=== PATIENT | female | born 1955 | race Caucasian/White ===

== ENCOUNTER 2021-05-04 09:37 | Inpatient (IN) | payer MEDICARE, SELFPAY ==
[2021-05-04] VITALS (43 sets, daily range): BP systolic 76–124; BP diastolic 42–68; PULSE 53–79; RESP 14–26; TEMP 36.5–37.2; O2SAT 77–98; BMI 32.8
--- NOTE | 2021-05-04 09:58 | XR_ITS ---
WS: [id number] PORTABLE CHEST HISTORY: hypoxia COMPARISON: None available. Single lead LEFT subclavian defibrillator. Minimal linear areas of subsegmental atelectasis at the lung bases. No pneumonia. Normal vasculature. No pleural effusion or pneumothorax. Cardiac size: Normal. Mediastinum/Aorta: Mild atherosclerosis aorta. Mild osteopenia. XR/XR chest 1V portable [id number] IMPRESSION: Minimal bibasilar areas of subsegmental atelectasis. No pneumonia.
--- NOTE | 2021-05-04 09:59 | ED_ITS ---
Documented by User: MARLEEN Cedillo 05/04/21 10:41 HPI - SOB/Dyspnea General: Chief Complaint: Shortness of Breath/Dyspnea Stated Complaint: POSSIBLE COVID Time Seen by Provider: 05/04/21 09:37 Source: patient and EMS Mode of arrival: EMS Limitations: no limitations History of Present Illness: HPI Narrative: Patient is a 66-year-old female with a history of MS, obesity, and CAD/defibrillator here via EMS for concerns of shortness of breath, cough, and concerns for COVID. EMS states when they arrived patient was satting in the low 80s at room air. Patient tells me about 3 days ago she tripped and fell in her home and because of the MS was too weak to get up on her own. She states she was on the ground for approximately 24 hours until a family member found her and called the fire department to help get her up. They state since that time patient has had a worsening cough and shortness of breath thus decided to call EMS today. She has had positive COVID exposure. She is unvaccinated for COVID. Patient states her MS causes her to have chronic pain. She is reporting pain all over but states this is baseline for her MS. She denies any new pain or injury that she sustained during the recent fall. She has not been running fevers. Denies headache or diarrhea. Associated symptoms: Reports chest congestion; Deny abdominal pain, chest pain, dizziness, fever(s), hemoptysis, lightheadedness, nausea, palpitations, syncope or vomiting Review of Systems Const: Denies: fever(s) or chills Eyes: Denies: change in vision ENMT: Denies: throat pain, odynophagia, nasal discharge or nasal congestion Card: Reports: dyspnea on exertion; Denies: chest pain, palpitations, irregular heart rhythm, edema, lightheadedness, syncope or pre-syncope Resp: Reports: dyspnea, productive cough and chest congestion; Denies: wheezing or hemoptysis GI: Denies: abdominal pain, nausea, vomiting or diarrhea : Denies: flank pain or dysuria Musc: Reports: other (chronic pain) Skin/Breast: Denies: rash Neuro: Denies: headache(s), dizziness or confusion Physical Exam Const: COMMON NORMALS: patient oriented x3, no limitations and alert GENERAL APPEARANCE: cooperative and in distress (pt in respiratory failure with O2 sats in the 80s on RA) NUTRITIONAL APPEARANCE: obese ORIENTATION/CONSCIOUSNESS: Yes awake, Yes oriented to person, Yes oriented to place and Yes oriented to time HENMT: COMMON NORMALS: normocephalic and atraumatic HEAD & SCALP: normal to inspection, normocephalic and atraumatic Resp: COMMON NORMALS: normal respiratory effort EFFORT & INSPECTION: Yes Actively coughing (productive sounding cough) AUSCULTATION: rhonchi and diminished lung sounds Cardio: COMMON NORMALS: regular rate and regular rhythm RATE: regular rate RHYTHM: regular rhythm GI: COMMON NORMALS: Normal to inspection, nondistended, normoactive bowel sounds present, Soft to palpation and no masses INSPECTION: Yes normal to inspection PALPATION: Yes Soft to palpation and No Tenderness to palpation present (GI) Extremity: COMMON NORMALS: full ROM, capillary refill normal, no clubbing, cyanosis or edema, no calf tenderness and no pedal edema GENERAL: Yes normal exam except as noted Neuro: JEROMY COMA SCALE: document GCS findings Jeromy coma scale eye opening: Spontaneous Jeromy coma scale verbal response: Orientated Jeromy coma scale motor response: Obey commands Jeromy coma scale total score: 15 COMMON NORMALS: patient oriented x3 SENSORIUM/ORIENTATION: Yes alert, Yes oriented to person, Yes oriented to place and Yes oriented to time Skin: COMMON NORMALS: no rashes or lesions noted GENERAL SKIN EXAM: no rashes or lesions noted TRAUMA: no lacerations or abrasions Course Vital Signs: Vital signs: Vital Signs Temperature 99.0 F 05/04/21 10:06 Pulse Rate 73 05/04/21 10:55 Respiratory Rate 14 05/04/21 10:06 Blood Pressure 86/49 05/04/21 10:55 Pulse Oximetry 96 05/04/21 10:55 MDM - SOB/Dyspnea MDM Narrative: Medical decision making narrative: Care will be transferred to Dr. Cardoso as patient will be an admit. Lab Data: Labs: Lab Results 05/04/21 05/04/21 10:31 10:50 WBC 3.8 10^3/uL L 10^ 3/uL (4.0-10.0) RBC 4.30 10^6/uL 10^6 /uL (4.1-5.3) Hgb 12.4 g/dL g/dL (11.5-15.3) Hct 38.0 % % (37.0-47.0) MCV 88.4 fl fl (81-99) MCH 28.8 pg pg (28.0-34.0) MCHC 32.6 g/dL g/dL (30.0-36.0) RDW 14.0 % % (12.1-15.1) Plt Count 132 10^3/cmm 10^3 /cmm (130-400) MPV 11.1 fL H fL (7.4-10.4) Neut % (Auto) 85.0 % % Lymph % (Auto) 8.4 % % [place] % (Auto) 5.5 % % Eos % (Auto) 0.0 % % Baso % (Auto) 0.3 % % Neut # (Auto) 3.24 10^3/uL 10^3 /uL (1.8-7.7) Lymph # (Auto) 0.3 10^3/uL L 10^ 3/uL (0.8-4.8) [place] # (Auto) 0.2 10^3/uL 10^3/ uL (0.2-0.9) Eos # (Auto) 0.0 10^3/uL 10^3/ uL (0.0-0.8) Baso # (Auto) 0.0 10^3/uL 10^3/ uL (0.0-0.1) Nucleated RBC % (a uto) 0 % % Nucleated RBCs # 0.0 /100WBC /100W BC SARS-CoV-2 Ag (Rap id) Positive H (Negative) Imaging Data^: CXR: Radiologist's impression: [address] [address]CW[facility] ReportSigned Patient: Darryl Ricks #: [id number]: 4Acct#:[id number]/Sex: 66 / FADM Date: 05/04/21Loc: ERRoom/Bed:Attending Dr: Ordering Provider/Ordering MD: Asuncion Bustamante Date of Service: 05/04/21 Procedure(s): XR chest 1V portable [id number] Accession Number(s): [id number] Report Number: [id number] WS: [id number] PORTABLE CHEST HISTORY: hypoxia COMPARISON: None available. Single lead LEFT subclavian defibrillator. Minimal linear areas of subsegmental atelectasis at the lung bases. No pneumonia. Normal vasculature. No pleural effusion or pneumothorax. Cardiac size: Normal. Mediastinum/Aorta: Mild atherosclerosis aorta. Mild osteopenia. XR/XR chest 1V portable [id number] IMPRESSION: Minimal bibasilar areas of subsegmental atelectasis. No pneumonia. Dictated By:Kati Hurst DOSigned By:Kati Hurst DOSigned Date/Time:05/04/21 1036DD/ 1035 Discharge Plan Discharge Patient Disposition: Admitted As Inpatient Clinical Impression: COVID-19, Acute respiratory failure with hypoxia Condition: Stable Coding Level of Care Code ED Rubber Flap Tuber Machine Operator for Chg Fwd Exam Comprehensive Documented by User: Karel Cardoso DO 05/04/21 11:48 HPI - SOB/Dyspnea General: Chief Complaint: Shortness of Breath/Dyspnea Stated Complaint: POSSIBLE COVID Time Seen by Provider: 05/04/21 09:37 History of Present Illness: HPI Narrative: 66 yo presents emergency room complaining of cough and shortness of breath. Initially seen by MARLEEN Cedillo. Nursing staff reported to me that her initial oxygen saturation was 86 to 87% on room air she improved to low 90s on 3 L by nasal cannula into the mid 90s by 5 L by nasal cannula. Patient has had progressive cough and weakening over the last 7 days, known Covid exposure approximately 14 days ago, 3 days ago she fell and spent nearly 24 hours on the floor unable to get up until her sister found her EMS was called they helped her up and she PRC at the scene. She does have MS although she is not being treated at this time and complains of systemic myalgias. She denies any particular pain or ache from the fall and she denies loss of consciousness at that time. She is a nonproductive cough and some loose stools. MD elicited complaint: shortness of breath and cough Pertinent past history: other (Multiple sclerosis) Onset (ago): day(s) Timing: constant Severity: moderate Exacerbating factors: exertion, movement and coughing Relieving factors: oxygen and rest Known history of: other (Multiple sclerosis) Associated symptoms: Reports chest congestion, cough, extremity pain and myalgias; Deny abdominal pain, chest pain, diaphoresis, dizziness, fever(s), hemoptysis, lightheadedness, nausea, orthopnea, palpitations, paresthesias, polydipsia, polyuria, rash, sense of impending doom, syncope or vomiting Treatment prior to arrival: none Review of Systems Const: Denies: fever(s) or diaphoresis ENMT: Denies: throat pain, ear or mastoid pain, nasal discharge or nasal congestion Card: Denies: chest pain, palpitations, lightheadedness, syncope or orthopnea Resp: Reports: dyspnea, productive cough and chest congestion; Denies: hemoptysis GI: Denies: abdominal pain, nausea or vomiting : Denies: flank pain, difficulty voiding, dysuria, urinary frequency or urinary urgency Musc: Reports: extremity pain Skin/Breast: Denies: rash or pruritus Neuro: Denies: dizziness Endo: Denies: polyuria or polydipsia Physical Exam Const: COMMON NORMALS: no acute distress GENERAL APPEARANCE: cooperative and comfortable ORIENTATION/CONSCIOUSNESS: Yes awake, Yes oriented to person, Yes oriented to place and Yes oriented to time HENMT: COMMON NORMALS: normocephalic, atraumatic and hearing grossly normal bilaterally HEAD & SCALP: normocephalic and atraumatic Neck/C-Spine: COMMON NORMALS: no JVD Resp: AUSCULTATION: crackles and wheezes Cardio: COMMON NORMALS: no JVD, regular rate, regular rhythm and No murmurs present (Cardio) RATE: regular rate RHYTHM: regular rhythm GI: COMMON NORMALS: Soft to palpation and No hepatosplenomegaly present AUSCULTATION: Yes normoactive bowel sounds PALPATION: Yes Soft to palpation, No Tenderness to palpation present (GI), No Guarding due to palpation present (GI) and Yes No hepatosplenomegaly present Extremity: COMMON NORMALS: normal to inspection, capillary refill normal, no clubbing, cyanosis or edema, no calf tenderness and no pedal edema Neuro: SENSORIUM/ORIENTATION: Yes oriented to person, Yes oriented to place and Yes oriented to time Skin: COMMON NORMALS: no rashes or lesions noted GENERAL SKIN EXAM: no rashes or lesions noted Course Vital Signs: Vital signs: Vital Signs Temperature 99.0 F 05/04/21 10:06 Pulse Rate 73 05/04/21 10:55 Respiratory Rate 14 05/04/21 10:06 Blood Pressure 86/49 05/04/21 10:55 Pulse Oximetry 96 05/04/21 10:55 MDM - SOB/Dyspnea MDM Narrative: Medical decision making narrative: Care assumed from Asuncion Bustamante see notes above. Agree with her assessment and plan will admit for Covid pneumonitis with acute respiratory failure start remdesivir and dexamethasone discussed with hospitalist. Reviewed labs imaging and EKG in the chart. Lab Data: Labs: Lab Results 05/04/21 05/04/21 10:31 10:50 WBC 3.8 10^3/uL L 10^ 3/uL (4.0-10.0) RBC 4.30 10^6/uL 10^6 /uL (4.1-5.3) Hgb 12.4 g/dL g/dL (11.5-15.3) Hct 38.0 % % (37.0-47.0) MCV 88.4 fl fl (81-99) MCH 28.8 pg pg (28.0-34.0) MCHC 32.6 g/dL g/dL (30.0-36.0) RDW 14.0 % % (12.1-15.1) Plt Count 132 10^3/cmm 10^3 /cmm (130-400) MPV 11.1 fL H fL (7.4-10.4) Neut % (Auto) 85.0 % % Lymph % (Auto) 8.4 % % [place] % (Auto) 5.5 % % Eos % (Auto) 0.0 % % Baso % (Auto) 0.3 % % Neut # (Auto) 3.24 10^3/uL 10^3 /uL (1.8-7.7) Lymph # (Auto) 0.3 10^3/uL L 10^ 3/uL (0.8-4.8) [place] # (Auto) 0.2 10^3/uL 10^3/ uL (0.2-0.9) Eos # (Auto) 0.0 10^3/uL 10^3/ uL (0.0-0.8) Baso # (Auto) 0.0 10^3/uL 10^3/ uL (0.0-0.1) Nucleated RBC % (a uto) 0 % % Nucleated RBCs # 0.0 /100WBC /100W BC SARS-CoV-2 Ag (Rap id) Positive H (Negative) Discharge Plan Discharge Patient Disposition: Admitted As Inpatient Clinical Impression: COVID-19, Acute respiratory failure with hypoxia Condition: Stable Coding Level of Care Code ED Rubber Flap Tuber Machine Operator for [place] Deeg Fwd Exam Comprehensive
[2021-05-04] MEDS: sodium chloride 0.9% 500 ML 999 ML IV (10:47)
--- NOTE | 2021-05-04 10:53 | PC.PHAR ---
pt brought in her medication bottles-pt states she takes her rosuvastatin three times a week rx last filled jul 12 2020 90d/s for 10mg daily-notes are made in the pharmacy comments
[2021-05-04] MEDS: acetaminophen 1,000 MG/100 ML PIGGYBACK 400 MG IV (10:54)
[2021-05-04 11:07] LABS: Basophils % 0.3 %; Hemoglobin 12.4 g/dL (11.5-15.3); Lymphocytes # 0.3 10^3/uL (0.8-4.8); Lymphocytes % 8.4 %; Mean Corpuscular HGB Conc 32.6 g/dL (30.0-36.0); Mean Corpuscular Hemoglobin 28.8 pg (28.0-34.0); Mean Corpuscular Volume 88.4 fl (81-99); Mean Platelet Volume 11.1 fL (7.4-10.4); Monocytes # 0.2 10^3/uL (0.2-0.9); Monocytes % 5.5 %; Neutrophils # 3.24 10^3/uL (1.8-7.7); Nucleated Red Blood Cells % 0 %; Platelet Count 132 10^3/cmm (130-400); White Blood Count 3.8 10^3/uL (4.0-10.0)
[2021-05-04 11:10] LABS: SARS Covid-2 Antigen Positive (Negative)
[2021-05-04 11:22] LABS: ABG PCO2 36.3 mmHg (35-45); ABG PH Result 7.34 (7.35-7.45); Alveolar-Arterial Oxygen Gradi 4.1 mmHg (5-10); Arterial Blood Gas Hematocrit 35.7 % (37-47); Base Excess ABG -5.7 mmol/L (-2.0-2.0); Blood Gas Allen Test Pos; Blood Gas Operator Identificat BROMA; Blood Gas Sample Site Brachial, left; Blood Gas Sample Type Arterial; Carboxyhemoglobin 1.5 %THgb (0.4-20.1); HCO3 ABG 19.5 mmol/L (22-26); HGB O2 Sat 93.1 % (95-100); Ionized Calcium Level - ABG 1.1 mmol/L (1.1-1.4); Methemoglobin 0.8 % (0.4-1.5); Oxygen Device NC; Oxygen Saturation ABG 95.3; PO2 ABG 73.8 mmHg (80.0-100.0); Potassium Level - ABG 3.6 mmol/L (3.5-5.0); Total Hemoglobin 11.7 g/dL (12-16)
[2021-05-04 11:28] LABS: Lactic Sepsis W/Reflex 1.1 mmol/L (0.5-2.2)
[2021-05-04 11:41] LABS: NT Pro B Type Natriuretic Pept 406 pg/mL (0-125); Procalcitonin 0.34 ng/mL (0-0.5)
[2021-05-04 11:44] LABS: Bilirubin Urine Neg (Negative); Blood Urine 2+ (Negative); Glucose Urine UA Trace (Normal); Ketones Urine Negative (Negative); Nitrate Urine Negative (Negative); Protein Urine Trace (Negative); Specific Gravity, Urine 1.015 (1.005-1.030); Urine Appearance Clear (CLEAR); Urine Color Yellow (Yellow); Urobilinogen Urine Norm (Negative); pH Urine 5 (5-7)
[2021-05-04 11:45] LABS: Add Urine Microscopic? YES; Bacteria Urine 2+ /hpf; Hyaline Casts Urine 0-4 /lpf; Leukocyte Esterase Urine Negative (Negative); Other Casts Urine 5 /lpf; RBC Urine 0-4 /hpf (0-2)
[2021-05-04 11:46] LABS: Add Urine Culture? Yes; Squamous Epithelial Cell Urine 0-4 /hpf (0-5)
[2021-05-04 11:47] LABS: Potassium 4.9 mmol/L (3.5-5.1)
[2021-05-04 12:04] LABS: Alanine Aminotransferase 25 U/L (0-33); Albumin Level 3.3 g/dL (3.5-5.2); Alkaline Phosphatase 53 IU/L (35-105); Aspartate Amino Transferase 48 U/L (0-32); Blood Urea Nitrogen 52 mg/dL (8-23); C Reactive Protein 125.8 mg/L (0.0-4.9); Carbon Dioxide 18 mmol/L (22-29); Globulin 2.2 g/dL (1.3-4.6); Glomerular Filtration Rate 17.6 mL/min (90-130); Glucose 100 mg/dL (65-115); Total Bilirubin 0.2 mg/dL (0.15-1.2); Total Protein 5.5 g/dL (6.6-8.7)
[2021-05-04 12:06] LABS: Osmolality Calculated 292 mOsm/kg (285-295); Sodium 134 mmol/L (136-145)
[2021-05-04 12:07] LABS: Anion Gap 23.9 (5-19); Calcium 7.8 mg/dL (8.5-10.5); Chloride 97 mmol/L (98-107)
[2021-05-04 12:09] LABS: Creatine Phosphokinase 965 U/L (26-192)
[2021-05-04] MEDS: dexamethasone 10 mg/mL INJ 6 MG IVP (12:45)
[2021-05-04] MEDS: remdesivir 200 MG in sodium chloride 0.9% (100 ml) 60 ML 100 MG IV (12:56)
--- NOTE | 2021-05-04 13:30 | P.HP_ITS ---
Providers/Chief Complaint Admitting Physician: Zac Treviño Chief Complaint: POSSIBLE COVID History of Present Illness Pleasant 66-year-old lady with history of MS, CAD, prior history of 1 stent, history of cardiomyopathy, possibly ischemic, status post AICD implantation, usually with diffuse aches secondary to MS, tripped and fell at home, unable to get up for prolonged period of time, her sister called EMS to help her get up, but she declined at that time to go to the hospital. Has been having worsening body aches. Persistently weak. Came to the ER for evaluation today. Requiring 5 L of oxygen by nasal cannula on presentation, blood pressure low on presentation seven 6.42, received 1.5 L fluid boluses. Blood pressure still low, starting on low rate pressor, currently on 2 mcg/min. COVID-19 positive. Afebrile. WBC 3.8, hemoglobin 12.4, platelet 132,000, D-dimer 1. ABG 7.34/36.3/73.8 on 3 L, sodium 134, bicarb 18, anion gap 23.9, BUN 52, creatinine 2.7. AST 48, other liver parameters normal. Creatinine kinase 965. CRP 125.8. NT proBNP 106. Albumin 3.3. Urine with 0-4 RBC, 10-15 WBC, 0-4 SEC's, hyaline cast. Chest x-ray with minimal bibasilar areas of subsegmental atelectasis, no obvious pneumonia. Reports she is hungry. Reports she has not eaten much in the last several days. Review of Systems Const: Reports: body aches, fatigue, malaise and other (Brief mild headache resolved); Denies: fever(s), chills or change in appetite (But no oral intake recently. ) Eyes: Denies: change in vision or eye redness ENMT: Denies: throat pain, oral sores or ear or mastoid pain Card: Denies: chest pain, edema, pre-syncope or dyspnea on exertion Resp: Denies: dyspnea, productive cough, change in phlegm color or hemoptysis GI: Denies: abdominal pain, nausea, vomiting, diarrhea, constipation, hemat ochezia or melena : Denies: flank pain, urinary frequency or hematuria Musc: Denies: back pain, joint swelling or joint redness Skin/Breast: Denies: rash, sores or new lesions Neuro: Denies: headache(s), numbness in extremities, weakness in extremities, dizziness, confusion or seizure-like activity Endo: Denies: polyuria or polydipsia [place]/Lymph: Denies: easy bleeding or purpura All/Imm: Denies: urticaria, throat swelling or tongue swelling Medications/Allergies Home Medications Medication Instructions Recorded Confirmed Last Taken Type aspirin [Aspir-81] 81 mg PO QAM 05/04/21 05/04/21 Unknown History cholecalciferol (vitamin D3) 50 mcg PO QAM 05/04/21 05/04/21 Unknown History [Vitamin D3] ibuprofen 600 mg PO Q4H PRN 05/04/21 05/04/21 Unknown History metoprolol succinate 25 mg PO QAM 05/04/21 05/04/21 Unknown History nitroglycerin [Nitrostat] 0.4 mg SUBLINGUAL Q5M PRN 05/04/21 05/04/21 Unknown History rosuvastatin 10 mg PO .THREE TIMES A WEEK 05/04/21 05/04/21 Unknown History telmisartan 20 mg PO QAM 05/04/21 05/04/21 Unknown History Allergies Allergy/AdvReac Type Severity Reaction Status Date / Time Unable to Assess Allergy Verified 05/04/21 10:46 PFSH Acute PFSH: Medical History (Updated 05/04/21 @ 13:50 by Zac Treviño MD) CAD (coronary artery disease) MS (multiple sclerosis) Surgical History (Updated 05/04/21 @ 13:35 by Zac Treviño MD) AICD (automatic cardioverter/defibrillator) present Stented coronary artery Family History Other CAD (coronary artery disease) Social History Smoking and tobacco status: former smoker Alcohol intake: never Substance/Drug Use: never Lives independently: Yes Household members: none Marital status: Current occupational status: retired Vitals/I&O/Wt Last Vital Signs Temp 99.0 F 05/04/21 10:06 Pulse 73 05/04/21 10:55 Resp 14 05/04/21 10:06 BP 86/49 05/04/21 10:55 Pulse Ox 96 05/04/21 10:55 Weight last 48 hrs Weight 95.254 kg Physical Exam Const: COMMON NORMALS: no acute distress and patient oriented x3 GENERAL APPEARANCE: cooperative and comfortable NUTRITIONAL APPEARANCE: overweight ORIENTATION/CONSCIOUSNESS: Yes awake HENMT: COMMON NORMALS: oropharynx normal Neck/C-Spine: COMMON NORMALS: no JVD Resp: COMMON NORMALS: normal respiratory effort and clear to auscultation bilaterally AUSCULTATION: clear to auscultation bilaterally Cardio: COMMON NORMALS: no JVD, regular rhythm, S1 normal heart sound present, S2 normal heart sound present and No murmurs present (Cardio) RHYTHM: regular rhythm HEART SOUNDS: S1 normal heart sound present and S2 normal heart sound present GI: COMMON NORMALS: Normal to inspection, nondistended, normoactive bowel soun ds present, Soft to palpation and non-tender PALPATION: Yes Soft to palpation Extremity: COMMON NORMALS: no joint enlargement and no pedal edema Neuro: COMMON NORMALS: patient oriented x3 and moves all extremities Skin: COMMON NORMALS: no rashes or lesions noted LESIONS: lesion noted (0.5 cm abrasion right bunion, shallow ulcer, no drainage, no erythema) Data : 05/04/21 10:50 05/04/21 10:50 Micro: Microbiology 05/04/21 10:50 Blood Culture - Preliminary Blood SPECIMEN COLLECTED 05/04/21 10:50 Blood Culture - Preliminary Blood SPECIMEN COLLECTED A&P Assessment and plan (1) Septic shock: Mean arterial pressure down to 49 despite fluid challenge. Received 1.5 L. Additional fluid challenge held off due to unknown cardiac status. Started on 2 mcg/min Levophed. Receiving steroid as part of COVID-19 treatment. For now empirically will cover also with Zosyn. Patient also have UTI in addition to severe COVID-19. Lactic acid was okay. Blood cultures collected. Septic shock secondary to severe COVID-19, possible UTI. Follow-up urine cultures. Hold metoprolol. Telmisartan. Status: Acute (2) Acute respiratory failure with hypoxia: Initially requiring 4 L of oxygen, currently slightly better down to 3 L. Remdesivir, Decadron. Oxygen support. Lovenox prophylaxis. Antitussives. Supportive care. Status: Acute (3) COVID-19: Severe COVID-19 with hypoxic respiratory failure. Status: Acute (4) IVELISSE (acute kidney injury): Creatinine 2.7. Baseline unknown. Support blood pressure. Hold metoprolol. Telmisartan. Appears she may be taking ibuprofen as well. Would discontinue. Status: Acute (5) UTI (urinary tract infection): Zosyn. Follow-up urine culture. Status: Acute (6) Rhabdomyolysis: Recheck CK. Hold statin. Status: Acute (7) Fall: Status: Acute (8) AICD (automatic cardioverter/defibrillator) present: Reports cardiomyopathy and systolic congestive heart failure in the past due to which ICD was placed, but not recently. States her heart had recovered. No discharges. Status: Acute (9) MS (multiple sclerosis): Is not currently following with anyone or on any medications. Status: Acute (10) Foot abrasion: Abraded her right bunion after she had fallen down. Small abrasion without surrounding erythema or cellulitis. Keep clean. Status: Acute (11) CAD (coronary artery disease): Troponin and EKG series. Continue aspirin, hold statin, hold beta-b locker. Status: Acute Additional A&P Information Would want attempted resuscitation in case of cardiopulmonary arrest. Names her sister Amy as surrogate decision-maker in case could not make her own decisio ns. Attestations Medical Necessity Statement*: Admission of over 2 midnights is going needed for assessment of management of septic shock, severe COVID-19. Critical Care Time: The high probability of a clinically significant, sudden or life threatening deterioration of the patient's septic shock, severe COVID- 19, hypoxic respiratory failure system(s) required my full and direct attention, intervention and personal management. The critical care time is as shown. This time is in addition to time spent performing any reported procedures but includes the following: x Data and vital sign review and interpretation x Patient assessment, examination and intervention x Documentation x Medication orders and management Discussed with nursing staff, ER physician, patient Critical Care Time (min): 50 Coding Level of Care Code Acute Rehab Consultant for [facility] Fwd Exam Comprehensive Diagnoses Septic shock A41.9; R65.21 Acute respiratory failure with hypoxia J96.01 COVID-19 U07.1 IVELISSE (acute kidney injury) N17.9 UTI (urinary tract infection) N39.0 Rhabdomyolysis M62.82 Fall W19.XXXA AICD (automatic cardioverter/defibrillator) present Z95.810 MS (multiple sclerosis) G35 Foot abrasion S90.819A CAD (coronary artery disease) I25.10
[2021-05-04] MEDS: enoxaparin 40 mg/0.4 mL Syringe SUBCUT (15:02)
[2021-05-04] MEDS: pantoprazole DR 40 mg Tablet PO (15:02)
[2021-05-04] MEDS: piperacillin-tazobactam 3.375 GM in sodium chloride 0.9% (plus) 50 ML IV (15:02)
[2021-05-04] MEDS: D5-NS 0.45% + KCL 20 mEq 20 MEQ/1,000 ML BAG 100 MEQ IV (15:03)
--- NOTE | 2021-05-04 15:33 | ECG_ITS ---
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
[2021-05-04 15:40] LABS: Troponin(5th) Baseline 32 ng/L (0-10)
[2021-05-04 15:49] LABS: Thyroid Stimulating Hormone 0.74 uIU/mL (0.27-4.20)
[2021-05-04 16:12] LABS: Cortisol Random 14.81 ug/dL (2.47-19.5)
[2021-05-04 18:13] LABS: Troponin 5 2HR 28.43 ng/L (0-10)
[2021-05-04 18:21] LABS: Troponin 5 2HR Delta -3.57 ABS# (0-10)
[2021-05-04 18:23] LABS: Charge for UA Resulting for Rev
[2021-05-04 18:31] LABS: Magnesium 1.9 mg/dL (1.7-2.3)
[2021-05-04 19:08] LABS: Add Urine Microscopic? YES; Bilirubin Urine Neg (Negative); Blood Urine 2+ (Negative); Glucose Urine UA Norm (Normal); Ketones Urine Negative (Negative); Leukocyte Esterase Urine Negative (Negative); Nitrate Urine Negative (Negative); Protein Urine Neg (Negative); Urine Appearance Clear (CLEAR); Urine Color Yellow (Yellow); Urobilinogen Urine Norm (Negative); pH Urine 5 (5-7)
--- NOTE | 2021-05-04 19:33 | ECG_ITS ---
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
[2021-05-04] MEDS: cyclobenzaprine 10 mg Tablet 5 MG PO (21:25)
[2021-05-04 22:34] LABS: Troponin 5 6HR 23.41 ng/L (0-10); Troponin 5 6HR Delta -8.59 ng/L (0-12)
[2021-05-05] VITALS (100 sets, daily range): BP systolic 71–123; BP diastolic 42–71; PULSE 49–76; RESP 16–28; TEMP 36.5–36.8; O2SAT 83–99
[2021-05-05] MEDS: D5-NS 0.45% + KCL 20 mEq 20 MEQ/1,000 ML BAG 100 MEQ IV ×2 (00:21→08:02)
[2021-05-05] MEDS: acetaminophen 325 mg Tablet 650 MG PO ×2 (01:40→12:10)
[2021-05-05] MEDS: piperacillin-tazobactam 3.375 GM in sodium chloride 0.9% (plus) 50 ML IV ×3 (03:50→21:25)
[2021-05-05] MEDS: aspirin 81 mg EC Tablet PO (06:00)
[2021-05-05] MEDS: cyclobenzaprine 10 mg Tablet 5 MG PO ×2 (06:13→18:41)
[2021-05-05 06:18] LABS: Basophils % 0.3 %; Hematocrit 37.8 % (37.0-47.0); Hemoglobin 12.5 g/dL (11.5-15.3); Lymphocytes # 0.3 10^3/uL (0.8-4.8); Lymphocytes % 8.3 %; Mean Corpuscular HGB Conc 33.1 g/dL (30.0-36.0); Mean Corpuscular Hemoglobin 28.7 pg (28.0-34.0); Mean Corpuscular Volume 86.9 fl (81-99); Mean Platelet Volume 11.4 fL (7.4-10.4); Monocytes # 0.2 10^3/uL (0.2-0.9); Neutrophils % 85.6 %; Nucleated Red Blood Cells % 0 %; Platelet Count 157 10^3/cmm (130-400); Red Blood Count 4.35 10^6/uL (4.1-5.3)
[2021-05-05 06:31] LABS: Alanine Aminotransferase 25 U/L (0-33); Alkaline Phosphatase 51 IU/L (35-105); Anion Gap 16.2 (5-19); Aspartate Amino Transferase 46 U/L (0-32); Blood Urea Nitrogen 40 mg/dL (8-23); C Reactive Protein 103.3 mg/L (0.0-4.9); Calcium 7.6 mg/dL (8.5-10.5); Carbon Dioxide 20 mmol/L (22-29); Chloride 106 mmol/L (98-107); Globulin 2.4 g/dL (1.3-4.6); Glomerular Filtration Rate 34.6 mL/min (90-130); Glucose 156 mg/dL (65-115); Osmolality Calculated 299 mOsm/kg (285-295); Potassium 4.2 mmol/L (3.5-5.1); Sodium 138 mmol/L (136-145); Total Bilirubin 0.2 mg/dL (0.15-1.2); Total Protein 5.4 g/dL (6.6-8.7)
[2021-05-05] MEDS: dexamethasone 10 mg/mL INJ 6 MG IVP (08:02)
[2021-05-05] MEDS: pantoprazole DR 40 mg Tablet PO (08:02)
[2021-05-05 08:04] LABS: Creatine Phosphokinase 1004 U/L (26-192)
--- NOTE | 2021-05-05 09:47 | P.PN_ITS ---
Subjective Subjective: Interval history: Bothered by leg cramps. Otherwise is doing okay. Denies headache, nausea vomiting, chest pain or pressure, reports is comfortable on the 4 L nasal cannula. No diarrhea or abdominal discomfort. Vitals/I&O/Wt Last Vital Signs Temp 98.2 F 05/05/21 04:00 Pulse 64 05/05/21 08:15 Resp 21 H 05/05/21 08:15 BP 84/49 05/05/21 08:15 Pulse Ox 90 05/05/21 08:15 05/04/21 05/05/21 05/05/21 22:59 06:59 14:59 Intake Total 60 / 220 2694.935 / 2914.935 818.333 / 818.333 Output Total 1250 / 1250 2310 / 3560 Balance -1190 / -1030 384.935 / -645.065 818.333 / 818.333 Weight last 48 hrs Weight 95.254 kg Weight 95.254 kg Physical Exam Const: COMMON NORMALS: no acute distress and patient oriented x3 GENERAL APPEARANCE: cooperative and comfortable NUTRITIONAL APPEARANCE: overweight ORIENTATION/CONSCIOUSNESS: Yes awake HENMT: COMMON NORMALS: oropharynx normal Neck/C-Spine: COMMON NORMALS: no JVD Resp: COMMON NORMALS: normal respiratory effort and clear to auscultation bilaterally AUSCULTATION: clear to auscultation bilaterally Cardio: COMMON NORMALS: no JVD, regular rhythm, S1 normal heart sound present, S2 normal heart sound present and No murmurs present (Cardio) RHYTHM: regular rhythm HEART SOUNDS: S1 normal heart sound present and S2 normal heart sound present GI: COMMON NORMALS: Normal to inspection, nondistended, normoactive bowel s ounds present, Soft to palpation and non-tender PALPATION: Yes Soft to palpation Extremity: COMMON NORMALS: no joint enlargement and no pedal edema Neuro: COMMON NORMALS: patient oriented x3 and moves all extremities Skin: COMMON NORMALS: no rashes or lesions noted GENERAL SKIN EXAM: no rashes or lesions noted LESIONS: lesion noted (0.5 cm abrasion right bunion, shallow ulcer, no drainage, no erythema) Urinary Catheter Management^: Warren: Cath Placed During This Visit: yes Reason for Continuing Indwelling Catheter: Accurate Measurement of Urinary Output in Critically Ill Patients Urinary Catheter Date of Insertion: 05/04/21 Urinary Catheter Time of Insertion: 18:04 Data : 05/05/21 04:28 05/05/21 04:28 Micro: Microbiology 05/04/21 11:05 Urine Culture - Preliminary Urine,Clean Catch 05/04/21 10:50 Blood Culture - Preliminary Blood SPECIMEN COLLECTED 05/04/21 10:50 Blood Culture - Preliminary Blood SPECIMEN COLLECTED A&P Assessment and plan (1) Septic shock: Yesterday found to be retaining urine, Warren catheter placed with evacuation of 1.25 L. Follow-up urine, blood culture. Continue empiric antibiotics. Wean down Levophed as tolerating. Inadequate cortisol, start hydrocortisone. Zosyn. Septic shock secondary to severe COVID-19, possible UTI. Hold metoprolol. Telmisartan. Status: Acute (2) Acute respiratory failure with hypoxia: 4 L of oxygen Continue remdesivir, Decadron. Oxygen support. Lovenox prophylaxis. Antitussives. Supportive care. Status: Acute (3) COVID-19: Severe COVID-19 with hypoxic respiratory failure. Status: Acute (4) IVELISSE (acute kidney injury): Improving. Baseline unknown. Support blood pressure. Hold metoprolol. Telmisartan. Appears she may be taking ibuprofen as well. Would discontinue. Status: Acute (5) UTI (urinary tract infection): Zosyn. Follow-up urine culture. Urinary retention noted on arrival to ICU. Warren placed. Status: Acute (6) Rhabdomyolysis: Recheck CK slightly higher. Hold statin. Status: Acute (7) Fall: Status: Acute (8) AICD (automatic cardioverter/defibrillator) present: Reports cardiomyopathy and systolic congestive heart failure in the past due to which ICD was placed, but not recently. States her heart had recovered. No discharges. Status: Acute (9) MS (multiple sclerosis): Is not currently following with anyone or on any medications. Discussed will need follow-up with neurology. Status: Acute (10) Foot abrasion: Abraded her right bunion after she had fallen down. Small abrasion without surrounding erythema or cellulitis. Keep clean. Status: Acute (11) CAD (coronary artery disease): Troponin with mild elevation, without peak, not suggestive of acute ID. Likely demand secondary to hypoxia, sepsis. Continue aspirin, hold statin, hold beta-ramon. Status: Acute Additional A&P Information Would want attempted resuscitation in case of cardiopulmonary arrest. Names her sister Amy as surrogate decision-maker in case could not make her own decisions. Attestations Medical Necessity Statement*: Continue admission for assessment management of sepsis, septic shock, severe COVID-19. 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
[2021-05-05] MEDS: hydrocortisone 100 mg/2 mL SDV IVP ×2 (13:59→19:37)
[2021-05-05] MEDS: enoxaparin 40 mg/0.4 mL Syringe SUBCUT (14:00)
--- NOTE | 2021-05-05 18:25 | PC.NURSE ---
Shift Note Frequent safety and comfort rounds continue. Orders and nursing care completed as indicated. Patient receievd first dose of ramdesiver this evening. Complaints of leg pain throughout the day, PRN medication given on patient's request. Pt turned off of levophed drip at 1745 this evening, see VS. Sister came by and dropped off patient's glasses, phone and dentures. Items on placed on bedside table. Patient monitored for response to intervention and treatments. Education provided includes new medications, pain management, and frequent position changes. Patient verbalized understanding. Will continue to monitor.
[2021-05-05] MEDS: remdesivir 100 MG in sodium chloride 0.9% (100 ml) 80 ML IV (18:41)
[2021-05-05 20:18] LABS: Quest SARS-CoV-2 RNA DETECTED (NOT DETECTED)
[2021-05-06] VITALS (46 sets, daily range): BP systolic 68–130; BP diastolic 33–103; PULSE 55–86; RESP 16–28; TEMP 36.1–36.5; O2SAT 88–96
[2021-05-06] MEDS: hydrocortisone 100 mg/2 mL SDV IVP ×3 (02:57→14:20)
[2021-05-06] MEDS: acetaminophen 325 mg Tablet 650 MG PO ×2 (03:13→10:00)
[2021-05-06 03:48] LABS: Hematocrit 39.2 % (37.0-47.0); Hemoglobin 12.5 g/dL (11.5-15.3); Lymphocytes # 0.4 10^3/uL (0.8-4.8); Mean Corpuscular HGB Conc 31.9 g/dL (30.0-36.0); Mean Corpuscular Hemoglobin 28.7 pg (28.0-34.0); Mean Corpuscular Volume 90.1 fl (81-99); Monocytes # 0.3 10^3/uL (0.2-0.9); Neutrophils # 4.73 10^3/uL (1.8-7.7); Neutrophils % 86.6 %; Nucleated Red Blood Cells % 0 %; Platelet Count 149 10^3/cmm (130-400); Red Blood Count 4.35 10^6/uL (4.1-5.3); Red Cell Distribution Width 14.6 % (12.1-15.1); White Blood Count 5.5 10^3/uL (4.0-10.0)
[2021-05-06 04:02] LABS: D Dimer 0.59 ug/mIFEU (0-0.59)
[2021-05-06 04:13] LABS: Alanine Aminotransferase 22 U/L (0-33); Albumin Level 2.9 g/dL (3.5-5.2); Alkaline Phosphatase 48 IU/L (35-105); Aspartate Amino Transferase 38 U/L (0-32); C Reactive Protein 46.7 mg/L (0.0-4.9); Chloride 108 mmol/L (98-107); Glucose 110 mg/dL (65-115); Potassium 4.7 mmol/L (3.5-5.1); Sodium 139 mmol/L (136-145)
[2021-05-06 04:28] LABS: Anion Gap 16.7 (5-19); Blood Urea Nitrogen 29 mg/dL (8-23); Calcium 7.6 mg/dL (8.5-10.5); Carbon Dioxide 19 mmol/L (22-29); Globulin 2.2 g/dL (1.3-4.6); Glomerular Filtration Rate 49.5 mL/min (90-130); Osmolality Calculated 294 mOsm/kg (285-295); Total Bilirubin 0.2 mg/dL (0.15-1.2); Total Protein 5.1 g/dL (6.6-8.7)
[2021-05-06 04:36] LABS: Creatine Phosphokinase 497 U/L (26-192)
[2021-05-06] MEDS: cyclobenzaprine 10 mg Tablet 5 MG PO (05:26)
[2021-05-06] MEDS: piperacillin-tazobactam 3.375 GM in sodium chloride 0.9% (plus) 50 ML IV ×3 (05:27→22:23)
[2021-05-06] MEDS: aspirin 81 mg EC Tablet PO (05:27)
[2021-05-06] MEDS: pantoprazole DR 40 mg Tablet PO (09:39)
[2021-05-06] MEDS: midodrine 5 mg TABLET PO ×3 (09:39→20:36)
--- NOTE | 2021-05-06 10:12 | P.PN_ITS ---
Subjective Subjective: Interval history: Still bothered by cramps in her legs. Denies chest pain or pressure. Not feeling short of breath. Vitals/I&O/Wt Last Vital Signs Temp 97 F L 05/06/21 04:00 Pulse 67 05/06/21 08:54 Resp 16 05/06/21 08:54 BP 90/61 05/06/21 04:00 Pulse Ox 96 05/06/21 08:54 05/05/21 05/06/21 05/06/21 22:59 06:59 14:59 Intake Total 1161.667 / 2599.065 50 / 2649.065 Output Total 1000 / 1000 860 / 1860 Balance 161.667 / 1599.065 -810 / 789.065 Weight last 48 hrs Weight 94.801 kg Weight 95.254 kg Physical Exam Const: COMMON NORMALS: no acute distress and patient oriented x3 GENERAL APPEARANCE: cooperative; not comfortable NUTRITIONAL APPEARANCE: overweight ORIENTATION/CONSCIOUSNESS: Yes awake HENMT: COMMON NORMALS: oropharynx normal Neck/C-Spine: COMMON NORMALS: no JVD Resp: COMMON NORMALS: normal respiratory effort and clear to auscultation bilaterally AUSCULTATION: clear to auscultation bilaterally Cardio: COMMON NORMALS: no JVD, regular rhythm, S1 normal heart sound present, S2 normal heart sound present and No murmurs present (Cardio) RHYTHM: regular rhythm HEART SOUNDS: S1 normal heart sound present and S2 normal heart sound present GI: COMMON NORMALS: Normal to inspection, nondistended, normoactive bowel so unds present, Soft to palpation and non-tender PALPATION: Yes Soft to palpation Extremity: COMMON NORMALS: no joint enlargement and no pedal edema Neuro: COMMON NORMALS: patient oriented x3 and moves all extremities Skin: COMMON NORMALS: no rashes or lesions noted GENERAL SKIN EXAM: no rashes or lesions noted LESIONS: lesion noted (0.5 cm abrasion right bunion, shallow ulcer, no drainage, no erythema) Urinary Catheter Management^: Warren: Cath Placed During This Visit: yes Reason for Continuing Indwelling Catheter: Accurate Measurement of Urinary Output in Critically Ill Patients Urinary Catheter Date of Insertion: 05/04/21 Urinary Catheter Time of Insertion: 18:04 Data : 05/06/21 03:10 05/06/21 03:10 Micro: Microbiology 05/04/21 11:05 Urine Culture - Final Urine,Clean Catch 05/04/21 10:50 Blood Culture - Preliminary Blood NEGATIVE TO DATE 05/04/21 10:50 Blood Culture - Preliminary Blood NEGATIVE TO DATE A&P Assessment and plan (1) Septic shock: Weaning off pressor. Levophed has been shut off, although this morning blood pressure slightly softer, mean arterial pressure of 60. Add midodrine 5 mg 3 times daily. Monitor blood pressures. On admit noted retaining urine, Warren catheter placed with evacuation of 1.25 L. Follow-up urine, blood culture. Continue empiric antibiotics. Inadequate cortisol, start hydrocortisone. Continue Zosyn. Septic shock secondary to severe COVID-19, possible UTI. Hold metoprolol. Telmisartan. Status: Acute (2) Acute respiratory failure with hypoxia: Weaning down on oxygen. Currently doing well on 2 L nasal cannula. Continue remdesivir, Decadron. Oxygen support. Lovenox prophylaxis. Antitussives. Supportive care. Status: Acute (3) COVID-19: Severe COVID-19 with hypoxic respiratory failure. Improving. Status: Acute (4) IVELISSE (acute kidney injury): Improving. Baseline unknown. Support blood pressure. Hold metoprolol. Telmisartan. Appears she may be taking ibuprofen as well. Would discontinue. Status: Acute (5) UTI (urinary tract infection): Zosyn. No growth on urine culture. Procal. Consider DC antibiotic. Urinary retention noted on arrival to ICU. Warren placed. Status: Acute (6) Rhabdomyolysis: Recheck CK slightly higher. Hold statin. Status: Acute (7) Fall: Status: Acute (8) AICD (automatic cardioverter/defibrillator) present: Reports cardiomyopathy and systolic congestive heart failure in the past due to which ICD was placed, but not recently. States her heart had recovered. No discharges. Status: Acute (9) MS (multiple sclerosis): Is not currently following with anyone or on any medications. Discussed will need follow-up with neurology. Status: Acute (10) Foot abrasion: Abraded her right bunion after she had fallen down. Small abrasion without surrounding erythema or cellulitis. Keep clean. Status: Acute (11) CAD (coronary artery disease): Troponin with mild elevation, without peak, not suggestive of acute [place]. Likely demand secondary to hypoxia, sepsis. Continue aspirin, hold statin, hold beta-ramon. Status: Acute Additional A&P Information Would want attempted resuscitation in case of cardiopulmonary arrest. Names her sister Amy as surrogate decision-maker in case could not make her own decisions. Attestations Medical Necessity Statement*: Continue admission for assessment management of septic shock on presentation, improving, weaning off pressors, blood pressure still soft. Acute hypoxia with severe COVID-19. Critical Care Time: The high probability of a clinically significant, sudden or life threatening deterioration of the patient's septic shock and respiratory system(s) required my full and direct attention, intervention and personal management. The critical care time is as shown. 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
[2021-05-06] MEDS: enoxaparin 40 mg/0.4 mL Syringe SUBCUT (14:20)
[2021-05-06] MEDS: cyclobenzaprine 10 mg Tablet PO ×2 (14:46→20:36)
--- NOTE | 2021-05-06 15:50 | ECG_ITS ---
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: : [id number] Requested By: Zac Treviño Order Number: [id number] Reading MD: CHIDI BOWMAN Measurements Intervals [place] Rate: 58 P: 8 ID: [id number] QRS: -22 QRSD: 108 T: 90 QT: 434 QTc: 430 Interpretive Statements SINUS BRADYCARDIA BORDERLINE LEFT AXIS DEVIATION [QRS AXIS < -20] LOW QRS VOLTAGE IN PRECORDIAL LEADS [QRS DEFLECTION < 1.0 mV IN CHEST LEADS] NONSPECIFIC T-WAVE ABNORMALITY Compared to ECG 05/05/2021 20:31:12 Low QRS voltage now present Sinus rhythm no longer present T-wave abnormality still present Electronically Signed On 05-07-2021 12:58:45 INSPECTOR RECEIVING by CHIDI BOMWAN [id number]
[2021-05-06] MEDS: remdesivir 100 MG in sodium chloride 0.9% (100 ml) 80 ML IV (17:09)
--- NOTE | 2021-05-06 19:00 | PC.NURSE ---
Shift Note: pt afebrile, O2 sats above 90% on 1lpm/NC. Pt tolerating well. She does yell out occasionally about pain in her feet. Pain improved after higher Flexiril dose. Her feet are red with non pitting edema. Pt able to get ot of bed with 2 assist this afternoon. Walker provided, and pt did much better with it. She is still slightly wobbly. She had a medium soft BM. Frequent safety and comfort rounds continue. Orders and/or nursing care completed as indicated. Patient monitored for response to intervention and treatment(s). Education provided includes Plan of care,medications, IS and flutter valve use, the importance of moving. . Patient verbalized understanding. . Will continue to monitor.
[2021-05-06] MEDS: HYDROcodone-acetaminophen 5-325 mg Tablet 1 TAB PO (20:36)
[2021-05-07] VITALS (28 sets, daily range): BP systolic 73–125; BP diastolic 53–75; PULSE 56–76; RESP 18–27; TEMP 36.4–36.8; O2SAT 84–93
[2021-05-07] MEDS: HYDROcodone-acetaminophen 5-325 mg Tablet 1 TAB PO ×3 (00:41→09:30)
[2021-05-07 04:04] LABS: Basophils % 0.2 %; Hematocrit 41.1 % (37.0-47.0); Hemoglobin 13.1 g/dL (11.5-15.3); Lymphocytes # 0.4 10^3/uL (0.8-4.8); Lymphocytes % 7.7 %; Mean Corpuscular HGB Conc 31.9 g/dL (30.0-36.0); Mean Corpuscular Hemoglobin 28.5 pg (28.0-34.0); Mean Corpuscular Volume 89.3 fl (81-99); Mean Platelet Volume 10.5 fL (7.4-10.4); Monocytes # 0.5 10^3/uL (0.2-0.9); Neutrophils # 4.79 10^3/uL (1.8-7.7); Neutrophils % 83.4 %; Nucleated Red Blood Cells % 0 %; Platelet Count 176 10^3/cmm (130-400); Red Cell Distribution Width 14.8 % (12.1-15.1); White Blood Count 5.7 10^3/uL (4.0-10.0)
[2021-05-07 04:17] LABS: D Dimer 0.39 ug/mIFEU (0-0.59)
[2021-05-07 04:30] LABS: Alanine Aminotransferase 20 U/L (0-33); Alkaline Phosphatase 55 IU/L (35-105); Aspartate Amino Transferase 30 U/L (0-32); Blood Urea Nitrogen 32 mg/dL (8-23); C Reactive Protein 28.9 mg/L (0.0-4.9); Calcium 7.6 mg/dL (8.5-10.5); Carbon Dioxide 23 mmol/L (22-29); Chloride 109 mmol/L (98-107); Creatine Phosphokinase 203 U/L (26-192); Globulin 2.1 g/dL (1.3-4.6); Glomerular Filtration Rate 55.3 mL/min (90-130); Glucose 91 mg/dL (65-115); Osmolality Calculated 300 mOsm/kg (285-295); Procalcitonin 0.11 ng/mL (0-0.5); Sodium 142 mmol/L (136-145); Total Bilirubin 0.3 mg/dL (0.15-1.2); Total Protein 5.1 g/dL (6.6-8.7)
[2021-05-07] MEDS: aspirin 81 mg EC Tablet PO (05:04)
[2021-05-07] MEDS: piperacillin-tazobactam 3.375 GM in sodium chloride 0.9% (plus) 50 ML IV ×3 (05:16→21:01)
[2021-05-07] MEDS: pantoprazole DR 40 mg Tablet PO (09:29)
[2021-05-07] MEDS: midodrine 5 mg TABLET PO (09:30)
[2021-05-07] MEDS: hydrocortisone 100 mg/2 mL SDV IVP (09:30)
--- NOTE | 2021-05-07 09:50 | PC.CHAP ---
Pastoral Care Encounter/Spiritual Assessment Type of Contact [] Declined services executive visit [] Patient/Family/Request visit [] Outpatient visit [] Follow-up visit [] Physician referral [] Code/Alert [x] Routine visit [] Staff referral [] Actively dying [] Patient sleeping [] Family support [] [] Out of room [] Palliative care [] [] Receiving care in room [] Pre-surgical visit [] Trauma [] Long length of stay [x] ICU visit [x] Other: isolated covid Relational/Emotional Strength [] Patient feels connected with others/family/visitors/staff [] Distress [] Loneliness/isolation [] Abandonment Spirituality of Patient [] Person of Judith [] Attends Scientology of their Judith [] Believes in Prayer [] Reads Bible or Gnosticist materials [] There are Spiritual issues to be addressed Mammal Control Agent Interventions [x] Prayer [] Active listening [] Non-anxious presence [] Spiritual/emotional support [] Crisis/trauma care [] Spiritual counseling [] Bereavement support [] Provided bereavement packet [] Provided Bible/devotional materials [] Provided toy/stuffed animal, coloring book to patient or family member [] Provided Communion [] Anointing/[place] [] Salvation [x] Completed spiritual assessment [] Other: Impact on Illness or Injury [] Angry [] Fearful [] Anxious [] Often cries [] Exhaustion [] Unable to work [] Unable to attend mormon [] Unable to walk/stand [] Unable to read [] Unable to drive [] Unable to eat/drink [] Unable to sleep [] Unable to be with family [] Patient intubated [] Other: Summary Time spent with patient
--- NOTE | 2021-05-07 10:55 | CT_ITS ---
WS: [id number] CTA CHEST ABDOMEN AND PELVIS TECHNIQUE: Contrast enhanced CTA of the chest, abdomen, and pelvis with coronal and sagittal reformat jeffrey images and additional MIP Images. CLINICAL INFORMATION: covid, septic shock COMPARISON: None. DLP: 1957.[address] scans at [facility] use at least one of these dose optimization techniques: automated e xposure control; mA and/or kV adjustment per patient size (includes targeted exams where dose is matc hed to clinical indication); or iterative reconstruction. FINDINGS: Moderate chronic emphysematous changes. Moderate bilateral patchy groundglass infiltrates compatible with COVID 19 Pneumonia. No focal consolidation or pleural fluid. Proximal main pulmonary arteries ar e normal. Normal segmental and subsegmental pulmonary arteries. No evidence of pulmonary embolus. No mediastinal or hilar lymphadenopathy. Normal caliber thoracic aorta. Coronary calcification. No axill suleiman lymphadenopathy. Small esophageal hiatal hernia. Mild diffuse fatty infiltration the liver. Normal portal vein and spl enic vein. Tiny right hepatic cyst or hemangioma. Gallbladder appears normal. Normal spleen. Mild fat ty atrophy of the pancreas. Adrenal glands are normal. Normal renal parenchymal enhancement. No hydro nephrosis. Warren catheter. Calcified uterine fibroids. No free fluid in the abdomen or pelvis. Slightly ectatic infrarenal abdominal aorta measuring 2.5 x 2.5 cm AP by transverse. Mild disc space narrowing lumbar spine with vacuum disc phenomenon L2-L3 L3-L4 and L4-L5. No abdominal or pelvic lymp hadenopathy. No inguinal lymphadenopathy. CT/CT angio chest w abd pel w con IMPRESSION: 1. Moderate diffuse hazy groundglass infiltrates compatible with COVID 19 Pneu monia. 2. No evidence of pulmonary embolus. 3. Mild diffuse fatty infiltration liver. 4. No free fluid in the abdomen or pelvis. 5. Small esophageal hiatal hernia. 6. No hydronephrosis in either kidney.
[2021-05-07] MEDS: iodixanol 320 mg/mL 100mL Btl IV (11:38)
[2021-05-07 11:53] LABS: Iron 56 ug/dL (37-145); NT Pro B Type Natriuretic Pept 529 pg/mL (0-125); Percent Saturation 27.3 % (20-50); Total Iron Binding Capacity 205 mcg/dl; Unsaturated Iron Binding 149 ug/dL (112-347)
[2021-05-07] MEDS: zinc gluconate 50 mg Tablet PO (12:07)
[2021-05-07] MEDS: dextrose 5%-sod chloride 0.9% 1,000 ML 75 ML IV (12:08)
[2021-05-07] MEDS: enoxaparin 40 mg/0.4 mL Syringe SUBCUT (14:55)
[2021-05-07] MEDS: benzonatate 100 mg Capsule PO ×2 (14:55→20:05)
[2021-05-07] MEDS: ipratropium-albuterol 3 mL Neb INHALATION ×2 (15:35→20:19)
--- NOTE | 2021-05-07 15:54 | P.PN_ITS ---
Subjective Subjective: Interval history: Still bothered by cramps in her legs. Denies chest pain or pressure. Not feeling short of breath. Vitals/I&O/Wt Last Vital Signs Temp 97.5 F L 05/06/21 17:00 Pulse 62 05/07/21 06:00 Resp 21 H 05/07/21 05:00 BP 90/55 05/07/21 05:00 Pulse Ox 93 05/07/21 04:00 05/07/21 05/07/21 05/07/21 06:59 14:59 22:59 Intake Total 170 / 1450 50 / 50 Output Total 450 / 820 Balance -280 / 630 50 / 50 Weight last 48 hrs Weight 94.801 kg Physical Exam Urinary Catheter Management^: Warren: Cath Placed During This Visit: yes Reason for Continuing Indwelling Catheter: Accurate Measurement of Urinary Output in Critically Ill Patients Urinary Catheter Date of Insertion: 05/04/21 Urinary Catheter Time of Insertion: 18:04 Data : 05/07/21 03:20 05/07/21 03:20 A&P Assessment and plan (1) Septic shock: Levophed weaned off yesterday as patient was started on midodrine 5 mg 3 times a day. Keep mean arterial pressure over 60 mmHg. Hypotension/shock most likely secondary to COVID-19 along with multiple antihypertensives and dehydration on admission. CPK elevated on admission. Start D5 NS at 75 cc/h. Given urinary retention on admission and history of CAD for now we will stop midodrine. If needed will restart Levophed. Hold off on antihypertensives. Random cortisol on admission 14.8. Given patient was already on high-dose hydrocortisone 100 mg every 6 hourly cannot do ACTH test. Wean steroids from hydrocortisone to Decadron 6 mg IV every 12 hourly. Will do a quick taper to 6 mg daily which will be COVID-19 treatment dose. Check sputum culture, procalcitonin, urine Legionella bacterial antigen, MRSA swab. Check CTA chest abdomen pelvis. Check echocardiogram. Status: Acute (2) Acute respiratory failure with hypoxia: Weaning down on oxygen. Currently doing well on 2 L nasal cannula. Secondary to COVID-19 pneumonia cannot rule out secondary to MS flare. Request NIF assessment daily. Status: Acute (3) COVID-19: Hypoxia secondary to COVID-19 pneumonia: Mild to moderate disease. Oxygen supplementation keeping saturation over 88%. Dexamethasone 6 mg daily. Remdesivir to finish a 5-day course. Vitamin C, zinc. Start on DuoNebs every 6 hour, budesonide twice daily Pulmonary toilet with incentive spirometry flutter valve. We will monitor inflammatory markers including CRP, D-dimer every 48 hourly. If getting elevated will dose Actemra. Patient was made aware of the same and he has given verbal consent. D-dimer elevated on admission but now trended down to normal. Continue with Lovenox at prophylactic dose. Check sputum culture, procalcitonin, urine Legionella, bacterial antigen. Low suspicion for bacterial pneumonia for now. Given septic shock for now we will continue the Zosyn. Check MRSA swab. We will plan to finish a 5-day course of antibiotics. Check echocardiogram. Status: Acute (4) IVELISSE (acute kidney injury): Improving. Baseline unknown. Most likely a combination of septic shock and dehydration along with NSAIDs on admission. Status: Acute (5) UTI (urinary tract infection): Continue with Zosyn as above. Status: Acute (6) AICD (automatic cardioverter/defibrillator) present: Reports cardiomyopathy and systolic congestive heart failure in the past due to which ICD was placed, but not recently. States her heart had recovered. No discharges. Status: Chronic (7) MS (multiple sclerosis): Is not currently following with anyone or on any medications. Discussed will need follow-up with neurology. Status: Chronic (8) CAD (coronary artery disease): Troponin with mild elevation, without peak, not suggestive of acute [place]. Likely demand secondary to hypoxia, sepsis. Continue aspirin, hold statin, hold beta-ramon. Status: Chronic (9) Foot abrasion: Abraded her right bunion after she had fallen down. Small abrasion without surrounding erythema or cellulitis. Keep clean. Status: Acute (10) Fall: Status: Acute (11) Rhabdomyolysis: Recheck CK slightly higher. Hold statin. Status: Acute Additional A&P Information CODE STATUS: Full code. Would want attempted resuscitation in case of cardiopulmonary arrest. Names her sister Amy as surrogate decision-maker in case could not make her own decisions. Switch diet to soft mechanical cardiac diet. Lovenox for DVT prophylaxis. Protonix for PUD prophylaxis Attestations Medical Necessity Statement*: Requires further hospitalization for management of septic shock, hypoxia secondary to COVID-19 pneumonia, possible MS flare Critical Care Time: The high probability of a clinically significant, sudden or life threatening deterioration of the patient's [cardiac, pulmonary, neurological] system(s) required my full and direct attention, intervention and personal management. The critical care time is as shown. 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
--- NOTE | 2021-05-07 16:02 | PC.SOCIAL ---
Pg 2 IMM Explained to pt Pg 2 IMM. No questions voiced. Provided pt a copy. Initialed, dated, & timed a copy & placed in chart.
[2021-05-07 16:38] LABS: Potassium, Radom Urine 45 mmol/L
[2021-05-07 17:10] LABS: Bilirubin Urine Neg (Negative); Blood Urine 2+ (Negative); Glucose Urine UA Norm (Normal); Ketones Urine Negative (Negative); Leukocyte Esterase Urine Negative (Negative); Nitrate Urine Negative (Negative); Protein Urine Trace (Negative); Specific Gravity, Urine 1.005 (1.005-1.030); Urine Appearance Clear (CLEAR); Urine Color Yellow (Yellow); Urobilinogen Urine Norm (Negative); pH Urine 6.5 (5-7)
[2021-05-07 17:11] LABS: Add Urine Culture? No; Add Urine Microscopic? YES; Bacteria Urine TRACE /hpf; WBC Urine 0-4 /hpf (0-5)
[2021-05-07 17:16] LABS: Urine Random Chloride < 10 mmol/L; Urine Random Sodium < 10 mmol/L
[2021-05-07] MEDS: ascorbic acid 500 mg Tablet PO (17:37)
[2021-05-07] MEDS: remdesivir 100 MG in sodium chloride 0.9% (100 ml) 80 ML IV (17:37)
[2021-05-07] MEDS: ferrous gluconate 324 mg Tablet PO (17:37)
[2021-05-07] MEDS: dexamethasone 10 mg/mL INJ 6 MG IVP (17:37)
[2021-05-07] MEDS: budesonide 0.5 mg/2 mL Neb INHALATION (20:19)
--- NOTE | 2021-05-07 20:23 | PC.NURSE ---
Shift Note: Pt seems happier and cheerful today. The hydrocodone helps her pain well. she has sat up in hair most of the day, she has gotten out of it to use BSC and go to CT. Ct showed no PEs. She has uses bath wipes and shower caps today. She remains on 2lpm/NC for oxygen. She has recieved her thrid dose of Remdesivir today. Urine output adequate. She did have a BM today. Frequent safety and comfort rounds continue. Orders and/or nursing care completed as indicated. Patient monitored for response to intervention and treatment(s). Education provided includes continuing paln of care, Decadron, zinc, ferrous sulfate, Ct. Patient verbalizes understanind of paln of care and medications. Will continue to monitor.
[2021-05-08] VITALS (31 sets, daily range): BP systolic 86–123; BP diastolic 43–79; PULSE 60–95; RESP 18–30; TEMP 36.6–36.7; O2SAT 88–92
[2021-05-08] MEDS: dextrose 5%-sod chloride 0.9% 1,000 ML 75 ML IV (00:04)
[2021-05-08] MEDS: ipratropium-albuterol 3 mL Neb INHALATION ×4 (03:20→20:56)
--- NOTE | 2021-05-08 05:00 | USCV_ITS ---
Jo Ricks Age: 66 Gender: F : 1955 Exam Date: 05/08/2021 15:17 Ordering Phys: Zen Peña MD Technologist: CHANO [place] [facility] [place]: SEPTIC SHOCK. COVID BP: / HR: 74 Rhythm: Sinus Technical Quality: Adequate MEASUREMENTS (Male / Female) Normal Values 2D ECHO LV Diastolic Diameter PLAX 4.2 cm 4.2 - 5.9 / 3.9 - 5.3 cm LV Systolic Diameter PLAX 2.3 cm IVS Diastolic Thickness 1.1 cm 0.6 - 1.0 / 0.6 - 0.9 cm IVS Systolic Thickness 1.6 cm LVPW Diastolic Thickness 1.3 cm 0.6 - 1.0 / 0.6 - 0.9 cm LVPW Systolic Thickness 1.3 cm LVOT Diameter 2.0 cm LV Ejection Fraction 2D Teich 77.1 % LV Ejection Fraction MOD 2C 68.5 % LV Ejection Fraction 2C AL 69.9 % LA Diameter 3.4 cm LA Width 3.6 cm LA Height 5.6 cm RA Width 3.5 cm RA Height 4.5 cm Aorta at Sinotubular Diameter 2.9 cm M-MODE Aortic Annulus Diameter 3.6 cm LA Ao Ratio MM 1.0 MV E Point Septal Separation 0.4 cm DOPPLER AV Peak Velocity 146.0 cm/s LVOT Peak Velocity 94.0 cm/s AV Area Cont Eq vti 2.1 cm squared AV Area Cont Eq pk 1.9 cm squared MV Peak Velocity 105.0 cm/s MV Area PHT 3.7 cm squared Mitral E to A Ratio 0.8 MV E' Velocity 46.0 cm/s Mitral E to MV E' Ratio 10.7 Mitral E to LV E' Lateral Ratio 10.6 Mitral E to LV E' Septal Ratio 11.0 TR Peak Velocity 220.0 cm/s TR Peak Gradient 19.4 mmHg TV Peak E Velocity 46.0 cm/s Right Atrial Pressure 3.0 mmHg Pulmonary Artery Systolic Pressu 22.4 mmHg PV Peak Velocity 97.0 cm/s FINDINGS Left Ventricle Normal left ventricular size and systolic function, EF 67 %. No regional wall motion abnormalities. Mild left ventricular hypertrophy. Grade I/IV diastolic dysfunction (abnormal relaxation filling pattern), normal to mildly elevated filling pressures. Right Ventricle Catheter/pacemaker wire in the right ventricular cavity. Right Atrium Catheter/pacemaker wire in the right atrial cavity. Left Atrium Normal left atrial size. Mitral Valve No gross abnormalities noted Aortic Valve Thickened aortic valve. Tricuspid Valve No gross abnormalities noted Pulmonic Valve Could not be visualize well Pericardium No pericardial effusion. Aorta Normal aortic annulus size. CONCLUSIONS Normal left ventricular size and systolic function, EF 67 %. No regional wall motion abnormalities. Mild left ventricular hypertrophy. Grade I/IV diastolic dysfunction (abnormal relaxation filling pattern), normal to mildly elevated filling pressures. Catheter/pacemaker wire in the right atrium and right ventricle. No other intracardiac masses. No significant pericardial effusion Dr Wojciech Yang MD FACC (Electronically Signed) Final Date: 09 May 2021 18:10 S
[2021-05-08] MEDS: aspirin 81 mg EC Tablet PO (05:18)
[2021-05-08] MEDS: piperacillin-tazobactam 3.375 GM in sodium chloride 0.9% (plus) 50 ML IV ×2 (05:18→14:14)
[2021-05-08] MEDS: dexamethasone 10 mg/mL INJ 6 MG IVP (05:18)
[2021-05-08 05:28] LABS: Basophils % 0.3 %; Hematocrit 42.7 % (37.0-47.0); Lymphocytes # 0.3 10^3/uL (0.8-4.8); Lymphocytes % 7.2 %; Mean Corpuscular HGB Conc 30.4 g/dL (30.0-36.0); Mean Corpuscular Hemoglobin 28.1 pg (28.0-34.0); Mean Corpuscular Volume 92.2 fl (81-99); Mean Platelet Volume 10.9 fL (7.4-10.4); Monocytes # 0.2 10^3/uL (0.2-0.9); Monocytes % 6.1 %; Neutrophils # 2.87 10^3/uL (1.8-7.7); Neutrophils % 82.7 %; Nucleated Red Blood Cells % 0 %; Platelet Count 168 10^3/cmm (130-400); Red Blood Count 4.63 10^6/uL (4.1-5.3); Red Cell Distribution Width 14.8 % (12.1-15.1); White Blood Count 3.5 10^3/uL (4.0-10.0)
[2021-05-08 05:47] LABS: Alanine Aminotransferase 21 U/L (0-33); Albumin Level 3.1 g/dL (3.5-5.2); Alkaline Phosphatase 58 IU/L (35-105); Anion Gap 18.1 (5-19); Aspartate Amino Transferase 28 U/L (0-32); Blood Urea Nitrogen 23 mg/dL (8-23); C Reactive Protein 21.9 mg/L (0.0-4.9); Calcium 7.3 mg/dL (8.5-10.5); Carbon Dioxide 18 mmol/L (22-29); Chloride 110 mmol/L (98-107); Chol HDL Ratio 3.79 mg/dL (0.0-4.40); Cholesterol 91 mg/dL (0-200); Globulin 2.1 g/dL (1.3-4.6); Glomerular Filtration Rate 62.5 mL/min (90-130); Glucose 174 mg/dL (65-115); HDL Cholesterol 24 mg/dL (60-100); LDL Cholesterol Calculated 37 mg/dL (50-129); Osmolality Calculated 302 mOsm/kg (285-295); Potassium 4.1 mmol/L (3.5-5.1); Sodium 142 mmol/L (136-145); Total Bilirubin 0.2 mg/dL (0.15-1.2); Total Protein 5.2 g/dL (6.6-8.7); Triglycerides 152 mg/dL (0-150); VLDL Cholestrol Calculation 30 mg/dL (0-30)
--- NOTE | 2021-05-08 06:00 | XRR_ITS ---
PROCEDURE INFORMATION: Exam: XR Chest Exam date and time: 05/08/2021 6:00 AM Age: 66 years old Clinical indication: Dyspnea; Additional info: Covid TECHNIQUE: Imaging protocol: XR of the chest. Views: 1 view. COMPARISON: CR XR chest 1V portable [id number] 05/04/2021 10:29 AM FINDINGS: Tubes, catheters and devices: There is a pacemaker present over the left chest. Lungs: Emphysematous changes are noted. Patchy ground-glass opacities, left greater than right. Findings may be seen with pneumonia. Pleural spaces: Unremarkable. No pleural effusion. No pneumothorax. Heart/Mediastinum: No cardiomegaly. Bones/joints: No acute fracture. XR/XR chest 1V portable [id number] IMPRESSION: Patchy ground-glass opacities, left greater than right. Findings may be seen with pneumonia. Radiation Dose CTDIVOL = (mGy): DLP = (mGy-cm)
[2021-05-08 06:01] LABS: Estmated Average Glucose 108; Hemoglobin A1C 5.4 % (4.0-6.0)
--- NOTE | 2021-05-08 06:03 | PC.NURSE ---
Shift Note Frequent safety and comfort rounds continue. Orders and/or nursing care completed as indicated. Patient monitored for response to intervention and treatment(s). Education provided includes frequent repositioning. Patient and/or client care representative verbalizes understanding. Will continue to monitor.
[2021-05-08] MEDS: ascorbic acid 500 mg Tablet PO ×2 (08:13→17:16)
[2021-05-08] MEDS: benzonatate 100 mg Capsule PO ×3 (08:13→20:34)
[2021-05-08] MEDS: pantoprazole DR 40 mg Tablet PO (08:13)
[2021-05-08] MEDS: ferrous gluconate 324 mg Tablet PO ×2 (08:13→17:16)
[2021-05-08] MEDS: zinc gluconate 50 mg Tablet PO (08:13)
--- NOTE | 2021-05-08 08:22 | PC.NURSE ---
Report received, assessment completed as charted. Pt AAOx4, VSS. O2@2Lnc. Pt c/o being cold, room temp is frigid despite heat being on . Maintenance notified. No other issues noted. Pt up in chair, makes all needs known. Will monitor
[2021-05-08] MEDS: budesonide 0.5 mg/2 mL Neb INHALATION ×2 (08:49→20:56)
[2021-05-08] MEDS: fluconazole 100 mg Tablet PO (11:19)
--- NOTE | 2021-05-08 11:41 | PM.PN ---
Subjective Subjective: Interval history: No events overnight. Patient has remained hemodynamically stable, afebrile. Today morning on examination patient sitting up in chair, feeling cold. He can no room air is broken and is been taken care of by maintaining screw. Patient denies any nausea vomiting, headache. NIF checked today and yesterday -40. Vitals/I&O/Wt Last Vital Signs Temp 97.7 F 05/09/21 08:00 Pulse 90 05/09/21 09:11 Resp 16 05/09/21 09:09 BP 122/78 05/09/21 08:00 Pulse Ox 91 05/09/21 09:09 05/08/21 05/09/21 05/09/21 22:59 06:59 14:59 Intake Total 430 / 1527.5 60 / 1587.5 290 / 290 Output Total 550 / 550 400 / 950 Balance -120 / 977.5 -340 / 637.5 290 / 290 Physical Exam Const: COMMON NORMALS: no acute distress and patient oriented x3 GENERAL APPEARANCE: cooperative; not comfortable NUTRITIONAL APPEARANCE: overweight ORIENTATION/CONSCIOUSNESS: Yes awake HENMT: COMMON NORMALS: oropharynx normal Neck/C-Spine: COMMON NORMALS: no JVD Resp: COMMON NORMALS: normal respiratory effort and clear to auscultation bilaterally AUSCULTATION: clear to auscultation bilaterally Cardio: COMMON NORMALS: no JVD, regular rhythm, S1 normal heart sound present, S2 normal heart sound present and No murmurs present (Cardio) RHYTHM: regular rhythm HEART SOUNDS: S1 normal heart sound present and S2 normal heart sound present GI: COMMON NORMALS: Normal to inspection, nondistended, normoactive bowel sounds present, Soft to palpation and non-tender PALPATION: Yes Soft to palpation Extremity: COMMON NORMALS: no joint enlargement and no pedal edema Neuro: COMMON NORMALS: patient oriented x3 and moves all extremities Skin: COMMON NORMALS: no rashes or lesions noted GENERAL SKIN EXAM: no rashes or lesions noted LESIONS: lesion noted (0.5 cm abrasion right bunion, shallow ulcer, no drainage, no erythema) Urinary Catheter Management^: Warren: Cath Placed During This Visit: yes Reason for Continuing Indwelling Catheter: Accurate Measurement of Urinary Output in Critically Ill Patients Urinary Catheter Date of Insertion: 05/04/21 Urinary Catheter Time of Insertion: 18:04 Data : 05/09/21 05:13 05/09/21 05:13 Micro: Microbiology 05/04/21 10:50 Blood Culture - Final Blood NO GROWTH AFTER 5 DAYS 05/04/21 10:50 Blood Culture - Final Blood NO GROWTH AFTER 5 DAYS 05/07/21 15:07 MRSA Culture - Final Nose 05/07/21 22:50 Gram Stain - Final Sputum - Expectorated Sputum A&P Assessment and plan (1) Septic shock: Off Levophed and midodrine 48 hours. Keep mean arterial pressure over 60 mmHg. Hypotension/shock most likely secondary to COVID-19 along with multiple antihypertensives and dehydration on admission. CPK elevated on admission. Blood pressure is better. Stop IV fluids. Hold off on antihypertensives. Random cortisol on admission 14.8. Given patient was already on high-dose hydrocortisone 100 mg every 6 hourly cannot do ACTH test. Wean Decadron further to 6 mg daily. Giurgius, urine Legionella bacterial antigen negative. Sputum culture consistent with fungal. CT abdomen chest pelvis results appreciated. Echocardiogram results still pending. Status: Acute (2) Acute respiratory failure with hypoxia: Weaning down on oxygen. Currently doing well on 2 L nasal cannula. Secondary to COVID-19 pneumonia cannot rule out secondary to MS flare. Request NIF assessment daily. Status: Acute (3) COVID-19: Hypoxia secondary to COVID-19 pneumonia: Mild to moderate disease. Oxygen supplementation keeping saturation over 88%. Dexamethasone 6 mg daily. Remdesivir to finish a 5-day course. Vitamin C, zinc. Continue with DuoNebs every 6 hour, budesonide twice daily Pulmonary toilet with incentive spirometry flutter valve. We will monitor inflammatory markers including CRP, D-dimer every 48 hourly. Trending down for now. D-dimer elevated on admission but now trended down to normal. Continue with Lovenox at prophylactic dose. Continue Zosyn to finish a 5-day course. Start on nystatin swish and swallow, fluconazole 100 mg daily for next 7 days. We will try to keep patient on the drier take off tender side. Stop IV fluids. Hemodynamically better. Hold off of any further diuretic or IV fluids for now. Encourage oral intake. Echocardiogram pending. Status: Acute (4) IVELISSE (acute kidney injury): Improving. Baseline unknown. Most likely a combination of septic shock and dehydration along with NSAIDs on admission. Status: Acute (5) UTI (urinary tract infection): Continue with Zosyn as above. Status: Acute (6) AICD (automatic cardioverter/defibrillator) present: Reports cardiomyopathy and systolic congestive heart failure in the past due to which ICD was placed, but not recently. States her heart had recovered. No discharges. Status: Chronic (7) MS (multiple sclerosis): Is not currently following with anyone or on any medications. Discussed will need follow-up with neurology. Status: Chronic (8) CAD (coronary artery disease): Troponin with mild elevation, without peak, not suggestive of acute [place]. Likely demand secondary to hypoxia, sepsis. Continue aspirin, hold statin, hold beta-ramon. Status: Chronic (9) Foot abrasion: Abraded her right bunion after she had fallen down. Small abrasion without surrounding erythema or cellulitis. Keep clean. Status: Acute (10) Fall: Status: Acute (11) Rhabdomyolysis: Recheck CK slightly higher. Hold statin. Status: Acute Additional A&P Information CODE STATUS: Full code. Would want attempted resuscitation in case of cardiopulmonary arrest. Names her sister Amy as surrogate decision-maker in case could not make her own decisions. Switch diet to soft mechanical cardiac diet. Lovenox for DVT prophylaxis. Protonix for PUD prophylaxis Attestations Medical Necessity Statement*: Requires further hospitalization for management of hypoxia secondary to COVID-19 pneumonia. Time Spent in Patient Care: Greater than 35 minutes (>than 50% of time spent in counselling and/or direct pt care on unit). Coding Level of Care Code Acute Senior Label Specialist for [facility] Fwd Diagnoses Septic shock A41.9; R65.21 Acute respiratory failure with hypoxia J96.01 COVID-19 U07.1 IVELISSE (acute kidney injury) N17.9 UTI (urinary tract infection) N39.0 AICD (automatic cardioverter/defibrillator) present Z95.810 MS (multiple sclerosis) G35 CAD (coronary artery disease) I25.10 Foot abrasion S90.819A Fall W19.XXXA Rhabdomyolysis M62.82
[2021-05-08] MEDS: nystatin 100,000 unit/mL UDC 5 mL 100000 UNIT PO ×3 (14:14→20:34)
[2021-05-08] MEDS: enoxaparin 40 mg/0.4 mL Syringe SUBCUT (14:14)
--- NOTE | 2021-05-08 17:02 | PC.PT ---
Patient declines starting physical therapy today, requests a.m., this will be done and is planned
--- NOTE | 2021-05-08 18:13 | PC.NURSE ---
Shift Note Frequent safety and comfort rounds continue. Orders and/or nursing care completed as indicated. Patient monitored for response to intervention and treatment(s). Education provided includes treatment plan, medications and need for physical therapy and movement. Pt verbalizes understanding. VSS. Denies any needs. Will continue to monitor.
[2021-05-08] MEDS: remdesivir 100 MG in sodium chloride 0.9% (100 ml) 80 ML IV (18:37)
[2021-05-08] MEDS: HYDROcodone-acetaminophen 5-325 mg Tablet 1 TAB PO (20:34)
[2021-05-09] VITALS (29 sets, daily range): BP systolic 89–131; BP diastolic 51–97; PULSE 73–111; RESP 16–19; TEMP 36.5–36.6; O2SAT 84–93
[2021-05-09] MEDS: ipratropium-albuterol 3 mL Neb INHALATION ×4 (02:38→20:30)
[2021-05-09] MEDS: piperacillin-tazobactam 3.375 GM in sodium chloride 0.9% (plus) 50 ML IV (05:28)
[2021-05-09] MEDS: aspirin 81 mg EC Tablet PO (05:28)
[2021-05-09 05:38] LABS: Basophils % 0.3 %; Hematocrit 42.5 % (37.0-47.0); Hemoglobin 13.7 g/dL (11.5-15.3); Lymphocytes # 0.4 10^3/uL (0.8-4.8); Lymphocytes % 5.5 %; Mean Corpuscular HGB Conc 32.2 g/dL (30.0-36.0); Mean Corpuscular Hemoglobin 28.4 pg (28.0-34.0); Mean Corpuscular Volume 88.2 fl (81-99); Mean Platelet Volume 10.6 fL (7.4-10.4); Monocytes # 0.5 10^3/uL (0.2-0.9); Monocytes % 6.9 %; Neutrophils # 5.91 10^3/uL (1.8-7.7); Neutrophils % 82.7 %; Nucleated Red Blood Cells % 0 %; Platelet Count 211 10^3/cmm (130-400); Red Blood Count 4.82 10^6/uL (4.1-5.3); Red Cell Distribution Width 14.7 % (12.1-15.1); White Blood Count 7.1 10^3/uL (4.0-10.0)
[2021-05-09 06:02] LABS: Alanine Aminotransferase 30 U/L (0-33); Albumin Level 3.2 g/dL (3.5-5.2); Alkaline Phosphatase 59 IU/L (35-105); Blood Urea Nitrogen 20 mg/dL (8-23); Calcium 7.6 mg/dL (8.5-10.5); Carbon Dioxide 22 mmol/L (22-29); Chloride 110 mmol/L (98-107); Globulin 2.1 g/dL (1.3-4.6); Glomerular Filtration Rate 83.5 mL/min (90-130); Glucose 108 mg/dL (65-115); NT Pro B Type Natriuretic Pept 986 pg/mL (0-125); Osmolality Calculated 301 mOsm/kg (285-295); Sodium 144 mmol/L (136-145); Total Bilirubin 0.3 mg/dL (0.15-1.2); Total Protein 5.3 g/dL (6.6-8.7)
[2021-05-09 06:06] LABS: Anion Gap 16.1 (5-19); Aspartate Amino Transferase 40 U/L (0-32); Potassium 4.1 mmol/L (3.5-5.1)
--- NOTE | 2021-05-09 06:28 | PC.NURSE ---
Shift Note Frequent safety and comfort rounds continue. Orders and/or nursing care completed as indicated. Patient monitored for response to intervention and treatment(s). Education provided includes frequent repositioning. Patient and/or printing supplies sales representative verbalizes understanding. Will continue to monitor.
--- NOTE | 2021-05-09 07:11 | PC.NURSE ---
Report received, assessment completed. Pt AAOx4, makes all needs known. VSS. Pt up in chair, assisted to chair by another nurse, requires assist x1. Denies any needs, c/o sore throat. Will monitor.
[2021-05-09] MEDS: dexamethasone 10 mg/mL INJ 6 MG IVP (08:19)
[2021-05-09] MEDS: pantoprazole DR 40 mg Tablet PO (08:19)
[2021-05-09] MEDS: nystatin 100,000 unit/mL UDC 5 mL 100000 UNIT PO ×4 (08:19→19:55)
[2021-05-09] MEDS: zinc gluconate 50 mg Tablet PO (08:19)
[2021-05-09] MEDS: fluconazole 100 mg Tablet PO (08:19)
[2021-05-09] MEDS: benzonatate 100 mg Capsule PO ×3 (08:19→19:55)
[2021-05-09] MEDS: ascorbic acid 500 mg Tablet PO ×2 (08:19→17:06)
[2021-05-09] MEDS: ferrous gluconate 324 mg Tablet PO ×2 (08:20→17:06)
[2021-05-09] MEDS: budesonide 0.5 mg/2 mL Neb INHALATION ×2 (09:02→20:30)
[2021-05-09] MEDS: FUROsemide 20 mg Tablet PO (09:37)
--- NOTE | 2021-05-09 10:25 | PC.CHAP ---
Pastoral Care Encounter/Spiritual Assessment Type of Contact [] Declined glass technician visit [] Patient/Family/Request visit [] Outpatient visit [] Follow-up visit [] Physician referral [] Code/Alert [x] Routine visit [] Staff referral [] Actively dying [] Patient sleeping [] Family support [] [] Out of room [] Palliative care [] [x] Receiving care in room [] Pre-surgical visit [] Trauma [] Long length of stay [x] ICU visit [] Other: Relational/Emotional Strength [] Patient feels connected with others/family/visitors/staff [] Distress [] Loneliness/isolation [] Abandonment Spirituality of Patient [] Person of Judith [] Attends Restoration of their Judith [] Believes in Prayer [] Reads Bible or Anabaptism materials [] There are Spiritual issues to be addressed Airconditioning Plant Operator Interventions [x] Prayer [] Active listening [] Non-anxious presence [] Spiritual/emotional support [] Crisis/trauma care [] Spiritual counseling [] Bereavement support [] Provided bereavement packet [] Provided Bible/devotional materials [] Provided toy/stuffed animal, coloring book to patient or family member [] Provided Communion [] Anointing/[place] [] Salvation [x] Completed spiritual assessment [] Other: Impact on Illness or Injury [] Angry [] Fearful [] Anxious [] Often cries [] Exhaustion [] Unable to work [] Unable to attend denominational [] Unable to walk/stand [] Unable to read [] Unable to drive [] Unable to eat/drink [] Unable to sleep [] Unable to be with family [] Patient intubated [] Other: Summary Time spent with patient
--- NOTE | 2021-05-09 11:45 | P.PN_ITS ---
Subjective Subjective: Interval history: No acute events overnight. Patient has remained hemodynamic stable afebrile. Currently on 3 to 4 L oxygen supplementation maintaining saturation over 90%. Did have one episode of coughing daughter in the morning today. Patient working with I-S and Acapella only 4-5 times a day. Encouraged to continue with every hourly if possible. Patient verbalized understanding and started doing I-S and Acapella during examination. Urine output appropriate. Hemodynamically better. Vitals/I&O/Wt Last Vital Signs Temp 97.7 F 05/09/21 08:00 Pulse 90 05/09/21 09:11 Resp 16 05/09/21 09:09 BP 122/78 05/09/21 08:00 Pulse Ox 91 05/09/21 09:09 05/08/21 05/09/21 05/09/21 22:59 06:59 14:59 Intake Total 430 / 1527.5 60 / 1587.5 290 / 290 Output Total 550 / 550 400 / 950 Balance -120 / 977.5 -340 / 637.5 290 / 290 Physical Exam Const: COMMON NORMALS: no acute distress and patient oriented x3 GENERAL APPEARANCE: cooperative; not comfortable NUTRITIONAL APPEARANCE: overweight ORIENTATION/CONSCIOUSNESS: Yes awake HENMT: COMMON NORMALS: oropharynx normal Neck/C-Spine: COMMON NORMALS: no JVD Resp: COMMON NORMALS: normal respiratory effort and clear to auscultation bilaterally AUSCULTATION: clear to auscultation bilaterally Cardio: COMMON NORMALS: no JVD, regular rhythm, S1 normal heart sound present, S2 normal heart sound present and No murmurs present (Cardio) RHYTHM: regular rhythm HEART SOUNDS: S1 normal heart sound present and S2 normal heart sound present GI: COMMON NORMALS: Normal to inspection, nondistended, normoactive bowel sounds present, Soft to palpation and non-tender PALPATION: Yes Soft to palpation Extremity: COMMON NORMALS: no joint enlargement and no pedal edema Neuro: COMMON NORMALS: patient oriented x3 and moves all extremities Skin: COMMON NORMALS: no rashes or lesions noted GENERAL SKIN EXAM: no rashes or lesions noted LESIONS: lesion noted (0.5 cm abrasion right bunion, shallow ulcer, no drainage, no erythema) Urinary Catheter Management^: Warren: Cath Placed During This Visit: yes Reason for Continuing Indwelling Catheter: Accurate Measurement of Urinary Output in Critically Ill Patients Urinary Catheter Date of Insertion: 05/04/21 Urinary Catheter Time of Insertion: 18:04 Data : 05/09/21 05:13 05/09/21 05:13 Micro: Microbiology 05/04/21 10:50 Blood Culture - Final Blood NO GROWTH AFTER 5 DAYS 05/04/21 10:50 Blood Culture - Final Blood NO GROWTH AFTER 5 DAYS 05/07/21 15:07 MRSA Culture - Final Nose 05/07/21 22:50 Gram Stain - Final Sputum - Expectorated Sputum A&P Assessment and plan (1) Septic shock: Off Levophed and midodrine 48 hours. Keep mean arterial pressure over 60 mmHg. Hypotension/shock most likely secondary to COVID-19 along with multiple antihypertensives and dehydration on admission. CPK elevated on admission. Blood pressure is better. Hold off on antihypertensives. Random cortisol on admission 14.8. Given patient was already on high-dose hydrocortisone 100 mg every 6 hourly cannot do ACTH test. Continue with Decadron 6 mg IV daily for next 10 days. MRSA swab, urine Legionella bacterial antigen negative. Sputum culture consistent with yeast. CT abdomen chest pelvis results appreciated. Echocardiogram results still pending. Status: Acute (2) Acute respiratory failure with hypoxia: Weaning down on oxygen. Currently doing well on 2 L nasal cannula. Secondary to COVID-19 pneumonia cannot rule out secondary to MS flare. Request NIF assessment daily. Status: Acute (3) COVID-19: Hypoxia secondary to COVID-19 pneumonia: Mild to moderate disease. Oxygen supplementation keeping saturation over 88%. Dexamethasone 6 mg daily. Remdesivir to finish a 5-day course. Vitamin C, zinc. Continue with DuoNebs every 6 hour, budesonide twice daily Pulmonary toilet with incentive spirometry flutter valve. We will monitor inflammatory markers including CRP, D-dimer every 48 hourly. Trending down for now. D-dimer elevated on admission but now trended down to normal. Continue with Lovenox at prophylactic dose. Continue Zosyn to finish a 5-day course. Start on nystatin swish and swallow, f luconazole 100 mg daily for next 7 days. Strict input output charting, daily weights. Oral 20 mg Lasix. Echocardiogram results pending. Status: Acute (4) IVELISSE (acute kidney injury): Resolved. Baseline unknown. Most likely a combination of septic shock and dehydration along with NSAIDs on admission. Status: Acute (5) UTI (urinary tract infection): Continue with Zosyn as above. Status: Acute (6) AICD (automatic cardioverter/defibrillator) present: Reports cardiomyopathy and systolic congestive heart failure in the past due to which ICD was placed, but not recently. States her heart had recovered. No discharges. Status: Chronic (7) MS (multiple sclerosis): Is not currently following with anyone or on any medications. Discussed will need follow-up with neurology. Status: Chronic (8) CAD (coronary artery disease): Troponin with mild elevation, without peak, not suggestive of acute [place]. Likely demand secondary to hypoxia, sepsis. Continue aspirin, hold statin, hold beta-ramon. Status: Chronic (9) Foot abrasion: Abraded her right bunion after she had fallen down. Small abrasion without surrounding erythema or cellulitis. Keep clean. Status: Acute (10) Fall: Status: Acute (11) Rhabdomyolysis: Recheck CK slightly higher. Hold statin. Status: Acute Additional A&P Information CODE STATUS: Full code. Would want attempted resuscitation in case of cardio pulmonary arrest. Names her sister Amy as surrogate decision-maker in case could not make her own decisions. Switch diet to soft mechanical cardiac diet. Lovenox for DVT prophylaxis. Protonix for PUD prophylaxis Plan for day: Transfer out of ICU to CSU. Oral 20 mg Lasix. Encourage I-S and Acapella every hourly. Wean down oxygen supplementation keeping saturation over 88%. Physical therapy. Continue with Decadron. Monitor vitals. Plan for discharge: If patient continues to do well we will plan for discharge within next 24 to 48 hours. Home health. Home oxygen evaluation prior to sharmaine bella. Attestations Medical Necessity Statement*: Requires further hospitalization for management of hypoxia secondary COVID-19 pneumonia in setting of baseline multiple sclerosis. Time Spent in Patient Care: Greater than 35 minutes (>than 50% of time spent in counselling and/or direct pt care on unit) . Coding Level of Care Code Acute Surgical Corsetier for [facility] Fwd Diagnoses Septic shock A41.9; R65.21 Acute respiratory failure with hypoxia J96.01 COVID-19 U07.1 IVELISSE (acute kidney injury) N17.9 UTI (urinary tract infection) N39.0 AICD (automatic cardioverter/defibrillator) present Z95.810 MS (multiple sclerosis) G35 CAD (coronary artery disease) I25.10 Foot abrasion S90.819A Fall W19.XXXA Rhabdomyolysis M62.82
--- NOTE | 2021-05-09 12:52 | PC.SOCIAL ---
IMM Updated Updated pt on IMM. No questions voiced. Provided pt a copy. Initialed, dated, & timed copy in chart.
[2021-05-09] MEDS: enoxaparin 40 mg/0.4 mL Syringe SUBCUT (13:57)
--- NOTE | 2021-05-09 18:28 | PC.NURSE ---
Shift Note Frequent safety and comfort rounds continue. Orders and/or nursing care completed as indicated. Patient monitored for response to intervention and treatment(s). Education provided includes treatment plan, acapella and IS use, oxygen and ambulation safety. Pt verbalizes understanding. Remained up in chair all day, Was able to stand and use walker for stabilization. Tolerated well. O2 dropped during activity, recovered slowly. No other issues noted. Will continue to monitor.
[2021-05-10] VITALS (20 sets, daily range): BP systolic 80–137; BP diastolic 53–98; PULSE 77–101; RESP 13–24; TEMP 36.4–36.6; O2SAT 80–93
--- NOTE | 2021-05-10 02:43 | PC.NURSE ---
Patient in chair, watching tv. O2 titrated to 5-6L d/t lower O2 sats (<90%) with accurate pleth on monitor. O2 humidified with bubbler to patient's request. Patient asymptomatic, in pleasant spirits.
[2021-05-10] MEDS: ipratropium-albuterol 3 mL Neb INHALATION ×2 (02:51→08:43)
[2021-05-10 05:44] LABS: C Reactive Protein 8.9 mg/L (0.0-4.9)
[2021-05-10 05:45] LABS: Alanine Aminotransferase 35 U/L (0-33); Albumin Level 2.9 g/dL (3.5-5.2); Alkaline Phosphatase 55 IU/L (35-105); Anion Gap 16.9 (5-19); Aspartate Amino Transferase 38 U/L (0-32); Blood Urea Nitrogen 24 mg/dL (8-23); Calcium 7.7 mg/dL (8.5-10.5); Carbon Dioxide 18 mmol/L (22-29); Chloride 108 mmol/L (98-107); Globulin 2.4 g/dL (1.3-4.6); Glomerular Filtration Rate 99.7 mL/min (90-130); Glucose 110 mg/dL (65-115); Osmolality Calculated 293 mOsm/kg (285-295); Potassium 3.9 mmol/L (3.5-5.1); Sodium 139 mmol/L (136-145); Total Bilirubin 0.3 mg/dL (0.15-1.2); Total Protein 5.3 g/dL (6.6-8.7)
[2021-05-10] MEDS: aspirin 81 mg EC Tablet PO (05:57)
--- NOTE | 2021-05-10 06:00 | XR_ITS ---
WS: [id number] Portable AP upright chest, 05/10/2021 Clinical Data: covid Comparison: Portable chest, 05/08/2021 Findings: There are bilateral patchy opacities in both lungs more on the left than the right unchange d. The heart is normal. The pulmonary vascularity is not increased. No nodules, masses or effusions a re seen. The permanent pacemaker remains in the same position. There are monitor leads on the chest w all. XR/XR chest 1V portable [id number] Impression: Minimal patchy bilateral pulmonary opacities unchanged.
--- NOTE | 2021-05-10 07:06 | PC.NURSE ---
Report received, assessment completed. O2@4LNC in use, desats when using IS, acapella and with exertion. O2 sats in upper 80's to low 90's. All other VSS. AAOx4, makes all needs known. Warren cath in place draining freely to BSD. Denies any pain or needs. Will monitor
[2021-05-10 07:34] LABS: Basophils % 0.6 %; Eosinophils % 0.6 %; Hematocrit 42.5 % (37.0-47.0); Hemoglobin 13.2 g/dL (11.5-15.3); Lymphocytes # 0.4 10^3/uL (0.8-4.8); Lymphocytes % 5.6 %; Mean Corpuscular HGB Conc 31.1 g/dL (30.0-36.0); Mean Corpuscular Hemoglobin 28.3 pg (28.0-34.0); Mean Platelet Volume 10.5 fL (7.4-10.4); Monocytes # 0.5 10^3/uL (0.2-0.9); Monocytes % 6.9 %; Neutrophils # 5.42 10^3/uL (1.8-7.7); Neutrophils % 77.7 %; Nucleated Red Blood Cells % 0.3 %; Platelet Count 252 10^3/cmm (130-400); Red Blood Count 4.67 10^6/uL (4.1-5.3); Red Cell Distribution Width 15.1 % (12.1-15.1)
[2021-05-10 07:36] LABS: Slide Review Slide Review Perform
[2021-05-10] MEDS: zinc gluconate 50 mg Tablet PO (08:07)
[2021-05-10] MEDS: ferrous gluconate 324 mg Tablet PO (08:07)
[2021-05-10] MEDS: pantoprazole DR 40 mg Tablet PO (08:07)
[2021-05-10] MEDS: ascorbic acid 500 mg Tablet PO (08:07)
[2021-05-10] MEDS: dexamethasone 10 mg/mL INJ 6 MG IVP (08:07)
[2021-05-10] MEDS: fluconazole 100 mg Tablet PO (08:07)
[2021-05-10] MEDS: nystatin 100,000 unit/mL UDC 5 mL 100000 UNIT PO ×2 (08:07→13:07)
[2021-05-10] MEDS: budesonide 0.5 mg/2 mL Neb INHALATION (08:43)
[2021-05-10] MEDS: benzonatate 100 mg Capsule PO (08:59)
--- NOTE | 2021-05-10 09:34 | PC.CHAP ---
Pastoral Care Encounter/Spiritual Assessment Type of Contact [] Declined stars analytical lead visit [] Patient/Family/Request visit [] Outpatient visit [] Follow-up visit [] Physician referral [] Code/Alert [x] Routine visit [] Staff referral [] Actively dying [] Patient sleeping [] Family support [] [] Out of room [] Palliative care [] [] Receiving care in room [] Pre-surgical visit [] Trauma [] Long length of stay [x] ICU visit [x] Other: isolated... setting up in chair Relational/Emotional Strength [] Patient feels connected with others/family/visitors/staff [] Distress [] Loneliness/isolation [] Abandonment Spirituality of Patient [] Person of Judith [] Attends Church of their Judith [] Believes in Prayer [] Reads Bible or Mormon materials [] There are Spiritual issues to be addressed Milk Receiver Interventions [x] Prayer [] Active listening [] Non-anxious presence [] Spiritual/emotional support [] Crisis/trauma care [] Spiritual counseling [] Bereavement support [] Provided bereavement packet [] Provided Bible/devotional materials [] Provided toy/stuffed animal, coloring book to patient or family member [] Provided Communion [] Anointing/[place] [] Salvation [x] Completed spiritual assessment [] Other: Impact on Illness or Injury [] Angry [] Fearful [] Anxious [] Often cries [] Exhaustion [] Unable to work [] Unable to attend holiness [] Unable to walk/stand [] Unable to read [] Unable to drive [] Unable to eat/drink [] Unable to sleep [] Unable to be with family [] Patient intubated [] Other: Summary Time spent with patient x
[2021-05-10] MEDS: FUROsemide 10 mg/mL SDV 2mL 20 MG IVP (10:02)
[2021-05-10] MEDS: lanolin oint 7 gm 1 APPLIC TOPICAL (10:58)
--- NOTE | 2021-05-10 12:37 | PM.DCS ---
Discharge Providers Date of Admission: 05/04/21 12:03 Date of Discharge: May 10, 2021 Attending Provider at Admission: Zac Treviño Attending Provider at Discharge: Zen Peña MD Diagnoses at Discharge Discharge Diagnosis (1) Septic shock: Status: Acute (2) Acute respiratory failure with hypoxia: Status: Acute (3) COVID-19: Status: Acute (4) IVELISSE (acute kidney injury): Status: Acute (5) UTI (urinary tract infection): Status: Acute (6) AICD (automatic cardioverter/defibrillator) present: Status: Chronic (7) MS (multiple sclerosis): Status: Chronic (8) CAD (coronary artery disease): Status: Chronic (9) Foot abrasion: Status: Acute (10) Fall: Status: Acute (11) Rhabdomyolysis: Status: Acute Reason for Visit Reason for Visit: POSSIBLE COVID Hospital Course Hospital Course History as per H&P. Pleasant 66-year-old lady with history of MS, CAD, prior history of 1 stent, history of cardiomyopathy, possibly ischemic, status post AICD implantation, usually with diffuse aches secondary to MS, tripped and fell at home, unable to get up for prolonged period of time, her sister called EMS to help her get up, but she declined at that time to go to the hospital. Has been having worsening body aches. Persistently weak. Came to the ER for evaluation today. Requiring 5 L of oxygen by nasal cannula on presentation, blood pressure low on presentation, received 1.5 L fluid boluses. Blood pressure still low, starting on low rate pressor, currently on 2 mcg/min. COVID-19 positive. Afebrile. WBC 3.8, hemoglobin 12.4, platelet 132,000, D-dimer 1. ABG 7.34/36.3/73.8 on 3 L, sodium 134, bicarb 18, anion gap 23.9, BUN 52, creatinine 2.7. AST 48, other liver parameters normal. Creatinine kinase 965. CRP 125.8. NT proBNP 106. Albumin 3.3. Urine with 0-4 RBC, 10-15 WBC, 0-4 SEC's, hyaline cast. Patient was admitted to the ICU for further management and work-up of septic shock and hypoxia secondary COVID-19 pneumonia. She was started on treatment with IV remdesivir and dexamethasone for COVID-19 pneumonia. During hospitalization patient required minimal oxygen supplementation up to 2 to 3 L. Patient's hospitalization was complicated by difficulty to wean pressors. Patient was given further IV fluids and her steroids were escalated to stress dose levels for a possible multiple sclerosis flareup which were rapidly weaned down to dosage for COVID-19. During hospitalization patient sputum culture came back positive for gram-negative chente and yeast. Patient remained hemodynamically stable and afebrile. Echocardiogram was done which showed grade 1 diastolic dysfunction. For safe discharge planning home it has been arranged for patient. Patient was consulted daily to follow-up with neurology for outpatient treatment of multiple sclerosis. Patient verbalized understanding and will follow up with Dr. Ward within next 1 month. She is being discharged in hemodynamically stable condition. Advised to take inhalation treatment with Advair and Spiriva daily. Advised to continue using Eliquis which is a blood thinner for next 2 weeks. Advised to continue working with incentive spirometry and flutter valve while at home. Advised to continue taking dexamethasone 6 mg for next 7 days. Advised to follow-up with his primary care provider within the next 4 to 7 days. Can take his COVID-19 vaccination in 3 months. Advised to continue following social distancing and isolation protocol for next 10 days. Advised to come back to the ER if fever of more than 101 Fahrenheit, more difficulty breathing than usual or requiring higher oxygen supplementation. Home O2 evaluation has been done prior to discharge. Appointment has been made for her with a new primary care provider on May 18. Physical Exam Const: COMMON NORMALS: no acute distress and patient oriented x3 GENERAL APPEARANCE: cooperative; not comfortable NUTRITIONAL APPEARANCE: overweight ORIENTATION/CONSCIOUSNESS: Yes awake HENMT: COMMON NORMALS: oropharynx normal Neck/C-Spine: COMMON NORMALS: no JVD Resp: COMMON NORMALS: normal respiratory effort and clear to auscultation bilaterally AUSCULTATION: clear to auscultation bilaterally Cardio: COMMON NORMALS: no JVD, regular rhythm, S1 normal heart sound present, S2 normal heart sound present and No murmurs present (Cardio) RHYTHM: regular rhythm HEART SOUNDS: S1 normal heart sound present and S2 normal heart sound present GI: COMMON NORMALS: Normal to inspection, nondistended, normoactive bowel sounds present, Soft to palpation and non-tender PALPATION: Yes Soft to palpation Extremity: COMMON NORMALS: no joint enlargement and no pedal edema Neuro: COMMON NORMALS: patient oriented x3 and moves all extremities Skin: COMMON NORMALS: no rashes or lesions noted GENERAL SKIN EXAM: no rashes or lesions noted LESIONS: lesion noted (0.5 cm abrasion right bunion, shallow ulcer, no drainage, no erythema) Urinary Catheter Management^: Warren: Cath Placed During This Visit: yes Reason for Continuing Indwelling Catheter: Accurate Measurement of Urinary Output in Critically Ill Patients Urinary Catheter Date of Insertion: 05/04/21 Urinary Catheter Time of Insertion: 18:04 Discharge Data Data Completed and Pending: Completed Studies During Hospitalization Category Date Time Status CT angio chest w abd pel w con Rout ine Cat Scan 05/07/21 10:55 Completed XR chest 1V agustina ble 27391 Q48H Exams 05/08/21 06:00 Completed XR chest 1V agustina ble 62570 Q48H Exams 05/10/21 06:00 Completed XR chest 1V agustina ble [id number] Stat Exams 05/04/21 09:58 Completed CV. echo complete * [id number] Routine Ultrasound 05/08/21 05:00 Completed Pending at discharge Category Date Time Status XR chest 1V agustina ble 87014 Q48H Exams 05/12/21 06:00 Ordered Sputum Culture an d Gram Stain Stat Lab 05/07/21 22:50 Results Labs from last 24 hours 05/10/21 05/10/21 05/10/21 04:16 04:16 04:16 WBC 7.0 RBC 4.67 Hgb 13.2 Hct 42.5 MCV 91.0 MCH 28.3 MCHC 31.1 RDW 15.1 Plt Count 252 MPV 10.5 H Neut % (Auto) 77.7 Lymph % (Auto) 5.6 Atlantic % (Auto) 6.9 Eos % (Auto) 0.6 Baso % (Auto) 0.6 Neut # (Auto) 5.42 Lymph # (Auto) 0.4 L [place] # (Auto) 0.5 Eos # (Auto) 0.0 Baso # (Auto) 0.0 Nucleated RBC % (a uto) 0.3 Nucleated RBCs # 0.0 Sodium 139 Potassium 3.9 Chloride 108 H Carbon Dioxide 18 L Anion Gap 16.9 BUN 24 H Creatinine 0.6 GFR Calculation 99.7 Glucose 110 Calculated Osmolal ity 293 Calcium 7.7 L Total Bilirubin 0.3 AST 38 H ALT 35 H Alkaline Phosphata se 55 C-Reactive Protein 8.9 H Total Protein 5.3 L Albumin 2.9 L Globulin 2.4 Addt'l Data from Hospital Stay: Laboratory Results WBC 7.0 10^3/uL (4.0- 10.0) 05/10/21 04:16 RBC 4.67 10^6/uL (4.1 -5.3) 05/10/21 04:16 Hgb 13.2 g/dL (11.5-1 5.3) 05/10/21 04:16 Hct 42.5 % (37.0-47.0 ) 05/10/21 04:16 MCV 91.0 fl (81-99) 05/10/21 04:16 MCH 28.3 pg (28.0-34. 0) 05/10/21 04:16 MCHC 31.1 g/dL (30.0-3 6.0) 05/10/21 04:16 RDW 15.1 % (12.1-15.1 ) 05/10/21 04:16 Plt Count 252 10^3/cmm (130 -400) 05/10/21 04:16 MPV 10.5 fL (7.4-10.4 ) H 05/10/21 04:16 Neut % (Auto) 77.7 % 05/10/21 04:16 Lymph % (Auto) 5.6 % 05/10/21 04:16 Atlantic % (Auto) 6.9 % 05/10/21 04:16 Eos % (Auto) 0.6 % 05/10/21 04:16 Baso % (Auto) 0.6 % 05/10/21 04:16 Neut # (Auto) 5.42 10^3/uL (1.8 -7.7) 05/10/21 04:16 Lymph # (Auto) 0.4 10^3/uL (0.8- 4.8) L 05/10/21 04:16 Atlantic # (Auto) 0.5 10^3/uL (0.2- 0.9) 05/10/21 04:16 Eos # (Auto) 0.0 10^3/uL (0.0- 0.8) 05/10/21 04:16 Baso # (Auto) 0.0 10^3/uL (0.0- 0.1) 05/10/21 04:16 Nucleated RBC % (a uto) 0.3 % 05/10/21 04:16 Nucleated RBCs # 0.0 /100WBC 05/10/21 04:16 D-Dimer 0.39 ug/mIFEU (0- 0.59) 05/07/21 03:20 Specimen Type Arterial 05/04/21 11:10 Sample Site Brachial, left 05/04/21 11:10 ABG pH 7.34 (7.35-7.45) L 05/04/21 11:10 ABG pCO2 36.3 mmHg (35-45) 05/04/21 11:10 ABG pO2 73.8 mmHg (80.0-1 00.0) L 05/04/21 11:10 ABG HCO3 19.5 mmol/L (22-2 6) L 05/04/21 11:10 ABG O2 Saturation 95.3 05/04/21 11:10 ABG Base Excess -5.7 mmol/L (-2.0 -2.0) L 05/04/21 11:10 Deon Test Pos 05/04/21 11:10 A-a O2 Gradient 4.1 mmHg (5-10) L 05/04/21 11:10 Hematocrit 35.7 % (37-47) L 05/04/21 11:10 Hgb O2 Saturation 93.1 % (95-100) L 05/04/21 11:10 Carboxyhemoglobin 1.5 %THgb (0.4-20 .1) 05/04/21 11:10 Methemoglobin 0.8 % (0.4-1.5) 05/04/21 11:10 Total Hemoglobin 11.7 g/dL (12-16) L 05/04/21 11:10 Sodium 129.0 mmol/L (131 -143) L 05/04/21 11:10 Potassium 3.6 mmol/L (3.5-5 .0) 05/04/21 11:10 Glucose 103.0 mg/dL (70-1 15) 05/04/21 11:10 Ionized Calcium 1.1 mmol/L (1.1-1 .4) 05/04/21 11:10 O2 Delivery Device Nc 05/04/21 11:10 O2 Liters/Min 3.0 % 05/04/21 11:10 Cray Fishing Hand ID Broma 05/04/21 11:10 Sodium 139 mmol/L (136-1 45) 05/10/21 04:16 Potassium 3.9 mmol/L (3.5-5 .1) 05/10/21 04:16 Chloride 108 mmol/L (98-10 7) H 05/10/21 04:16 Carbon Dioxide 18 mmol/L (22-29) L 05/10/21 04:16 Anion Gap 16.9 (5-19) 05/10/21 04:16 BUN 24 mg/dL (8-23) H 05/10/21 04:16 Creatinine 0.6 mg/dL (0.5-0. 9) 05/10/21 04:16 GFR Calculation 99.7 mL/min (90-1 30) 05/10/21 04:16 Glucose 110 mg/dL (65-115 ) 05/10/21 04:16 Estimat Average Gl ucose 108 05/08/21 04:47 Hemoglobin A1c 5.4 % (4.0-6.0) 05/08/21 04:47 Calculated Osmolal ity 293 mOsm/kg (285- 295) 05/10/21 04:16 Lactic Acid 1.1 mmol/L (0.5-2 .2) 05/04/21 10:50 Calcium 7.7 mg/dL (8.5-10 .5) L 05/10/21 04:16 Magnesium 2.0 mg/dL (1.7-2. 3) 05/06/21 03:10 Iron 56 ug/dL (37-145) 05/07/21 03:20 TIBC 205 mcg/dl 05/07/21 03:20 % Saturation 27.3 % (20-50) 05/07/21 03:20 Unsat Iron Binding 149 ug/dL (112-34 7) 05/07/21 03:20 Total Bilirubin 0.3 mg/dL (0.15-1 .2) 05/10/21 04:16 AST 38 U/L (0-32) H 05/10/21 04:16 ALT 35 U/L (0-33) H 05/10/21 04:16 Alkaline Phosphata se 55 IU/L (35-105) 05/10/21 04:16 Creatine Kinase 203 U/L (26-192) H 05/07/21 03:20 Troponin T Baselin e 32 ng/L (0-10) H 05/04/21 14:58 Troponin T 120 Min margi 28.43 ng/L (0-10) H 05/04/21 17:10 Delta Troponin T -3.57 ABS# (0-10) L 05/04/21 17:10 Troponin T Hi Sens 6Hr 23.41 ng/L (0-10) H 05/04/21 21:00 Troponin T Hi Sens 6Hr Delta -8.59 ng/L (0-12) L 05/04/21 21:00 C-Reactive Protein 8.9 mg/L (0.0-4.9 ) H 05/10/21 04:16 NT-Pro-B Natriuret Pep 986 pg/mL (0-125) H 05/09/21 05:13 Total Protein 5.3 g/dL (6.6-8.7 ) L 05/10/21 04:16 Albumin 2.9 g/dL (3.5-5.2 ) L 05/10/21 04:16 Globulin 2.4 g/dL (1.3-4.6 ) 05/10/21 04:16 Triglycerides 152 mg/dL (0-150) H 05/08/21 04:47 Cholesterol 91 mg/dL (0-200) 05/08/21 04:47 LDL Cholesterol, C alc 37 mg/dL (50-129) L 05/08/21 04:47 Total VLDL Cholest elliot 30 mg/dL (0-30) 05/08/21 04:47 HDL Cholesterol 24 mg/dL (60-100) L 05/08/21 04:47 Cholesterol/HDL Ra alba 3.79 mg/dL (0.0-4 .40) 05/08/21 04:47 Procalcitonin 0.11 ng/mL (0-0.5 ) 05/07/21 03:20 TSH 0.74 uIU/mL (0.27 -4.20) 05/04/21 14:58 Random Cortisol 14.81 ug/dL (2.47 -19.5) 05/04/21 14:58 Urine Color Yellow (Yellow) 05/07/21 15:07 Urine Appearance Clear (CLEAR) 05/07/21 15:07 Urine pH 6.5 (5-7) 05/07/21 15:07 Ur Specific Gravit y 1.005 (1.005-1.0 30) 05/07/21 15:07 Urine Protein Trace (Negative) 05/07/21 15:07 Urine Glucose (UA) Norm (Normal) 05/07/21 15:07 Urine Ketones Negative (Negati ve) 05/07/21 15:07 Urine Blood 2+ (Negative) H 05/07/21 15:07 Urine Nitrate Negative (Negati ve) 05/07/21 15:07 Urine Bilirubin Neg (Negative) 05/07/21 15:07 Urine Urobilinogen Norm mg/dL (Negat lakshmi) 05/07/21 15:07 Ur Leukocyte Luciana ase Negative (Negati ve) 05/07/21 15:07 Urine RBC 5-10 /hpf (0-2) H 05/07/21 15:07 Urine WBC 0-4 /hpf (0-5) H 05/07/21 15:07 Ur Squamous Epith Cells None /hpf (0-5) 05/07/21 15:07 Amorphous Sediment Not Reportable 05/07/21 15:07 Urine Bacteria Trace /hpf (NONE) 05/07/21 15:07 Hyaline Casts 0-4 /lpf H 05/04/21 11:05 Other Casts 5 /lpf 05/04/21 11:05 Ur Random Sodium < 10 mmol/L 05/07/21 15:07 Ur Random Potassiu m 45 mmol/L 05/07/21 15:07 Ur Random Chloride < 10 mmol/L 05/07/21 15:07 SARS-CoV-2 RNA (RT -PCR) Detected (NOT DE TECTED) A 05/04/21 11:09 SARS-CoV-2 Ag (Rap id) Positive (Negati ve) H 05/04/21 10:31 Impressions Chest/Abdomen/Pelvis CT 05/07/21 10:55 IMPRESSION: 1. Moderate diffuse hazy groundglass infiltrates compatible with COVID 19 Pneumonia. 2. No evidence of pulmonary embolus. 3. Mild diffuse fatty infiltration liver. 4. No free fluid in the abdomen or pelvis. 5. Small esophageal hiatal hernia. 6. No hydronephrosis in either kidney. Chest X-Ray 05/10/21 06:00 Impression: Minimal patchy bilateral pulmonary opacities unchanged. Microbiology 05/07/21 22:50 Sputum - Expectorated Sputum Gram Stain - Final 05/07/21 22:50 Sputum - Expectorated Sputum Sputum Culture - Preliminary Gram Negative Rods 05/04/21 10:50 Blood Blood Culture - Final NO GROWTH AFTER 5 DAYS 05/04/21 10:50 Blood Blood Culture - Final NO GROWTH AFTER 5 DAYS 05/07/21 15:07 Nose MRSA Culture - Final 05/07/21 15:07 Urine Catheterized Legionella Urinary Antigen - Final 05/07/21 15:07 Urine Kidney Bacterial Antigens - Final 05/04/21 11:05 Urine,Clean Catch Urine Culture - Final Vitals: Last Vital Signs Temp 97.6 F 05/10/21 08:00 Pulse 87 05/10/21 08:43 Resp 18 05/10/21 08:43 BP 125/53 05/10/21 08:00 Pulse Ox 93 05/10/21 08:43 Discharge Plan Discharge Patient Disposition: Home Health Service Condition: Stable Prescriptions: New fluconazole 100 mg Tablet 100 mg PO DAILY Qty: 5 RF: 0 nystatin 100,000 unit/mL Suspension 100,000 unit PO QID 7 Days Qty: 28 RF: 0 Vitamin C 500 mg Tablet 500 mg PO BID 14 Days Qty: 28 RF: 0 benzonatate 100 mg Capsule 100 mg PO TID 10 Days Qty: 30 RF: 0 pantoprazole 40 mg Tablet,Delayed Release (Dr/Ec) 40 mg PO DAILY Qty: 14 RF: 0 zinc gluconate 50 mg Tablet 50 mg PO DAILY Qty: 14 RF: 0 ferrous gluconate 324 mg (37.5 mg iron) Tablet 324 mg PO BIDWM 30 Days Qty: 60 RF: 0 dexamethasone 6 mg tablet 6 mg PO DAILY 7 Days Qty: 7 RF: 0 Advair Diskus 500-50 mcg/dose blister with device 1 inh inhalation BID 14 Days Qty: 30 RF: 0 Spiriva with HandiHaler 18 mcg capsule, w/inhalation device 1 cap inhalation DAILY Qty: 14 RF: 0 levofloxacin 500 mg tablet 500 mg PO Q24H 7 Days Qty: 7 RF: 0 Augmentin 500-125 mg tablet 1 tab PO BID 7 Days Qty: 14 RF: 0 Eliquis 2.5 mg tablet 2.5 mg PO BID Qty: 28 RF: 0 Continued Aspir-81 81 mg Tablet,Delayed Release (Dr/Ec) 81 mg PO QAM RF: 0 Nitrostat 0.4 mg Tablet, Sublingual 0.4 mg SUBLINGUAL Q5M PRN (Reason: Chest Pain) RF: 0 rosuvastatin 10 mg Tablet 10 mg PO .THREE TIMES A WEEK RF: 0 Vitamin D3 50 mcg (2,000 unit) Tablet 50 mcg PO QAM RF: 0 Held telmisartan 40 mg Tablet 20 mg PO QAM RF: 0 Hold Instructions: Resume on 05/17/21. metoprolol succinate 25 mg Tablet Extended Release 24 Hr 25 mg PO QAM RF: 0 Hold Instructions: Resume on 05/17/21. Discontinued ibuprofen 200 mg Tablet 600 mg PO Q4H PRN (Reason: Pain) RF: 0 Discharge Orders: Discharge Order (Routine); Ordered 05/10/21 Ordered By: Zen Peña Referrals: Neena Ward MD [Physician] - 1 month (Multiple sclerosis) Corazon Barkley MD [Physician] - 05/18/21 9:00 am () Discharge Diet: Regular and Cardiac Discharge Activity: Resume usual activity and Increase activity as tolerated Patient Instructions: Opioid Safety Activity Restrictions/Additional Instructions: Advised to take inhalation treatment with Advair and Spiriva daily. Advised to continue using Eliquis which is a blood thinner for next 2 weeks. Advised to continue working with incentive spirometry and flutter valve while at home. Advised to continue taking dexamethasone 6 mg for next 7 days. Advised to follow-up with his primary care provider within the next 4 to 7 days. Please follow-up with Dr. Ward from neurology within next 1 month. Can take his COVID-19 vaccination in 3 months. Advised to continue following social distancing and isolation protocol for next 10 days. Advised to come back to the ER if fever of more than 101 Fahrenheit, more difficulty breathing than usual or requiring higher oxygen supplementation. Discharge Attestations Time Spent in Discharge Care*: greater than 30 min Specific Discharge Activities: educating patient, discussing with pcp/other providers, discussing with child support case officer/social workers/dc planners, documenting/other paperwork and evaluating patient/reviewing data Status at Discharge: Cognitive status at discharge: cognitively intact, Behavioral status at discharge: cooperative, Functional status at discharge: independent ambulation Overall status at discharge: patient is progressing back to baseline Quality Metrics Clinical Quality Measures During this hospital stay, did patient experience: None Coding Level of Care Code Acute Chg FW DC note Diagnoses Septic shock A41.9; R65.21 Acute respiratory failure with hypoxia J96.01 COVID-19 U07.1 IVELISSE (acute kidney injury) N17.9 UTI (urinary tract infection) N39.0 AICD (automatic cardioverter/defibrillator) present Z95.810 MS (multiple sclerosis) G35 CAD (coronary artery disease) I25.10 Foot abrasion S90.819A Fall W19.XXXA Rhabdomyolysis M62.82
--- NOTE | 2021-05-10 17:05 | PC.NURSE ---
Pt education provided r/t meds, oxygen and ambulation safety. All medications given to pt. Transported to private vehicle with home 02. Tolerated well.
== END 2021-05-10 16:55 | disposition home health service (06) | DRG 871 ==
LOC: ER 11:48 → ICU 13:13
PROVIDERS: Physician Assistant; Admitting Provider Internal Medicine; Emergency Provider Family Medicine; Visit Provider Student in an Organized Health Care Education/Training Program
DX: A41.9 Sepsis, unspecified organism (principal); R65.21 Severe sepsis with septic shock; U07.1 COVID-19; J12.82 Pneumonia due to coronavirus disease 2019; J96.01 Acute respiratory failure with hypoxia; N17.9 Acute kidney failure, unspecified; N39.0 Urinary tract infection, site not specified; M62.82 Rhabdomyolysis; G35 Multiple sclerosis; E66.9 Obesity, unspecified; Z68.32 Body mass index [BMI] 32.0-32.9, adult; I25.10 Atherosclerotic heart disease of native coronary artery without angina pectoris; Z95.5 Presence of coronary angioplasty implant and graft; Z95.810 Presence of automatic (implantable) cardiac defibrillator; W01.0XXA Fall on same level from slipping, tripping and stumbling without subsequent striking against object, initial encounter; G89.29 Other chronic pain; I25.5 Ischemic cardiomyopathy; Z87.891 Personal history of nicotine dependence; Z79.82 Long term (current) use of aspirin; B37.9 Candidiasis, unspecified; E86.0 Dehydration; I95.9 Hypotension, unspecified; S90.811A Abrasion, right foot, initial encounter
CPT/HCPCS: 36415; 36600; 71045; 71275; 74177; 80051; 80053; 80061; 81001; 81003; 82330; 82436; 82533; 82550; 82805; 83036; 83540; 83550; 83605; 83735; 83880; 84133; 84145; 84300; 84443; 84484; 85025; 85378; 86140; 86403; 87040; 87070; 87077; 87086; 87186; 87205; 87426; 87449; 87635; 87641; 93005; 93306; 94640; 94664; 96365; 96367; 96372; 96375; 97110; 97116; 97161; 97530; 99285; J0743; J1100; J1650; J1720; J1940; J2543; J7040; J7626; Q9967

== ENCOUNTER 2021-05-11 17:32 | Inpatient (IN) | payer MEDICARE, SELFPAY ==
[2021-05-11] VITALS (7 sets, daily range): BP systolic 116–147; BP diastolic 74–89; PULSE 67–86; RESP 16–209; TEMP 36.9–37; O2SAT 89–95
--- NOTE | 2021-05-11 18:47 | XRR_ITS ---
PROCEDURE INFORMATION: Exam: XR Chest Exam date and time: 05/11/2021 6:47 PM Age: 66 years old Clinical indication: Shortness of breath; Additional info: SOB TECHNIQUE: Imaging protocol: XR of the chest. Views: 1 view. COMPARISON: CR XR chest 1V portable [id number] 05/10/2021 5:37 AM FINDINGS: Pacemaker/defibrillator remains in place. There are bilateral pulmonary infiltrates similar to the old exam. There is no pleural effusion or pneumothorax. The heart size is normal. XR/XR chest 1V portable [id number] IMPRESSION: Stable bilateral pulmonary infiltrates. Radiation Dose CTDIVOL = (mGy): DLP = (mGy-cm)
--- NOTE | 2021-05-11 18:47 | ECG_ITS ---
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 Measurements Intervals [place] Rate: 73 P: 34 [place]: 155 QRS: -24 QRSD: 109 T: 81 QT: 395 QTc: 438 Interpretive Statements SINUS RHYTHM BORDERLINE LEFT AXIS DEVIATION [QRS AXIS < -20] INTERPRETATION BASED ON A DEFAULT AGE OF 40 YEARS Compared to ECG 05/06/2021 16:10:40 Sinus bradycardia no longer present T-wave abnormality no longer present Electronically Signed On 05-13-2021 13:19:09 SOLE PAINTER by Long Burks M.D. [id number]
[2021-05-11 19:07] LABS: Lactic Sepsis W/Reflex 1.9 mmol/L (0.5-2.2)
--- NOTE | 2021-05-11 19:07 | ED_ITS ---
HPI - COVID General: Chief Complaint: COVID symptoms Stated Complaint: COVID +: DX 1 WK AGO, BLE TURNING PURPLE Time Seen by Provider: 05/11/21 18:14 Triage information: Has fever, cough or shortness of breath . Exposure to COVID + person last 14 days History of Present Illness: HPI Narrative: 66-year-old female released from the hospital yesterday. He was treated for COVID-19. She was sent home on 3 L. She was not on oxygen prior to her hospitalization she says. She lives at home alone. Evidently, she got confused, and was not able to work her oxygen properly. She presents hypoxic and confused. She denies significant chest pain. She does state she is short of breath, but the oxygen has helped here. She denies any sputum production. She says I am having trouble taking all those pills they gave me . complaint: known COVID positive COVID 19 common symptoms: positive cough and non-productive cough; negative fever(s), chills, nausea or vomiting COVID 19 other sytmptoms: negative chest pressure or chest pain Onset (ago): day(s) Treatment prior to arrival: antibiotics, steroids and oxygen COVID Results: SARS-CoV-2 Antigen (Rapid) Positive (Negative) H 05/04/21 10:31 05/04/21 SARS-CoV-2 RNA (RT-PCR) Detected (NOT DETECTED) A 05/04/21 11:09 05/04/21 Review of Systems Const: Denies: fever(s) or chills Card: Denies: chest pain Resp: Reports: non-productive cough GI: Denies: abdominal pain, nausea or vomiting [facility] ED PFSH: Medical History (Updated 05/12/21 @ 00:44 by Juan Washington DO) CAD (coronary artery disease) MS (multiple sclerosis) Surgical History (Updated 05/11/21 @ 00:01 by ) AICD (automatic cardioverter/defibrillator) present Stented coronary artery Family History Other CAD (coronary artery disease) Social History Smoking and tobacco status: former smoker Alcohol intake: never Lives independently: Yes Household members: none Marital status: Current occupational status: retired Physical Exam Const: COMMON NORMALS: alert GENERAL APPEARANCE: cooperative ORIENTATION/CONSCIOUSNESS: Yes awake, Yes oriented to person, Yes oriented to place and Yes confused (Mild); not oriented to time Chest: COMMONS NORMALS: normal inspection of the chest CHEST: No tenderness Resp: COMMON NORMALS: clear to auscultation bilaterally EFFORT & INSPECTION: Yes tachypneic and Yes labored AUSCULTATION: clear to auscultation bilaterally, no crackles, no rales and no rhonchi Cardio: COMMON NORMALS: regular rate and regular rhythm RATE: regular rate RHYTHM: regular rhythm GI: COMMON NORMALS: Normal to inspection, nondistended, normoactive bowel sounds present, Soft to palpation and non-tender PALPATION: Yes Soft to palpation Neuro: SENSORIUM/ORIENTATION: Yes alert, Yes oriented to person, Yes oriented to place and No oriented to time Course Consultations: Consultation #1: jennifer Time: 21:11 Vital Signs: Vital signs: Vital Signs Temperature 98.4 F 05/11/21 23:13 Pulse Rate 75 05/11/21 23:13 Respiratory Rate 18 05/11/21 23:13 Blood Pressure 147/82 05/11/21 23:13 Pulse Oximetry 95 05/11/21 23:13 MDM - COVID MDM Narrative: Medical decision making narrative: Patient is on 6 L nasal cannula room. PO2 at this level is 50 we have ordered high flow oxygen for her. Chest x-ray shows a slight increase in peripheral opacities bilaterally the lungs. CTA and D-dimer pending. The patient is on apixaban, but compliance is unknown. She'll have to go to the ICU Lab Data: Labs: Lab Results 05/11/21 05/11/21 05/11/21 18:39 18:39 18:39 WBC Cancelled Corrected WBC Cancelled RBC Cancelled Hgb Cancelled Hct Cancelled MCV Cancelled MCH Cancelled MCHC Cancelled RDW Cancelled Plt Count Cancelled MPV Cancelled Gran % Cancelled Neut % (Auto) Cancelled Lymph % (Auto) Cancelled [place] % (Auto) Cancelled Eos % (Auto) Cancelled Baso % (Auto) Cancelled Neut # (Auto) Cancelled Lymph # (Auto) Cancelled [place] # (Auto) Cancelled Eos # (Auto) Cancelled Baso # (Auto) Cancelled Absolute Gran (aut o) Cancelled Nucleated RBC % (a uto) Cancelled Nucleated RBCs # Cancelled Specimen Type Sample Site ABG pH ABG pCO2 ABG pO2 ABG HCO3 ABG Base Excess Deon Test Hematocrit Hgb O2 Saturation Carboxyhemoglobin Methemoglobin Total Hemoglobin O2 Delivery Device O2 Liters/Min Nuclear Weapons Mechanical Specialist ID Sodium 141 mmol/L mmol/L (136-145) Potassium 4.9 mmol/L mmol/L (3.5-5.1) Chloride 107 mmol/L mmol/L (98-107) Carbon Dioxide 21 mmol/L L mmol/ L (22-29) Anion Gap 17.9 (5-19) BUN 32 mg/dL H mg/dL (8-23) Creatinine 0.8 mg/dL mg/dL (0.5-0.9) GFR Calculation 71.5 mL/min L mL/ min (90-130) Glucose 105 mg/dL mg/dL (65-115) Calculated Osmolal ity 299 mOsm/kg H mOs m/kg (285-295) Lactic Acid 1.9 mmol/L mmol/L (0.5-2.2) Calcium 8.1 mg/dL L mg/dL (8.5-10.5) Total Bilirubin 0.5 mg/dL mg/dL (0.15-1.2) AST 38 U/L H U/L (0-32) ALT 37 U/L H U/L (0-33) Alkaline Phosphata se 66 IU/L IU/L (35-105) C-Reactive Protein NT-Pro-B Natriuret Pep 778 pg/mL H pg/mL (0-125) Total Protein 5.3 g/dL L g/dL (6.6-8.7) Albumin 3.3 g/dL L g/dL (3.5-5.2) Globulin 2.0 g/dL g/dL (1.3-4.6) 05/11/21 05/11/21 05/11/21 18:39 19:04 19:50 WBC 10.1 10^3/uL H 10 ^3/uL (4.0-10.0) Corrected WBC RBC 4.65 10^6/uL 10^6 /uL (4.1-5.3) Hgb 13.4 g/dL g/dL (11.5-15.3) Hct 41.5 % % (37.0-47.0) MCV 89.2 fl fl (81-99) MCH 28.8 pg pg (28.0-34.0) MCHC 32.3 g/dL g/dL (30.0-36.0) RDW 15.0 % % (12.1-15.1) Plt Count 276 10^3/cmm 10^3 /cmm (130-400) MPV 10.7 fL H fL (7.4-10.4) Gran % Neut % (Auto) 84.7 % % Lymph % (Auto) 3.0 % % [place] % (Auto) 2.9 % % Eos % (Auto) 0.0 % % Baso % (Auto) 0.4 % % Neut # (Auto) 8.54 10^3/uL H 10 ^3/uL (1.8-7.7) Lymph # (Auto) 0.3 10^3/uL L 10^ 3/uL (0.8-4.8) [place] # (Auto) 0.3 10^3/uL 10^3/ uL (0.2-0.9) Eos # (Auto) 0.0 10^3/uL 10^3/ uL (0.0-0.8) Baso # (Auto) 0.0 10^3/uL 10^3/ uL (0.0-0.1) Absolute Gran (aut o) Nucleated RBC % (a uto) 0 % % Nucleated RBCs # 0.0 /100WBC /100W BC Specimen Type Arterial Sample Site Radial, left ABG pH 7.51 H (7.35-7.45) ABG pCO2 31.5 mmHg L mmHg (35-45) ABG pO2 49.1 mmHg L mmHg (80.0-100.0) ABG HCO3 25.2 mmol/L mmol/ L (22-26) ABG Base Excess 2.7 mmol/L H mmol /L (-2.0-2.0) Deon Test Pos Hematocrit 41.7 % % (37-47) Hgb O2 Saturation 87.4 % L % (95-100) Carboxyhemoglobin 0.9 %THgb %THgb (0.4-20.1) Methemoglobin 0.7 % % (0.4-1.5) Total Hemoglobin 13.6 g/dL g/dL (12-16) O2 Delivery Device Nc O2 Liters/Min 6.0 % % Nuclear Weapons Mechanical Specialist ID Cak Sodium Potassium Chloride Carbon Dioxide Anion Gap BUN Creatinine GFR Calculation Glucose Calculated Osmolal ity Lactic Acid Calcium Total Bilirubin AST ALT Alkaline Phosphata se C-Reactive Protein 9.9 mg/L H mg/L (0.0-4.9) NT-Pro-B Natriuret Pep Total Protein Albumin Globulin COVID Results: SARS-CoV-2 Antigen (Rapid) Positive (Negative) H 05/04/21 10:31 05/04/21 SARS-CoV-2 RNA (RT-PCR) Detected (NOT DETECTED) A 05/04/21 11:09 05/04/21 Discharge Plan Discharge Patient Disposition: Admitted As Inpatient Admit Provider: Donna Lemos Clinical Impression: COVID-19, Acute respiratory failure with hypoxia Condition: Serious Coding Level of Care Code ED General Neurologist for Chg Fwd Exam Detailed
[2021-05-11 19:15] LABS: ABG PCO2 31.5 mmHg (35-45); ABG PH Result 7.51 (7.35-7.45); Arterial Blood Gas Hematocrit 41.7 % (37-47); Base Excess ABG 2.7 mmol/L (-2.0-2.0); Blood Gas Allen Test Pos; Blood Gas Operator Identificat CAK; Blood Gas Sample Site Radial, left; Blood Gas Sample Type Arterial; Carboxyhemoglobin 0.9 %THgb (0.4-20.1); HCO3 ABG 25.2 mmol/L (22-26); HGB O2 Sat 87.4 % (95-100); Methemoglobin 0.7 % (0.4-1.5); Oxygen Device NC; PO2 ABG 49.1 mmHg (80.0-100.0); Total Hemoglobin 13.6 g/dL (12-16)
[2021-05-11 19:20] LABS: Alanine Aminotransferase 37 U/L (0-33); Albumin Level 3.3 g/dL (3.5-5.2); Alkaline Phosphatase 66 IU/L (35-105); Anion Gap 17.9 (5-19); Aspartate Amino Transferase 38 U/L (0-32); Blood Urea Nitrogen 32 mg/dL (8-23); Calcium 8.1 mg/dL (8.5-10.5); Carbon Dioxide 21 mmol/L (22-29); Chloride 107 mmol/L (98-107); Glomerular Filtration Rate 71.5 mL/min (90-130); Glucose 105 mg/dL (65-115); NT Pro B Type Natriuretic Pept 778 pg/mL (0-125); Osmolality Calculated 299 mOsm/kg (285-295); Potassium 4.9 mmol/L (3.5-5.1); Sodium 141 mmol/L (136-145); Total Bilirubin 0.5 mg/dL (0.15-1.2); Total Protein 5.3 g/dL (6.6-8.7)
[2021-05-11 20:00] LABS: Basophils % 0.4 %; Hematocrit 41.5 % (37.0-47.0); Hemoglobin 13.4 g/dL (11.5-15.3); Lymphocytes # 0.3 10^3/uL (0.8-4.8); Mean Corpuscular HGB Conc 32.3 g/dL (30.0-36.0); Mean Corpuscular Hemoglobin 28.8 pg (28.0-34.0); Mean Corpuscular Volume 89.2 fl (81-99); Mean Platelet Volume 10.7 fL (7.4-10.4); Monocytes # 0.3 10^3/uL (0.2-0.9); Monocytes % 2.9 %; Neutrophils # 8.54 10^3/uL (1.8-7.7); Neutrophils % 84.7 %; Nucleated Red Blood Cells % 0 %; Platelet Count 276 10^3/cmm (130-400); Red Blood Count 4.65 10^6/uL (4.1-5.3); White Blood Count 10.1 10^3/uL (4.0-10.0)
[2021-05-11 20:28] LABS: Slide Review Slide Review Perform
--- NOTE | 2021-05-11 21:07 | CTR_ITS ---
PROCEDURE INFORMATION: Exam: CTA Chest With Contrast Exam date and time: 05/11/2021 9:07 PM Age: 66 years old Clinical indication: Cough and dyspnea and shortness of breath; Chest wall pain; Prior surgery; Surgery type: Coronary stent. Defibrillator. ; Patient HX: Worsening SOB and oxygen dependency. Covid +. ; Additional info: Chest pain TECHNIQUE: Imaging protocol: Computed tomographic angiography of the chest with contrast. 3D rendering (Not supervised by radiologist): MIP and/or 3D reconstructed images were created by the technologist. Radiation optimization: All CT scans at this facility use at least one of these dose optimization techniques: automated exposure control; mA and/or kV adjustment per patient size (includes targeted exams where dose is matched to clinical indication); or iterative reconstruction. Contrast material: OMNI 350; Contrast volume: 60 ml; Contrast route: INTRAVENOUS (IV); COMPARISON: CT angio chest w abd pel w con 05/07/2021 11:29 AM RADIATION DOSE METRICS: Total DLP (mGy-cm): 519.84 FINDINGS: The there are degenerative changes of the spine. Pacemaker superimposes the left chest causing artifact. Diffuse pulmonary infiltrates are not significantly changed. They have the appearance of Covid 19 pneumonia. There is no pleural effusion. There is no pneumothorax. There are no suspicious pulmonary nodules. Cystic changes are again seen the throughout the lungs. The central airways are normal in caliber. The thyroid gland is unremarkable. There is no axillary adenopathy. There is no mediastinal adenopathy. There is no hilar adenopathy. Interrogation of the pulmonary arteries in multiple planes shows no evidence for pulmonary embolism. The aorta is normal in caliber with no evidence for aneurysm or dissection. The heart is normal in size. There is no evidence for right heart failure. There is a hiatal hernia. CT/CT angio chest PE protcl [id number] IMPRESSION: 1. Overall, no significant interval change. 2. No evidence for pulmonary embolism. 3. Diffuse pulmonary infiltrates compatible with Covid 19 pneumonia. Radiation Dose CTDIVOL = (mGy): DLP = 519.84 (mGy-cm)
[2021-05-11 21:22] LABS: C Reactive Protein 9.9 mg/L (0.0-4.9)
[2021-05-11] MEDS: iohexol 350 mg/mL 100 mL Btl IV (21:55)
--- NOTE | 2021-05-11 22:45 | P.HP_ITS ---
Providers/Chief Complaint Admitting Physician: Donna Lemos MD Chief Complaint: COVID +: DX 1 WK AGO, BLE TURNING PURPLE History of Present Illness Jo Ricks is a 66 year old female discharged one day ago after being treated for COVID 19 pneumonia. For details please discharge summary from yesterday. Returned home and started to feel increasingly short of breath and returned to the ER. )2 requirements are now up to 85% fi02 on heated hi flow nasal canula. CT chest without PE, no new gross consolidation noted. Review of Systems General: Reports: 10 or more systems reviewed and unremarkable except in HPI and below Const: Denies: fever(s), chills or body aches Eyes: Denies: change in vision, blurry vision or photophobia ENMT: Reports: hoarseness; Denies: throat pain, enlarged tonsils, odynophagia or nasal congestion Card: Denies: chest pain, palpitations, irregular heart rhythm, edema, swelling of feet/ankles, lightheadedness, pre-syncope, dyspnea on exertion or orthopnea Resp: Denies: dyspnea, productive cough, non-productive cough, wheezing, stridor, pain on inspiration, change in phlegm color, hemoptysis or chest congestion GI: Denies: abdominal pain, nausea, vomiting, hematemesis, coffee ground emesis, dysphagia, heartburn, diarrhea, constipation, GI cramping, change in stool character, hematochezia or melena : Denies: flank pain, difficulty voiding, dysuria, urinary frequency, urinary urgency, urinary hesitancy or hematuria Musc: Denies: neck pain, back pain, extremity pain, joint swelling, joint warmth or deformity Neuro: Denies: headache(s), numbness in extremities, weakness in extremities, sensory changes, difficulty walking, frequent falls, dizziness, vertigo, behavio ral changes, Slurred speech present or seizure-like activity Psych: Denies: anxiety, depression, suicidal ideation or homicidal ideation Endo: Denies: polyuria, polydipsia, tired all the time, cold intolerance or hot flashes Kike/Lymph: Denies: easy bruising or easy bleeding Medications/Allergies Home Medications Medication Instructions Recorded Confirmed Last Taken Type Nitrostat 0.4 mg SUBLINGUAL Q5M PRN 05/04/21 05/04/21 Unknown History Vitamin D3 50 mcg PO QAM 05/04/21 05/04/21 Unknown History aspirin 81 mg PO QAM 05/04/21 05/04/21 Unknown History metoprolol succinate 25 mg PO QAM 05/04/21 05/04/21 Unknown History rosuvastatin 10 mg PO .THREE TIMES A WEEK 05/04/21 05/04/21 Unknown History telmisartan 20 mg PO QAM 05/04/21 05/04/21 Unknown History amoxicillin-pot clavulanate 1 tab PO BID 7 Days #14 tab 05/10/21 Unknown Rx [Augmentin] apixaban [Eliquis] 2.5 mg PO BID #28 tab 05/10/21 Unknown Rx ascorbic acid (vitamin C) [Vitamin 500 mg PO BID 14 Days #28 tab 05/10/21 Unknown Rx C] benzonatate 100 mg PO TID 10 Days #30 cap 05/10/21 Unknown Rx dexamethasone 6 mg PO DAILY 7 Days #7 tab 05/10/21 Unknown Rx ferrous gluconate 324 mg PO BIDWM 30 Days #60 tab 05/10/21 Unknown Rx fluconazole 100 mg PO DAILY #5 tab 05/10/21 Unknown Rx fluticasone propion-salmeterol 1 inh INHALATION BID 14 Days #30 ea 05/10/21 Unknown Rx [Advair Diskus] levofloxacin 500 mg PO Q24H 7 Days #7 tab 05/10/21 Unknown Rx nystatin 100,000 unit PO QID 7 Days #28 ml 05/10/21 Unknown Rx pantoprazole 40 mg PO DAILY #14 tab 05/10/21 Unknown Rx tiotropium bromide [Spiriva with 1 cap INHALATION DAILY #14 inh 05/10/21 Unknown Rx HandiHaler] zinc gluconate 50 mg PO DAILY #14 tab 05/10/21 Unknown Rx Allergies Allergy/AdvReac Type Severity Reaction Status Date / Time gluten Allergy Unresponsiv Verified 05/11/21 18:05 e Rumwhee-FKU-FmV Reductase Allergy Unknown Verified 05/11/21 18:05 Inhibitor PFSH Acute PFSH: Medical History CAD (coronary artery disease) MS (multiple sclerosis) Surgical History AICD (automatic cardioverter/defibrillator) present Stented coronary artery Family History Other CAD (coronary artery disease) Social History Smoking and tobacco status: former smoker Alcohol intake: never Lives independently: Yes Household members: none Marital status: Current occupational status: retired Vitals/I&O/Wt Last Vital Signs Temp 98.6 F 05/11/21 20:20 Pulse 67 05/11/21 20:58 Resp 18 05/11/21 20:58 BP 131/89 05/11/21 20:58 Pulse Ox 95 05/11/21 20:58 Physical Exam Narrative: EXAM NARRATIVE: General: No acute distress, AO x3 HEENT: PERRLA, pupils bilaterally equal and reactive, pallors not present Chest: Normal vesicular breath sounds, no added sounds, equal good air entry bilaterally CVS: S1-S2 regular, no murmurs, no tachycardia, no gallops, no rubs Abdomen: Soft, nontender, no organomegaly, bowel sounds present Neuro: No focal deficits,AO x3 Data : 05/11/21 19:50 05/11/21 18:39 Micro: Microbiology 05/11/21 19:48 Blood Culture - Preliminary Blood SPECIMEN COLLECTED 05/11/21 19:50 Blood Culture - Preliminary Blood SPECIMEN COLLECTED A&P Assessment and plan (1) COVID-19: Status: Acute (2) Acute respiratory failure with hypoxia: Status: Acute Additional A&P Information Patient discharged yesterday after treatment of COVID 19 pneumonia Now returns with sudden increase in fi02 requiremners from 3lpm at discharge to 85% on heated high flow now. CTA chest without PE, no gross change in B/L infiltrates from COVID 19 pneumonia possibility of CHF cannot be excluded- trial of lasix 20mg IVP now check EKG series and cardiac troponins to evautae of ACS as precipitant of acute change. Check procalcitonin CRP not significantly changed over discharge, currently at 9 Continue levaquin 750mg po daily and dexamthesone 6mg IVP daily DVT ppx: Eliquis Attestations Medical Necessity Statement*: anticipate >2midnight care for management of acute respiratory failure from COVID 19 pnuemonia and increasing 02 requiremenrs Coding Level of Care Code Acute Lottery Clerk for Chg Fwd Diagnoses COVID-19 U07.1 Acute respiratory failure with hypoxia J96.01
--- NOTE | 2021-05-11 22:49 | ECG_ITS ---
[facility] Test Date: 2021-05-11 Pat Name: Jo Ricks Department: Room: [facility] Gender: Female Clinical Biochemist: : 1955 Requested By: Donna Lemos Order Number: [id number] Raudel MD: Long Burks M.D. Measurements Intervals [place] Rate: 70 P: 30 NE: 152 QRS: -23 QRSD: 110 T: 69 QT: 413 QTc: 447 Interpretive Statements SINUS RHYTHM BORDERLINE LEFT AXIS DEVIATION [QRS AXIS < -20] NONSPECIFIC T-WAVE ABNORMALITY Compared to ECG 05/11/2021 18:33:19 T-wave abnormality now present Electronically Signed On 05-13-2021 13:18:44 FISHER by Long Burks M.D. [id number]
[2021-05-11] MEDS: enoxaparin 40 mg/0.4 mL Syringe SUBCUT (23:33)
[2021-05-11] MEDS: FUROsemide 10 mg/mL SDV 2mL 20 MG IVP (23:33)
[2021-05-12] VITALS (62 sets, daily range): BP systolic 90–145; BP diastolic 60–92; PULSE 49–97; RESP 13–26; TEMP 36.3–36.9; O2SAT 88–100; BMI 36.6
[2021-05-12 00:12] LABS: Troponin(5th) Baseline 29 ng/L (0-10)
--- NOTE | 2021-05-12 00:49 | ECG_ITS ---
[facility] Test Date: 2021-05-12 Pat Name: Jo Ricks Department: Room: [facility] Gender: Female Warranty Coordinator: : 1955 Requested By: Donna Lemos Order Number: [id number] Reading MD: Long Burks M.D. Measurements Intervals [place] Rate: 77 P: 34 LA: 143 QRS: -33 QRSD: 110 T: 80 QT: 404 QTc: 457 Interpretive Statements SINUS RHYTHM LEFT AXIS DEVIATION [QRS AXIS < -30] POSSIBLE LATERAL MYOCARDIAL INFARCTION , OF INDETERMINATE AGE [30 ms Q WAVE IN I/aVL/V5/V6] Compared to ECG 05/11/2021 23:28:18 Myocardial infarct finding now present T-wave abnormality no longer present Electronically Signed On 05-14-2021 17:30:47 BEHAVIORAL SCIENCE CHAIR by Long Burks M.D. [id number]
[2021-05-12] MEDS: ipratropium-albuterol 3 mL Neb INHALATION ×4 (03:47→20:12)
[2021-05-12 04:33] LABS: ABG PCO2 33.1 mmHg (35-45); ABG PH Result 7.53 (7.35-7.45); Arterial Blood Gas Hematocrit 43.7 % (37-47); Base Excess ABG 4.9 mmol/L (-2.0-2.0); Blood Gas Allen Test Pos; Blood Gas Operator Identificat glc; Blood Gas Sample Site Radial, right; Blood Gas Sample Type Arterial; HCO3 ABG 27.4 mmol/L (22-26); Oxygen Device HAG; PO2 ABG 60.2 mmHg (80.0-100.0)
[2021-05-12] MEDS: dexamethasone 4 mg/mL INJ 6 MG IVP (04:41)
--- NOTE | 2021-05-12 04:49 | ECG_ITS ---
[facility] Test Date: 2021-05-12 Pat Name: Jo Ricks Department: Room: [facility]01 Gender: Female Venture Capitalist: : 1955 Requested By: Donna Lemos Order Number: [id number] Raudel MD: Long Burks M.D. Measurements Intervals [place] Rate: 67 P: 33 WI: 153 QRS: -25 QRSD: 110 T: 61 QT: 419 QTc: 444 Interpretive Statements SINUS RHYTHM BORDERLINE LEFT AXIS DEVIATION [QRS AXIS < -20] NONSPECIFIC T-WAVE ABNORMALITY Compared to ECG 05/12/2021 01:27:09 T-wave abnormality now present Myocardial infarct finding no longer present Electronically Signed On 05-14-2021 17:30:25 DIKE SUPERVISOR by Long Burks M.D. [id number]
[2021-05-12] MEDS: aspirin 81 mg EC Tablet PO (05:16)
[2021-05-12] MEDS: metoprolol succinate ER (24 HR) 25 mg Tablet PO (05:16)
[2021-05-12 06:08] LABS: Troponin 5 6HR 39.82 ng/L (0-10); Troponin 5 6HR Delta 10.82 ng/L (0-12)
--- NOTE | 2021-05-12 06:36 | PC.NURSE ---
Pt drove herself to the ER due to SOA and poor home O2 saturations. Pt was discharged from the hospital the day prior to this shift. Pt reports not knowing how to use her home oxygen delivery device. Pt was assessed in the ER and directly admitted to the ICU. Pt arrived to the unit on the oxy mask and RT immediately resumed heated high flow oxygen at 65%. Pt was alert with SOA and accompanying mild distress. Pt's anxiety improved throughout this shift, and oxygen saturation was maintained in the 90%s at rest. However, pt continues to have low reserve and rapidly decreased activity tolerance, apparent by continous oxygen saturation monitoring and dyspnea.
[2021-05-12] MEDS: nystatin 100,000 unit/mL UDC 5 mL 100000 UNIT PO ×4 (08:04→21:46)
[2021-05-12] MEDS: fluconazole 100 mg Tablet PO (08:04)
[2021-05-12] MEDS: pantoprazole DR 40 mg Tablet PO (08:05)
[2021-05-12] MEDS: benzonatate 100 mg Capsule PO ×3 (08:05→21:46)
[2021-05-12] MEDS: apixaban 5 mg Tablet 2.5 MG PO ×2 (08:05→17:21)
[2021-05-12] MEDS: levoFLOXacin 750 mg Tablet PO (08:05)
[2021-05-12] MEDS: budesonide 0.5 mg/2 mL Neb INHALATION ×2 (08:16→20:12)
[2021-05-12 10:09] LABS: Basophils % 0.5 %; Hematocrit 42.9 % (37.0-47.0); Hemoglobin 13.8 g/dL (11.5-15.3); Lymphocytes # 0.3 10^3/uL (0.8-4.8); Lymphocytes % 3.2 %; Mean Corpuscular HGB Conc 32.2 g/dL (30.0-36.0); Mean Corpuscular Hemoglobin 29.1 pg (28.0-34.0); Mean Corpuscular Volume 90.3 fl (81-99); Mean Platelet Volume 10.2 fL (7.4-10.4); Monocytes # 0.3 10^3/uL (0.2-0.9); Neutrophils # 7.48 10^3/uL (1.8-7.7); Nucleated Red Blood Cells % 0 %; Platelet Count 273 10^3/cmm (130-400); Red Blood Count 4.75 10^6/uL (4.1-5.3); Red Cell Distribution Width 14.9 % (12.1-15.1); White Blood Count 8.8 10^3/uL (4.0-10.0)
[2021-05-12 10:56] LABS: NT Pro B Type Natriuretic Pept 1094 pg/mL (0-125); Procalcitonin 0.03 ng/mL (0-0.5)
[2021-05-12 11:07] LABS: Alanine Aminotransferase 31 U/L (0-33); Albumin Level 2.9 g/dL (3.5-5.2); Alkaline Phosphatase 63 IU/L (35-105); Aspartate Amino Transferase 32 U/L (0-32); Blood Urea Nitrogen 30 mg/dL (8-23); C Reactive Protein 9.3 mg/L (0.0-4.9); Calcium 7.8 mg/dL (8.5-10.5); Carbon Dioxide 17 mmol/L (22-29); Chloride 105 mmol/L (98-107); Globulin 2.5 g/dL (1.3-4.6); Glomerular Filtration Rate 71.5 mL/min (90-130); Glucose 100 mg/dL (65-115); Osmolality Calculated 292 mOsm/kg (285-295); Sodium 138 mmol/L (136-145); Total Bilirubin 0.5 mg/dL (0.15-1.2); Total Protein 5.4 g/dL (6.6-8.7)
[2021-05-12 11:15] LABS: Anion Gap 20.4 (5-19); Potassium 4.4 mmol/L (3.5-5.1)
--- NOTE | 2021-05-12 15:43 | USR_ITS ---
PROCEDURE INFORMATION: Exam: US Duplex Lower Extremity Veins, Bilateral Exam date and time: 05/12/2021 3:43 PM Age: 66 years old Clinical indication: Condition or disease; Other: Covid +; Additional info: Dvt TECHNIQUE: Imaging protocol: Real-time duplex ultrasound of the extremities with 2-D garcia scale, color Doppler flow and spectral waveform analysis with image documentation. Complete exam focused on the bilateral lower extremity veins. COMPARISON: CT angio chest w abd pel w con 05/07/2021 11:29 AM FINDINGS: Right deep veins: Unremarkable. The common femoral, femoral, proximal profunda femoral, popliteal, posterior tibial and peroneal veins are patent without thrombus. Normal Doppler waveforms. Normal compressibility and/or augmentation response. Right superficial veins: Saphenofemoral junction is patent without thrombus. Left deep veins: Unremarkable. The common femoral, femoral, proximal profunda femoral, popliteal, posterior tibial and peroneal veins are patent without thrombus. Normal Doppler waveforms. Normal compressibility and/or augmentation response. Left superficial veins: Saphenofemoral junction is patent without thrombus. Soft tissues: Unremarkable. US/CV venous duplex [facility] [id number] IMPRESSION: No sonographic evidence of deep vein thrombosis. Radiation Dose CTDIVOL = (mGy): DLP = (mGy-cm)
--- NOTE | 2021-05-12 15:46 | PM.PN ---
Subjective Subjective: Interval history: Patient was sitting up in the chair, currently on heated high flow, no fevers, chills, nausea, vomiting, chest pain, no palpitations, she tells me that when she got hospital she is experiencing increased shortness of breath Vitals/I&O/Wt Last Vital Signs Temp 97.3 F L 05/12/21 12:15 Pulse 73 05/12/21 14:35 Resp 18 05/12/21 14:35 BP 107/70 05/12/21 12:15 Pulse Ox 98 05/12/21 14:35 05/12/21 05/12/21 05/12/21 06:59 14:59 22:59 Intake Total 240 / 240 716 / 716 Output Total 1959 / 1959 425 / 425 Balance -1720 / -1720 291 / 291 Weight last 48 hrs Weight 105.959 kg Weight 105.959 kg Physical Exam Const: COMMON NORMALS: no acute distress and patient oriented x3 Resp: COMMON NORMALS: normal respiratory effort, No retractions and No use of accessory muscles Cardio: COMMON NORMALS: regular rate, regular rhythm, S1 normal heart sound present and S2 normal heart sound present RATE: regular rate RHYTHM: regular rhythm HEART SOUNDS: S1 normal heart sound present and S2 normal heart sound present GI: COMMON NORMALS: Normal to inspection, nondistended, normoactive bowel sounds present and Soft to palpation PALPATION: Yes Soft to palpation Extremity: COMMON NORMALS: no pedal edema Neuro: COMMON NORMALS: patient oriented x3 Psych: COMMON NORMALS: mental status grossly normal Data : 05/12/21 09:47 05/12/21 09:47 Micro: Microbiology 05/11/21 19:48 Blood Culture - Preliminary Blood SPECIMEN COLLECTED 05/11/21 19:50 Blood Culture - Preliminary Blood SPECIMEN COLLECTED A&P Assessment and plan (1) COVID-19: Status: Acute (2) Acute respiratory failure with hypoxia: Status: Acute (3) Acute respiratory distress syndrome: Status: Acute Additional A&P Information Patient discharged yesterday after treatment of COVID 19 pneumonia Now returns with sudden increase in fi02 requiremners from 3lpm at discharge to 85% on heated high flow now. CTA chest without PE, no gross change in B/L infiltrates from COVID 19 pneumonia possibility of CHF cannot be excluded- trial of lasix 20mg IVP now NSTEMI, 6-hour troponin 39.2, delta 11.5, daily aspirin, statin, Eliquis, cardiac echocardiogram on May 09 showed an EF of 67%, no gross wall motion abnormalities, grade 1 out of 4 diastolic dysfunction, EKG showed no acute ST-T wave changes, no chest pain complaints, likely supply demand ischemia type II NSTEMI, but cannot rule out underlying cardiac etiology CRP 0.03 CRP not significantly changed over discharge, currently at 9 Continue levaquin 750mg po daily and dexamthesone 6mg IVP daily Elevated BNP, will give 1 dose Lasix Incentive spirometer, flutter valve Had Stenotrophomonas maltophilia, Enterobacter cloacae sputum cultures hold off on Actemra Will order bilateral lower extremity ultrasounds DVT ppx: Tru Attestations Medical Necessity Statement*: She requires hospitalization for COVID-19, acute respiratory distress syndrome, acute respiratory failure Coding Level of Care Code Acute Visual Training Aide for [facility] Centerjosé miguel Diagnoses COVID-19 U07.1 Acute respiratory failure with hypoxia J96.01 Acute respiratory distress syndrome J80
[2021-05-12] MEDS: FUROsemide 10 mg/mL SDV 4mL 40 MG IVP (16:03)
[2021-05-12] MEDS: ascorbic acid 500 mg Tablet PO (17:21)
--- NOTE | 2021-05-12 18:37 | PC.NURSE ---
Shift Note Frequent safety and comfort rounds continue. Orders and/or nursing care completed as indicated. Patient monitored for response to intervention and treatment(s). Education provided includes medications, IS, flutter valve, care plan, and new results . Patient verbalized understanding. family called twice. Patient up in chair until venous duplex. Patient expressed concern over sudden urge to void after Lasix. Nurse explained that with the Lasix the patient will get a sudden urge to void. Patient verbalized understanding.
[2021-05-13] VITALS (52 sets, daily range): BP systolic 90–146; BP diastolic 61–93; PULSE 57–94; RESP 12–24; TEMP 36.6; O2SAT 78–98
[2021-05-13] MEDS: dexamethasone 4 mg/mL INJ 6 MG IVP (00:37)
[2021-05-13] MEDS: ipratropium-albuterol 3 mL Neb INHALATION ×4 (02:03→20:13)
[2021-05-13 03:33] LABS: Basophils % 0.3 %; Hematocrit 43.2 % (37.0-47.0); Hemoglobin 13.7 g/dL (11.5-15.3); Lymphocytes # 0.3 10^3/uL (0.8-4.8); Lymphocytes % 3.1 %; Mean Corpuscular HGB Conc 31.7 g/dL (30.0-36.0); Mean Corpuscular Hemoglobin 28.8 pg (28.0-34.0); Mean Corpuscular Volume 90.8 fl (81-99); Mean Platelet Volume 10.6 fL (7.4-10.4); Monocytes # 0.5 10^3/uL (0.2-0.9); Neutrophils # 7.94 10^3/uL (1.8-7.7); Neutrophils % 85.5 %; Nucleated Red Blood Cells % 0 %; Platelet Count 246 10^3/cmm (130-400); Red Blood Count 4.76 10^6/uL (4.1-5.3); White Blood Count 9.3 10^3/uL (4.0-10.0)
[2021-05-13 03:50] LABS: INR 1.36 (0.8-1.2)
[2021-05-13 03:51] LABS: Slide Review Slide Review Perform
[2021-05-13 04:08] LABS: NT Pro B Type Natriuretic Pept 725 pg/mL (0-125); Procalcitonin 0.05 ng/mL (0-0.5)
[2021-05-13 04:21] LABS: Alanine Aminotransferase 29 U/L (0-33); Albumin Level 2.9 g/dL (3.5-5.2); Alkaline Phosphatase 62 IU/L (35-105); Blood Urea Nitrogen 29 mg/dL (8-23); C Reactive Protein 7.3 mg/L (0.0-4.9); Carbon Dioxide 23 mmol/L (22-29); Chloride 104 mmol/L (98-107); Creatine Phosphokinase 136 U/L (26-192); Ferritin 701 ng/mL (15-150); Globulin 2.7 g/dL (1.3-4.6); Glomerular Filtration Rate 71.5 mL/min (90-130); Glucose 116 mg/dL (65-115); Magnesium 1.9 mg/dL (1.7-2.3); Osmolality Calculated 301 mOsm/kg (285-295); Phosphorus 3.8 mg/dL (2.5-4.5); Sodium 142 mmol/L (136-145); Total Bilirubin 0.5 mg/dL (0.15-1.2); Total Protein 5.6 g/dL (6.6-8.7)
[2021-05-13 04:25] LABS: Anion Gap 19.4 (5-19); Aspartate Amino Transferase 27 U/L (0-32); Potassium 4.4 mmol/L (3.5-5.1)
[2021-05-13 05:42] LABS: ABG PCO2 36.7 mmHg (35-45); ABG PH Result 7.52 (7.35-7.45); Arterial Blood Gas Hematocrit 41.7 % (37-47); Base Excess ABG 6.8 mmol/L (-2.0-2.0); Blood Gas Allen Test Pos; Blood Gas Sample Site Radial, right; Blood Gas Sample Type Arterial; HCO3 ABG 29.9 mmol/L (22-26); Oxygen Device NC; PO2 ABG 56.3 mmHg (80.0-100.0)
[2021-05-13] MEDS: aspirin 81 mg EC Tablet PO (06:29)
[2021-05-13] MEDS: metoprolol succinate ER (24 HR) 25 mg Tablet PO (06:30)
--- NOTE | 2021-05-13 07:00 | XRR_ITS ---
PROCEDURE INFORMATION: Exam: XR Chest Exam date and time: 05/13/2021 7:00 AM Age: 66 years old Clinical indication: Shortness of breath; Additional info: SOB TECHNIQUE: Imaging protocol: XR of the chest. Views: 1 view. Total images: 1 COMPARISON: CR (CHEST, ) 05/11/2021 7:06 PM FINDINGS: Tubes, catheters and devices: AICD projects in satisfactory location. Lungs: Bilateral pulmonary opacities are again noted with the right-sided opacities showing interval improvement. Pleural spaces: Unremarkable. No pleural effusion. No pneumothorax. Heart/Mediastinum: Unremarkable. No cardiomegaly. Bones/joints: Osseous structures are unchanged from the prior exam. XR/XR chest 1V portable [id number] IMPRESSION: Bilateral pulmonary opacities are again noted with the right-sided opacities showing interval improvement. Radiation Dose CTDIVOL = (mGy): DLP = (mGy-cm)
[2021-05-13] MEDS: budesonide 0.5 mg/2 mL Neb INHALATION ×2 (08:19→20:13)
[2021-05-13] MEDS: zinc gluconate 50 mg Tablet PO (09:54)
[2021-05-13] MEDS: fluconazole 100 mg Tablet PO (09:54)
[2021-05-13] MEDS: benzonatate 100 mg Capsule PO ×3 (09:54→20:17)
[2021-05-13] MEDS: pantoprazole DR 40 mg Tablet PO (09:54)
[2021-05-13] MEDS: ascorbic acid 500 mg Tablet PO ×2 (09:54→17:10)
[2021-05-13] MEDS: cholecalciferol (vitamin D3) 1,000 unit Tablet 1000 UNIT PO (09:54)
[2021-05-13] MEDS: nystatin 100,000 unit/mL UDC 5 mL 100000 UNIT PO ×4 (09:55→20:15)
[2021-05-13] MEDS: FUROsemide 10 mg/mL SDV 4mL 40 MG IVP (09:55)
[2021-05-13] MEDS: apixaban 5 mg Tablet 2.5 MG PO ×2 (09:55→17:10)
[2021-05-13] MEDS: levoFLOXacin 750 mg Tablet PO (09:55)
--- NOTE | 2021-05-13 13:13 | USCV_ITS ---
Jo Ricks Age: 66 Gender: F : 1955 Exam Date: 05/13/2021 14:34 Ordering Phys: Pipo Paez MD Technologist: Reshma Zheng Exam Location: [facility] [place] Indication: EF BP: / HR: 75 Rhythm: Sinus Technical Quality: Fair MEASUREMENTS (Male / Female) Normal Values 2D ECHO LV Diastolic Diameter PLAX 3.4 cm 4.2 - 5.9 / 3.9 - 5.3 cm LV Systolic Diameter PLAX 2.4 cm IVS Diastolic Thickness 2.2 cm 0.6 - 1.0 / 0.6 - 0.9 cm IVS Systolic Thickness 1.5 cm LVPW Diastolic Thickness 1.1 cm 0.6 - 1.0 / 0.6 - 0.9 cm LVPW Systolic Thickness 0.9 cm LV Ejection Fraction 2D Teich 57.4 % LV Ejection Fraction MOD 2C 42.1 % LV Ejection Fraction 2C AL 42.1 % M-MODE LV Diastolic Diameter MM 4.8 cm 4.2 - 5.9 / 3.9 - 5.3 cm LV Systolic Diameter MM 3.8 cm LV Ejection Fraction MM Teich 42.1 % IVS Diastolic Thickness MM 1.1 cm 0.6 - 1.0 / 0.6 - 0.9 cm IVS Systolic Thickness MM 1.5 cm LVPW Diastolic Thickness MM 1.1 cm 0.6 - 1.0 / 0.6 - 0.9 cm LVPW Systolic Thickness MM 1.2 cm FINDINGS Left Ventricle Right Ventricle Right Atrium Left Atrium Mitral Valve Aortic Valve Tricuspid Valve Pulmonic Valve Pericardium Aorta CONCLUSIONS There is a limited echocardiogram performed to assess LV systolic function. LV systolic function is moderately reduced with EF of 35 to 40%. Moderate global hypokinesis is seen. Compared to prior echocardiogram from 05/08/2021, LV systolic function is significantly reduced. Long Burks MD (Electronically Signed) Final Date: 14 May 2021 18:21 S
--- NOTE | 2021-05-13 13:13 | P.PN_ITS ---
Subjective Subjective: Interval history: Patient was seen this morning, no fevers, no nausea, no vomiting, she is very motivated this morning, she tells me that she will not let this virus defeat her Vitals/I&O/Wt Last Vital Signs Temp 97.8 F 05/12/21 16:30 Pulse 94 05/13/21 12:30 Resp 23 H 05/13/21 12:30 BP 103/61 05/13/21 04:00 Pulse Ox 87 L 05/13/21 12:30 05/12/21 05/13/21 05/13/21 22:59 06:59 14:59 Intake Total 60 / 776 0 / 776 550 / 550 Output Total 1350 / 1775 Balance 60 / 351 -1350 / -999 550 / 550 Weight last 48 hrs Weight 105.959 kg Weight 105.959 kg Physical Exam Const: COMMON NORMALS: no acute distress and patient oriented x3 Resp: COMMON NORMALS: normal respiratory effort, No retractions and No use of accessory muscles AUSCULTATION: breath sounds absent bilateral Cardio: COMMON NORMALS: regular rate, regular rhythm, S1 normal heart sound present and S2 normal heart sound present RATE: regular rate RHYTHM: regular rhythm HEART SOUNDS: S1 normal heart sound present and S2 normal heart sound present GI: COMMON NORMALS: Normal to inspection, nondistended, normoactive bowel sounds present, Soft to palpation, non-tender and No hepatosplenomegaly present PALPATION: Yes Soft to palpation and Yes No hepatosplenomegaly present Extremity: COMMON NORMALS: no pedal edema Neuro: COMMON NORMALS: patient oriented x3 Psych: COMMON NORMALS: mental status grossly normal Urinary Catheter Management^: Warren: Cath Placed During This Visit: yes Reason for Continuing Indwelling Catheter: Accurate Measurement of Urinary Output in Critically Ill Patients Urinary Catheter Date of Insertion: 05/12/21 Urinary Catheter Time of Insertion: 20:12 Data : 05/13/21 03:11 05/13/21 03:11 Micro: Microbiology 05/11/21 19:48 Blood Culture - Preliminary Blood NEGATIVE TO DATE 05/11/21 19:50 Blood Culture - Preliminary Blood NEGATIVE TO DATE A&P Assessment and plan (1) COVID-19: Status: Acute (2) Acute respiratory failure with hypoxia: Status: Acute (3) Acute respiratory distress syndrome: Status: Acute Additional A&P Information Patient discharged yesterday after treatment of COVID 19 pneumonia Now returns with sudden increase in fi02 requiremners from 3lpm at discharge to 85% on heated high flow now. CTA chest without PE, no gross change in B/L infiltrates from COVID 19 pneumonia possibility of CHF cannot be excluded- trial of lasix 20mg IVP now NSTEMI, 6-hour troponin 39.2, delta 11.5, daily aspirin, statin, Eliquis, cardiac echocardiogram on May 09 showed an EF of 67%, no gross wall motion abnormalities, grade 1 out of 4 diastolic dysfunction, EKG showed no acute ST-T wave changes, no chest pain complaints, likely supply demand ischemia type II NSTEMI, but cannot rule out underlying cardiac etiology. Will reorder cardiac echocardiogram possible COVID-19 associated myocarditis and fluid overload CRP 0.03 CRP not significantly changed over discharge, currently at 9 Continue levaquin 750mg po daily and dexamthesone 6mg IVP daily Elevated BNP, daily dose Lasix, Incentive spirometer, flutter valve Had Stenotrophomonas maltophilia, Enterobacter cloacae sputum cultures hold off on Actemra Bilateral lower extremity ultrasound negative for DVT DVT ppx: Eliquis Attestations Medical Necessity Statement*: Patient requires hospitalization for acute respiratory failure sec to COVID-19 Coding Level of Care Code Acute Diabetes Territory Manager for [facility] Diagnoses COVID-19 U07.1 Acute respiratory failure with hypoxia J96.01 Acute respiratory distress syndrome J80
[2021-05-14] VITALS (51 sets, daily range): BP systolic 76–146; BP diastolic 47–95; PULSE 54–90; RESP 6–34; TEMP 36.6–36.7; O2SAT 86–98
[2021-05-14] MEDS: dexamethasone 4 mg/mL INJ 6 MG IVP ×2 (00:13→23:31)
[2021-05-14] MEDS: ipratropium-albuterol 3 mL Neb INHALATION ×4 (02:30→20:00)
[2021-05-14 04:06] LABS: Basophils % 0.3 %; Eosinophils % 0.1 %; Hematocrit 45.4 % (37.0-47.0); Lymphocytes # 0.3 10^3/uL (0.8-4.8); Lymphocytes % 2.2 %; Mean Corpuscular HGB Conc 30.8 g/dL (30.0-36.0); Mean Corpuscular Hemoglobin 28.2 pg (28.0-34.0); Mean Corpuscular Volume 91.5 fl (81-99); Mean Platelet Volume 10.3 fL (7.4-10.4); Monocytes # 0.5 10^3/uL (0.2-0.9); Monocytes % 3.9 %; Neutrophils # 11.73 10^3/uL (1.8-7.7); Neutrophils % 90.4 %; Nucleated Red Blood Cells % 0 %; Platelet Count 218 10^3/cmm (130-400); Red Blood Count 4.96 10^6/uL (4.1-5.3); Red Cell Distribution Width 15.1 % (12.1-15.1)
[2021-05-14 04:19] LABS: INR 1.38 (0.8-1.2)
[2021-05-14 04:39] LABS: NT Pro B Type Natriuretic Pept 389 pg/mL (0-125); Procalcitonin 0.04 ng/mL (0-0.5)
[2021-05-14 04:41] LABS: ABG PCO2 39.6 mmHg (35-45); ABG PH Result 7.51 (7.35-7.45); Arterial Blood Gas Hematocrit 44.3 % (37-47); Blood Gas Allen Test Pos; Blood Gas Sample Site Radial, right; Blood Gas Sample Type Arterial; HCO3 ABG 31.7 mmol/L (22-26); Oxygen Device NC; PO2 ABG 52.6 mmHg (80.0-100.0)
[2021-05-14 04:54] LABS: Alanine Aminotransferase 23 U/L (0-33); Alkaline Phosphatase 58 IU/L (35-105); Aspartate Amino Transferase 22 U/L (0-32); Blood Urea Nitrogen 28 mg/dL (8-23); C Reactive Protein 3.6 mg/L (0.0-4.9); Calcium 8.2 mg/dL (8.5-10.5); Carbon Dioxide 21 mmol/L (22-29); Chloride 100 mmol/L (98-107); Creatine Phosphokinase 52 U/L (26-192); Ferritin 672 ng/mL (15-150); Globulin 2.6 g/dL (1.3-4.6); Glomerular Filtration Rate 83.5 mL/min (90-130); Glucose 116 mg/dL (65-115); Magnesium 1.9 mg/dL (1.7-2.3); Osmolality Calculated 288 mOsm/kg (285-295); Phosphorus 3.2 mg/dL (2.5-4.5); Sodium 136 mmol/L (136-145); Total Bilirubin 0.6 mg/dL (0.15-1.2); Total Protein 5.6 g/dL (6.6-8.7)
[2021-05-14 04:56] LABS: Anion Gap 19.5 (5-19); Potassium 4.5 mmol/L (3.5-5.1)
[2021-05-14] MEDS: metoprolol succinate ER (24 HR) 25 mg Tablet PO (05:36)
[2021-05-14] MEDS: aspirin 81 mg EC Tablet PO (05:36)
[2021-05-14] MEDS: ascorbic acid 500 mg Tablet PO ×2 (08:01→17:21)
[2021-05-14] MEDS: atorvastatin 40 mg Tablet 20 MG PO (08:01)
[2021-05-14] MEDS: levoFLOXacin 750 mg Tablet PO (08:01)
[2021-05-14] MEDS: cholecalciferol (vitamin D3) 1,000 unit Tablet 1000 UNIT PO (08:01)
[2021-05-14] MEDS: apixaban 5 mg Tablet 2.5 MG PO ×2 (08:01→17:21)
[2021-05-14] MEDS: pantoprazole DR 40 mg Tablet PO (08:01)
[2021-05-14] MEDS: zinc gluconate 50 mg Tablet PO (08:01)
[2021-05-14] MEDS: fluconazole 100 mg Tablet PO (08:01)
[2021-05-14] MEDS: nystatin 100,000 unit/mL UDC 5 mL 100000 UNIT PO ×4 (08:02→20:10)
[2021-05-14] MEDS: benzonatate 100 mg Capsule PO ×3 (08:02→20:11)
--- NOTE | 2021-05-14 08:15 | PM.PN ---
Subjective Subjective: Interval history: Patient was seen and examined this morning,was complaining of b/l l/e swelling, sob has improved. Her other Vitals and labs have been reviewed. Medications: Reviewed: Yes Vitals/I&O/Wt Last Vital Signs Temp 97.8 F 05/13/21 19:51 Pulse 57 L 05/14/21 05:28 Resp 17 05/14/21 04:30 BP 120/71 05/14/21 04:30 Pulse Ox 94 05/14/21 04:30 05/13/21 05/14/21 05/14/21 22:59 06:59 14:59 Intake Total 1000 / 1550 480 / 2030 Output Total 4350 / 4350 2850 / 7200 Balance -3350 / -2800 -2370 / -5170 Weight last 48 hrs Weight 93.468 kg Physical Exam Const: COMMON NORMALS: patient oriented x3 HENMT: COMMON NORMALS: normocephalic and atraumatic HEAD & SCALP: normocephalic and atraumatic Resp: OTHER: Diminished air entry B/L Cardio: COMMON NORMALS: regular rate, regular rhythm, S1 normal heart sound present, S2 normal heart sound present, No gallops present (Cardio), No murmurs present (Cardio), No rub (Cardio) and Peripheral pulses 2+ throughout RATE: regular rate RHYTHM: regular rhythm HEART SOUNDS: S1 normal heart sound present and S2 normal heart sound present PERIPHERAL PULSES: Peripheral pulses 2+ throughout GI: COMMON NORMALS: Normal to inspection, nondistended, normoactive bowel sounds present, Soft to palpation, non-tender, No hepatosplenomegaly present and no masses AUSCULTATION: Yes normoactive bowel sounds PALPATION: Yes Soft to palpation and Yes No hepatosplenomegaly present RECTAL EXAM: deferred : COMMON NORMALS: Yes no CVA tenderness BLADDER/KIDNEY EXAM: Yes no CVA tenderness Back/Pelvis: COMMON NORMALS: no CVA tenderness Extremity: NARRATIVE EXTREMITY EXAM: 2 + b/l l/e pitting edema Neuro: COMMON NORMALS: patient oriented x3 Urinary Catheter Management^: Warren: Cath Placed During This Visit: yes Reason for Continuing Indwelling Catheter: Accurate Measurement of Urinary Output in Critically Ill Patients Urinary Catheter Date of Insertion: 05/12/21 Urinary Catheter Time of Insertion: 20:12 Data : 05/14/21 03:55 05/14/21 03:55 A&P Assessment and plan (1) COVID-19: Status: Acute (2) Acute respiratory failure with hypoxia: Status: Acute (3) Acute respiratory distress syndrome: Status: Acute Additional A&P Information Patient discharged yesterday after treatment of COVID 19 pneumonia Now returns with sudden increase in fi02 requiremners from 3lpm at discharge to 85% on heated high flow now. CTA chest without PE, no gross change in B/L infiltrates from COVID 19 pneumonia possibility of CHF cannot be excluded- trial of lasix 20mg IVP now NSTEMI, 6-hour troponin 39.2, delta 11.5, daily aspirin, statin, Eliquis, cardiac echocardiogram on May 09 showed an EF of 67%, no gross wall motion abnormalities, grade 1 out of 4 diastolic dysfunction, EKG showed no acute ST-T wave changes, no chest pain complaints, likely supply demand ischemia type II NSTEMI, but cannot rule out underlying cardiac etiology. Will reorder cardiac echocardiogram possible COVID-19 associated myocarditis and fluid overload CRP 0.03 CRP not significantly changed over discharge, currently at 9 Continue levaquin 750mg po daily and dexamthesone 6mg IVP daily Elevated BNP, daily dose Lasix, Incentive spirometer, flutter valve Had Stenotrophomonas maltophilia, Enterobacter cloacae sputum cultures hold off on Actemra Bilateral lower extremity ultrasound negative for DVT DVT ppx: Eliquis Attestations Medical Necessity Statement*: Patient needs to be in hospital for the management of COVID PNA. 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
[2021-05-14] MEDS: budesonide 0.5 mg/2 mL Neb INHALATION ×2 (08:55→20:00)
--- NOTE | 2021-05-14 09:37 | PC.SOCIAL ---
IMM Update Pg.2 of IMM Updated and reviewed with patient, who verbalized understanding. Copy provided.
--- NOTE | 2021-05-14 10:29 | PC.CHAP ---
Pastoral Care Encounter/Spiritual Assessment Type of Contact [] Declined cyber security specialist visit [] Patient/Family/Request visit [] Outpatient visit [] Follow-up visit [] Physician referral [] Code/Alert [x] Routine visit [] Staff referral [] Actively dying [] Patient sleeping [] Family support [] [] Out of room [] Palliative care [] [] Receiving care in room [] Pre-surgical visit [] Trauma [] Long length of stay [x] ICU visit [x] Other: isolated ... covid Relational/Emotional Strength [] Patient feels connected with others/family/visitors/staff [] Distress [] Loneliness/isolation [] Abandonment Spirituality of Patient [] Person of Judith [] Attends Confucianist of their Judith [] Believes in Prayer [] Reads Bible or Mormon materials [] There are Spiritual issues to be addressed Aquaculture Worker Interventions [x] Prayer [] Active listening [] Non-anxious presence [] Spiritual/emotional support [] Crisis/trauma care [] Spiritual counseling [] Bereavement support [] Provided bereavement packet [] Provided Bible/devotional materials [] Provided toy/stuffed animal, coloring book to patient or family member [] Provided Communion [] Anointing/[place] [] Salvation [x] Completed spiritual assessment [] Other: Impact on Illness or Injury [] Angry [] Fearful [] Anxious [] Often cries [] Exhaustion [] Unable to work [] Unable to attend temple [] Unable to walk/stand [] Unable to read [] Unable to drive [] Unable to eat/drink [] Unable to sleep [] Unable to be with family [] Patient intubated [] Other: Summary Time spent with patient
--- NOTE | 2021-05-14 18:30 | PC.NURSE ---
Shift Note Frequent safety and comfort rounds continue. Orders and nursing care completed as indicated. Patient monitored for response to intervention and treatments. Education provided includes new medications, frequent position movements, and oxygen safety. Patient and verbalized understanding. Will continue to monitor.
[2021-05-15] VITALS (38 sets, daily range): BP systolic 87–133; BP diastolic 56–90; PULSE 65–103; RESP 12–27; TEMP 36.4–36.6; O2SAT 89–97
[2021-05-15] MEDS: ipratropium-albuterol 3 mL Neb INHALATION ×4 (02:40→20:11)
[2021-05-15 04:56] LABS: Basophils % 0.2 %; Hematocrit 45.7 % (37.0-47.0); Hemoglobin 14.7 g/dL (11.5-15.3); Lymphocytes # 0.3 10^3/uL (0.8-4.8); Lymphocytes % 2.5 %; Mean Corpuscular HGB Conc 32.2 g/dL (30.0-36.0); Mean Corpuscular Volume 90.1 fl (81-99); Mean Platelet Volume 10.3 fL (7.4-10.4); Monocytes # 0.3 10^3/uL (0.2-0.9); Monocytes % 2.9 %; Neutrophils # 10.41 10^3/uL (1.8-7.7); Neutrophils % 92.1 %; Nucleated Red Blood Cells % 0 %; Platelet Count 224 10^3/cmm (130-400); Red Blood Count 5.07 10^6/uL (4.1-5.3); White Blood Count 11.3 10^3/uL (4.0-10.0)
[2021-05-15 05:12] LABS: INR 1.27 (0.8-1.2)
[2021-05-15 05:21] LABS: Alanine Aminotransferase 21 U/L (0-33); Alkaline Phosphatase 62 IU/L (35-105); Anion Gap 17.5 (5-19); Aspartate Amino Transferase 18 U/L (0-32); Blood Urea Nitrogen 25 mg/dL (8-23); C Reactive Protein 3.4 mg/L (0.0-4.9); Calcium 8.5 mg/dL (8.5-10.5); Carbon Dioxide 24 mmol/L (22-29); Chloride 100 mmol/L (98-107); Globulin 2.7 g/dL (1.3-4.6); Glomerular Filtration Rate 71.5 mL/min (90-130); Glucose 129 mg/dL (65-115); Magnesium 1.9 mg/dL (1.7-2.3); Osmolality Calculated 290 mOsm/kg (285-295); Phosphorus 3.1 mg/dL (2.5-4.5); Potassium 4.5 mmol/L (3.5-5.1); Sodium 137 mmol/L (136-145); Total Bilirubin 0.5 mg/dL (0.15-1.2); Total Protein 5.7 g/dL (6.6-8.7)
[2021-05-15] MEDS: metoprolol succinate ER (24 HR) 25 mg Tablet PO (05:31)
[2021-05-15] MEDS: aspirin 81 mg EC Tablet PO (05:31)
[2021-05-15 05:33] LABS: NT Pro B Type Natriuretic Pept 392 pg/mL (0-125); Procalcitonin 0.03 ng/mL (0-0.5)
[2021-05-15 05:44] LABS: Creatine Phosphokinase 30 U/L (26-192); Ferritin 711 ng/mL (15-150)
[2021-05-15] MEDS: budesonide 0.5 mg/2 mL Neb INHALATION ×2 (08:49→20:11)
[2021-05-15] MEDS: apixaban 5 mg Tablet 2.5 MG PO ×2 (08:53→17:12)
[2021-05-15] MEDS: ascorbic acid 500 mg Tablet PO ×2 (08:53→17:13)
[2021-05-15] MEDS: benzonatate 100 mg Capsule PO ×3 (08:53→20:16)
[2021-05-15] MEDS: nystatin 100,000 unit/mL UDC 5 mL 100000 UNIT PO ×4 (08:53→20:16)
[2021-05-15] MEDS: levoFLOXacin 750 mg Tablet PO (08:54)
[2021-05-15] MEDS: pantoprazole DR 40 mg Tablet PO (08:54)
[2021-05-15] MEDS: zinc gluconate 50 mg Tablet PO (08:54)
[2021-05-15] MEDS: fluconazole 100 mg Tablet PO (08:54)
[2021-05-15] MEDS: cholecalciferol (vitamin D3) 1,000 unit Tablet 1000 UNIT PO (08:54)
--- NOTE | 2021-05-15 08:55 | PM.PN ---
Subjective Subjective: Interval history: Patient was seen and examined this morning, she is feeling better as compared to yesterday, Says that her appetite is good, shortness of breath has improved. Medications: Reviewed: Yes Vitals/I&O/Wt Last Vital Signs Temp 97.6 F 05/15/21 07:00 Pulse 68 05/15/21 08:00 Resp 27 H 05/15/21 08:00 BP 115/90 05/15/21 08:00 Pulse Ox 90 05/15/21 08:00 05/14/21 05/15/21 05/15/21 22:59 06:59 14:59 Intake Total 480 / 1200 240 / 1440 Output Total 1400 / 1650 300 / 1950 Balance -920 / -450 -60 / -510 Weight last 48 hrs Weight 78.471 kg Weight 93.468 kg Physical Exam Const: COMMON NORMALS: patient oriented x3 HENMT: COMMON NORMALS: normocephalic and atraumatic HEAD & SCALP: normocephalic and atraumatic Resp: OTHER: Diminished air entry B/L , B/L Fine Crackles present in both lungs yeboah Cardio: COMMON NORMALS: regular rate, regular rhythm, S1 normal heart sound present, S2 normal heart sound present, No gallops present (Cardio), No murmurs present (Cardio), No rub (Cardio) and Peripheral pulses 2+ throughout RATE: regular rate RHYTHM: regular rhythm HEART SOUNDS: S1 normal heart sound present and S2 normal heart sound present PERIPHERAL PULSES: Peripheral pulses 2+ throughout GI: COMMON NORMALS: Normal to inspection, nondistended, normoactive bowel sounds present, Soft to palpation, non-tender, No hepatosplenomegaly present and no masses AUSCULTATION: Yes normoactive bowel sounds PALPATION: Yes Soft to palpation and Yes No hepatosplenomegaly present RECTAL EXAM: deferred : COMMON NORMALS: Yes no CVA tenderness BLADDER/KIDNEY EXAM: Yes no CVA tenderness Back/Pelvis: COMMON NORMALS: no CVA tenderness Extremity: NARRATIVE EXTREMITY EXAM: 1 + b/l l/e pitting edema Neuro: COMMON NORMALS: patient oriented x3 Urinary Catheter Management^: Warren: Cath Placed During This Visit: yes Reason for Continuing Indwelling Catheter: Accurate Measurement of Urinary Output in Critically Ill Patients Urinary Catheter Date of Insertion: 05/12/21 Urinary Catheter Time of Insertion: 20:12 Data : 12/07/21 04:35 05/15/21 04:35 A&P Assessment and plan (1) COVID-19: Status: Acute (2) Acute respiratory failure with hypoxia: Status: Acute (3) Acute respiratory distress syndrome: Status: Acute Additional A&P Information Patient discharged yesterday after treatment of COVID 19 pneumonia Now returns with sudden increase in fi02 requiremners from 3lpm at discharge to 85% on heated high flow now. CTA chest without PE, no gross change in B/L infiltrates from COVID 19 pneumonia possibility of CHF cannot be excluded- trial of lasix 20mg IVP now NSTEMI, 6-hour troponin 39.2, delta 11.5, daily aspirin, statin, Eliquis, cardiac echocardiogram on May 09 showed an EF of 67%, no gross wall motion abnormalities, grade 1 out of 4 diastolic dysfunction, EKG showed no acute ST-T wave changes, no chest pain complaints, likely supply demand ischemia type II NSTEMI, but cannot rule out underlying cardiac etiology. Will reorder cardiac echocardiogram possible COVID-19 associated myocarditis and fluid overload CRP 0.03 CRP not significantly changed over discharge, currently at 9 Continue levaquin 750mg po daily and dexamthesone 6mg IVP daily Elevated BNP, daily dose Lasix, Incentive spirometer, flutter valve Had Stenotrophomonas maltophilia, Enterobacter cloacae sputum cultures hold off on Actemra Bilateral lower extremity ultrasound negative for DVT DVT ppx: Eliquis Attestations Medical Necessity Statement*: Patient needs to be in hospital for management of pneumonia. 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
[2021-05-15] MEDS: FUROsemide 10 mg/mL SDV 4mL 40 MG IVP (09:30)
[2021-05-16] VITALS (34 sets, daily range): BP systolic 84–120; BP diastolic 58–75; PULSE 70–90; RESP 14–25; TEMP 36.4–36.6; O2SAT 85–97
[2021-05-16] MEDS: dexamethasone 4 mg/mL INJ 6 MG IVP (00:45)
[2021-05-16] MEDS: ipratropium-albuterol 3 mL Neb INHALATION ×4 (02:52→19:59)
[2021-05-16] MEDS: aspirin 81 mg EC Tablet PO (05:22)
[2021-05-16] MEDS: metoprolol succinate ER (24 HR) 25 mg Tablet PO (05:22)
[2021-05-16] MEDS: budesonide 0.5 mg/2 mL Neb INHALATION ×2 (08:37→19:56)
[2021-05-16] MEDS: apixaban 5 mg Tablet 2.5 MG PO ×2 (09:38→17:36)
[2021-05-16] MEDS: levoFLOXacin 750 mg Tablet PO (09:38)
[2021-05-16] MEDS: FUROsemide 40 mg Tablet PO (09:38)
[2021-05-16] MEDS: pantoprazole DR 40 mg Tablet PO (09:38)
[2021-05-16] MEDS: cholecalciferol (vitamin D3) 1,000 unit Tablet 1000 UNIT PO (09:38)
[2021-05-16] MEDS: ascorbic acid 500 mg Tablet PO ×2 (09:38→17:36)
[2021-05-16] MEDS: fluconazole 100 mg Tablet PO (09:38)
[2021-05-16] MEDS: benzonatate 100 mg Capsule PO ×3 (09:38→20:32)
[2021-05-16] MEDS: nystatin 100,000 unit/mL UDC 5 mL 100000 UNIT PO ×4 (09:39→20:32)
[2021-05-16] MEDS: zinc gluconate 50 mg Tablet PO (09:39)
[2021-05-16] MEDS: atorvastatin 40 mg Tablet 20 MG PO (09:40)
--- NOTE | 2021-05-16 10:33 | PC.CHAP ---
Pastoral Care Encounter/Spiritual Assessment Type of Contact [] Declined director of business development visit [] Patient/Family/Request visit [] Outpatient visit [] Follow-up visit [] Physician referral [] Code/Alert [x] Routine visit [] Staff referral [] Actively dying [] Patient sleeping [] Family support [] [] Out of room [] Palliative care [] [] Receiving care in room [] Pre-surgical visit [] Trauma [] Long length of stay [x] ICU visit [x] Other: isolated covid Relational/Emotional Strength [] Patient feels connected with others/family/visitors/staff [] Distress [] Loneliness/isolation [] Abandonment Spirituality of Patient [] Person of Judith [] Attends Quaker of their Judith [] Believes in Prayer [] Reads Bible or Protestant materials [] There are Spiritual issues to be addressed Ssn/Ssbn Assistant Navigator Interventions [x] Prayer [] Active listening [] Non-anxious presence [] Spiritual/emotional support [] Crisis/trauma care [] Spiritual counseling [] Bereavement support [] Provided bereavement packet [] Provided Bible/devotional materials [] Provided toy/stuffed animal, coloring book to patient or family member [] Provided Communion [] Anointing/[place] [] Salvation [x] Completed spiritual assessment [] Other: Impact on Illness or Injury [] Angry [] Fearful [] Anxious [] Often cries [] Exhaustion [] Unable to work [] Unable to attend baptist [] Unable to walk/stand [] Unable to read [] Unable to drive [] Unable to eat/drink [] Unable to sleep [] Unable to be with family [] Patient intubated [] Other: Summary Time spent with patient
--- NOTE | 2021-05-16 12:23 | PC.SOCIAL ---
IMM Updated Updated pt on IMM. No questions voiced. Provided pt a copy. Initialed, dated, & timed copy in chart.
--- NOTE | 2021-05-16 13:28 | P.PN_ITS ---
Subjective Subjective: Interval history: Patient was seen and examined this morning, no acute events overnight, continues to feel better, feels more energetic, shortness of breath is improved, bilateral lower extremity pitting edema has improved a lot, still requiring 10ls oxygen through the nasal cannula to maintain a saturation above 85. Continue to have good urine output, currently she is continue to make good urine. Medications: Reviewed: Yes Vitals/I&O/Wt Last Vital Signs Temp 97.6 F 05/16/21 07:00 Pulse 70 05/16/21 12:00 Resp 17 05/16/21 12:00 BP 114/72 05/16/21 12:00 Pulse Ox 90 05/16/21 12:00 05/15/21 05/16/21 05/16/21 22:59 06:59 14:59 Intake Total 540 / 1340 240 / 1580 300 / 300 Output Total 750 / 2450 1400 / 3850 Balance -210 / -1110 -1160 / -2270 300 / 300 Weight last 48 hrs Weight 78.557 kg Weight 78.471 kg Physical Exam Const: COMMON NORMALS: patient oriented x3 HENMT: COMMON NORMALS: normocephalic and atraumatic HEAD & SCALP: normocephalic and atraumatic Resp: OTHER: B/L Fine Crackles present in both lungs yeboah Cardio: COMMON NORMALS: regular rate, regular rhythm, S1 normal heart sound present, S2 normal heart sound present, No gallops present (Cardio), No murmurs present (Cardio), No rub (Cardio) and Peripheral pulses 2+ throughout RATE: regular rate RHYTHM: regular rhythm HEART SOUNDS: S1 normal heart sound present and S2 normal heart sound present PERIPHERAL PULSES: Peripheral pulses 2+ throughout GI: COMMON NORMALS: Normal to inspection, nondistended, normoactive bowel sounds present, Soft to palpation, non-tender, No hepatosplenomegaly present and no masses AUSCULTATION: Yes normoactive bowel sounds PALPATION: Yes Soft to palpation and Yes No hepatosplenomegaly present RECTAL EXAM: deferred : COMMON NORMALS: Yes no CVA tenderness BLADDER/KIDNEY EXAM: Yes no CVA tenderness Back/Pelvis: COMMON NORMALS: no CVA tenderness Extremity: NARRATIVE EXTREMITY EXAM: 1 + b/l l/e pitting edema Neuro: COMMON NORMALS: patient oriented x3 Urinary Catheter Management^: Warren: Cath Placed During This Visit: yes Reason for Continuing Indwelling Catheter: Accurate Measurement of Urinary Output in Critically Ill Patients Urinary Catheter Date of Insertion: 05/12/21 Urinary Catheter Time of Insertion: 20:12 Data : 05/15/21 04:35 05/15/21 04:35 A&P Assessment and plan (1) COVID-19: Status: Acute (2) Acute respiratory failure with hypoxia: Status: Acute (3) Acute respiratory distress syndrome: Status: Acute Additional A&P Information Patient discharged yesterday after treatment of COVID 19 pneumonia Now returns with sudden increase in fi02 requiremners from 3lpm at discharge to 85% on heated high flow now. CTA chest without PE, no gross change in B/L infiltrates from COVID 19 pneumonia possibility of CHF cannot be excluded- trial of lasix 20mg IVP now NSTEMI, 6-hour troponin 39.2, delta 11.5, daily aspirin, statin, Eliquis, cardiac echocardiogram on May 09 showed an EF of 67%, no gross wall motion abnormalities, grade 1 out of 4 diastolic dysfunction, EKG showed no acute ST-T wave changes, no chest pain complaints, likely supply demand ischemia type II NSTEMI, but cannot rule out underlying cardiac etiology. Will reorder cardiac echocardiogram possible COVID-19 associated myocarditis and fluid overload CRP 0.03 CRP not significantly changed over discharge, currently at 9 Continue levaquin 750mg po daily and dexamthesone 6mg IVP daily Elevated BNP, daily dose Lasix, Incentive spirometer, flutter valve Had Stenotrophomonas maltophilia, Enterobacter cloacae sputum cultures hold off on Actemra Bilateral lower extremity ultrasound negative for DVT DVT ppx: Eliquis Attestations Medical Necessity Statement*: Patient needs to be in hospital for management of Covid pneumonia. Time Spent in Patient Care: Greater than 35 minutes (>than 50% of time spent in counselling and/or direct pt care on unit) . 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
[2021-05-17] VITALS (27 sets, daily range): BP systolic 85–142; BP diastolic 54–91; PULSE 69–94; RESP 16–24; TEMP 36.4; O2SAT 89–94
[2021-05-17] MEDS: dexamethasone 4 mg/mL INJ 6 MG IVP ×2 (00:35→23:55)
[2021-05-17] MEDS: ipratropium-albuterol 3 mL Neb INHALATION ×4 (02:45→20:33)
[2021-05-17] MEDS: metoprolol succinate ER (24 HR) 25 mg Tablet PO (05:04)
[2021-05-17] MEDS: aspirin 81 mg EC Tablet PO (05:04)
--- NOTE | 2021-05-17 06:50 | PC.NURSE ---
uneventful night, no c/o from patient at this time, AO x4, remains on 8.5 L HFNC
[2021-05-17] MEDS: nystatin 100,000 unit/mL UDC 5 mL 100000 UNIT PO ×4 (08:04→20:41)
[2021-05-17] MEDS: levoFLOXacin 750 mg Tablet PO (08:04)
[2021-05-17] MEDS: zinc gluconate 50 mg Tablet PO (08:04)
[2021-05-17] MEDS: cholecalciferol (vitamin D3) 1,000 unit Tablet 1000 UNIT PO (08:04)
[2021-05-17] MEDS: benzonatate 100 mg Capsule PO ×3 (08:04→20:41)
[2021-05-17] MEDS: pantoprazole DR 40 mg Tablet PO (08:05)
[2021-05-17] MEDS: FUROsemide 40 mg Tablet PO (08:05)
[2021-05-17] MEDS: fluconazole 100 mg Tablet PO (08:05)
[2021-05-17] MEDS: apixaban 5 mg Tablet 2.5 MG PO ×2 (08:05→17:04)
[2021-05-17] MEDS: ascorbic acid 500 mg Tablet PO ×2 (08:05→17:04)
[2021-05-17] MEDS: budesonide 0.5 mg/2 mL Neb INHALATION ×2 (08:11→20:33)
--- NOTE | 2021-05-17 13:34 | P.PN_ITS ---
Subjective Subjective: Interval history: Patient was seen and examined this morning, no acute events overnight, overall she is doing better. Medications: Reviewed: Yes Vitals/I&O/Wt Last Vital Signs Temp 97.6 F 05/17/21 07:00 Pulse 87 05/17/21 12:00 Resp 18 05/17/21 12:00 BP 106/72 05/17/21 12:00 Pulse Ox 92 05/17/21 12:00 05/16/21 05/17/21 05/17/21 22:59 06:59 14:59 Intake Total 300 / 1000 300 / 300 Output Total 900 / 900 Balance 300 / 1000 -900 / 100 300 / 300 Weight last 48 hrs Weight 81.193 kg Weight 78.557 kg Physical Exam Const: COMMON NORMALS: patient oriented x3 HENMT: COMMON NORMALS: normocephalic and atraumatic HEAD & SCALP: normocephalic and atraumatic Resp: OTHER: B/L Fine Crackles present in both lungs yeboah Cardio: COMMON NORMALS: regular rate, regular rhythm, S1 normal heart sound present, S2 normal heart sound present, No gallops present (Cardio), No murmurs present (Cardio), No rub (Cardio) and Peripheral pulses 2+ throughout RATE: regular rate RHYTHM: regular rhythm HEART SOUNDS: S1 normal heart sound present and S2 normal heart sound present PERIPHERAL PULSES: Peripheral pulses 2+ throughout GI: COMMON NORMALS: Normal to inspection, nondistended, normoactive bowel sounds present, Soft to palpation, non-tender, No hepatosplenomegaly present and no masses AUSCULTATION: Yes normoactive bowel sounds PALPATION: Yes Soft to palpation and Yes No hepatosplenomegaly present RECTAL EXAM: deferred : COMMON NORMALS: Yes no CVA tenderness BLADDER/KIDNEY EXAM: Yes no CVA tenderness Back/Pelvis: COMMON NORMALS: no CVA tenderness Extremity: NARRATIVE EXTREMITY EXAM: 1 + b/l l/e pitting edema Neuro: COMMON NORMALS: patient oriented x3 Urinary Catheter Management^: Warren: Cath Placed During This Visit: yes Reason for Continuing Indwelling Catheter: Accurate Measurement of Urinary Output in Critically Ill Patients Urinary Catheter Date of Insertion: 05/12/21 Urinary Catheter Time of Insertion: 20:12 Data : 05/15/21 04:35 05/15/21 04:35 Micro: Microbiology 05/11/21 19:48 Blood Culture - Final Blood NO GROWTH AFTER 5 DAYS 05/11/21 19:50 Blood Culture - Final Blood NO GROWTH AFTER 5 DAYS A&P Assessment and plan (1) COVID-19: Status: Acute (2) Acute respiratory failure with hypoxia: Status: Acute (3) Acute respiratory distress syndrome: Status: Acute Additional A&P Information # Ac hypoxic respiratory failure secondary to Covid pneumonia: Currently on Covid protocol; Trend inflammatory markers (ESR , CRP , D-dimer, ferritin,LDH ) Continue to monitor ABG , x-ray chest , Blood culture negative so far Most recent culture has grown stenotrophomonas, as well as Enterobacter cloacae: Sensitive to levofloxacin. MRSA culture negative CTA chest: No evidence of pulmonary embolism, Diffuse pulmonary infiltrates CV venous duplex LE BI: Negative for DVT. Completed a course of remdesivir Currently on dexamethasone 6 mg IV daily On levofloxacin Duo nebs, budesonide inhaler Continue zinc and ascorbic acid vitamin D Tessalon Perles Incentive spirometer, flutter valve Supplemental oxygen as needed # NSTEMI type II: Likely secondary to demand ischemia: Possible viral myocarditis: Secondary to COVID-19 2D echo: 05/13 : LV systolic function is moderately reduced with EF of 35 to 40%. Moderate global hypokinesis is seen. 2 D eCHO ON 05/08/21 : Normal LV size and systolic function, with EF of 67%, no RWMA , mild LVH, grade 1 diastolic dysfunction, no gross valvular abnormality. She is currently on, aspirin , statin , beta-ramon , Eliquis. Possibility of discharge to the custodial was discussed with the patient, but she wants to go home with home health aid. CODE STATUS: Full code DVT prophylaxis: Not needed she is on Eliquis Attestations Medical Necessity Statement*: Patient needs to be in hospital for management of Covid pneumonia. Coding Level of Care Code Acute Enologist for [facility] Fwd Exam Detailed Diagnoses COVID-19 U07.1 Acute respiratory failure with hypoxia J96.01 Acute respiratory distress syndrome J80
[2021-05-18] VITALS (29 sets, daily range): BP systolic 90–119; BP diastolic 62–79; PULSE 62–94; RESP 14–22; TEMP 36.3–37.1; O2SAT 90–93
[2021-05-18] MEDS: ipratropium-albuterol 3 mL Neb INHALATION ×4 (02:52→20:14)
[2021-05-18] MEDS: metoprolol succinate ER (24 HR) 25 mg Tablet PO (05:03)
[2021-05-18] MEDS: aspirin 81 mg EC Tablet PO (05:04)
[2021-05-18 05:22] LABS: Basophils % 0.1 %; Eosinophils % 0.3 %; Hematocrit 45.1 % (37.0-47.0); Hemoglobin 14.7 g/dL (11.5-15.3); Lymphocytes # 0.6 10^3/uL (0.8-4.8); Lymphocytes % 4.9 %; Mean Corpuscular HGB Conc 32.6 g/dL (30.0-36.0); Mean Corpuscular Hemoglobin 28.4 pg (28.0-34.0); Mean Corpuscular Volume 87.2 fl (81-99); Mean Platelet Volume 10.2 fL (7.4-10.4); Monocytes # 0.6 10^3/uL (0.2-0.9); Neutrophils # 10.22 10^3/uL (1.8-7.7); Neutrophils % 88.3 %; Nucleated Red Blood Cells % 0 %; Platelet Count 222 10^3/cmm (130-400); Red Blood Count 5.17 10^6/uL (4.1-5.3); Red Cell Distribution Width 14.6 % (12.1-15.1); White Blood Count 11.6 10^3/uL (4.0-10.0)
[2021-05-18 05:35] LABS: D Dimer 0.56 ug/mIFEU (0-0.59)
[2021-05-18 05:42] LABS: Alanine Aminotransferase 15 U/L (0-33); Albumin Level 3.2 g/dL (3.5-5.2); Alkaline Phosphatase 63 IU/L (35-105); Aspartate Amino Transferase 14 U/L (0-32); Blood Urea Nitrogen 24 mg/dL (8-23); C Reactive Protein 7.3 mg/L (0.0-4.9); Calcium 8.1 mg/dL (8.5-10.5); Carbon Dioxide 28 mmol/L (22-29); Chloride 98 mmol/L (98-107); Ferritin 805 ng/mL (15-150); Globulin 2.6 g/dL (1.3-4.6); Glomerular Filtration Rate 99.7 mL/min (90-130); Glucose 92 mg/dL (65-115); Lactate Dehydrogenase 292 U/L (135-214); Osmolality Calculated 280 mOsm/kg (285-295); Sodium 133 mmol/L (136-145); Total Bilirubin 0.7 mg/dL (0.15-1.2); Total Protein 5.8 g/dL (6.6-8.7)
[2021-05-18] MEDS: ascorbic acid 500 mg Tablet PO ×2 (08:27→17:20)
[2021-05-18] MEDS: apixaban 5 mg Tablet 2.5 MG PO ×2 (08:27→17:20)
[2021-05-18] MEDS: pantoprazole DR 40 mg Tablet PO (08:27)
[2021-05-18] MEDS: atorvastatin 40 mg Tablet 20 MG PO (08:27)
[2021-05-18] MEDS: benzonatate 100 mg Capsule PO ×3 (08:28→20:30)
[2021-05-18] MEDS: fluconazole 100 mg Tablet PO (08:28)
[2021-05-18] MEDS: cholecalciferol (vitamin D3) 1,000 unit Tablet 1000 UNIT PO (08:28)
[2021-05-18] MEDS: nystatin 100,000 unit/mL UDC 5 mL 100000 UNIT PO ×4 (08:28→20:30)
[2021-05-18] MEDS: levoFLOXacin 750 mg Tablet PO (08:28)
[2021-05-18] MEDS: zinc gluconate 50 mg Tablet PO (08:28)
[2021-05-18] MEDS: budesonide 0.5 mg/2 mL Neb INHALATION ×2 (08:43→20:14)
--- NOTE | 2021-05-18 11:03 | PC.SOCIAL ---
IMM Updated Updated pt on IMM. No questions voiced. Provided pt a copy. Initialed, dated, & timed a copy & placed in chart.
--- NOTE | 2021-05-18 13:16 | PM.PN ---
Subjective Subjective: Interval history: Patient was seen and examined this morning,she is doing better, fells much better, spends time in chair out of bed, appetite is good. Medications: Reviewed: Yes Vitals/I&O/Wt Last Vital Signs Temp 97.4 F L 05/18/21 07:00 Pulse 80 05/18/21 10:00 Resp 19 H 05/18/21 10:00 BP 91/67 05/18/21 12:00 Pulse Ox 91 05/18/21 12:00 05/17/21 05/18/21 05/18/21 22:59 06:59 14:59 Intake Total 300 / 300 Output Total 350 / 1000 800 / 1800 Balance -350 / -400 -800 / -1200 300 / 300 Weight last 48 hrs Weight 82.554 kg Weight 81.193 kg Physical Exam Const: COMMON NORMALS: patient oriented x3 HENMT: COMMON NORMALS: normocephalic and atraumatic HEAD & SCALP: normocephalic and atraumatic Resp: COMMON NORMALS: normal respiratory effort and clear to auscultation bilaterally EFFORT & INSPECTION: Yes able to speak in complete sentences AUSCULTATION: clear to auscultation bilaterally Cardio: COMMON NORMALS: regular rate, regular rhythm, S1 normal heart sound present, S2 normal heart sound present, No gallops present (Cardio), No murmurs present (Cardio), No rub (Cardio) and Peripheral pulses 2+ throughout RATE: regular rate RHYTHM: regular rhythm HEART SOUNDS: S1 normal heart sound present and S2 normal heart sound present PERIPHERAL PULSES: Peripheral pulses 2+ throughout GI: COMMON NORMALS: Normal to inspection, nondistended, normoactive bowel sounds present, Soft to palpation, non-tender, No hepatosplenomegaly present and no masses AUSCULTATION: Yes normoactive bowel sounds PALPATION: Yes Soft to palpation and Yes No hepatosplenomegaly present RECTAL EXAM: deferred : COMMON NORMALS: Yes no CVA tenderness BLADDER/KIDNEY EXAM: Yes no CVA tenderness Back/Pelvis: COMMON NORMALS: no CVA tenderness Extremity: NARRATIVE EXTREMITY EXAM: Trace B/L L/E Pitting Edema Neuro: COMMON NORMALS: patient oriented x3 Urinary Catheter Management^: Warren: Cath Placed During This Visit: yes Reason for Continuing Indwelling Catheter: Accurate Measurement of Urinary Output in Critically Ill Patients Urinary Catheter Date of Insertion: 05/12/21 Urinary Catheter Time of Insertion: 20:12 Data : 05/18/21 05:04 05/18/21 05:04 A&P Assessment and plan (1) COVID-19: Status: Acute (2) Acute respiratory failure with hypoxia: Status: Acute (3) Acute respiratory distress syndrome: Status: Acute Additional A&P Information # Ac hypoxic respiratory failure secondary to Covid pneumonia: Currently on Covid protocol; Trend inflammatory markers (ESR , CRP , D-dimer, ferritin,LDH ) Continue to monitor ABG , x-ray chest , Blood culture negative so far Most recent culture has grown stenotrophomonas, as well as Enterobacter cloacae: Sensitive to levofloxacin will complete 10 days course, started on 05/11. MRSA culture negative CTA chest: No evidence of pulmonary embolism, Diffuse pulmonary infiltrates CV venous duplex LE BI: Negative for DVT. Completed a course of remdesivir Currently on dexamethasone 6 mg IV daily On levofloxacin On low dose eliquis Duo nebs, budesonide inhaler Continue zinc and ascorbic acid vitamin D Tessalon Perles Incentive spirometer, flutter valve Supplemental oxygen as needed # NSTEMI type II: Likely secondary to demand ischemia: Possible viral myocarditis: Secondary to COVID-19 2D echo: 05/13 : LV systolic function is moderately reduced with EF of 35 to 40%. Moderate global hypokinesis is seen. 2 D eCHO ON 05/08/21 : Normal LV size and systolic function, with EF of 67%, no RWMA , mild LVH, grade 1 diastolic dysfunction, no gross valvular abnormality. She is currently on, aspirin , statin , beta-ramon , Eliquis. Possibility of discharge to the senior living was discussed with the patient, but she wants to go home with home health aid. 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
[2021-05-19] VITALS (13 sets, daily range): BP systolic 100–119; BP diastolic 66–83; PULSE 71–92; RESP 16–20; TEMP 36.5–37.1; O2SAT 86–95
[2021-05-19] MEDS: dexamethasone 4 mg/mL INJ 6 MG IVP (00:01)
[2021-05-19] MEDS: ipratropium-albuterol 3 mL Neb INHALATION ×5 (03:05→21:12)
[2021-05-19 05:57] LABS: Basophils % 0.1 %; Hematocrit 44.5 % (37.0-47.0); Hemoglobin 14.4 g/dL (11.5-15.3); Lymphocytes # 0.3 10^3/uL (0.8-4.8); Lymphocytes % 1.8 %; Mean Corpuscular HGB Conc 32.4 g/dL (30.0-36.0); Mean Corpuscular Hemoglobin 28.8 pg (28.0-34.0); Mean Platelet Volume 10.6 fL (7.4-10.4); Monocytes # 0.3 10^3/uL (0.2-0.9); Monocytes % 2.5 %; Neutrophils # 12.82 10^3/uL (1.8-7.7); Neutrophils % 94.6 %; Nucleated Red Blood Cells % 0 %; Platelet Count 194 10^3/cmm (130-400); Red Cell Distribution Width 14.7 % (12.1-15.1); White Blood Count 13.6 10^3/uL (4.0-10.0)
[2021-05-19] MEDS: aspirin 81 mg EC Tablet PO (06:00)
[2021-05-19] MEDS: metoprolol succinate ER (24 HR) 25 mg Tablet PO (06:00)
[2021-05-19 06:16] LABS: Alanine Aminotransferase 14 U/L (0-33); Albumin Level 3.2 g/dL (3.5-5.2); Alkaline Phosphatase 59 IU/L (35-105); Anion Gap 18.6 (5-19); Aspartate Amino Transferase 12 U/L (0-32); Blood Urea Nitrogen 22 mg/dL (8-23); Calcium 8.3 mg/dL (8.5-10.5); Carbon Dioxide 23 mmol/L (22-29); Chloride 100 mmol/L (98-107); Globulin 2.3 g/dL (1.3-4.6); Glomerular Filtration Rate 83.5 mL/min (90-130); Glucose 122 mg/dL (65-115); Osmolality Calculated 289 mOsm/kg (285-295); Potassium 4.6 mmol/L (3.5-5.1); Sodium 137 mmol/L (136-145); Total Bilirubin 0.6 mg/dL (0.15-1.2); Total Protein 5.5 g/dL (6.6-8.7)
[2021-05-19] MEDS: budesonide 0.5 mg/2 mL Neb INHALATION ×2 (07:43→21:12)
[2021-05-19] MEDS: ascorbic acid 500 mg Tablet PO ×2 (08:30→17:00)
[2021-05-19] MEDS: zinc gluconate 50 mg Tablet PO (08:30)
[2021-05-19] MEDS: fluconazole 100 mg Tablet PO (08:30)
[2021-05-19] MEDS: cholecalciferol (vitamin D3) 1,000 unit Tablet 1000 UNIT PO (08:30)
[2021-05-19] MEDS: pantoprazole DR 40 mg Tablet PO (08:30)
[2021-05-19] MEDS: levoFLOXacin 750 mg Tablet PO (08:30)
[2021-05-19] MEDS: apixaban 5 mg Tablet 2.5 MG PO ×2 (08:30→17:00)
[2021-05-19] MEDS: benzonatate 100 mg Capsule PO ×3 (08:30→20:29)
[2021-05-19] MEDS: nystatin 100,000 unit/mL UDC 5 mL 100000 UNIT PO ×4 (08:30→20:29)
--- NOTE | 2021-05-19 18:23 | PC.NURSE ---
This nurse notified physician at this time via telephone about indwelling catheter being taken out. No new orders received, stated she would not be discharged today and to leave catheter in.
--- NOTE | 2021-05-19 18:49 | P.PN_ITS ---
Subjective Subjective: Interval history: Patient was seen and examined this morning,she is doing better, fells much better, but she has significant desaturation on ambulation, she desaturates to 80% on 6 Lpm while walking. Medications: Reviewed: Yes Vitals/I&O/Wt Last Vital Signs Temp 97.7 F 05/19/21 16:00 Pulse 83 05/19/21 16:00 Resp 16 05/19/21 16:00 BP 110/75 05/19/21 16:00 Pulse Ox 95 05/19/21 16:00 05/19/21 05/19/21 05/19/21 06:59 14:59 22:59 Intake Total 180 / 1280 Output Total 1200 / 2700 1300 / 1300 Balance -1020 / -1420 -1300 / -1300 Weight last 48 hrs Weight 95.481 kg Weight 82.554 kg Physical Exam Const: COMMON NORMALS: patient oriented x3 HENMT: COMMON NORMALS: normocephalic and atraumatic HEAD & SCALP: normocephalic and atraumatic Resp: COMMON NORMALS: normal respiratory effort and clear to auscultation bilaterally EFFORT & INSPECTION: Yes able to speak in complete sentences AUSCULTATION: clear to auscultation bilaterally OTHER: B/L Fine Crackles present in both lungs yeboah Cardio: COMMON NORMALS: regular rate, regular rhythm, S1 normal heart sound present, S2 normal heart sound present, No gallops present (Cardio), No murmurs present (Cardio), No rub (Cardio) and Peripheral pulses 2+ throughout RATE: regular rate RHYTHM: regular rhythm HEART SOUNDS: S1 normal heart sound present and S2 normal heart sound present PERIPHERAL PULSES: Peripheral pulses 2+ throughout GI: COMMON NORMALS: Normal to inspection, nondistended, normoactive bowel sounds present, Soft to palpation, non-tender, No hepatosplenomegaly present and no masses AUSCULTATION: Yes normoactive bowel sounds PALPATION: Yes Soft to palpation and Yes No hepatosplenomegaly present RECTAL EXAM: deferred : COMMON NORMALS: Yes no CVA tenderness BLADDER/KIDNEY EXAM: Yes no CVA tenderness Back/Pelvis: COMMON NORMALS: no CVA tenderness Extremity: NARRATIVE EXTREMITY EXAM: Trace B/L L/E Pitting Edema Neuro: COMMON NORMALS: patient oriented x3 Urinary Catheter Management^: Warren: Cath Placed During This Visit: yes Reason for Continuing Indwelling Catheter: Other Urinary Catheter Date of Insertion: 05/12/21 Urinary Catheter Time of Insertion: 20:12 Data : 05/19/21 04:59 05/19/21 04:59 A&P Assessment and plan (1) COVID-19: Status: Acute (2) Acute respiratory failure with hypoxia: Status: Acute (3) Acute respiratory distress syndrome: Status: Acute Additional A&P Information # Ac hypoxic respiratory failure secondary to Covid pneumonia: Currently on Covid protocol; Trend inflammatory markers (ESR , CRP , D-dimer, ferritin,LDH ) Continue to monitor ABG , x-ray chest , Blood culture negative so far Most recent culture has grown stenotrophomonas, as well as Enterobacter cloacae: Sensitive to levofloxacin will complete 10 days course, started on 05/11. MRSA culture negative CTA chest: No evidence of pulmonary embolism, Diffuse pulmonary infiltrates CV venous duplex LE BI: Negative for DVT. Completed a course of remdesivir Currently on dexamethasone 6 mg IV daily On levofloxacin On low dose eliquis Duo nebs, budesonide inhaler Continue zinc and ascorbic acid vitamin D Tessalon Perles Incentive spirometer, flutter valve Supplemental oxygen as needed # NSTEMI type II: Likely secondary to demand ischemia: Possible viral myocarditis: Secondary to COVID-19 2D echo: 05/13 : LV systolic function is moderately reduced with EF of 35 to 40%. Moderate global hypokinesis is seen. 2 D ECHO ON 05/08/21 : Normal LV size and systolic function, with EF of 67%, no RWMA , mild LVH, grade 1 diastolic dysfunction, no gross valvular abnormality. She is currently on, aspirin , statin , beta-ramon , Eliquis. [facility] of discharge to the [place] [facility] was discussed with the patient, but she wants to go home with home health aid. 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
[2021-05-20] VITALS (12 sets, daily range): BP systolic 98–143; BP diastolic 64–76; PULSE 76–92; RESP 16–18; TEMP 36.4–36.9; O2SAT 90–95
[2021-05-20] MEDS: dexamethasone 4 mg/mL INJ 6 MG IVP (00:38)
[2021-05-20] MEDS: ipratropium-albuterol 3 mL Neb INHALATION ×4 (02:21→20:28)
[2021-05-20 05:31] LABS: Basophils % 0.1 %; Hematocrit 44.4 % (37.0-47.0); Hemoglobin 14.4 g/dL (11.5-15.3); Lymphocytes # 0.2 10^3/uL (0.8-4.8); Lymphocytes % 1.8 %; Mean Corpuscular HGB Conc 32.4 g/dL (30.0-36.0); Mean Corpuscular Hemoglobin 28.7 pg (28.0-34.0); Mean Corpuscular Volume 88.6 fl (81-99); Mean Platelet Volume 10.7 fL (7.4-10.4); Monocytes # 0.3 10^3/uL (0.2-0.9); Monocytes % 2.9 %; Neutrophils # 10.31 10^3/uL (1.8-7.7); Neutrophils % 93.7 %; Nucleated Red Blood Cells % 0 %; Platelet Count 177 10^3/cmm (130-400); Red Blood Count 5.01 10^6/uL (4.1-5.3); Red Cell Distribution Width 14.8 % (12.1-15.1)
[2021-05-20 05:54] LABS: Alanine Aminotransferase 14 U/L (0-33); Albumin Level 3.2 g/dL (3.5-5.2); Alkaline Phosphatase 63 IU/L (35-105); Anion Gap 13.4 (5-19); Aspartate Amino Transferase 15 U/L (0-32); Blood Urea Nitrogen 23 mg/dL (8-23); Calcium 8.2 mg/dL (8.5-10.5); Carbon Dioxide 27 mmol/L (22-29); Chloride 99 mmol/L (98-107); Globulin 2.4 g/dL (1.3-4.6); Glomerular Filtration Rate 62.5 mL/min (90-130); Glucose 127 mg/dL (65-115); Osmolality Calculated 285 mOsm/kg (285-295); Potassium 4.4 mmol/L (3.5-5.1); Sodium 135 mmol/L (136-145); Total Bilirubin 0.6 mg/dL (0.15-1.2); Total Protein 5.6 g/dL (6.6-8.7)
[2021-05-20] MEDS: metoprolol succinate ER (24 HR) 25 mg Tablet PO (06:55)
[2021-05-20] MEDS: aspirin 81 mg EC Tablet PO (06:55)
[2021-05-20] MEDS: benzonatate 100 mg Capsule PO ×3 (07:49→21:23)
[2021-05-20] MEDS: nystatin 100,000 unit/mL UDC 5 mL 100000 UNIT PO ×4 (07:49→21:23)
[2021-05-20] MEDS: pantoprazole DR 40 mg Tablet PO (07:50)
[2021-05-20] MEDS: zinc gluconate 50 mg Tablet PO (07:50)
[2021-05-20] MEDS: levoFLOXacin 750 mg Tablet PO (07:50)
[2021-05-20] MEDS: apixaban 5 mg Tablet 2.5 MG PO ×2 (07:50→17:07)
[2021-05-20] MEDS: ascorbic acid 500 mg Tablet PO ×2 (07:50→17:07)
[2021-05-20] MEDS: cholecalciferol (vitamin D3) 1,000 unit Tablet 1000 UNIT PO (07:50)
[2021-05-20] MEDS: fluconazole 100 mg Tablet PO (07:53)
[2021-05-20] MEDS: budesonide 0.5 mg/2 mL Neb INHALATION ×2 (08:12→20:28)
--- NOTE | 2021-05-20 10:40 | PC.SOCIAL ---
IMM UPDATED IMM dated and initialed and copy given to patient
--- NOTE | 2021-05-20 12:22 | PC.CHAP ---
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 [] Patient/Family/Request visit [] Outpatient visit [XX] Follow-up visit [] Physician referral [] Code/Alert [] Routine visit [] Staff referral [] Actively dying [] Patient sleeping [] Family support [] [] Out of room [] Palliative care [] [] Receiving care in room [] Pre-surgical visit [] Trauma [] Long length of stay [] ICU visit [XX] Other: isolation Relational/Emotional Strength [] Patient feels connected with others/family/visitors/staff [] Distress [] Loneliness/isolation [] Abandonment Spirituality of Patient [] Person of Judith [] Attends Rastafari of their Judith [] Believes in Prayer [] Reads Bible or Synagogue materials [] There are Spiritual issues to be addressed 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 Interventions [] Prayer [] Active listening [] Non-anxious presence [] Spiritual/emotional support [] Crisis/trauma care [] Spiritual counseling [] Bereavement support [] Provided bereavement packet [] Provided Bible/devotional materials [] Provided toy/stuffed animal, coloring book to patient or family member [] Provided Communion [] Anointing/[place] [] Salvation [] Completed spiritual assessment [] Other: Impact on Illness or Injury [] Angry [] Fearful [] Anxious [] Often cries [] Exhaustion [] Unable to work [] Unable to attend cheondoism [] Unable to walk/stand [] Unable to read [] Unable to drive [] Unable to eat/drink [] Unable to sleep [] Unable to be with family [] Patient intubated [] Other: Summary Time spent with patient
--- NOTE | 2021-05-20 16:35 | P.PN_ITS ---
Subjective Subjective: Interval history: Patient was seen and examined this morning, she is doing much better feels better. Medications: Reviewed: Yes Vitals/I&O/Wt Last Vital Signs Temp 98.2 F 05/20/21 15:43 Pulse 92 05/20/21 15:43 Resp 18 05/20/21 15:43 BP 112/76 05/20/21 15:43 Pulse Ox 91 05/20/21 15:43 05/20/21 05/20/21 05/20/21 06:59 14:59 22:59 Intake Total 480 / 480 Balance 480 / 480 Weight last 48 hrs Weight 94.619 kg Weight 95.481 kg Physical Exam Const: COMMON NORMALS: patient oriented x3 HENMT: COMMON NORMALS: normocephalic and atraumatic HEAD & SCALP: normocephalic and atraumatic Resp: COMMON NORMALS: normal respiratory effort and clear to auscultation bilaterally EFFORT & INSPECTION: Yes able to speak in complete sentences AUSCULTATION: clear to auscultation bilaterally Cardio: COMMON NORMALS: regular rate, regular rhythm, S1 normal heart sound present, S2 normal heart sound present, No gallops present (Cardio), No murmurs present (Cardio), No rub (Cardio) and Peripheral pulses 2+ throughout RATE: regular rate RHYTHM: regular rhythm HEART SOUNDS: S1 normal heart sound present and S2 normal heart sound present PERIPHERAL PULSES: Peripheral pulses 2+ throughout GI: COMMON NORMALS: Normal to inspection, nondistended, normoactive bowel sounds present, Soft to palpation, non-tender, No hepatosplenomegaly present and no masses AUSCULTATION: Yes normoactive bowel sounds PALPATION: Yes Soft to palpation and Yes No hepatosplenomegaly present RECTAL EXAM: deferred Extremity: COMMON NORMALS: no clubbing, cyanosis or edema Neuro: COMMON NORMALS: patient oriented x3 Urinary Catheter Management^: Warren: Cath Placed During This Visit: yes Reason for Continuing Indwelling Catheter: Other Urinary Catheter Date of Insertion: 05/12/21 Urinary Catheter Time of Insertion: 20:12 Data : 05/20/21 04:55 05/20/21 04:55 A&P Assessment and plan (1) COVID-19: Status: Acute (2) Acute respiratory failure with hypoxia: Status: Acute (3) Acute respiratory distress syndrome: Status: Acute Additional A&P Information # Ac hypoxic respiratory failure secondary to Covid pneumonia: Currently on Covid protocol; Trend inflammatory markers (ESR , CRP , D-dimer, ferritin,LDH ) Continue to monitor ABG , x-ray chest , Blood culture negative so far Most recent culture has grown stenotrophomonas, as well as Enterobacter cloacae: Sensitive to levofloxacin will complete 10 days course, started on 05/11. MRSA culture negative CTA chest: No evidence of pulmonary embolism, Diffuse pulmonary infiltrates CV venous duplex LE BI: Negative for DVT. Completed remdesivir Course Completed dexamethasone 6 mg IV daily course Completed levofloxacin course On low dose eliquis Duo nebs, budesonide inhaler Continue zinc and ascorbic acid vitamin D Tessalon Perles Incentive spirometer, flutter valve Supplemental oxygen as needed # NSTEMI type II: Likely secondary to demand ischemia: Possible viral myocarditis: Secondary to COVID-19 2D echo: 05/13 : LV systolic function is moderately reduced with EF of 35 to 40%. Moderate global hypokinesis is seen. 2 D ECHO ON 05/08/21 : Normal LV size and systolic function, with EF of 67%, no RWMA , mild LVH, grade 1 diastolic dysfunction, no gross valvular abnormality. She is currently on, aspirin , statin , beta-ramon , Eliquis. Possibility of discharge to the senior living was discussed with the patient, but she wants to go home with home health aid. Anticipated discharge by weekend CODE STATUS: Full code DVT prophylaxis: Not needed she is on Eliquis. Patient is ready to be discharged home: Likely discharge tomorrow in the morning: As her sister will be here to pick her up. Attestations Medical Necessity Statement*: Patient needs to be in hospital for management of Covid pneumonia.Anticipated discharge by tomorrow. 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
[2021-05-21] VITALS (10 sets, daily range): BP systolic 104–116; BP diastolic 67–78; PULSE 68–83; RESP 16–18; TEMP 36.5–36.9; O2SAT 82–93
[2021-05-21] MEDS: ipratropium-albuterol 3 mL Neb INHALATION ×3 (03:12→15:38)
[2021-05-21] MEDS: metoprolol succinate ER (24 HR) 25 mg Tablet PO (05:10)
[2021-05-21] MEDS: aspirin 81 mg EC Tablet PO (05:11)
[2021-05-21] MEDS: zinc gluconate 50 mg Tablet PO (08:27)
[2021-05-21] MEDS: pantoprazole DR 40 mg Tablet PO (08:27)
[2021-05-21] MEDS: cholecalciferol (vitamin D3) 1,000 unit Tablet 1000 UNIT PO (08:27)
[2021-05-21] MEDS: nystatin 100,000 unit/mL UDC 5 mL 100000 UNIT PO ×2 (08:27→13:05)
[2021-05-21] MEDS: apixaban 5 mg Tablet 2.5 MG PO (08:27)
[2021-05-21] MEDS: fluconazole 100 mg Tablet PO (08:27)
[2021-05-21] MEDS: ascorbic acid 500 mg Tablet PO (08:27)
[2021-05-21] MEDS: benzonatate 100 mg Capsule PO ×2 (08:27→13:05)
[2021-05-21] MEDS: atorvastatin 40 mg Tablet 20 MG PO (08:27)
[2021-05-21] MEDS: budesonide 0.5 mg/2 mL Neb INHALATION (09:22)
[2021-05-21 12:07] LABS: Erythrocyte Sedimentation Rate 6 mm/hr (0-15)
--- NOTE | 2021-05-21 13:17 | P.DS_ITS ---
Discharge Providers Date of Admission: 05/11/21 21:51 Date of Discharge: May 21, 2021 Attending Provider at Admission: Donna Lemos MD Attending Provider at Discharge: Pipo Paez MD Diagnoses at Discharge Discharge Diagnosis (1) COVID-19: Status: Acute (2) Acute respiratory failure with hypoxia: Status: Acute (3) Acute respiratory distress syndrome: Status: Acute Reason for Visit Reason for Visit: COVID +: DX 1 WK AGO, BLE TURNING PURPLE Hospital Course Hospital Course This is a 66-year-old female with multiple sclerosis, recently discharged for COVID-19 pneumonia, who presents [facility] due to increased shortness of breath Patient was admitted to [facility] for acute hypoxic respiratory failure secondary COVID-19 pneumonia, repeat CT of the chest no pulmonary emboli, no DVT, she was measures oxygen therapy, Decadron, completed remdesivir course, managed on low-dose Eliquis for DVT and PE prophylaxis, did show diffuse pulmonary infiltrates, sputum culture showed Enterobacter cloacae and stenotrophomonas managed with 10 days of Levaquin. Patient clinically improved, moved out of the ICU, general medical floors, discharge home on 4 L nasal cannula. Patient was advised to continue to self isolate, socially distance, facemask, hand wash. Continue to self isolate for at least 21 days since test positivity. Speak to primary care provider about COVID-19 vaccination. Speak to primary care provider about flu and pneumonia vaccination. In terms of hypercoagulability prophylaxis, related to COVID-19, I discussed the risks and benefits of Eliquis 2.5 mg twice daily for DVT and PE prophylaxis, she is less mobile with her multiple sclerosis, discussed increased risk of DVT and pulmonary emboli, discussed risks and benefits of anticoagulation, she voiced understanding, all questions answered, agreed for low-dose 2.5 mg of Eliquis twice daily for prophylaxis for at least 6 weeks, discussed with primary care provider about discontinuation. Discussed the risk of GI bleeds, if she were to have any bloody or black stools or increased lightheadedness go to the emergency room. During hospitalization patient had evidence of NSTEMI type II: Likely secondary to demand ischemia and likely myocarditis associate with COVID-19 2D echo: 05/13 : LV systolic function is moderately reduced with EF of 35 to 40%. Moderate global hypokinesis is seen. 2 D ECHO ON 05/08/21 : Normal LV size and systolic function, with EF of 67%, no RWMA , mild LVH, grade 1 diastolic dysfunction, no gross valvular abnormality. Managed with, aspirin , statin , beta-ramon , Eliquis. However cannot rule out underlying cardiac etiology, will have patient follow-up with cardiology as outpatient for decision on stress testing versus repeating echocardiogram. Patient was advised if she should have chest pain or worsening shortness of breath go to the emergency room. Physical Exam Urinary Catheter Management^: Warren: Cath Placed During This Visit: yes, but has since been removed by the nurse Reason for Continuing Indwelling Catheter: Decision to DC Catheter Urinary Catheter Date of Insertion: 05/12/21 Urinary Catheter Time of Insertion: 20:12 Date Urinary Catheter Removed: 05/21/21 Time Urinary Catheter Discontinued: 05:03 Discharge Data Data Completed and Pending: Completed Studies During Hospitalization Category Date Time Status CT angio chest PE protcl 86316 Urge nt Cat Scan 05/11/21 21:07 Completed XR chest 1V agustina ble [id number] Routine Exams 05/13/21 07:00 Completed XR chest 1V agustina ble [id number] Urgent Exams 05/11/21 18:47 [place] [id number] Routin e Ultrasound 05/12/21 15:43 Completed CV. echo limited [id number] Routine Ultrasound 05/13/21 13:13 Completed Labs from last 24 hours 05/18/21 05:04 ESR 6 Vitals: Last Vital Signs Temp 97.7 F 05/21/21 11:58 Pulse 70 05/21/21 11:58 Resp 18 05/21/21 11:58 BP 104/67 05/21/21 11:58 Pulse Ox 90 05/21/21 11:58 Discharge Plan Discharge Patient Disposition: Home Condition: Good Prescriptions: Continued aspirin 81 mg Tablet,Delayed Release (Dr/Ec) 81 mg PO QAM RF: 0 telmisartan 40 mg Tablet 20 mg PO QAM RF: 0 Hold Instructions: Resume on 05/17/21. nitroglycerin [Nitrostat] 0.4 mg Tablet, Sublingual 0.4 mg SUBLINGUAL Q5M PRN (Reason: Chest Pain) RF: 0 metoprolol succinate 25 mg Tablet Extended Release 24 Hr 25 mg PO QAM RF: 0 Hold Instructions: Resume on 05/17/21. rosuvastatin 10 mg Tablet 10 mg PO .THREE TIMES A WEEK RF: 0 cholecalciferol (vitamin D3) [Vitamin D3] 50 mcg (2,000 unit) Tablet 50 mcg PO QAM RF: 0 nystatin 100,000 unit/mL Suspension 100,000 unit PO QID 7 Days Qty: 28 RF: 0 ascorbic acid (vitamin C) [Vitamin C] 500 mg Tablet 500 mg PO BID 14 Days Qty: 28 RF: 0 benzonatate 100 mg Capsule 100 mg PO TID 10 Days Qty: 30 RF: 0 pantoprazole 40 mg Tablet,Delayed Release (Dr/Ec) 40 mg PO DAILY Qty: 14 RF: 0 ferrous gluconate 324 mg (37.5 mg iron) Tablet 324 mg PO BIDWM 30 Days Qty: 60 RF: 0 fluticasone propion-salmeterol [Advair Diskus] 500-50 mcg/dose blister with device 1 inh inhalation BID 14 Days Qty: 30 RF: 0 Spiriva with HandiHaler 18 mcg capsule, w/inhalation device 1 cap inhalation DAILY Qty: 14 RF: 0 Eliquis 2.5 mg tablet 2.5 mg PO BID Qty: 28 RF: 0 zinc gluconate 50 mg Tablet 50 mg PO DAILY 14 Days Qty: 14 RF: 0 Discontinued fluconazole 100 mg Tablet 100 mg PO DAILY Qty: 5 RF: 0 dexamethasone 6 mg tablet 6 mg PO DAILY 7 Days Qty: 7 RF: 0 levofloxacin 500 mg tablet 500 mg PO Q24H 7 Days Qty: 7 RF: 0 amoxicillin-pot clavulanate [Augmentin] 500-125 mg tablet 1 tab PO BID 7 Days Qty: 14 RF: 0 Discharge Orders: Discharge Order (Routine); Ordered 05/21/21 Ordered By: Pipo Paez Other Ambulatory Orders: DME: Oxygen (Order) Location: None Selected Ordered By: Kam Turner Referrals: [facility] [Outside] [facility] ([facility]) [Outside] Long Burks M.D [Physician] - 06/05/21 2:30 pm Funmilayo Rodriguez FNP [Nurse Practitioner] - 05/24/21 2:00 pm (You have an appointment scheduled to see Funmilayo Rodriguez. Once you establish care with her, [facility] will be able to start services. ) Discharge Diet: Cardiac Discharge Activity: Resume usual activity Patient Instructions: Opioid Safety Activity Restrictions/Additional Instructions: -Please continue to be mobile -I have discharged you on low-dose Eliquis 2.5 mg twice daily for blood clot prophylaxis, please continue for at least 6 weeks, discussed with primary care provider about discontinuing -Please monitor for bloody or black stools if so go to the emergency room -Please take inhalers as prescribed -Please continue to socially isolate, self distance, facemask, hand wash, for at least 21 days since symptom onset -If recurrent fevers, shortness of breath go to emergency room -Please follow-up with cardiology in 2 weeks Discharge Attestations Time Spent in Discharge Care*: less than 30 min Status at Discharge: Cognitive status at discharge: cognitively intact , Behavioral status at discharge: cooperative , Quality Metrics Clinical Quality Measures During this hospital stay, did patient experience: None Coding Level of Care Code Acute g FW DC note Diagnoses COVID-19 U07.1 Acute respiratory failure with hypoxia J96.01 Acute respiratory distress syndrome J80
== END 2021-05-22 08:41 | disposition home or self-care (01) | DRG 177 ==
LOC: ER 18:14 → ICU 21:52 → MEDSURG 05-18 22:32
PROVIDERS: Internal Medicine; Admitting Provider Student in an Organized Health Care Education/Training Program; Emergency Provider Emergency Medicine; Visit Provider Family Medicine
DX: U07.1 COVID-19 (principal); J12.82 Pneumonia due to coronavirus disease 2019; I40.0 Infective myocarditis; J80 Acute respiratory distress syndrome; I21.A1 Myocardial infarction type 2; I50.20 Unspecified systolic (congestive) heart failure; B97.29 Other coronavirus as the cause of diseases classified elsewhere; I25.10 Atherosclerotic heart disease of native coronary artery without angina pectoris; G35 Multiple sclerosis; Z87.891 Personal history of nicotine dependence; B96.89 Other specified bacterial agents as the cause of diseases classified elsewhere; Z79.82 Long term (current) use of aspirin
CPT/HCPCS: 36415; 36600; 51702; 71045; 71275; 80053; 82550; 82728; 82803; 82805; 83605; 83615; 83735; 83880; 84100; 84145; 84484; 85025; 85378; 85610; 85651; 86140; 87040; 93005; 93308; 93970; 94002; 94640; 94664; 94799; 96372; 97110; 97116; 97161; 97530; 99285; J1100; J1650; J1940; J7626; Q9967

== ENCOUNTER → 2021-06-13 11:56 | Outpatient (BNVA) | payer MEDICARE, SELFPAY | PROVIDERS: PCP Nurse Practitioner Family; Referring Provider Student in an Organized Health Care Education/Training Program; Visit Provider Specialist | DX: G35 Multiple sclerosis (principal); R53.1 Weakness; U09.9 Post COVID-19 condition, unspecified | CPT/HCPCS: 99204; 99205 ==

== ENCOUNTER 2021-08-17 12:05 | Outpatient (CLI) | payer MEDICARE, SELFPAY ==
--- NOTE | 2021-08-17 13:00 | CT_ITS ---
WS: [id number] CT HEAD TECHNIQUE: Noncontrast CT of the head obtained from the skullbase to the vertex. CLINICAL INFORMATION: G35 - Multiple sclerosis COMPARISON: None. DLP: 1318.[address] scans at [facility] use at least one of these dose optimization techniques: automated e xposure control; mA and/or kV adjustment per patient size (includes targeted exams where dose is matc hed to clinical indication); or iterative reconstruction. FINDINGS: Some images are degraded due to beam hardening artifact. No evidence of intracranial hemorrhage or mass effect. Ventricular system and basal cisterns are olmos nt. Mild disc small vessel changes with mild parenchymal volume loss. No extra-axial fluid collection s. No evidence of mass or mass effect. Intracranial vascular calcification. Mild mucosal thickening in the paranasal sinuses. Mastoid air cells are well aerated. Normal visualiz ed soft tissues. CT/CT head wo con* [id number] IMPRESSION: 1. No evidence of intracranial hemorrhage or mass effect. 2. Mild small vessel changes with mild parenchymal volume loss. 3. No hydrocephalus. 4. Intracranial vascular calcification. 5. Mild inflammatory changes in the paranasal sinuses.
--- NOTE | 2021-08-17 13:30 | CT_ITS ---
WS: [id number] CT CERVICAL SPINE TECHNIQUE: Noncontrast CT of the cervical spine with coronal and sagittal reformatted images. CLINICAL INFORMATION: G35 - Multiple sclerosis COMPARISON: None. DLP: 1318.[address] scans at [facility] use at least one of these dose optimization techniques: automated e xposure control; mA and/or kV adjustment per patient size (includes targeted exams where dose is matc hed to clinical indication); or iterative reconstruction. FINDINGS: Mild cervical curve. Normal C1-C2 articulation. Normal dens. No evidence of acute fracture dislocatio n. Mastoid air cells are well aerated. C2-C3: Tiny shallow central protrusion. Mild facet arthropathy. Spinal canal and foramen are patent. C3-C4: Mild disc osteophytic ridging. Moderate LEFT facet arthropathy. Mild LEFT bony foraminal narro wing. Spinal canal is patent. C4-C5: Mild disc osteophyte complex with endplate ridging. Mild LEFT foraminal narrowing. Moderate LE FT facet arthropathy. C5-C6: Mild disc osteophyte complex with endplate ridging. Spinal canal is patent. Moderate to severe LEFT and mild RIGHT bony foraminal narrowing. Moderate facet arthropathy. C6-C7: Disc osteophytic ridging. Mild LEFT and no significant RIGHT foraminal narrowing. Spinal canal is patent. C7-T1: No significant disc bulging. Spinal canal and foramen are patent. Visualized posterior nasopharynx: Normal. Prevertebral soft tissues: Normal. CT/CT cervical spin wo con* [id number] IMPRESSION: 1. Mild spondylitic changes cervical spine. Mild cervical curve. 2. No high-grade central canal stenosis. 3. Moderate to severe LEFT C5-C6 bony foraminal narrowing due to LEFT eccentri c disc osteophytic ridging. 4. Moderate LEFT bony foraminal narrowing C3-C4. 5. Asymmetric moderate facet arthropathy LEFT C3-C4, LEFT C4-C5, and LEFT C5-C 6.
== END 2021-08-17 12:06 | disposition home or self-care (01) ==
LOC: RAD 12:08
PROVIDERS: PCP Nurse Practitioner Family; Visit Provider Specialist
DX: G35 Multiple sclerosis (principal); M47.812 Spondylosis without myelopathy or radiculopathy, cervical region; M25.78 Osteophyte, vertebrae; G93.89 Other specified disorders of brain
CPT/HCPCS: 70450; 72125

== ENCOUNTER → 2021-10-02 13:58 | Outpatient (BNVA) | payer MEDICARE, SELFPAY | PROVIDERS: PCP Nurse Practitioner Family; Visit Provider Internal Medicine | DX: I25.10 Atherosclerotic heart disease of native coronary artery without angina pectoris (principal); I50.9 Heart failure, unspecified; Z95.810 Presence of automatic (implantable) cardiac defibrillator; Z87.891 Personal history of nicotine dependence | CPT/HCPCS: 99214 ==

== ENCOUNTER → 2021-10-10 10:42 | Outpatient (BNVA) | payer MEDICARE, SELFPAY | PROVIDERS: PCP Nurse Practitioner Family; Visit Provider Specialist | DX: G35 Multiple sclerosis (principal); R29.898 Other symptoms and signs involving the musculoskeletal system; M67.441 Ganglion, right hand; Z99.3 Dependence on wheelchair; Z87.891 Personal history of nicotine dependence | CPT/HCPCS: 99214 ==

== ENCOUNTER 2022-01-16 06:00 | Outpatient (RCR) | payer MEDICARE, SELFPAY | END 2022-02-06 23:59 | disposition home or self-care (01) | LOC: TPT 06:00 | PROVIDERS: PCP Nurse Practitioner Family; Visit Provider Specialist | DX: R29.898 Other symptoms and signs involving the musculoskeletal system (principal); G35 Multiple sclerosis | CPT/HCPCS: 97110; 97116; 97163 ==

== ENCOUNTER → 2022-01-31 12:02 | Outpatient (BNVA) | payer MEDICARE, SELFPAY | PROVIDERS: PCP Nurse Practitioner Family; Visit Provider Nurse Practitioner Family | DX: I25.10 Atherosclerotic heart disease of native coronary artery without angina pectoris (principal); G35 Multiple sclerosis | CPT/HCPCS: 80053; 80061; 82306; 82607; 83735; 84443; 84591; 85025 ==

== ENCOUNTER 2022-02-07 06:00 | Outpatient (RCR) | payer MEDICARE, SELFPAY | END 2022-03-08 23:59 | disposition home or self-care (01) | LOC: TPT 06:00 | PROVIDERS: PCP Nurse Practitioner Family; Visit Provider Specialist | DX: R29.898 Other symptoms and signs involving the musculoskeletal system (principal); G35 Multiple sclerosis | CPT/HCPCS: 97110; 97116 ==

== ENCOUNTER 2022-03-09 06:00 | Outpatient (RCR) | payer MEDICARE, SELFPAY | END 2022-04-08 23:59 | disposition home or self-care (01) | LOC: TPT 06:00 | PROVIDERS: PCP Nurse Practitioner Family; Visit Provider Specialist | DX: G35 Multiple sclerosis (principal); R29.898 Other symptoms and signs involving the musculoskeletal system | CPT/HCPCS: 97110; 97116 ==

== ENCOUNTER 2022-03-27 07:58 | Outpatient (CLI) | payer MEDICARE, SELFPAY ==
--- NOTE | 2022-03-27 08:30 | USCV_ITS ---
Jo Ricks Age: 67 Gender: F : 1955 Exam Date: 03/27/2022 08:33 Ordering Phys: Long Burks M.D ([email or web address]) Technologist: Chago Cosme Exam Location: [facility] Indication: EF assessment BP: 122 / 76 HR: 69 Rhythm: Sinus Technical Quality: Adequate MEASUREMENTS (Male / Female) Normal Values 2D ECHO LV Diastolic Diameter PLAX 4.8 cm 4.2 - 5.9 / 3.9 - 5.3 cm LV Systolic Diameter PLAX 3.2 cm IVS Diastolic Thickness 0.8 cm 0.6 - 1.0 / 0.6 - 0.9 cm IVS Systolic Thickness 1.2 cm LVPW Diastolic Thickness 0.7 cm 0.6 - 1.0 / 0.6 - 0.9 cm LVPW Systolic Thickness 1.2 cm LVOT Diameter 2.0 cm LV Ejection Fraction 2D Teich 62.2 % LV Ejection Fraction MOD 2C 50.2 % LV Ejection Fraction 2C AL 50.7 % LA Diameter 3.0 cm LA Width 2.7 cm LA Height 3.8 cm RA Width 3.3 cm RA Height 4.1 cm Aorta at Sinotubular Diameter 2.5 cm IVC Diameter 2.0 cm M-MODE Aortic Annulus Diameter 3.3 cm LA Ao Ratio MM 0.9 MV E Point Septal Separation 1.2 cm DOPPLER Right Atrial Pressure 3.0 mmHg FINDINGS Left Ventricle Right Ventricle Right Atrium Left Atrium Mitral Valve Aortic Valve Tricuspid Valve Pulmonic Valve Pericardium Aorta IVC CONCLUSIONS Limited echocardiogram performed to assess LV systolic function. LV systolic function is borderline low with EF of 45 to 50%. Mild global hypokinesis Compared to prior echocardiogram from 05/13/2021, LV systolic function has improved now. Long Burks MD (Electronically Signed) Final Date: 28 March 2022 13:03 S
[2022-03-27] MEDS: perflutren protein-a microsphr 0.22 mg/mL SDV 3 mL IV (09:37)
== END 2022-03-27 07:59 | disposition home or self-care (01) ==
LOC: RAD 07:58
PROVIDERS: PCP Nurse Practitioner Family; Visit Provider Internal Medicine
DX: R09.89 Other specified symptoms and signs involving the circulatory and respiratory systems (principal)
CPT/HCPCS: C8924

== ENCOUNTER 2022-04-09 06:00 | Outpatient (RCR) | payer MEDICARE, SELFPAY | END 2022-05-08 23:59 | disposition home or self-care (01) | LOC: TPT 06:00 | PROVIDERS: PCP Nurse Practitioner Family; Visit Provider Specialist | DX: R29.898 Other symptoms and signs involving the musculoskeletal system (principal); G35 Multiple sclerosis | CPT/HCPCS: 97110; 97116; 99214 ==

== ENCOUNTER → 2022-04-09 08:38 | Outpatient (BNVA) | payer MEDICARE, SELFPAY | PROVIDERS: PCP Nurse Practitioner Family; Visit Provider Specialist | DX: Z91.018 Allergy to other foods (principal); G35 Multiple sclerosis | CPT/HCPCS: 99214 ==

== ENCOUNTER → 2022-04-29 14:53 | Outpatient (BNVA) | payer MEDICARE, SELFPAY | PROVIDERS: PCP Nurse Practitioner Family; Visit Provider Internal Medicine | DX: I25.10 Atherosclerotic heart disease of native coronary artery without angina pectoris (principal); Z95.810 Presence of automatic (implantable) cardiac defibrillator; I11.0 Hypertensive heart disease with heart failure; I50.9 Heart failure, unspecified; Z87.891 Personal history of nicotine dependence | CPT/HCPCS: 99214 ==

== ENCOUNTER → 2022-04-30 10:32 | Outpatient (BNVA) | payer MEDICARE, SELFPAY | PROVIDERS: PCP Nurse Practitioner Family; Visit Provider Internal Medicine Cardiovascular Disease | DX: I11.0 Hypertensive heart disease with heart failure (principal); Z87.891 Personal history of nicotine dependence; Z95.810 Presence of automatic (implantable) cardiac defibrillator; E78.5 Hyperlipidemia, unspecified; G35 Multiple sclerosis; I50.9 Heart failure, unspecified; I25.10 Atherosclerotic heart disease of native coronary artery without angina pectoris; R53.1 Weakness | CPT/HCPCS: 36415; 80048; 85025; 85610; 86850; 86900; 93005; 99215 ==

== ENCOUNTER 2022-05-01 10:35 | Outpatient (CLI) | payer MEDICARE, SELFPAY ==
[2022-05-01] VITALS (10 sets, daily range): BP systolic 99–124; BP diastolic 64–81; PULSE 66–83; RESP 15–16; TEMP 36.3–36.7; O2SAT 92–100; BMI 37.5
--- NOTE | 2022-05-01 12:19 | W.PM.OPSUD ---
Surgery/Procedure H&P Update DATE OF PROCEDURE: May 01, 2022 DATE H&P PERFORMED: 04/30/22 H&P UPDATE INFORMATION: I have reviewed H&P completed within last 30 days, I have examined patient prior to procedure and No changes to prior documentation PREOP DIAGNOSIS: BEHAVIORAL HEALTH CONSULTANT notification to change the device PLANNED PROCEDURE: Operation Date: 05/01/22 12:00 Proposed Procedures p 67314 AICD generator single exchange Z45.010,Z95.10,I50.9,R53.1,Z45.02(Not Applicable) - Wojciech Yang MD PATIENT REASSESSED PRIOR TO SEDATION, WITH NO CHANGE NOTED: Yes PHYSICAL EXAM: alert, oriented x 3, clear to auscultation bilaterally and regular rate & rhythm AIRWAY EVAL/ANESTHESIA PLAN: normal airway, see other exam findings, ASA III, Monitored Anesthesia and Local Anesthesia
--- NOTE | 2022-05-01 13:38 | PM.OP ---
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 POSTOPERATIVE DIAGNOSIS: ICD elective replacement indication. ESTIMATED BLOOD LOSS: None COMPLICATIONS: None. BRIEF HISTORY: The patient is 67-year-old white female who had a ICD implantation for ischemic cardiomyopathy/primary prophylaxis. The patient was found to have elective replacement indication, during routine office followup evaluation. For further management of patient's condition , the patient required an ICD revision. Patient has a history of atherosclerotic heart diseas, high blood pressure, dyslipidemia and multiple sclerosis The procedure was explained to the patient in detail with the risks and benefits. The risks of bleeding, hematoma, vascular injury, infection and other concomitant complications were explained in detail, which the patient understood well and consented to proceed. PROCEDURES PERFORMED: 1. Explantation of the old ICD device . 2. Implantation of the new ICD device The patient brought to the [facility]. The left side of the neck and the subclavian area were cleaned and draped in a sterile fashion. 1% Xylocaine was used for local anesthetic agent. A 2 inch long incision was made just below the previous pacemaker scar. By sharp and blunt dissection, the ICD pocket was accessed. The old generator was delivered from the pocket. The generator was detached from the lead. The new generator was attached to the lead. The ICD pocket was copiously irrigated with vancomycin solution. Complete hemostasis was achieved. The lead was positioned behind the generator and the generator was attached to the pectoralis fascia by suturing with 0 Surgilon. Sponge counts were confirmed. The ICD pocket was closed in layers. Skin was approximated using 4-0 Vicryl. EXPLANTED DEVICE: ICD Device: Date of implant 09/21/2012 Brand: Protecta Model number: [id number] Serial number: [id number]. IMPLANTED DEVICES: Ventricular Lead: Date of implantation: 09/21/2012 Model number: [id number] Serial number:[id number] Make: LookSharp (powering [employer]). Implanted Generator: Date of implantation 05/01/2022 Brand: Cuil AF MRI VR Surescan Model number: [id number]. Serial number: [id number] Stimulation Threshold: Through the Device--the ventricular sensing was 15.1 millivolts. Lead impedance was 722 ohms and the pacing threshold was 0.75 volts at 0.4 milliseconds. The pacemaker was set for VVI mode with a lower rate of 40. The RV output was scattered to both at the pulse width of 0.4 ms and sensitivity of 0.3 mV left The DFT testing was not done Ventricular tachycardia detection rate was set at 167 bpm The ventricular fibrillation detection rate was set at 182 bpm A pressure dressing was applied over the ICD site. The patient was transferred back to medical floor in stable condition.
[2022-05-01] MEDS: ascorbic acid 500 mg Tablet PO (18:30)
[2022-05-01] MEDS: ceFAZolin 2,000 MG in sodium chloride 0.9% (plus) 50 ML 100 MG IV (18:30)
[2022-05-02] VITALS: BP 103/61; PULSE 77; RESP 14; TEMP 36.8; O2SAT 94
[2022-05-02] MEDS: acetaminophen 325 mg Tablet 650 MG PO (02:43)
[2022-05-02 04:00] VITALS: BP 117/76; PULSE 73; RESP 14; TEMP 36.5; O2SAT 95
[2022-05-02] MEDS: losartan 50 mg Tablet PO (05:32)
[2022-05-02] MEDS: cholecalciferol (vitamin D3) 1,000 unit Tablet 2000 UNIT PO (05:32)
[2022-05-02 06:00] VITALS: PULSE 75
--- NOTE | 2022-05-02 06:00 | ECG_ITS ---
[facility] Test Date: 2022-05-02 Pat Name: Jo Ricks Department: Room: 252 Gender: Female Pulp Roller: : 1955 Requested By: Wojciech Yang Order Number: [id number] Raudel MD: Wojciech Yang M.D. Measurements Intervals [place] Rate: 63 P: 32 WI: 154 QRS: -27 QRSD: 120 T: 132 QT: 408 QTc: 419 Interpretive Statements SINUS RHYTHM BORDERLINE LEFT AXIS DEVIATION [QRS AXIS < -20] MODERATE INTRAVENTRICULAR CONDUCTION DELAY [110+ ms QRS DURATION] NONSPECIFIC T-WAVE ABNORMALITY Compared to ECG 05/12/2021 05:03:10 Intraventricular conduction delay now present T-wave abnormality still present Electronically Signed On 05-02-2022 12:50:14 IRON HANDLER by Wojciech Yang M.D. [email or web address]
[2022-05-02 08:05] VITALS: BP 114/75; PULSE 68; RESP 15; TEMP 36.4; O2SAT 96
[2022-05-02] MEDS: atorvastatin 40 mg Tablet 20 MG PO (08:46)
[2022-05-02] MEDS: ascorbic acid 500 mg Tablet PO (08:46)
[2022-05-02] MEDS: ceFAZolin 2,000 MG in sodium chloride 0.9% (plus) 50 ML 100 MG IV (10:07)
[2022-05-02 10:48] VITALS: BP 121/78; PULSE 73; RESP 15; TEMP 36.5; O2SAT 95
== END 2022-05-02 12:33 | disposition home or self-care (01) ==
LOC: CCL 10:38 → MEDSURG 16:24
PROVIDERS: PCP Nurse Practitioner Family; Visit Provider Internal Medicine Cardiovascular Disease
DX: Z45.02 Encounter for adjustment and management of automatic implantable cardiac defibrillator (principal); R53.1 Weakness; I11.0 Hypertensive heart disease with heart failure; I50.9 Heart failure, unspecified; E78.5 Hyperlipidemia, unspecified; G35 Multiple sclerosis
CPT/HCPCS: 33241; 36415; 93005; 96360; 96365; 96367; 97165; 99152; 99153; A4216; C1722; C1769; J0690; J2250; J3010; J3370; J7030; J7050

== ENCOUNTER → 2022-05-08 13:50 | Outpatient (BNVA) | payer MEDICARE, SELFPAY | PROVIDERS: PCP Nurse Practitioner Family; Visit Provider Nurse Practitioner Family | DX: Z95.810 Presence of automatic (implantable) cardiac defibrillator (principal) | CPT/HCPCS: 99213 ==

== ENCOUNTER 2022-05-09 06:00 | Outpatient (RCR) | payer MEDICARE, SELFPAY | END 2022-06-08 23:59 | disposition home or self-care (01) | LOC: TPT 06:00 | PROVIDERS: PCP Nurse Practitioner Family; Visit Provider Specialist | DX: G35 Multiple sclerosis (principal); R29.898 Other symptoms and signs involving the musculoskeletal system | CPT/HCPCS: 97110; 97116; 97164 ==

== ENCOUNTER 2022-06-09 06:00 | Outpatient (RCR) | payer MEDICARE, SELFPAY | END 2022-07-04 16:33 | disposition home or self-care (01) | LOC: TPT 06:00 | PROVIDERS: PCP Nurse Practitioner Family; Visit Provider Specialist | DX: R53.1 Weakness (principal); G35 Multiple sclerosis | CPT/HCPCS: 97110; 97116 ==

== ENCOUNTER → 2022-07-24 16:11 | Outpatient (BNVA) | payer MEDICARE, SELFPAY | PROVIDERS: PCP Nurse Practitioner Family; Visit Provider Nurse Practitioner Family | DX: R60.9 Edema, unspecified (principal); E78.5 Hyperlipidemia, unspecified; I10 Essential (primary) hypertension | CPT/HCPCS: 80053; 80061; 83735; 83880; 85025 ==

== ENCOUNTER → 2022-10-30 12:49 | Outpatient (BNVA) | payer MEDICARE, SELFPAY | PROVIDERS: PCP Nurse Practitioner Family; Visit Provider Internal Medicine | DX: I25.10 Atherosclerotic heart disease of native coronary artery without angina pectoris (principal); Z95.810 Presence of automatic (implantable) cardiac defibrillator; I50.9 Heart failure, unspecified; Z87.891 Personal history of nicotine dependence; I11.0 Hypertensive heart disease with heart failure; I25.2 Old myocardial infarction; Z79.82 Long term (current) use of aspirin | CPT/HCPCS: 99214 ==

== ENCOUNTER → 2023-01-21 11:34 | Outpatient (BNVA) | payer MEDICARE, SELFPAY | PROVIDERS: PCP Nurse Practitioner Family; Visit Provider Nurse Practitioner Family | DX: N39.0 Urinary tract infection, site not specified (principal); I50.9 Heart failure, unspecified | CPT/HCPCS: 80053; 80061; 81000; 82306; 84443; 85025 ==

== ENCOUNTER 2023-06-06 19:54 | Observation (INO) | payer MEDICARE, SELFPAY ==
[2023-06-06 19:59] VITALS: BP 107/68; PULSE 97; RESP 18; TEMP 36.7; O2SAT 95; BMI 38.5
--- NOTE | 2023-06-06 20:43 | XRR_ITS ---
PROCEDURE INFORMATION: Exam: XR Chest Exam date and time: 06/06/2023 8:48 PM Age: 68 years old Clinical indication: Angina pectoris; Patient HX: Chest pain TECHNIQUE: Imaging protocol: Radiologic exam of the chest. Views: 1 view. COMPARISON: CR XR chest 1V portable [id number] 05/13/2021 5:33 AM FINDINGS: Tubes, catheters and devices: Cardiac AICD. Lungs: No consolidation. Pleural spaces: No large pleural effusion. No pneumothorax. Heart/Mediastinum: Unremarkable cardiomediastinal silhouette. Bones/joints: No acute abnormality. XR/XR chest 1V portable [id number] IMPRESSION: No acute findings.
--- NOTE | 2023-06-06 20:43 | CTR_ITS ---
PROCEDURE INFORMATION: Exam: CT Head Without Contrast Exam date and time: 06/06/2023 9:16 PM Age: 68 years old Clinical indication: Pain; Headache; Patient HX: NUÑZE with dizziness and general weakness; Additional info: Weakness and headache TECHNIQUE: Imaging protocol: Computed tomography of the head without contrast. Radiation optimization: All CT scans at this facility use at least one of these dose optimization techniques: automated exposure control; mA and/or kV adjustment per patient size (includes targeted exams where dose is matched to clinical indication); or iterative reconstruction. REPORTING DATA: Count of CT and Cardiac NM exams in prior 12 months: This patient has received 0 known CTs and 0 known cardiac nuclear medicine studies in the 12 months prior to the current study. COMPARISON: CT head wo con* [id number] 08/17/2021 12:29 PM RADIATION DOSE METRICS: Total DLP (mGy-cm): 1106.38 FINDINGS: Brain: No acute intracranial hemorrhage. No acute territorial region of garcia-white dedifferentiation. No extra-axial collection. No mass effect or midline shift. Cerebral ventricles: No acute hyrocephalus. Paranasal sinuses: Visualized sinuses are well-aerated. No fluid levels. Mastoid air cells: Visualized mastoid air cells are well aerated. Orbital cavities: No acute abnormality. Bones/joints: No acute calvarial fracture. Soft tissues: No acute abnormality. CT/CT head wo con* [id number] IMPRESSION: No acute findings.
[2023-06-06 21:05] LABS: Basophils % 0.3 %; Eosinophils % 0.1 %; Hematocrit 46.2 % (36-47); Lymphocytes # 0.3 10^3/uL (0.8-4.8); Lymphocytes % 2.9 %; Mean Corpuscular Hemoglobin 29.5 pg (27-33); Mean Platelet Volume 10.5 fL (7.4-10.4); Monocytes # 0.2 10^3/uL (0.2-0.9); Monocytes % 1.9 %; Neutrophils # 8.24 10^3/uL (1.8-7.7); Neutrophils % 94.2 %; Nucleated Red Blood Cells % 0 %; Platelet Count 188 10^3/cmm (157-399); Red Blood Count 5.02 10^6/uL (3.85-5.65); Red Cell Distribution Width 13.6 % (12.1-15.1); White Blood Count 8.75 10^3/uL (3.29-11.43)
[2023-06-06 21:32] LABS: Alanine Aminotransferase 16 U/L (0-33); Alkaline Phosphatase 98 U/L (35-105); Anion Gap 14.6 (5-19); Aspartate Amino Transferase 20 U/L (0-32); Blood Urea Nitrogen 22 mg/dL (8-23); Calcium 9.6 mg/dL (8.5-10.5); Carbon Dioxide 28 mmol/L (22-29); Chloride 99 mmol/L (98-107); Glomerular Filtration Rate 71.1 mL/min (90-130); Glucose 115 mg/dL (65-115); NT Pro B Type Natriuretic Pept 190 pg/mL (0-125); Osmolality Calculated 288 mOsm/kg (285-295); Potassium 4.6 mmol/L (3.5-5.1); Sodium 137 mmol/L (136-145); Total Bilirubin 0.6 mg/dL (0.15-1.2)
[2023-06-06 21:52] VITALS: BP 117/72; RESP 18; O2SAT 97
[2023-06-06 22:07] VITALS: BP 113/69; PULSE 91; RESP 18; O2SAT 92
[2023-06-06 22:29] LABS: Add Urine Microscopic? YES; Bilirubin Urine Neg (Negative); Blood Urine Neg (Negative); Glucose Urine UA Norm (Normal); Ketones Urine 1+ (Negative); Leukocyte Esterase Urine Trace (Negative); Nitrate Urine Negative (Negative); Protein Urine Trace (Negative); Specific Gravity, Urine 1.015 (1.005-1.030); Urine Appearance Cloudy (CLEAR); Urine Color Yellow (Yellow); Urobilinogen Urine 1 mg/dL (Negative); pH Urine 7 (5-7)
[2023-06-06 22:30] LABS: Amorphous Sediment Urine 1+ /hpf; Bacteria Urine TRACE /hpf; Mucus Urine 1+ /hpf; RBC Urine 0-4 /hpf (0-2); Squamous Epithelial Cell Urine 0-4 /hpf (0-5); WBC Urine 0-4 /hpf (0-5)
[2023-06-06] MEDS: ketorolac 30 mg/mL INJ IVP (22:46)
[2023-06-06 22:49] VITALS: BP 113/69; PULSE 100; RESP 18; O2SAT 96
--- NOTE | 2023-06-06 23:15 | CTR_ITS ---
PROCEDURE INFORMATION: Exam: CTA Head With Contrast, Arteriography Exam date and time: 06/06/2023 11:37 PM Age: 68 years old Clinical indication: Dizziness and giddiness and weakness; Prior surgery; Surgery date: 6+ months; Surgery type: Pacer; Patient HX: NUÑEZ with dizziness and general weakness. History of ms. TECHNIQUE: Imaging protocol: Computed tomographic angiography of the head with contrast. Exam focused on the arteries. 3D rendering (Not supervised by radiologist): MIP and/or 3D reconstructed images were created by the technologist. Radiation optimization: All CT scans at this facility use at least one of these dose optimization techniques: automated exposure control; mA and/or kV adjustment per patient size (includes targeted exams where dose is matched to clinical indication); or iterative reconstruction. Contrast material: OMNI 350; Contrast volume: 100 ml; Contrast route: INTRAVENOUS (IV); REPORTING DATA: Count of CT and Cardiac NM exams in prior 12 months: This patient has received 0 known CTs and 0 known cardiac nuclear medicine studies in the 12 months prior to the current study. COMPARISON: CT head wo con* [id number] 06/06/2023 9:16 PM RADIATION DOSE METRICS: Total DLP (mGy-cm): 485.04 FINDINGS: ANTERIOR CIRCULATION: Right internal carotid artery: Patent without high-grade stenosis. Right middle cerebral artery: M1 and M2 segments are patent without high-grade stenosis. Right anterior cerebral artery: A1 and A2 segments are patent without high-grade stenosis. Left internal carotid artery: Patent without high-grade stenosis. Left middle cerebral artery: M1 and M2 segments are patent without high-grade stenosis. Left anterior cerebral artery: A1 and A2 segments are patent without high-grade stenosis. POSTERIOR CIRCULATION: Right vertebral artery: V4 segment is patent without high-grade stenosis. Left vertebral artery: V4 segment is patent without high-grade stenosis. Basilar artery: Patent without high-grade stenosis. Right posterior cerebral artery: P1 and P2 segments are patent without high-grade stenosis. Left posterior cerebral artery: P1 and P2 segments are patent without high-grade stenosis. Other findings: No aneurysm. No venous thrombosis. PROCEDURE INFORMATION: Exam: CTA Neck With Contrast Exam date and time: 06/06/2023 11:37 PM Age: 68 years old Clinical indication: Dizziness and giddiness and weakness; Prior surgery; Surgery date: 6+ months; Surgery type: Pacer; Patient HX: NUÑEZ with dizziness and general weakness. History of ms. TECHNIQUE: Imaging protocol: Computed tomographic angiography of the neck with contrast. Exam focused on the cervical segments of the vasculature. 3D rendering (Not supervised by radiologist): MIP and/or 3D reconstructed images were created by the technologist. Radiation optimization: All CT scans at this facility use at least one of these dose optimization techniques: automated exposure control; mA and/or kV adjustment per patient size (includes targeted exams where dose is matched to clinical indication); or iterative reconstruction. Contrast material: OMNI 350; Contrast volume: 100 ml; Contrast route: INTRAVENOUS (IV); REPORTING DATA: Count of CT and Cardiac NM exams in prior 12 months: This patient has received 0 known CTs and 0 known cardiac nuclear medicine studies in the 12 months prior to the current study. COMPARISON: CT cervical spin wo con* [id number] 08/17/2021 12:29 PM RADIATION DOSE METRICS: Total DLP (mGy-cm): 485.04 FINDINGS: Right common carotid artery: Patent. No high grade stenosis. Right internal carotid artery: Right ICA is patent. Plaque at the carotid bulb with moderate right ICA stenosis by NASCET criteria. Right external carotid artery: Patent. No high grade stenosis at the origin. Left common carotid artery: Patent. No high grade stenosis. Left internal carotid artery: Left ICA is patent. Plaque at the left carotid bulb with moderate left ICA stenosis by NASCET criteria. Left external carotid artery: Patent. No high grade stenosis at the origin. Right vertebral artery: Patent. No high grade stenosis. Left vertebral artery: Patent. No high grade stenosis. Soft tissues: Unremarkable. Bones/joints: No acute fracture. Lungs: Mild emphysema. No consolidation. CT/CT angio headneck* [id number] IMPRESSION: No large vessel occlusion or high-grade stenosis. IMPRESSION: Patent cervical carotid and vertebral arteries. Moderate ICA stenosis by NASCET criteria bilaterally. REFERENCES: NASCET CRITERIA. The degree of stenosis in the cervical segment of the internal carotid artery is based on NASCET criteria. Normal is no stenosis. Mild is less than 50% stenosis. Moderate is 50-69% stenosis. Severe is 70% to 99% stenosis. Total occlusion is no detectable patent lumen.
[2023-06-06 23:35] VITALS: BP 91/53; PULSE 91; RESP 18; O2SAT 97
[2023-06-06] MEDS: FUROsemide 10 mg/mL SDV 4mL 40 MG IVP (23:35)
[2023-06-06] MEDS: iohexol 350 mg/mL 500 mL Btl (per mL) IV (23:47)
[2023-06-07] VITALS (15 sets, daily range): BP systolic 90–126; BP diastolic 52–77; PULSE 53–110; RESP 15–18; TEMP 36.4–36.8; O2SAT 91–97
--- NOTE | 2023-06-07 01:01 | ED_ITS ---
HPI - General Adult 2 General: Chief complaint: General Medical Stated complaint: Nausea, weakness, dizziness Time Seen by Provider: 06/06/23 20:04 History of Present Illness: 68-year-old female with complex medical history including MS, CHF, coronary disease, hypertension and obesity. She presents emergency room with EMS today with vague complaint of generalized weakness. Patient reveals that normally she can transfer from bed to wheelchair but around noon she is having some weakness and unable to move her right leg. Patient with some upper arm numbness and tingling has some headache at the onset but denies any headache at the moment. No chest pain, shortness of breath, coughing up blood or vomiting blood. Also reveals increased leg swelling even though she is taking Lasix as directed. Denies any change in speech no blurry vision or change in vision at this time. Associated symptoms: Reports headache(s), malaise and nausea; Deny chest pain, confusion, dyspnea, palpitations, syncope or vomiting Review of Systems 2 General: Reports: 10 or more systems reviewed and unremarkable except in HPI and below Const: Reports: fatigue and malaise; Denies: fever(s), chills or body aches Card: Reports: edema and swelling of feet/ankles; Denies: chest pain, palpitations, lightheadedness, syncope or pre-syncope Resp: Denies: dyspnea, productive cough, non-productive cough, wheezing, stridor, pain on inspiration, change in phlegm color, hemoptysis or chest congestion GI: Reports: nausea; Denies: abdominal pain, vomiting, hematemesis, coffee ground emesis, dysphagia, heartburn, early satiety, diarrhea, constipation, bloating, GI cramping or belching : Denies: flank pain, difficulty voiding, dysuria, urinary frequency, urinary urgency, urinary hesitancy, dribbling, nocturia, oliguria or urinary incontinence Musc: Reports: extremity swelling and muscle weakness; Denies: neck pain, back pain, extremity pain, joint pain or decrease in muscle mass Neuro: Reports: headache(s), numbness in extremities (upper arms ), weakness in extremities (right leg weakness ) and difficulty walking; Denies: dizziness, vertigo, confusion, Slurred speech present, difficulty communicating thoughts, seizure-like activity or involuntary movements PFS ED 2 PFSH: Medical History CAD (coronary artery disease) History of [place] (myocardial infarction) Hyperlipidemia Hypertension MS (multiple sclerosis) Surgical History AICD (automatic cardioverter/defibrillator) present Stented coronary artery Family History Father CAD (coronary artery disease) [place] @ 55 Mother Lung disease Denies family history of Diabetes Clotting disorder Dementia Chronic kidney disease (CKD) Suicide Anesthesia complication Bleeding disorder Cancer Stroke Social History Smoking and tobacco/nicotine status: former use of tobacco/nicotine Quit status (tobacco/nicotine): has quit using Year quit tobacco: 2008 Alcohol intake: never Substance/Drug Use: never Caregiver/support person: Yes Lives independently: Yes Household members: none Marital status: Current occupational status: retired Current gender identity: Female Special nita needs: No Physical Exam 2 Const: COMMON NORMALS: no acute distress, average body habitus, patient oriented x3, no limitations, healthy appearing, alert and well nourished HENMT: COMMON NORMALS: normocephalic, atraumatic, hearing grossly normal bilaterally, external ears normal, EAC's normal, TM's normal bilaterally, Normal external nose present, Normal nasal mucous membranes and turbinates present, moist oral mucous membranes, oropharynx normal, dentition normal and gingiva normal HEAD & SCALP: normocephalic and atraumatic NOSE: Normal external nose present and Normal nasal mucous membranes and turbinates present E XTERNAL EAR: Yes external ears normal EXTERNAL AUDITORY CANAL: EAC's normal TYMPANIC MEMBRANE: TM's normal bilaterally Eye: COMMON NORMALS: Equal, round and reactive pupils present, EOMs intact bilaterally, conjunctivae normal, no scleral icterus, no papilledema, normal visual [place] by confrontation and fundi normal bilaterally CONJUNCTIVA: Yes conjunctivae normal PUPIL: Yes Equal, round and reactive pupils present D IRECT OPHTHALMOSCOPY: Yes no papilledema and Yes fundi normal bilaterally Neck/C-Spine: COMMON NORMALS: no meningeal signs and no JVD Chest: COMMONS NORMALS: normal inspection of the chest, normal palpation of entire chest wall, normal inspection of the breasts and normal palpation of the breasts Breast/axilla inspection: Yes normal inspection of the breasts B REAST/AXILLA PALPATION: Yes normal palpation of the breasts Resp: COMMON NORMALS: normal respiratory effort, No retractions, No use of accessory muscles, clear to auscultation bilaterally and percussion normal A USCULTATION: clear to auscultation bilaterally PERCUSSION: percussion normal Cardio: COMMON NORMALS: no JVD, regular rate, regular rhythm, S1 normal heart sound present, S2 normal heart sound present, No gallops present (Cardio), No clicks present (Cardio), No murmurs present (Cardio), No rub (Cardio) and Peripheral pulses 2+ throughout RATE: regular rate RHYTHM: regular rhythm HEART SOUNDS: S1 normal heart sound present and S2 normal heart sound present PERIPHERAL PULSES: Peripheral pulses 2+ throughout GI: COMMON NORMALS: Normal to inspection, nondistended, normoactive bowel sounds present, Soft to palpation, non-tender, No hepatosplenomegaly present, no masses and no bruits PALPATION: Yes Soft to palpation and Yes No hepatosplenomegaly present : COMMON NORMALS: Yes no CVA tenderness BLADDER/KIDNEY EXAM: Yes no CVA tenderness Back/Pelvis: COMMON NORMALS: no CVA tenderness, thoracic and lumbar spine normal to inspection, no thoracic nor lumbar tenderness, thoraco-lumbar ROM normal and straight leg raise negative bilaterally Extremity: NARRATIVE EXTREMITY EXAM: Severe bilateral pedal swelling with some redness to the dorsal aspect of the feet Neuro: COMMON NORMALS: patient oriented x3 SENSORIUM/ORIENTATION: Yes alert MENINGEAL SIGNS: Yes no meningeal signs CRANIAL NERVES: Yes CN normal except as noted SPEECH: speech normal MOTOR EXAM: No no tremor noted, No Motor fasciculations not present, Motor abnormalities not present (both legs left leg worse than right ), Abnormal motor strength present (both legs ) and No Tremors during motor activity present Skin: GENERAL SKIN EXAM: dry skin and erythema (dorsal aspect of feet ) L ESIONS: no lesions Course 2 Reevaluation(s): Reevaluation #1: Upon assessment after treatment the weakness is improved slightly. Consultations: Consultation #1: I discussed patient with the hospitalist will admit patient for further evaluation and treatment. She recommend getting CT a of the brain and neck. CT was obtained and patient was admitted. Vital Signs: Vital signs: Vital Signs Temperature 97.7 F 06/07/23 01:39 Pulse Rate 80 06/07/23 01:39 Respiratory Rate 17 06/07/23 01:39 Blood Pressure 107/57 06/07/23 01:39 Pulse Oximetry 94 06/07/23 01:39 Oxygen Delivery Me thod Room Air 06/07/23 01:24 MDM - General Adult Medical Decision Making Patient made comfortable emergency room had extensive workup with CBC, CMP, BNP CT and CT a head and neck. Discussed patient with the hospitalist. Patient was given IV Lasix, IV pain medication and steroid. After admission treatment the weakness on the right leg improved significantly. Patient was able to bend the knee with some mild limitation. Differential Diagnosis CVA, CHF, Lab Data 06/06/23 21:01 06/06/23 21:01 Radiology Impressions Chest X-Ray 06/06/23 20:43 IMPRESSION: No acute findings. Head CT 06/06/23 20:43 IMPRESSION: No acute findings. Head/Neck CTA 06/06/23 23:15 IMPRESSION: No large vessel occlusion or high-grade stenosis. IMPRESSION: Patent cervical carotid and vertebral arteries. Moderate ICA stenosis by NASCET criteria bilaterally. REFERENCES: NASCET CRITERIA. The degree of stenosis in the cervical segment of the internal carotid artery is based on NASCET criteria. Normal is no stenosis. Mild is less than 50% stenosis. Moderate is 50-69% stenosis. Severe is 70% to 99% stenosis. Total occlusion is no detectable patent lumen. Laboratory Results WBC 8.75 10^3/uL (3.29-11.43) 06/06/23 21: RBC 5.02 10^6/uL (3.85-5.65) 06/06/23 21:01 Hgb 14.80 g/dL (11.27-16.99) 06/06/23 21: Hct 46.2 % (36-47) 06/06/23 21: MCV 92.0 fl (85-98) 06/06/23 21: MCH 29.5 pg (27-33) 06/06/23 21: MCHC 32.0 g/dL (30-55) 06/06/23 21:01 RDW 13.6 % (12.1-15.1) 06/06/23 21:01 Plt Count 188 10^3/cmm (157-399) 06/06/23 21:01 MPV 10.5 fL (7.4-10.4) H 06/06/23 21:01 Neut % (Auto) 94.2 % 06/06/23 21:01 Lymph % (Auto) 2.9 % 06/06/23 21:01 [place] % (Auto) 1.9 % 06/06/23 21:01 Eos % (Auto) 0.1 % 06/06/23 21:01 Baso % (Auto) 0.3 % 06/06/23 21:01 Neut # (Auto) 8.24 10^3/uL (1.8-7.7) H 06/06/23 21:01 Lymph # (Auto) 0.3 10^3/uL (0.8-4.8) L 06/06/23 21:01 [place] # (Auto) 0.2 10^3/uL (0.2-0.9) 06/06/23 21:01 Eos # (Auto) 0.0 10^3/uL (0.0-0.8) 06/06/23 21:01 Baso # (Auto) 0.0 10^3/uL (0.0-0.1) 06/06/23 21:01 Nucleated RBC % (auto) 0 % 06/06/23 21:01 Nucleated RBCs # 0.0 /100WBC 06/06/23 21:01 Sodium 137 mmol/L (136-145) 06/06/23 21:01 Potassium 4.6 mmol/L (3.5-5.1) 06/06/23 21:01 Chloride 99 mmol/L (98-107) 06/06/23 21:01 Carbon Dioxide 28 mmol/L (22-29) 06/06/23 21:01 Anion Gap 14.6 (5-19) 06/06/23 21:01 BUN 22 mg/dL (8-23) 06/06/23 21:01 Creatinine 0.8 mg/dL (0.5-0.9) 06/06/23 21:01 GFR Calculation 71.1 mL/min (90-130) L 06/06/23 21:01 Glucose 115 mg/dL (65-115) 06/06/23 21:01 Calculated Osmolality 288 mOsm/kg (285-295) 06/06/23 21: Calcium 9.6 mg/dL (8.5-10.5) 06/06/23 21:01 Total Bilirubin 0.6 mg/dL (0.15-1.2) 06/06/23 21: AST 20 U/L (0-32) 06/06/23 21: ALT 16 U/L (0-33) 06/06/23 21: Alkaline Phosphatase 98 U/L (35-105) 06/06/23 21:01 NT-Pro-B Natriuret Pep 190 pg/mL (0-125) H 06/06/23 21:01 Total Protein 7.0 g/dL (6.6-8.7) 06/06/23 21: Albumin 4.0 g/dL (3.5-5.2) 06/06/23 21: Globulin 3.0 g/dL (1.3-4.6) 06/06/23 21:01 Urine Color Yellow (Yellow) 06/06/23 22:00 Urine Appearance Cloudy (CLEAR) A 06/06/23 22:00 Urine pH 7 (5-7) 06/06/23 22:00 Ur Specific Herrick 1.015 (1.005-1.030) 06/06/23 22:00 Urine Protein Trace (Negative) 06/06/23 22:00 Urine Glucose (UA) Norm (Normal) 06/06/23 22:00 Urine Ketones 1+ (Negative) H 06/06/23 22:00 Urine Blood Neg (Negative) 06/06/23 22:00 Urine Nitrate Negative (Negative) 06/06/23 22:00 Urine Bilirubin Neg (Negative) 06/06/23 22:00 Urine Urobilinogen 1 mg/dL (Negative) H 06/06/23 22:00 Ur Leukocyte Esterase Trace (Negative) H 06/06/23 22:00 Urine RBC 0-4 /hpf (0-2) H 06/06/23 22:00 Urine WBC 0-4 /hpf (0-5) H 06/06/23 22:00 Ur Squamous Epith Cells 0-4 /hpf (0-5) H 06/06/23 22:00 Amorphous Sediment 1+ /hpf 06/06/23 22:00 Urine Bacteria Trace /hpf (NONE) 06/06/23 22:00 Urine Mucus 1+ /hpf 06/06/23 22:00 All radiology interpretation(s) finalized by discharge EKG Data EKG 1: Computer generated interpretation: Chest X-Ray 06/06/23 20:43 IMPRESSION: No acute findings. Head CT 06/06/23 20:43 IMPRESSION: No acute findings. Head/Neck CTA 06/06/23 23:15 IMPRESSION: No large vessel occlusion or high-grade stenosis. IMPRESSION: Patent cervical carotid and vertebral arteries. Moderate ICA stenosis by NASCET criteria bilaterally. REFERENCES: NASCET CRITERIA. The degree of stenosis in the cervical segment of the internal carotid artery is based on NASCET criteria. Normal is no stenosis. Mild is less than 50% stenosis. Moderate is 50-69% stenosis. Severe is 70% to 99% stenosis. Total occlusion is no detectable patent lumen. Discharge Plan Discharge Patient Disposition: Admitted As Inpatient Admit Provider: Donna Lemos Clinical Impression: Multiple sclerosis, Generalized weakness Congestive heart failure Qualifiers: Heart failure chronicity: acute on chronic Condition: Stable Coding Level of Care Code ED Fan Mail Clerk for Yuimko Walker
--- NOTE | 2023-06-07 03:17 | USR_ITS ---
PROCEDURE INFORMATION: Exam: US Duplex Lower Extremity Veins, Bilateral Exam date and time: 06/07/2023 11:31 AM Age: 68 years old Clinical indication: Edema, localized; Lower extremity, bilateral; Additional info: Evaluate for dvt TECHNIQUE: Imaging protocol: Real-time duplex ultrasound of the bilateral extremities with 2-D garcia scale, color Doppler flow and spectral waveform analysis including responses to compression and other maneuvers (when performed) with image documentation. Complete exam focused on the lower extremity veins. COMPARISON: [place] [id number] 05/12/2021 4:41 PM FINDINGS: Veins: Patent without thrombus. Normal Doppler waveforms. Normal compressibility and/or augmentation response. Other: 3.7 cm Gunter's [place]. US/[place] [id number] IMPRESSION: No evidence of deep vein thrombosis.
--- NOTE | 2023-06-07 03:18 | USCV_ITS ---
Jo Ricks Age: 68 Gender: F : 1955 Exam Date: 06/07/2023 11:57 Ordering Phys: Donna Lemos MD Technologist: Chago Cosme Exam Location: [facility] [place] Indication: TIA BP: 90 / 56 HR: 71 Rhythm: Sinus Technical Quality: Adequate MEASUREMENTS (Male / Female) Normal Values 2D ECHO LVOT Diameter 2.1 cm LV Ejection Fraction MOD 2C 52.3 % LV Ejection Fraction 2C AL 54.3 % LA Diameter 3.2 cm LA Width 2.8 cm LA Height 4.1 cm RA Width 2.8 cm RA Height 4.1 cm Aorta at Sinotubular Diameter 2.6 cm IVC Diameter 1.8 cm M-MODE Aortic Annulus Diameter 3.4 cm LA Ao Ratio MM 0.9 MV E Point Septal Separation 0.7 cm DOPPLER AV Peak Velocity 168.0 cm/s LVOT Peak Velocity 103.0 cm/s AV Area Cont Eq vti 1.7 cm squared AV Area Cont Eq pk 2.1 cm squared MV Peak Velocity 119.0 cm/s MV Area PHT 4.5 cm squared Mitral E to A Ratio 0.8 MV E' Velocity 38.5 cm/s Mitral E to MV E' Ratio 10.6 Mitral E to LV E' Lateral Ratio 11.9 Mitral E to LV E' Septal Ratio 9.8 TR Peak Velocity 315.7 cm/s TR Peak Gradient 39.9 mmHg TR Mean Velocity 239.2 cm/s TR Mean Gradient 25.6 mmHg TR Velocity Time Integral 73.0 cm Right Atrial Pressure 3.0 mmHg Pulmonary Artery Systolic Pressu 42.9 mmHg PV Peak Velocity 110.0 cm/s RV Acceleration Time 0.2 s RV Ejection Time 0.3 s RV AcT/ET 0.5 FINDINGS Left Ventricle Left ventricle is normal in size. LV systolic function is mildly reduced with EF of 45 to 50%. Mild global hypokinesis seen. Grade 1 diastolic dysfunction. Right Ventricle Normal in size and function Right Atrium Normal in size Left Atrium Normal in size Mitral Valve Structurally normal mitral valve. Mild mitral regurgitation Aortic Valve Grossly normal. No significant stenosis or regurgitation Tricuspid Valve Mild tricuspid regurgitation. Insufficient TR jet to calculate RVSP Pulmonic Valve Mild pulmonic regurgitation Pericardium Normal Aorta Normal in size IVC Appears to be normal CONCLUSIONS LV systolic function is mildly reduced with EF of 45 to 50%. Grade 1 diastolic dysfunction. Mild mitral regurgitation Mild tricuspid regurgitation. Compared to prior echocardiogram from 2021, no significant changes are seen. Long Burks MD (Electronically Signed) Final Date: 08 June 2023 09:57 S
--- NOTE | 2023-06-07 03:26 | P.HP_ITS ---
Providers/Chief Complaint 2 Admitting Physician: Donna Lemos MD Primary Care Provider: ZOYA Cornell Chief Complaint: Nausea, weakness, dizziness History of Present Illness Jo Ricks is a 68 year old female with multiple sclerosis, at a baseline is able to ambulate in a wheelchair, transfers from bed to commode, has normal upper body strength. She presented to the ER today after experiencing weakness when she woke up from a nap. Patient states she was in her usual state of health until about 9 AM when she went for a nap. When she awoke in the afternoon she noticed that her left lower extremity was weaker than usual. Additionally she was not able to move her right lower extremity which is unusual for her. 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 She experienced awake chest discomfort, was concerned she may be having a heart attack and therefore took 2 nitros. Then came in to the ER. Associated symptoms included headache and nausea. Her symptoms have since started to improve, RLE is able to move at baseline. She feels her upper extremities are also stronger, No respiratory issues. no dysphagia. Her MS has been chronic and progressive, worsened since she had COVID last year. She is not any directed therapy. She does not typically have relapses or flares. She has additionally noticed worening RLE edema. Typically has lymphedema involving only left leg Review of Systems 2 General: Reports: 10 or more systems reviewed and unremarkable except in HPI and below Const: Denies: fever(s), chills or body aches Eyes: Denies: change in vision, blurry vision or photophobia ENMT: Reports: hoarseness; Denies: throat pain, enlarged tonsils, odynophagia or nasal congestion Card: Denies: chest pain, palpitations, irregular heart rhythm, edema, swelling of feet/ankles, lightheadedness, pre-syncope, dyspnea on exertion or orthopnea Resp: Denies: dyspnea, productive cough, non-productive cough, wheezing, stridor, pain on inspiration, change in phlegm color, hemoptysis or chest congestion GI: Denies: abdominal pain, nausea, vomiting, hematemesis, coffee ground emesis, dysphagia, heartburn, diarrhea, constipation, GI cramping, change in stool character, hematochezia or melena : Denies: flank pain, difficulty voiding, dysuria, urinary frequency, urinary urgency, urinary hesitancy or hematuria Musc: Denies: neck pain, back pain, extremity pain, joint swelling, joint warmth or deformity Neuro: Denies: headache(s), numbness in extremities, weakness in extremities, sensory changes, difficulty walking, frequent falls, dizziness, vertigo, behavioral changes, Slurred speech present or seizure-like activity Psych: Denies: anxiety, depression, suicidal ideation or homicidal ideation Endo: Denies: polyuria, polydipsia, tired all the time, cold intolerance or hot flashes Kike/Lymph: Denies: easy bruising or easy bleeding Medications/Allergies Home Medications Medication Instructions Recorded Confirmed Last Taken Type aspirin 81 mg tablet,delayed 81 mg PO QAM 05/04/21 06/07/23 1 Day Ago History release ~06/06/23 cholecalciferol (vitamin D3) 50 50 mcg PO QAM 05/04/21 06/07/23 1 Day Ago History mcg (2,000 unit) tablet (Vitamin ~06/06/23 D3) ascorbic acid (vitamin C) 500 mg 500 mg PO BID 06/05/21 06/07/23 1 Day Ago History tablet ~06/06/23 mzkzgwlwekrq-Vd-uugv-minerals 18 1 tab PO DAILY 10/02/21 06/07/23 1 Day Ago History mg-0.4 mg tablet ~06/06/23 left knee brace #1 ea 10/10/21 01/21/23 Unknown Rx nitroglycerin 0.4 mg sublingual 0.4 mg sublingual Q5M PRN Chest 07/24/22 06/07/23 1 Day Ago Rx tablet (Nitrostat) Pain #30 tabs ~06/06/23 furosemide 40 mg tablet See Rx Instructions .Route 03/18/23 06/07/23 2 Days Ago Rx .COMPLEX #90 tabs ~06/05/23 potassium chloride 20 mEq See Rx Instructions .Route 03/18/23 06/07/23 2 Days Ago Rx tablet,extended release(part/cryst) .COMPLEX #90 tabs ~06/05/23 rosuvastatin 10 mg tablet 10 mg PO DAILY 06/07/23 06/07/23 1 Day Ago History ~06/06/23 telmisartan 20 mg tablet 20 mg PO DAILY 06/07/23 06/07/23 1 Day Ago History ~06/06/23 Allergies Allergy/AdvReac Type Severity Reaction Status Date / Time gluten Allergy Unknown ADV-Weaknes Verified 06/07/23 01:50 s farah Allergy ADV-Weaknes Verified 06/07/23 01:51 s oats Allergy ADV-Weaknes Verified 06/07/23 01:50 s wheat Allergy ADV-Weaknes Verified 06/07/23 01:50 s PFSH Acute 2 PFSH: Medical History Hyperlipidemia Hypertension History of RI (myocardial infarction) CAD (coronary artery disease) MS (multiple sclerosis) Surgical History AICD (automatic cardioverter/defibrillator) present Stented coronary artery Family History Father CAD (coronary artery disease) RI @ 55 Mother Lung disease Denies family history of Diabetes Clotting disorder Dementia Chronic kidney disease (CKD) Suicide Anesthesia complication Bleeding disorder Cancer Stroke Social History Smoking and tobacco/nicotine status: former use of tobacco/nicotine Quit status (tobacco/nicotine): has quit using Year quit tobacco: 2008 Alcohol intake: never Substance/Drug Use: never Caregiver/support person: Yes Lives independently: Yes Household members: none Marital status: Current occupational status: retired Current gender identity: Female Special nita needs: No Vitals/I&O/Wt Last Vital Signs Temp 97.7 F 06/07/23 01:39 Pulse 80 06/07/23 01:39 Resp 17 06/07/23 01:39 BP 107/57 06/07/23 01:39 Pulse Ox 94 06/07/23 01:39 O2 Del Method Room Air 06/07/23 01:24 Weight last 48 hrs Weight 108.409 kg Weight 108.409 kg Physical Exam 2 Narrative: General: No acute distress, AO x3 HEENT: PERRLA, pupils bilaterally equal and reactive, pallors not present Chest: Normal vesicular breath sounds, no added sounds, equal good air entry bilaterally CVS: S1-S2 regular, no murmurs, no tachycardia, no gallops, no rubs Abdomen: Soft, nontender, no organomegaly, bowel sounds present Neuro: No focal deficits, no facial deformity, LLE 3/5, RLE 5/5, B/L UE 5/5 , all at baseline per patient. Urinary Catheter Management: Warren: Cath Placed During This Visit: yes Urinary Catheter Date of Insertion: 06/06/23 Urinary Catheter Time of Insertion: 23:36 Data 06/06/23 21:01 06/06/23 21: Other data: Radiology Impressions Chest X-Ray 06/06/23 20:43 IMPRESSION: No acute findings. Head CT 06/06/23 20:43 IMPRESSION: No acute findings. Head/Neck CTA 06/06/23 23:15 IMPRESSION: No large vessel occlusion or high-grade stenosis. IMPRESSION: Patent cervical carotid and vertebral arteries. Moderate ICA stenosis by NASCET criteria bilaterally. REFERENCES: NASCET CRITERIA. The degree of stenosis in the cervical segment of the internal carotid artery is based on NASCET criteria. Normal is no stenosis. Mild is less than 50% stenosis. Moderate is 50-69% stenosis. Severe is 70% to 99% stenosis. Total occlusion is no detectable patent lumen. Laboratory Results WBC 8.75 10^3/uL (3.29-11.43) 06/06/23 21: RBC 5.02 10^6/uL (3.85-5.65) 06/06/23 21:01 Hgb 14.80 g/dL (11.27-16.99) 06/06/23 21: Hct 46.2 % (36-47) 06/06/23 21: MCV 92.0 fl (85-98) 06/06/23 21: MCH 29.5 pg (27-33) 06/06/23 21: MCHC 32.0 g/dL (30-55) 06/06/23 21: RDW 13.6 % (12.1-15.1) 06/06/23 21:01 Plt Count 188 10^3/cmm (157-399) 06/06/23 21: MPV 10.5 fL (7.4-10.4) H 06/06/23 21:01 Neut % (Auto) 94.2 % 06/06/23 21:01 Lymph % (Auto) 2.9 % 06/06/23 21:01 Navarro % (Auto) 1.9 % 06/06/23 21:01 Eos % (Auto) 0.1 % 06/06/23 21:01 Baso % (Auto) 0.3 % 06/06/23 21:01 Neut # (Auto) 8.24 10^3/uL (1.8-7.7) H 06/06/23 21:01 Lymph # (Auto) 0.3 10^3/uL (0.8-4.8) L 06/06/23 21:01 Navarro # (Auto) 0.2 10^3/uL (0.2-0.9) 06/06/23 21:01 Eos # (Auto) 0.0 10^3/uL (0.0-0.8) 06/06/23 21:01 Baso # (Auto) 0.0 10^3/uL (0.0-0.1) 06/06/23 21:01 Nucleated RBC % (auto) 0 % 06/06/23 21:01 Nucleated RBCs # 0.0 /100WBC 06/06/23 21:01 Sodium 137 mmol/L (136-145) 06/06/23 21:01 Potassium 4.6 mmol/L (3.5-5.1) 06/06/23 21:01 Chloride 99 mmol/L (98-107) 06/06/23 21:01 Carbon Dioxide 28 mmol/L (22-29) 06/06/23 21:01 Anion Gap 14.6 (5-19) 06/06/23 21:01 BUN 22 mg/dL (8-23) 06/06/23 21:01 Creatinine 0.8 mg/dL (0.5-0.9) 06/06/23 21:01 GFR Calculation 71.1 mL/min (90-130) L 06/06/23 21:01 Glucose 115 mg/dL (65-115) 06/06/23 21:01 Calculated Osmolality 288 mOsm/kg (285-295) 06/06/23 21:01 Calcium 9.6 mg/dL (8.5-10.5) 06/06/23 21:01 Total Bilirubin 0.6 mg/dL (0.15-1.2) 06/06/23 21:01 AST 20 U/L (0-32) 06/06/23 21:01 ALT 16 U/L (0-33) 06/06/23 21:01 Alkaline Phosphatase 98 U/L (35-105) 06/06/23 21:01 NT-Pro-B Natriuret Pep 190 pg/mL (0-125) H 06/06/23 21:01 Total Protein 7.0 g/dL (6.6-8.7) 06/06/23 21:01 Albumin 4.0 g/dL (3.5-5.2) 06/06/23 21: Globulin 3.0 g/dL (1.3-4.6) 06/06/23 21:01 Urine Color Yellow (Yellow) 06/06/23 22:00 Urine Appearance Cloudy (CLEAR) A 06/06/23 22:00 Urine pH 7 (5-7) 06/06/23 22:00 Ur Specific Jeffrey 1.015 (1.005-1.030) 06/06/23 22:00 Urine Protein Trace (Negative) 06/06/23 22:00 Urine Glucose (UA) Norm (Normal) 06/06/23 22:00 Urine Ketones 1+ (Negative) H 06/06/23 22:00 Urine Blood Neg (Negative) 06/06/23 22:00 Urine Nitrate Negative (Negative) 06/06/23 22:00 Urine Bilirubin Neg (Negative) 06/06/23 22:00 Urine Urobilinogen 1 mg/dL (Negative) H 06/06/23 22:00 Ur Leukocyte Esterase Trace (Negative) H 06/06/23 22:00 Urine RBC 0-4 /hpf (0-2) H 06/06/23 22:00 Urine WBC 0-4 /hpf (0-5) H 06/06/23 22:00 Ur Squamous Epith Cells 0-4 /hpf (0-5) H 06/06/23 22:00 Amorphous Sediment 1+ /hpf 06/06/23 22:00 Urine Bacteria Trace /hpf (NONE) 06/06/23 22:00 Urine Mucus 1+ /hpf 06/06/23 22:00 A&P Assessment and plan (1) TIA (transient ischemic attack): 68-year-old lady with past medical history of multiple sclerosis, CHF and dyslipidemia presented to the emergency room today with transient upper and lower extremity weakness as described above. Initial concern for stroke, overall her strength has started to improve and nearly back to her baseline. CT head and CTA of the head and neck without any major vessel occlusion. Admit to [facility] in observation for possible TIA. Continue telemetry to assess for underlying arrhythmia. Patient has an AICD in place which we will interrogate to evaluate for arrhythmias as well. Continue aspirin 81 mg p.o. daily and atorvastatin 40 mg p.o. daily. Echocardiogram for TIA workup. Moderate carotid stenosis noted on CTA neck, no urgent intervention indicated at this time. Alternate possibility that of MS flare however would not expect it to resolve within a few hrs without directed treatment. [facility] trop series and EKG given chest discomfort aqt onset of symptoms Check D dimer and LE duplex given asymmetric swelling Attestations 2 Medical Necessity Statement*: Less than 2 midnight stay anticipated at this time Coding Level of Care Code Acute Code for Yumiko Walker Diagnoses TIA (transient ischemic attack) G45.9
--- NOTE | 2023-06-07 03:48 | ECG_ITS ---
[facility] Test Date: 2023-06-07 Pat Name: Jo Ricks Department: Room: 266 Gender: Female Community Engagement Coordinator: : 1955 Requested By: Donna Lemos Order Number: [id number] Reading MD: Long Burks M.D. Measurements Intervals [place] Rate: 79 P: 42 LA: 147 QRS: -41 QRSD: 110 T: 243 QT: 364 QTc: 419 Interpretive Statements SINUS RHYTHM WITH FREQUENT VENTRICULAR PREMATURE COMPLEXES LEFT AXIS DEVIATION [QRS AXIS < -30] ST DEVIATION AND MODERATE T-WAVE ABNORMALITY, CONSIDER INFERIOR ISCHEMIA [-0.1+ mV T-WAVE IN II/aVF] Compared to ECG 05/02/2022 05:09:05 Ventricular premature complex(es) now present Possible ischemia now present Intraventricular conduction delay no longer present T-wave abnormality still present Electronically Signed On 06-07-2023 13:31:44 RECORDS AND INFORMATION MANAGER by Long Burks M.D. [id number]
[2023-06-07] MEDS: acetaminophen 500 mg Tablet 650 MG PO (03:55)
[2023-06-07 05:08] LABS: D Dimer 1.07 ug/mLFEU (0-0.59)
[2023-06-07 05:09] LABS: Chol HDL Ratio 3.37 mg/dL (0.0-4.40); Cholesterol 128 mg/dL (0-200); HDL Cholesterol 38 mg/dL (60-100); LDL Cholesterol Calculated 64 mg/dL (50-129); LDL HDL Ratio 1.68 RATIO (0.00-3.22); Triglycerides 130 mg/dL (0-150)
[2023-06-07 05:15] LABS: Estmated Average Glucose 100; Hemoglobin A1C 5.1 % (4.0-6.0); Troponin(5th) Baseline 20 ng/L (0-10)
--- NOTE | 2023-06-07 05:53 | PC.NURSE ---
Patient given PRN Tylenol. Patient asking for something else for generalized body pain. Dr. Lemos notified.
[2023-06-07] MEDS: aspirin 81 mg EC Tablet PO (09:59)
--- NOTE | 2023-06-07 12:59 | ECG_ITS ---
[facility] Test Date: 2023-06-07 Pat Name: Jo Ricks Department: Room: 266 Gender: Female Compliance Quality Performance Analyst: : 1955 Requested By: Donna Lemos Order Number: [id number] Raudel MD: Long Burks M.D. Measurements Intervals [place] Rate: 86 P: 23 PA: 148 QRS: -37 QRSD: 114 T: 121 QT: 404 QTc: 485 Interpretive Statements SINUS RHYTHM WITH FREQUENT VENTRICULAR PREMATURE COMPLEXES LEFT AXIS DEVIATION [QRS AXIS < -30] PATTERN CONSISTENT WITH PULMONARY DISEASE INCOMPLETE RIGHT BUNDLE BRANCH BLOCK [90+ ms QRS DURATION, TERMINAL R IN V1/V2, 40+ ms S IN I/aVL/V4/V5/V6] MODERATE T-WAVE ABNORMALITY, CONSIDER LATERAL ISCHEMIA [-0.1+ mV T-WAVE IN I/aVL/V5/V6] Compared to ECG 06/07/2023 03:48:02 Incomplete right bundle-branch block now present T-wave abnormality still present Possible ischemia still present Electronically Signed On 06-07-2023 13:33:38 CELL TUBER MACHINE by Long Burks M.D. [id number]
--- NOTE | 2023-06-07 20:10 | P.PN_ITS ---
Subjective 2 Subjective: Her condition is improving today. Strength is returning. Having some pins and needle sensation on touching her legs, although this is not new she states, relating it to her MS. Vitals/I&O/Wt Last Vital Signs Temp 97.8 F 06/07/23 19:12 Pulse 75 06/07/23 19:12 Resp 16 06/07/23 19:12 BP 102/64 06/07/23 19:12 Pulse Ox 96 06/07/23 19:12 O2 Del Method Room Air 06/07/23 19:12 06/07/23 06/07/23 06/07/23 06:59 14:59 22:59 Intake Total 480 / 480 220 / 700 Output Total 1250 / 1250 Balance -1250 / -1250 480 / 480 220 / 700 Weight last 48 hrs Weight 110.677 kg Weight 108.409 kg Weight 108.409 kg Physical Exam 2 Narrative: Awake, alert, sitting up in bed. Pleasant, conversant. Const: COMMON NORMALS: patient oriented x3 and alert GENERAL APPEARANCE: c ooperative ORIENTATION/CONSCIOUSNESS: Yes awake HENMT: COMMON NORMALS: oropharynx normal Neck/C-Spine: COMMON NORMALS: no JVD Resp: COMMON NORMALS: normal respiratory effort and clear to auscultation bilaterally AUSCULTATION: clear to auscultation bilaterally Cardio: COMMON NORMALS: no JVD, regular rhythm, S1 normal heart sound present, S2 normal heart sound present and No murmurs present (Cardio) RHYTHM: regular rhythm HEART SOUNDS: S1 normal heart sound present and S2 normal heart sound present GI: COMMON NORMALS: Normal to inspection, nondistended, normoactive bowel sounds present, Soft to palpation and non-tender PALPATION: Yes Soft to palpation Extremity: COMMON NORMALS: no joint enlargement GENERAL: Yes edema (4+ LLE, 2+ RLE) Neuro: COMMON NORMALS: patient oriented x3 SENSORIUM/ORIENTATION: Yes alert OTHER: She is awake, alert, readily interactive, no difficulty following directions. No difficulty with tracking. Denies diplopia. Visual yeboah full to confrontation. No visual extinction. No noted facial droop. No upper or right lower extremity drift. She has had issues with being able to lift/move her left lower extremity for a while and it is also more edematous chronically. Sensory exam symmetrical, [id number] on touch bilaterally in the lower extremities which is also not She relates it to her MS. No difficulty with FNF. Skin: COMMON NORMALS: no rashes or lesions noted GENERAL SKIN EXAM: no rashes or lesions noted OTHER: Chronic stasis changes with erythema of the dorsal and distal feet bilaterally worse on the left. No blisters, ulcers or drainage. Urinary Catheter Management: Warren: Cath Placed During This Visit: yes Reason for Continuing Indwelling Catheter: Assist Healing of Perineal & Sacral Wounds- Incontinent Patients Urinary Catheter Date of Insertion: 06/06/23 Urinary Catheter Time of Insertion: 23:36 Data 06/06/23 21:01 06/06/23 21:01 A&P Assessment and plan (1) TIA (transient ischemic attack): 68-year-old lady with past medical history of multiple sclerosis, CHF and dyslipidemia presented to the emergency room today with transient upper and lower extremity weakness as described above. Reviewed vitals, CBC, CMP, troponin, UA, CTA head and neck, venous duplex, discussed studies with her. Pending echocardiogram as she reports some overall generalized weakness, worsening of lower extremity edema. And blood pressure is noted lower than usual. She has history of cardiomyopathy with low EF, status post defibrillator implantation. Discussed obtaining with consideration of worsening cardiomyopathy, cardiogenic shock, possibly responsible for her symptoms. Overall it does appear that hypotension was likely responsible for her global weakness, including bilateral upper extremities, difficulty trying to stand or walk. She has chronic weakness in the left lower extremity. Otherwise does not appear to have any obvious focal neurologic abnormalities, including no drift in upper or lower extremities. Chronic paresthesia/dysesthesia of bilateral lower extremities. Discussed with her cannot entirely rule out possibility of TIA versus CVA, although CVA seems less likely given symptoms have been resolving. Discussed consideration of MRI, but she states cannot undergo one due to implanted cardiac device. Continue aspirin, statin. Discussed with her bilateral ICA. Discussed managing cardiovascular risk factors, although certainly MS makes her unable to perform moderate exercise. Activity as tolerating is encouraged. Will request PT assessment She is asked to follow-up with neurology. Low blood pressures: Monitor blood pressure. Discussed with her discontinuing telmisartan at current time as I suspect she likely had worse hypotension at home, with global hypoperfusion with transient cardiogenic shock, like responsible for her symptoms. Echocardiogram is still pending, thus will monitor blood pressures overnight, follow-up echo and reassess condition. Monitor on telemetry. MS flare considered less likely would not expect it to resolve within a few hrs without directed treatment. [facility] given chest discomfort aqt onset of symptoms Check D dimer and LE duplex given asymmetric swelling TTE to further assess LV function Chronic pain: Acetaminophen. Did not help. At home takes ibuprofen, but here with TIA, will avoid NSAIDs. Hydrocodone although would rather avoid if possible as well due to risk of constipation and other risks, only if needed for severe breakthrough. Attestations 2 Medical Necessity Statement*: Continue hospitalization for additional assessment of left ventricular function with history of cardiomyopathy, with low blood pressure, TIA versus transient cardiogenic shock. Diagnoses TIA (transient ischemic attack) G45.9
[2023-06-07] MEDS: atorvastatin 40 mg Tablet PO (21:32)
[2023-06-08 03:53] VITALS: BP 106/62; PULSE 54; RESP 15; TEMP 36.7; O2SAT 91
[2023-06-08 05:41] VITALS: PULSE 86
[2023-06-08 07:41] VITALS: BP 147/98; PULSE 95; RESP 16; TEMP 36.6; O2SAT 92
[2023-06-08] MEDS: aspirin 81 mg EC Tablet PO (07:55)
[2023-06-08 09:00] VITALS: BP 147/98; PULSE 95; RESP 16; TEMP 36.6
--- NOTE | 2023-06-08 10:05 | P.DS_ITS ---
Discharge Providers Date of Admission: 06/07/23 00:43 Date of Discharge: June 08, 2023 Attending Provider at Admission: Donna Lemos MD Attending Provider at Discharge: Zac Treviño Primary Care Provider: ZOYA Cornell Diagnoses at Discharge Discharge Diagnosis (1) TIA (transient ischemic attack): Status: Acute Reason for Visit Reason for Visit: Nausea, weakness, dizziness Brief History: Jo Ricks is a 68 year old female with multiple sclerosis, at a baseline is able to ambulate in a wheelchair, transfers from bed to commode, has normal upper body strength. She presented to the ER today after experiencing weakness when she woke up from a nap. Patient states she was in her usual state of health until about 9 AM when she went for a nap. When she awoke in the afternoon she noticed that her left lower extremity was weaker than usual. Additionally she was not able to move her right lower extremity which is unusual for her. 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 She experienced awake chest discomfort, was concerned she may be having a heart attack and therefore took 2 nitros. Then came in to the ER. Associated symptoms included headache and gilson sea. Her symptoms have since started to improve, RLE is able to move at baseline. She feels her upper extremities are also stronger, No respiratory issues. no dysphagia. Her MS has been chronic and progressive, worsened since she had COVID last year. She is not any directed therapy. She does not typically have relapses or flares. She has additionally noticed worening RLE edema. Typically has lymphedema involving only left leg Hospital Course Hospital Course CT angiogram head and neck revealed moderate ICA stenosis bilaterally, patent cervical carotid and vertebral arteries. Her blood pressure was noted to be lower than usual, dipping down into the 90s, she takes telmisartan at home. Antihypertensive was held. Blood pressures gradually improved and her symptoms resolved with power returning to baseline. She is nearly back to her usual currently. Edema in lower extremities noted worse than usual, including in the left leg which is chronically edematous. She was assessed by echocardiogram which showed ejection fraction 45 to 50%, grade 1 diastolic dysfunction, mild MVR, mild TVR, without change from 2021. She continues on aspirin, statin. She states cannot have MRI due to ICD. Her symptoms are thought more likely due to hypotension, transient hypoperfusion given improvement with improvement in blood pressures. TIA is thought to be less likely, however, she is asked to follow-up for reassessment with neurology and to also reassess her MS. She has some chronic pins and needle sensation in her lower extremities with her multiple sclerosis without definite transition point and with rapid improvement presentation is not suggestive of MS flare or transverse myelitis at current time, but she is asked to follow up for reassessment by neurology. Discussed with her autonomic dysfunction may be a feature of MS and encouraged her to monitor blood pressures at home 3 times daily and checking orthostatics, for now not resuming telmisartan. She is asked to bring her records to the next appointment with primary provider. Please reassess blood pressures to see if she may be able to resume lower dose telmisartan or if blood pressure is too labile. She knows to seek medical attention in case of any worsening or new concerning symptoms. Physical Exam Narrative: Awake, alert, sitting up in bed. Pleasant, conversant. Const: COMMON NORMALS: patient oriented x3 and alert GENERAL APPEARANCE: cooperative ORIENTATION/CONSCIOUSNESS: Yes awake HENMT: COMMON NORMALS: oropharynx normal Neck/C-Spine: COMMON NORMALS: no JVD Resp: COMMON NORMALS: normal respiratory effort and clear to auscultation bilaterally AUSCULTATION: clear to auscultation bilaterally Cardio: COMMON NORMALS: no JVD, regular rhythm, S1 normal heart sound present, S2 normal heart sound present and No murmurs present (Cardio) RHYTHM: regular rhythm HEART SOUNDS: S1 normal heart sound present and S2 normal heart sound present GI: COMMON NORMALS: Normal to inspection, nondistended, normoactive bowel sounds present, Soft to palpation and non-tender PALPATION: Yes Soft to palpation Extremity: COMMON NORMALS: no joint enlargement GENERAL: Yes edema (3+ LLE, 1+ RLE) Neuro: COMMON NORMALS: patient oriented x3 SENSORIUM/ORIENTATION: Yes alert OTHER: She is awake, alert, readily interactive, no difficulty following directions. No difficulty with tracking. Denies diplopia. Visual yeboah full to confrontation. No visual extinction. No noted facial droop. No upper or right lower extremity drift. She has had issues with being able to lift/move her left lower extremity for a while and it is also more edematous chronically. Sensory exam symmetrical, reports icne-mwy-[id number] sensation resolved power improved bilaterally, right side back to normal, left side is weaker but back to usual. No difficulty with FNF. Skin: COMMON NORMALS: no rashes or lesions noted GENERAL SKIN EXAM: no rashes or lesions noted OTHER: Some improvement in chronic stasis changes with erythema of the dorsal and distal feet bilaterally worse on the left. Less edema today. No blisters, ulcers or drainage. Urinary Catheter Management: Warren: Cath Placed During This Visit: yes Reason for Continuing Indwelling Catheter: Assist Healing of Perineal & Sacral Wounds- Incontinent Patients Urinary Catheter Date of Insertion: 06/06/23 Urinary Catheter Time of Insertion: 23:36 Discharge Data Studies Completed and Pending Completed Studies During Hospitalization Category Date Time Status CT head wo con* [id number] Stat Cat Scan 06/06/23 20:43 Completed CTA head neck [CT angio headneck* [id number]] Stat Cat Scan 06/06/23 23:15 Completed XR chest 1V portable [id number] Stat Exams 06/06/23 20:43 [place] [id number] Routine Ultrasound 06/07/23 03:17 Completed CV. echo complete* [id number] Routine Ultrasound 06/07/23 03:18 Completed Radiology Impressions Chest X-Ray 06/06/23 20:43 IMPRESSION: No acute findings. Head CT 06/06/23 20:43 IMPRESSION: No acute findings. Head/Neck CTA 06/06/23 23:15 IMPRESSION: No large vessel occlusion or high-grade stenosis. IMPRESSION: Patent cervical carotid and vertebral arteries. Moderate ICA stenosis by NASCET criteria bilaterally. REFERENCES: NASCET CRITERIA. The degree of stenosis in the cervical segment of the internal carotid artery is based on NASCET criteria. Normal is no stenosis. Mild is less than 50% stenosis. Moderate is 50-69% stenosis. Severe is 70% to 99% stenosis. Total occlusion is no detectable patent lumen. Venous Duplex 06/07/23 03:17 IMPRESSION: No evidence of deep vein thrombosis. Laboratory Results WBC 8.75 10^3/uL (3.29-11.43) 06/06/23 21:01 RBC 5.02 10^6/uL (3.85-5.65) 06/06/23 21:01 Hgb 14.80 g/dL (11.27-16.99) 06/06/23 21:01 Hct 46.2 % (36-47) 06/06/23 21:01 MCV 92.0 fl (85-98) 06/06/23 21:01 MCH 29.5 pg (27-33) 06/06/23 21: MCHC 32.0 g/dL (30-55) 06/06/23 21:01 RDW 13.6 % (12.1-15.1) 06/06/23 21:01 Plt Count 188 10^3/cmm (157-399) 06/06/23 21:01 MPV 10.5 fL (7.4-10.4) H 06/06/23 21:01 Neut % (Auto) 94.2 % 06/06/23 21: Lymph % (Auto) 2.9 % 06/06/23 21: Summers % (Auto) 1.9 % 06/06/23 21:01 Eos % (Auto) 0.1 % 06/06/23 21:01 Baso % (Auto) 0.3 % 06/06/23 21:01 Neut # (Auto) 8.24 10^3/uL (1.8-7.7) H 06/06/23 21:01 Lymph # (Auto) 0.3 10^3/uL (0.8-4.8) L 06/06/23 21:01 Summers # (Auto) 0.2 10^3/uL (0.2-0.9) 06/06/23 21:01 Eos # (Auto) 0.0 10^3/uL (0.0-0.8) 06/06/23 21:01 Baso # (Auto) 0.0 10^3/uL (0.0-0.1) 06/06/23 21:01 Nucleated RBC % (auto) 0 % 06/06/23 21:01 Nucleated RBCs # 0.0 /100WBC 06/06/23 21:01 D-Dimer 1.07 ug/mLFEU (0-0.59) H 06/07/23 04:09 Sodium 137 mmol/L (136-145) 06/06/23 21:01 Potassium 4.6 mmol/L (3.5-5.1) 06/06/23 21:01 Chloride 99 mmol/L (98-107) 06/06/23 21:01 Carbon Dioxide 28 mmol/L (22-29) 06/06/23 21:01 Anion Gap 14.6 (5-19) 06/06/23 21:01 BUN 22 mg/dL (8-23) 06/06/23 21:01 Creatinine 0.8 mg/dL (0.5-0.9) 06/06/23 21:01 GFR Calculation 71.1 mL/min (90-130) L 06/06/23 21:01 Glucose 115 mg/dL (65-115) 06/06/23 21:01 Estimat Average Glucose 100 06/07/23 04:09 Hemoglobin A1c 5.1 % (4.0-6.0) 06/07/23 04:09 Calculated Osmolality 288 mOsm/kg (285-295) 06/06/23 21:01 Calcium 9.6 mg/dL (8.5-10.5) 06/06/23 21:01 Total Bilirubin 0.6 mg/dL (0.15-1.2) 06/06/23 21:01 AST 20 U/L (0-32) 06/06/23 21:01 ALT 16 U/L (0-33) 06/06/23 21:01 Alkaline Phosphatase 98 U/L (35-105) 06/06/23 21:01 Troponin T Baseline 20 ng/L (0-10) H 06/07/23 04:09 Troponin T 120 Minute 27.90 ng/L (0-10) H 06/07/23 05:50 Delta Troponin T 7.90 ABS# (0-10) 06/07/23 05:50 Troponin T Hi Sens 6Hr 19.00 ng/L (0-10) H 06/07/23 10:02 Troponin T Hi Sens 6Hr Delta -1.00 ng/L (0-12) L 06/07/23 10:02 NT-Pro-B Natriuret Pep 190 pg/mL (0-125) H 06/06/23 21:01 Total Protein 7.0 g/dL (6.6-8.7) 06/06/23 21:01 Albumin 4.0 g/dL (3.5-5.2) 06/06/23 21:01 Globulin 3.0 g/dL (1.3-4.6) 06/06/23 21:01 Triglycerides 130 mg/dL (0-150) 06/07/23 04:09 Cholesterol 128 mg/dL (0-200) 06/07/23 04:09 LDL Cholesterol, Calc 64 mg/dL (50-129) 06/07/23 04:09 HDL Cholesterol 38 mg/dL (60-100) L 06/07/23 04:09 LDL/HDL Ratio 1.68 RATIO (0.00-3.22) 06/07/23 04:09 Cholesterol/HDL Ratio 3.37 mg/dL (0.0-4.40) 06/07/23 04:09 Urine Color Yellow (Yellow) 06/06/23 22:00 Urine Appearance Cloudy (CLEAR) A 06/06/23 22:00 Urine pH 7 (5-7) 06/06/23 22:00 Ur Specific [place] 1.015 (1.005-1.030) 06/06/23 22:00 Urine Protein Trace (Negative) 06/06/23 22:00 Urine Glucose (UA) Norm (Normal) 06/06/23 22:00 Urine Ketones 1+ (Negative) H 06/06/23 22:00 Urine Blood Neg (Negative) 06/06/23 22:00 Urine Nitrate Negative (Negative) 06/06/23 22:00 Urine Bilirubin Neg (Negative) 06/06/23 22:00 Urine Urobilinogen 1 mg/dL (Negative) H 06/06/23 22:00 Ur Leukocyte Esterase Trace (Negative) H 06/06/23 22:00 Urine RBC 0-4 /hpf (0-2) H 06/06/23 22:00 Urine WBC 0-4 /hpf (0-5) H 06/06/23 22:00 Ur Squamous Epith Cells 0-4 /hpf (0-5) H 06/06/23 22:00 Amorphous Sediment 1+ /hpf 06/06/23 22:00 Urine Bacteria Trace /hpf (NONE) 06/06/23 22:00 Urine Mucus 1+ /hpf 06/06/23 22:00 Vitals Last Vital Signs Temp 97.8 F 06/08/23 07:41 Pulse 95 06/08/23 07:41 Resp 16 06/08/23 07:41 BP 147/98 06/08/23 07:41 Pulse Ox 92 06/08/23 07:41 O2 Del Method Room Air 06/08/23 07:41 Discharge Plan Discharge Patient Disposition: Home Condition: Stable Prescriptions: Continued ascorbic acid (vitamin C) 500 mg tablet 500 mg PO BID hbwrmionvvvs-Tn-clky-minerals 18-0.4 mg tablet 1 tab PO DAILY (DME) left knee brace See Rx Instructions .Route .MEDSUPPLY Qty: 1 0RF Rx Instructions: Left knee and ankle brace fitting nitroglycerin [Nitrostat] 0.4 mg tablet, sublingual 0.4 mg SUBLINGUAL Q5M PRN (Reason: Chest Pain) Qty: 30 1RF Rx Instructions: max 3 doses potassium chloride 20 mEq tablet,ER particles/crystals See Rx Instructions .ROUTE .COMPLEX Qty: 90 1RF Dose Instruction: TAKE ONE TABLET BY MOUTH DAILY NEEDED; TAKE WITH LASIX Rx Instructions: TAKE ONE TABLET BY MOUTH DAILY NEEDED; TAKE WITH LASIX furosemide 40 mg tablet See Rx Instructions .ROUTE .COMPLEX Qty: 90 1RF Dose Instruction: TAKE ONE TABLET BY MOUTH EVERY MORNING NEEDED FOR SWELLING Rx Instructions: TAKE ONE TABLET BY MOUTH EVERY MORNING NEEDED FOR SWELLING aspirin 81 mg Tablet,Delayed Release (Dr/Ec) 81 mg PO QAM cholecalciferol (vitamin D3) [Vitamin D3] 50 mcg (2,000 unit) Tablet 50 mcg PO QAM rosuvastatin 10 mg tablet 10 mg PO DAILY Discontinued telmisartan 20 mg tablet 20 mg PO DAILY Discharge Orders: Discharge Order (Routine); Ordered 06/08/23 Ordered By: Zac Treviño Referrals: Neena Ward MD [Physician] - 1 week (tia We have notified your physician's clinic of the need for a follow-up appointment to be scheduled. If you have not heard from them within the next 2 business days, please call them directly. ) Funmilayo Rodriguez FNP [Primary Care Provider] - 4-7 days (We have notified your physician's clinic of the need for a follow-up appointment to be scheduled. If you have not heard from them within the next 2 business days, please call them directly. ) Discharge Diet: Cardiac Discharge Activity: Increase activity as tolerated Patient Instructions: Transient Ischemic Attack (GEN), Stroke Stoplight Activity Restrictions/Additional Instructions: Monitor blood pressures 3 times daily, write down values to bring to your appointment. Hold off on taking telmisartan for now, discuss with your primary provider to see if it may be safe to resume at some point possibly at lower dose due to noted hypotension. MS can cause autonomic dysfunction with variable/intermittently low blood pressure. If you have recurrent blood pressure decreases, it may not be safe for you to resume telmisartan. Follow-up with neurology for reassessment and for consideration of possible TIA although TIA is thought to be less likely. Your ejection fraction is found to be 45-50% with grade 1 diastolic dysfunction on echocardiogram. Mild mitral and tricuspid regurgitation. Discharge Attestations Time Spent in Discharge Care*: greater than 30 min Status at Discharge: Cognitive status at discharge: cognitively intact , Behavioral status at discharge: cooperative , Quality Metrics Clinical Quality Measures [ No reported AMI, CVA or VTE this stay] Coding Level of Care Code 72945 Total time (in minutes) for Discharge: 40 Diagnoses TIA (transient ischemic attack) G45.9
[2023-06-08 10:50] VITALS: BP 134/85; PULSE 93; RESP 18; TEMP 36.6; O2SAT 96
--- NOTE | 2023-06-08 10:58 | PC.NURSE ---
Discussed follow up appointments, continued medications, discontinued medications and Stroke Stop Light. Patient verbalized understanding.
[2023-06-08 11:57] VITALS: BP 134/85; PULSE 93; RESP 18; TEMP 36.6; O2SAT 96
== END 2023-06-08 12:15 | disposition home or self-care (01) ==
LOC: ER 06-07 00:42 → MEDSURG 06-07 00:44
PROVIDERS: Admitting Provider Student in an Organized Health Care Education/Training Program; Emergency Provider Family Medicine; PCP Nurse Practitioner Family; Visit Provider Internal Medicine
DX: G45.9 Transient cerebral ischemic attack, unspecified (principal); G35 Multiple sclerosis; R07.89 Other chest pain; Z79.82 Long term (current) use of aspirin; Z99.3 Dependence on wheelchair; E78.5 Hyperlipidemia, unspecified; I25.2 Old myocardial infarction; Z87.891 Personal history of nicotine dependence; R60.0 Localized edema; I50.9 Heart failure, unspecified; I11.0 Hypertensive heart disease with heart failure; E66.9 Obesity, unspecified; Z68.39 Body mass index [BMI] 39.0-39.9, adult
CPT/HCPCS: 36415; 51702; 70450; 70496; 70498; 71045; 80053; 80061; 81001; 83036; 83880; 84484; 85025; 85378; 93005; 93306; 93970; 96365; 96366; 96375; 99285; G0378; J1885; J1940; J2930; J7050; Q9967

== ENCOUNTER → 2023-06-18 09:59 | Outpatient (BNVA) | payer MEDICARE, SELFPAY | PROVIDERS: PCP Nurse Practitioner Family; Visit Provider Specialist | DX: G35 Multiple sclerosis (principal); Z95.0 Presence of cardiac pacemaker; Z99.3 Dependence on wheelchair | CPT/HCPCS: 99215 ==

== ENCOUNTER → 2024-11-18 09:46 | Outpatient (BNVA) | payer MEDICARE, SELFPAY | PROVIDERS: PCP Nurse Practitioner Family; Visit Provider Nurse Practitioner Family | DX: U07.1 COVID-19 (principal); I10 Essential (primary) hypertension; I50.9 Heart failure, unspecified | CPT/HCPCS: 80053; 80061; 84443; 85025 ==

== ENCOUNTER → 2025-03-08 12:53 | Outpatient (BNVA) | payer MEDICARE, SELFPAY | PROVIDERS: PCP Nurse Practitioner Family; Visit Provider Nurse Practitioner Family | DX: I11.0 Hypertensive heart disease with heart failure (principal); E55.9 Vitamin D deficiency, unspecified; E78.5 Hyperlipidemia, unspecified; G35 Multiple sclerosis | CPT/HCPCS: 80053; 80061; 82306; 82607; 85025 ==

== ENCOUNTER 2025-03-30 12:12 | Inpatient (IN) | payer MEDICARE, SELFPAY ==
[2025-03-30] VITALS (47 sets, daily range): BP systolic 93–137; BP diastolic 55–92; PULSE 72–87; RESP 12–23; TEMP 36.7; O2SAT 80–100; BMI 36.8; BMI 35.4
--- NOTE | 2025-03-30 12:15 | ECG_ITS ---
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 Measurements Intervals [place] Rate: 83 P: 47 AK: 132 QRS: -67 QRSD: 170 T: 88 QT: 465 QTc: 548 Interpretive Statements SINUS RHYTHM WITH OCCASIONAL VENTRICULAR PREMATURE COMPLEXES WITH OCCASIONAL SUPRAVENTRICULAR PREMATURE COMPLEXES INTRAVENTRICULAR CONDUCTION DELAY [130+ ms QRS DURATION] MARKED ST ELEVATION, CONSIDER ANTEROSEPTAL INJURY [MARKED ST ELEVATION W/O NORMALLY INFLECTED T-WAVE IN V1-V4] ACUTE NC Compared to ECG 06/07/2023 12:59:04 Intraventricular conduction delay now present.ST (T wave) deviation now present Myocardial infarct finding now present. Left-axis deviation no longer present Incomplete right bundle-branch block no longer present .T-wave abnormality no longer present. Possible ischemia no longer present Electronically Signed On 03-30-2025 16:53:56 CDT by Wojciech Yang M.D. [email or web address]
--- NOTE | 2025-03-30 12:18 | ED_ITS ---
HPI - Chest Pain 2 General: Chief Complaint: Chest Pain Stated Complaint: STEMI Time Seen by Provider: 03/30/25 12:17 History of Present Illness: 70-year-old female presents emergency ro om with complaints of chest pain EMS reported a ST elevation NE patient is currently not having any chest pain on arrival. EMS reported that she had gone into V. tach CPR was started she was given 10 compressions and then had spontaneous ROSC. She was also given nitro and aspirin and route she was briefly intubated with an i-gel but that has been removed by the time she arrived. Associated symptoms: Deny abdominal pain, dyspnea or fever(s) Related Data Home Medications ?Medication ?Instructions ?Recorded ?Confirmed cholecalciferol (vitamin D3) 50 50 mcg PO QAM 05/04/21 03/30/25 mcg (2,000 unit) tablet (Vitamin D3) ascorbic acid (vitamin C) 500 mg 500 mg PO BID 1 03/30/25 tablet bmuvqspzryue-Fy-inel-minerals 1 tab PO DAILY 03/30/25 03/30/25 Previous Rx's ?Medication ?Instructions ?Recorded left knee brace #1 ea 10/10/21 nitroglycerin 0.4 mg sublingual 0.4 mg sublingual Q5M PRN Chest 11/18/24 tablet (Nitrostat) Pain #30 tabs aspirin 81 mg tablet,delayed 81 mg PO QAM 60 days #60 tabs 04/05/25 release atorvastatin 40 mg tablet 40 mg PO BEDTIME 60 days #60 tabs 04/05/25 clopidogrel 75 mg tablet 75 mg PO DAILY 60 days #60 t abs 04/05/25 dapagliflozin propanediol 5 mg 5 mg PO DAILY 60 days # 60 tabs 04/05/25 tablet furosemide 20 mg tablet 40 mg (2 x 20 mg) PO DAILY 6 0 days 04/05/25 #60 tabs metoprolol succinate 25 mg 12.5 mg (1/2 x 25 mg) PO DA REYNOLD 60 04/05/25 tablet,extended release 24 hr days #60 tabs midodrine 5 mg tablet 5 mg PO TID 60 days #180 tab s 04/05/25 Allergies Allergy/AdvReac Type Severity Reaction Status Date / Time gluten Allergy Unknown ADV-Weaknes Verified 03/30/25 09:39 s farah Allergy ADV-Weaknes Verified 03/30/25 09:39 s oats Allergy ADV-Weaknes Verified 03/30/25 09:39 s telmisartan Allergy Swelling Verified 03/30/25 09:39 wheat Allergy ADV-Weaknes Verified 03/30/25 09:39 s Review of Systems 2 Const: Denies: fever(s) or chills Card: Reports: chest pain Resp: Denies: dyspnea GI: Denies: abdominal pain : Denies: dysuria, urinary frequency or urinary urgency Musc: Denies: neck pain or back pain Skin/Breast: Denies: rash PFSH ED 2 PFSH: Medical History Hyperlipidemia Hypertension History of NE (myocardial infarction) CAD (coronary artery disease) MS (multiple sclerosis) Surgical History AICD (automatic cardioverter/defibrillator) present Not functioning, lead was pulled when generator changed Stented coronary artery Family History Father CAD (coronary artery disease) NE @ 55 Mother Lung disease Denies family history of Diabetes Clotting disorder Dementia Chronic kidney disease (CKD) Suicide Anesthesia complication Bleeding disorder Cancer Stroke Social History Smoking and tobacco/nicotine status: former use of tobacco/nicotine (quit 2008) Quit status (tobacco/nicotine): has quit using Year quit tobacco: 2008 Alcohol intake: never Substance/Drug Use: never Caregiver/support person: Yes Lives independently: Yes Household members: none Marital status: Current occupational status: retired Current gender identity: Female Special nita needs: No Physical Exam 2 Const: GENERAL APPEARANCE: cooperative ORIENTATION/CONSCIOUSNESS: Yes awake HENMT: COMMON NORMALS: normocephalic, atraumatic and hearing grossly normal bilaterally HEAD & SCALP: normocephalic and atraumatic Resp: COMMON NORMALS: normal respiratory effort, No retractions, No use of accessory muscles and clear to auscultation bilaterally AUSCULTATION: clear to auscultation bilaterally Cardio: COMMON NORMALS: regular rate, regular rhythm and No murmurs present (Cardio) RATE: regular rate RHYTHM: regular rhythm GI: COMMON NORMALS: Soft to palpation and No hepatosplenomegaly present A USCULTATION: Yes normoactive bowel sounds PALPATION: Yes Soft to palpation, No Tenderness to palpation present (GI), No Guarding due to palpation present (GI) and Yes No hepatosplenomegaly present Extremity: COMMON NORMALS: normal to inspection, capillary refill normal, no clubbing, cyanosis or edema, no calf tenderness and no pedal edema Skin: COMMON NORMALS: no rashes or lesions noted GENERAL SKIN EXAM: no rashes or lesions noted Course 2 Vital Signs: Vital signs: Vital Signs Temperature 97.5 F L 04/05/25 16:21 Pulse Rate 71 04/05/25 16:21 Respiratory Rate 20 H 04/05/25 16:21 Blood Pressure 98/57 04/05/25 16:21 Pulse Oximetry 95 04/05/25 16:21 Oxygen Delivery Me thod Room Air 04/05/25 07:26 Oxygen Flow Rate 1 04/03/25 08:00 Fraction of Inspir ed Oxygen 30 04/03/25 18:00 MDM - Chest Pain Medical Decision Making Patient continues to complain and chest pain Dr. Nettles at the bedside. He has decided to take the patient to the [facility]. Contact follow-up we will see the patient once the patient is completed her evaluation [facility]. Medical Records I reviewed the patient's medical records. Lab Data I reviewed the patient's lab results. 04/04/25 03:52 04/04/25 03:52 Radiology Impressions Liver Ultrasound 03/31/25 07:37 IMPRESSION: 1. Normal gallbladder. 2. Poorly visualized liver. No abnormality identified. 3. No intrahepatic duct dilatation. Laboratory Results Troponin T Baseline 56 ng/L (0-10) H 03/30/25 12:22 All radiology interpretation(s) finalized by discharge EKG Data EKG 1: I personally reviewed and interpreted this EKG as follows: Ischemic changes: acute STEMI Interpretation: EKG 03/30/2025 12:15 PM sinus rhythm with ST elevation in V1 to 3 4 and 5. Compared to EKG 06/07/2023 ST elevation NE now present. Discharge Plan Discharge Patient Disposition: Admitted As Inpatient Admit Provider: Stephanie Nettles Clinical Impression: ST elevation NE (STEMI), CAD (coronary artery disease), AICD (automatic cardioverter/defibrillator) present Condition: Stable Discharge Diet: Advance as tolerated, Usual diet, Cardiac, Low Salt, Low Cholesterol and Low Fat Discharge Activity: Increase activity as tolerated, As per PT/OT instructions and As per cardiac/pulm rehab instructions Coding Level of Care Code ED Reimbursement Analyst for Chg Fwjosé miguel Heart Score HEART Score Components History: Highly Suspicious EKG: Significant ST-deviation Age: 65 or more yrs Risk Factors: >/=3 Risk Factors Troponin: Baseline Trop >45 ng/L HEART Score RESULT HEART Score: 10
[2025-03-30] MEDS: heparin 5,000 unit/mL INJ 1 mL 4000 UNIT IVP (12:25)
--- NOTE | 2025-03-30 12:30 | PM.CONSULT ---
Providers/Reason For Consult Consulting Physician/Specialty*: Cardiology Reason for Consult*: STEMI Requesting Physician: Dr. Cardoso Attending Physician: Stephanie Nettles MD Primary Care Provider: ZOYA Cornell History of Present Illness History of Present Illness Jo Ricks is a 70 year old female past medical history complicated for hypertension hyperlipidemia coronary artery disease, ischemic cardiomyopathy ejection fraction 35 to 40% status post ICD peripheral arterial disease obesity while not feeling well went to local clinic, EKG was performed suggestive of ST elevation CA 911 was called, and route patient had brief cardiac arrest, CPR was performed ROSC achieved, STEMI pager was alerted I saw immediately patient in the ER she appeared to be cold clammy and severe chest pain. Twelve-lead EKG was consistent with left bundle branch block and anterolateral ST elevation it is the reason we are taking the patient to the [facility]. Medications/Allergies Home Medications ?Medication ?Instructions ?Recorded ?Confirmed ?Last Taken ?Type aspirin 81 mg tablet,delayed 81 mg PO QAM 05/04/21 03/30/25 1 Day Ago History release ~06/06/23 cholecalciferol (vitamin D3) 50 50 mcg PO QAM 05/04/21 03/30/25 1 Day Ago History mcg (2,000 unit) tablet (Vitamin ~06/06/23 D3) ascorbic acid (vitamin C) 500 mg 500 mg PO BID 06/05/21 03/30/25 1 Day Ago History tablet ~06/06/23 xlooblqzmbtp-Kv-yenr-minerals 18 1 tab PO DAILY 10/02/21 03/30/25 1 Day Ago History mg-0.4 mg tablet ~06/06/23 left knee brace #1 ea 10/10/21 03/30/25 Unknown Rx nitroglycerin 0.4 mg sublingual 0.4 mg sublingual Q5M PRN Chest 11/18/24 03/30/25 Unknown Rx tablet (Nitrostat) Pain #30 tabs Allergies Allergy/AdvReac Type Severity Reaction Status Date / Time gluten Allergy Unknown ADV-Weaknes Verified 03/30/25 09:39 s farah Allergy ADV-Weaknes Verified 03/30/25 09:39 s oats Allergy ADV-Weaknes Verified 03/30/25 09:39 s telmisartan Allergy Swelling Verified 03/30/25 09:39 wheat Allergy ADV-Weaknes Verified 03/30/25 09:39 s PFSH Acute PFSH: Medical History (Updated 03/30/25 @ 12:34 by Stephanie Nettles MD) Hyperlipidemia Hypertension History of CA (myocardial infarction) CAD (coronary artery disease) MS (multiple sclerosis) Surgical History AICD (automatic cardioverter/defibrillator) present Stented coronary artery Family History Father CAD (coronary artery disease) CA @ 55 Mother Lung disease Denies family history of Diabetes Clotting disorder Dementia Chronic kidney disease (CKD) Suicide Anesthesia complication Bleeding disorder Cancer Stroke Social History Smoking and tobacco/nicotine status: former use of tobacco/nicotine (quit 2008) Quit status (tobacco/nicotine): has quit using Year quit tobacco: 2008 Alcohol intake: never Substance/Drug Use: never Caregiver/support person: Yes Lives independently: Yes Household members: none Marital status: Current occupational status: retired Current gender identity: Female Special nita needs: No Vitals/I&O/Wt Last Vital Signs Temp 98.1 F 03/30/25 12:13 Pulse 87 03/30/25 12:13 Resp 18 03/30/25 12:13 BP 105/83 03/30/25 12:27 Pulse Ox 95 03/30/25 12:13 O2 Del Method Room Air 03/30/25 12:13 Weight last 48 hrs Weight 228 lb Physical Exam Const: OTHER: GENERAL: Patient is alert, awake and oriented x3, patient is moderate to severe distress with chest pain, she is clammy and diaphoretic HEART: Regular S1 and S2. No murmur, rub or gallop. LUNGS: Clear to auscultate bilaterally. CENTRAL NERVOUS SYSTEM: Grossly nonfocal. EXTREMITIES: Lower extremities with out edema bilaterally. A&P Assessment and plan 1. ST elevation CA (STEMI): 2. Hyperlipidemia: 3. Peripheral edema: 4. Congestive heart failure: 5. AICD (automatic cardioverter/defibrillator) present: 6. MS (multiple sclerosis): Plan: Will proceed with urgent left heart cath/PCI if indicated. Patient has been loaded with 600 mg of Plavix, aspirin and given pain medication. Further plan will be advised as per progress of the patient. PDMP PDMP Reviewed: Not Reviewed Consult Attestations Medical Necessity Statement: I am expecting her stay to cross more than 2 midnights. Coding Level of Care Code Acute Code for Chg Fwd Diagnoses ST elevation CA (STEMI) I21.3 Hyperlipidemia E78.5 Peripheral edema R60.0 Congestive heart failure I50.9 AICD (automatic cardioverter/defibrillator) present Z95.810 MS (multiple sclerosis) G35.D
--- NOTE | 2025-03-30 12:39 | XACV_ITS ---
Exam Room: 2 Ht: 170 cm Wt: 103 kg BSA: 2.25 m2 Gender: Female : 1955 Any Known Allergies: Other Exam Priority: Routine Indication(s): - ST changes Procedure(s): Procedure Description: Diagnostic procedure Procedure Description: PCI procedure Procedure Description: Left Heart Catheterization Procedure Description: Left ventriculography Procedure Description: Drug Eluting Coronary Stent Procedure Description: Miscellaneous Procedure Description: ACT Procedure Description: Coronary Angiography Yoon FUNK; Diagnostic Cath Status: Emergency Diagnostic Findings * Left Main has no disease. * Proximal Left Anterior Descending: subtotal occlusion, heavily calcified, KATE: 2 flow. * Mid Left Anterior Descending to Distal Left Anterior Descending: luminal irregularities 20% stenosis, KATE: 3 flow. * Mid Right Coronary Artery: significant 80% stenosis, KATE: 3 flow. * Mid Right Coronary Artery: obstructive 70% stenosis, KATE: 3 flow. * Distal Right Coronary Artery: obstructive 70% stenosis, KATE: 3 flow. * Proximal Circumflex to Distal Circumflex: luminal irregularities 20% stenosis, KATE: 3 flow. * Coronary angiography shows right dominance. PCI Status: Emergency PCI Indication: Immediate PCI for STEMI Interventional Findings * Proximal Left Anterior Descendin% stenosis treated with a AB TREK 2.50X12 RX BALLOON, DOMENIC MARSH EUPHORA RX [id number] BALLOON, DOMENIC Marte DARCY 4.0X15 TAYLOR, and MDT SALMA EUPHORA RX [id number] BALLOON. 0% residual stenosis, KATE: 3 flow. Conclusions 1. There is subtotal occlusion coronary artery disease with three vessel disease. 2. Severe left ventricular systolic dysfunction. Ejection fraction of 20%. 3. Proximal Left Anterior Descending was treated with a Balloon, Balloon, Drug Eluting Stent, and Balloon. 4. This is a 71-year-old complicated patient past medical history significant for cardiomyopathy, status post ICD severely depressed ejection fraction presented with ST elevation [place]. She was noted to have ejection fraction of 20%. She was noted to have critically occluded proximal 99% subtotally occluded LAD treated with balloon angioplasty followed by drug-eluting stent postdilated with noncompliant balloon. Excellent angiographic result with KATE-3 flow was achieved.She was also noted to have mid high-grade calcified torturous RCA with distal moderate to severe stenosis. We tried to cross that lesion with 1.5 balloon, were not able to cross due to high calcification requiring atherectomy. Since culprit vessel was proximal LAD and because of the fact patient is critically ill at this point would defer treatment of this vessel at this stage once patient will be more stabilized. Recommendations * 1-Return to inpatient for close monitoring and routine cath care 2-Risk factor modification for secondary prevention 3-Statin and aspirin 81 mg life-long, if tolerated 4-Patient was pre-loaded with 600 mg of Plavix, continue Plavix 75mg p.o. daily for at least one year. We will assess at the end of one year again to continue if further or not 5-Continue optimal medical management, Stage PCI to RCA with atherectomy 6-Follow up with Dr. Nettles in four weeks and your primary care in 10 days. Interventional RX Recommendation: PCI w/o planned CABG Diagnostic RX Recommendation: PCI w/o planned CABG Ventriculography Ejection Fraction: 20.0 % Pressures Phase:Rest AO : 92 / 68 ( 78 ) @ 2:08:00 PM 89 / 64 ( 76 ) @ 2:12:00 PM 88 / 65 ( 76 ) @ 2:19:00 PM 97 / 72 ( 84 ) @ 2:23:00 PM 115 / 66 ( 89 ) @ 2:44:00 PM 111 / 51 ( 77 ) @ 2:44:00 PM LV : 106 / 13 / 21 @ 2:42:00 PM 110 / 11 / 30 @ 2:44:00 PM 111 / 10 / 29 @ 2:44:00 PM Valves Phase:DefaultPhase AV : 0.0 @ 1:56:02 PM AV Mean Gradient: 0.0 @ 1:56:02 PM Clinical Evaluation EBL: 5mL-10mL Procedural Details Pre-Procedure Time Out. Identified patient by full name and date of as verbalized by the patient/guarantor. Does the consent match the physician's order: N/A Emergent; Informed Consent not obtained due to time critical life threat. Accurate & Complete Informed Consent: N/A Emergent; Informed Consent not obtained due to time critical life threat. Inpatient/Outpatient History & Physical on Chart: N/A Emergent; Informed Consent not obtained due to time critical life threat. If H&P is completed, is and addenduem needed: N/A Emergent; Informed Consent not obtained due to time critical life threat; If yes, is the addendum complete: N/A Emergent; Informed Consent not obtained due to time critical life threat. Visualize and Verify Site with Patient/Guarantor: N/A. Relevant Radiology Images available: N/A. The risks, benefits, and alternatives of sedation and/or procedure were discussed by physician. The patient agrees to continue. Procedure started. [facility] Clinical Fraility Score: 5: Mildly Frail. Newsroom Intern Indications: Resuscitated Cardaic Arrest. Chest Pain Symptom Assessment: Typical Angina Symptoms. Cardiovascular Instability: Yes, if yes, Persistant Ischemic Symptoms. Correct patient, site and procedure confirmed by cath team. Current diagnosis: STEMI. PERRLA. Strong, equal hand forgesmith bilaterally. Lungs clear x 5 lobes. IV Site on Arrival: 20 gauge in the right anticubital. IV Site on Arrival: 20 gauge in the left anticubital. IV Site on Arrival: Saline Lock. IV Fluids: 0.9% NaCl at KVO. 0 mL infused prior to equipment operator/laborer. Pre Procedural Pulses: right radial was 2+. Oxygen started at 5liters/min via nasal canula. right groin was prepped with chloroprep then draped in the usual sterile fashion. right radial was prepped with chloroprep then draped in the usual sterile fashion. Baseline sample Acquired. HR: 45 BPM. Physician notified. Physician arrived. Physician scrubbed in. Immediate Pre-Procedure Time Out. Correct Patient: Yes; Correct Procedure: Yes; Correct Site: Yes; Correct Patient Position: Yes; Correct Supplies: Yes; Dried Flammable Prep: Yes; Blood Products Available: N/A;. Lidocaine 1% infiltrated to the left radial. Arterial access obtained. Admit Source: Emergency department. Radial access aborted d/t tortuosity. Switching to groin access. left groin was prepped with chloroprep then draped in the usual sterile fashion. Delay in start of procedure d/t computer failure to start. Lidocaine 1% infiltrated to the left groin. Arterial access obtained with micropuncture set. PCI Indication: STEMI. Patient family unavailable. 6 romanian XB 3.5 guide catheter was inserted over the wire. Cine run performed of [facility]. Runthrough guidewire was advanced through the guide catheter to lesion in the prox LAD. Balloon inserted to lesion in the prox LAD. Inflation number : 1 A AB TREK 2.50X12 RX BALLOON was prepped and advanced across the Prox LAD , then inflated to 16 HUMAIRA for 0:06 seconds. Inflation number: 2 The AB TREK 2.50X12 RX BALLOON was reinflated across the Prox LAD, to 14 HUMAIRA for 0:08 seconds. Balloon out. Unable to cross stent past lesion. Intact stent out over the wire. Stent inserted to lesion in the prox LAD. Inflation number : 3 A DOMENIC MARSH EUPHORA RX 3.52X44WF BALLOON was prepped and advanced across the Prox LAD , then inflated to 12 HUMAIRA for 0:10 seconds. Balloon inserted to lesion in the prox LAD. Balloon out. Stent inserted to lesion in the prox LAD. Inflation Number : 4 A DOMENIC Marte DARCY 4.0X15 TAYLOR -Lot Number# [id number] Exp 05/12/2027 was prepped and advanced across the Prox LAD. The stent was deployed at 12 HUMARIA for 0:12 seconds. Stent balloon out over wire. Inflation number : 5 A DOMENIC MARSH EUPHORA RX 4.63N99OU BALLOON was prepped and advanced across the Prox LAD , then inflated to 14 HUMAIRA for 0:11 seconds. Balloon inserted to lesion in the prox LAD. Inflation number: 6 The MDT NC EUPHORA RX 4.39E24TP BALLOON was reinflated across the Prox LAD, to 16 HUMAIRA for 0:12 seconds. Inflation number: 7 The MDT NC EUPHORA RX 4.27G86RT BALLOON was reinflated across the Prox LAD, to 16 HUMAIRA for 0:04 seconds. Balloon out. Results checked. Guide catheter out. Wire out. A 5 romanian JR4 catheter in over standard wire. ACT drawn. Results 277 seconds. Therapeutic limits - pre-heparin administration 90-150 seconds and monitoring heparin during a vascular procedure >250 seconds. PCI Indication : Immediate PCI for STEMI. Catheter removed over the standard wire. 6 romanian AL 0.75 guide catheter was inserted over the wire. Current Diagnosis : STEMI. Runthrough guidewire was advanced through the guide catheter to lesion in the mid RCA. Balloon inserted to lesion in the mid RCA. Unable to cross lesion with balloon. Intact balloon out over wire. Cine run performed of RCA. A 5 romanian Angled Pig catheter in over wire and advanced across the LV. EDP Sample taken: LV 106/13,21; HR: 81 BPM; SpO2: 99%. LV gram performed in GROSS @ 10 mL/second for a total of 30 mL. Guide catheter out. Wire out. EDP Sample taken: LV 110/11,30; HR: 81 BPM; SpO2: 99%. Pullback taken: LV 111/10,29; AO 115/66(89); Mean: 0mmHg, Peak to Peak: 0mmHg, SEP: 8sec/min; HR: 80 BPM; SpO2: 98%. A Suture was successful obtaining hemostatsis at the Left Femoral artery insertion site. Physician scrubbed out. A TR Band was successful obtaining hemostatsis at the Right Radial artery insertion site. Sheath(s) sutured into position with 2-0 silk and sterile 4x4's and Op-site applied over the site. No oozing or signs and symptoms of hematoma noted. Arterial sheath flushed and connected to tranducer and pressure bag with heparinized saline. Post Procedure: Pulses reassessed and unchanged. PERRLA. Strong, equal hand forgesmith bilaterally. No VTE prophylaxis required. Medication's Wasted: Other = Versed 1 mg. Medication's Wasted: Other = Fentanyl 25 mcg. Medication's Wasted: Lidocaine 1% = 12 mL. Medication's Wasted: Nitro = 49.8 mg. Medication's Wasted: Heparin = 1000 u. Total IV fluids: 100 mL. Post-op diagnosis: Subtotal occlusion of Prox LAD s/p successful TAYLOR stenting x1. Will stage PCI of mid RCA lesion during admission. Complications: none. Estimated blood loss: 5mL-10mL. Responsiveness - Normal response to verbal stimuli; alert and oriented, PERRLA. Airway - Unaffected, no intervention required; spontaneous ventilation. Circulation: W/N/L, pulses unchanged. Nausea/Vomiting: No. Procedure completed. Patient transferred by bed to ICU. Vital chart was stopped. Access Site Site: Right Radial artery Sheath Size: 6 Fr Hemostasis Method: TR Band Hemostasis Success: Successful Site: Left Femoral artery Sheath Size: 6 Fr Hemostasis Method: Suture Hemostasis Success: Successful Procedure Medications Start: 12:57 PM Stop: 12:57 PM Medication: Versed Amount: 1 mg Route: I.V. Start: 12:57 PM Stop: 12:57 PM Medication: Fentanyl Amount: 25 mcg Route: I.V. Start: 1:05 PM Stop: 1:05 PM Medication: Heparin Amount: 5000 units Route: I.V. Start: 1:29 PM Stop: 1:29 PM Medication: Heparin Amount: 3000 units Route: I.V. Start: 12:59 PM Stop: 12:59 PM Medication: Nitrogylcerin Amount: 200 mcg Route: I.A. I, the attending physician, have reviewed and verified all procedure medications. Yes, all medications given per verbal order Report Signatures Finalized by Stephanie Nettles MD on 04/10/2025 10:15 PM
[2025-03-30 12:48] LABS: Troponin(5th) Baseline 56 ng/L (0-10)
--- NOTE | 2025-03-30 14:02 | PM.PROC ---
Procedure Note: Date of procedure: 03/30/25 Pre-procedure diagnosis: Myocardial infarction/STEMI Post-procedure diagnosis: same Procedure: Patient was a difficult stick with the right radial artery loop therefore we were not able to approach from the right wrist. Patient has severe peripheral arterial disease with bilateral common femoral high-grade stenosis however in case of emergency I was able to get through right common femoral artery where 6 Albanian sheath was placed. Left heart cath was performed Left main: Normal LAD has high-grade calcified 99% subtotally occluded lesion with KATE I flow it is the culprit vessel Left circumflex luminal irregularity without significant stenosis RCA has a high-grade mid 90% calcified stenosis in the midsegment, it also has in the distal segment moderate to severe 70 to 80% stenosis Left ventriculography showed ejection fraction 20% with anterior apical and inferior hypokinesis Left ventricular end-diastolic pressure 21 mmHg PCI to proximal LAD using pre and post dilation and drug-eluting stent which was postdilated with noncompliant balloon 4.0 x 15 mm stent was used which was postdilated with 4 5 noncompliant balloon. Plan for staged PCI to mid high-grade RCA in a week to 2 weeks. Since it is calcified vessel and require arthrectomy and perhaps temporary pacemaker placement at the time of atherectomy and angioplasty Right common femoral sheath in place: Plan to manually pull sheath once PTT is less than 45 Patient was loaded with 600 mg of Plavix IV fluid 100 mL for next 4 hours Lasix 40 mg IV once Continue aspirin and statin and Plavix Add beta-ramon over next 24 hours Add Entresto once tolerated blood pressure orta in 24 to 48 hours Full note to be dictated Further plan be advised as per progress of the patient Coding Level of Care Code Acute Code for Yumiko Walker
--- NOTE | 2025-03-30 14:21 | ECG_ITS ---
[employer] Test Date: 2025-03-30 Pat Name: Jo Ricks Department: Room: [facility] Gender: Female Print Developer: : 1955 Requested By: Karel Gannon Order Number: [id number] Raudel MD: Wojciech Yang M.D. Measurements Intervals [place] Rate: 77 P: 39 [place]: 150 QRS: -42 QRSD: 130 T: 127 QT: 437 QTc: 495 Interpretive Statements SINUS RHYTHM LEFT AXIS DEVIATION [QRS AXIS < -30] LATERAL MYOCARDIAL INFARCTION , PROBABLY RECENT [40+ ms Q WAVE AND/OR ST/T ABNORMALITY IN I/aVL/V5/V6] ACUTE FL WARNING: DATA QUALITY MAY AFFECT INTERPRETATION Compared to ECG 03/30/2025 12:15:48 Left-axis deviation now present Ventricular premature complex(es) no longer present Intraventricular conduction delay no longer present ST (T wave) deviation no longer present Myocardial infarct finding still present Electronically Signed On 03-30-2025 22:58:02 CDT by Wojciech Yang M.D. [email or web address]
[2025-03-30 16:59] LABS: Partial Thromboplastin Time > 250.0 SECONDS (23.9-36.7)
[2025-03-30 17:51] LABS: Hematocrit 50.1 % (36-47); Hemoglobin 15.70 g/dL (11.27-16.99); Mean Corpuscular HGB Conc 31.3 g/dL (30-55); Mean Corpuscular Hemoglobin 28.6 pg (27-33); Mean Corpuscular Volume 91.4 fl (85-98); Nucleated Red Blood Cells % 0 %; Platelet Count 190 10^3/cmm (157-399); Red Blood Count 5.48 10^6/uL (3.85-5.65); White Blood Count 14.60 10^3/uL (3.29-11.43)
--- NOTE | 2025-03-30 18:22 | PC.NURSE ---
TR Band off at 1615
[2025-03-30 18:29] LABS: Cholesterol 146 mg/dL (0-200); HDL Cholesterol 46 mg/dL (60-100); Magnesium 2.0 mg/dL (1.7-2.3); NT Pro B Type Natriuretic Pept 1452 pg/mL (0-125); Thyroid Stimulating Hormone 1.62 uIU/mL (0.27-4.20); Triglycerides 107 mg/dL (0-150)
[2025-03-30] MEDS: fixodent 39 gm Tube 1 APPLIC DENTAL (19:25)
--- NOTE | 2025-03-30 19:30 | ECG_ITS ---
[employer] Test Date: 2025-03-30 Pat Name: Jo Ricks Department: Room: ICU10 Gender: Female Manager Php: : 1955 Requested By: Anna Leal Order Number: [id number] Raudel MD: Wojciech Yang M.D. Measurements Intervals [place] Rate: 76 P: 33 [place]: 144 QRS: -50 QRSD: 126 T: 142 QT: 451 QTc: 509 Interpretive Statements SINUS RHYTHM WITH OCCASIONAL VENTRICULAR PREMATURE COMPLEXES LEFT ANTERIOR FASCICULAR BLOCK [QRS AXIS <= -45, QR IN I, RS IN II] POSSIBLE LATERAL MYOCARDIAL INFARCTION , OF INDETERMINATE AGE [30 ms Q WAVE IN I/aVL/V5/V6] MODERATE T-WAVE ABNORMALITY, CONSIDER ANTERIOR ISCHEMIA [-0.1+ mV T-WAVE IN V3/V4] Compared to ECG 03/30/2025 15:12:22 Ventricular premature complex(es) now present Left anterior fascicular block now present T-wave abnormality now present. Possible ischemia now present Left-axis deviation no longer present Myocardial infarct finding still present Electronically Signed On 03-30-2025 22:56:12 CDT by Wojciech Yang M.D. [email or web address]
[2025-03-30] MEDS: ondansetron 2 mg/ML SDV 2 mL 4 MG IVP (20:03)
[2025-03-30 21:11] LABS: Estmated Average Glucose 97; Hemoglobin A1C 5.0 % (4.0-6.0)
--- NOTE | 2025-03-30 21:33 | PM.HP ---
Providers/Chief Complaint Admitting Physician: Stephanie Nettles MD Primary Care Provider: ZOYA Cornell Chief Complaint: STEMI History of Present Illness As per the patient and the previous notes Jo Ricks is a 70 year old female with past medical history of primary progressive multiple sclerosis, hyperlipidemia, hypertension, history of [place] and chronic artery disease with AICD in place as per the previous notes was referred from her office visit since her blood pressure was quite low and she was having increased diaphoresis and becoming pale. The patient was having desaturation and was started on oxygen supplementation and loaded with aspirin 325 because she also reported sharp chest pain with diaphoresis at the time of visit. STEMI alert was activated and she underwent cath with stenting to proximal LAD and is planned for staged PCI to mid high-grade RCA in week to 2 weeks. She is admitted for management of STEMI s/p stenting On review of system the patient did not report any gradual chest pain or chest pressure in the past or any lower leg swellings orthopnea or PND. No change in her urinary or bowel habits in the last days. No fever or chills Rest of the review of system was unremarkable in the history. She further elaborated that she has multiple sclerosis of primary progressive in nature currently not taking any treatment and has debilitating disease with persistent neurological deficits. Review of Systems General: Reports: 10 or more systems reviewed and unremarkable except in HPI and below Medications/Allergies Home Medications ?Medication ?Instructions ?Recorded ?Confirmed ?Last Taken ?Type aspirin 81 mg tablet,delayed 81 mg PO QAM 05/04/21 03/30/25 1 Day Ago History release ~06/06/23 cholecalciferol (vitamin D3) 50 50 mcg PO QAM 05/04/21 03/30/25 1 Day Ago History mcg (2,000 unit) tablet (Vitamin ~06/06/23 D3) ascorbic acid (vitamin C) 500 mg 500 mg PO BID 06/05/21 03/30/25 1 Day Ago History tablet ~06/06/23 left knee brace #1 ea 10/10/21 03/30/25 Unknown Rx nitroglycerin 0.4 mg sublingual 0.4 mg sublingual Q5M PRN Chest 11/18/24 03/30/25 Unknown Rx tablet (Nitrostat) Pain #30 tabs pgabxxfilqmm-Uq-oxhi-minerals 1 tab PO DAILY 03/30/25 03/30/25 Unknown History Allergies Allergy/AdvReac Type Severity Reaction Status Date / Time gluten Allergy Unknown ADV-Weaknes Verified 03/30/25 09:39 s farah Allergy ADV-Weaknes Verified 03/30/25 09:39 s oats Allergy ADV-Weaknes Verified 03/30/25 09:39 s telmisartan Allergy Swelling Verified 03/30/25 09:39 wheat Allergy ADV-Weaknes Verified 03/30/25 09:39 s PFSH Acute PFSH: Medical History (Updated 03/30/25 @ 12:34 by Stephanie Nettles MD) Hyperlipidemia Hypertension History of [place] (myocardial infarction) CAD (coronary artery disease) MS (multiple sclerosis) Surgical History AICD (automatic cardioverter/defibrillator) present Stented coronary artery Family History Father CAD (coronary artery disease) [place] @ 55 Mother Lung disease Denies family history of Diabetes Clotting disorder Dementia Chronic kidney disease (CKD) Suicide Anesthesia complication Bleeding disorder Cancer Stroke Social History Smoking and tobacco/nicotine status: former use of tobacco/nicotine (quit 2008) Quit status (tobacco/nicotine): has quit using Year quit tobacco: 2008 Alcohol intake: never Substance/Drug Use: never Caregiver/support person: Yes Lives independently: Yes Household members: none Marital status: Current occupational status: retired Current gender identity: Female Special nita needs: No Vitals/I&O/Wt Last Vital Signs Temp 98.1 F 03/30/25 12:13 Pulse 77 03/30/25 20:00 Resp 16 03/30/25 20:00 BP 103/73 03/30/25 20:00 Pulse Ox 95 03/30/25 20:00 O2 Del Method Nasal Cannula 03/30/25 14:33 03/30/25 03/30/25 03/30/25 06:59 14:59 22:59 Intake Total 1033.333 / 1033.333 Output Total 200 / 200 Balance 833.333 / 833.333 Weight last 48 hrs Weight 102.654 kg Weight 103.419 kg Physical Exam Narrative: General: Alert and oriented, lying comfortably without any distress on room air HEENT: Normocephalic, atraumatic, grossly unremarkable exam Cardio: normal rate rhythm, normal S1-S2 without any murmurs, rubs, or gallops and JVD normal Respiratory: normal vascular breathing on auscultation without any wheezes, stridor, rhonchi GI: Abdomen soft, nontender, nondistended, normoactive bowel sounds present all 4 quadrants, Neuro: At baseline, patient has neurological deficit in her left leg secondary to MS and also some of the upper extremities. However she is alert and oriented Behavior: Appropriate and cooperative Extremities: Adequate palpable pulses, with TR band on the right radial artery Urinary Catheter Management: Warren: Cath Placed During This Visit: yes Reason for Continuing Indwelling Catheter: Accurate Measurement of Urinary Output in Critically Ill Patients Urinary Catheter Date of Insertion: 03/30/25 Urinary Catheter Time of Insertion: 14:46 Data 03/30/25 17:29 A&P Assessment and plan 1. ST elevation [place] (STEMI): Patient s/p cath Continue on aspirin Plavix and atorvastatin Telemetry monitoring Cardiology on board and follow the plan 2. Hyperlipidemia: Continue on high-dose statin status post cath 3. Hypertension: Patient had episode of hypotension and required cath Hold antihypertensives at the moment and monitor for blood pressure 4. Multiple sclerosis: Not taking any treatment at the moment OT PT evaluation since the patient has baseline neurological deficit involving lower and upper extremities 5. AICD (automatic cardioverter/defibrillator) present: Currently stable following with the cardiology as outpatient PDMP PDMP Reviewed: Not Reviewed Attestations Medical Necessity Statement*: Formerly [facility], 1928[facility]1983's hospital stay will require greater than 2 midnights for management of STEMI Time Spent in Patient Care: 16 - 35 minutes (>than 50% of time spent in counselling and/or direct pt care on unit). Other Attestations: Patient condition has been discussed at length with the patient/family, I have independently reviewed the chart labs imaging/diagnostics/EKG. the goals of care and code status with the patient/family/NOK/legal manufacturers representative, and documented accordingly. The patient/family has been informed about the current condition and further plan of care. Agreed with the plan of care and understood without any language barrier. Every effort was made to ensure accuracy of health care specialist. Any obvious errors or omissions should be clarified with the author of the document. Coding Level of Care Code Acute Code for Chg Fwd Diagnoses ST elevation [place] (STEMI) I21.3 Hyperlipidemia E78.5 Hypertension I10 Multiple sclerosis G35.D AICD (automatic cardioverter/defibrillator) present Z95.810
[2025-03-30 22:10] LABS: Partial Thromboplastin Time 28.3 SECONDS (23.9-36.7)
--- NOTE | 2025-03-30 22:30 | ECG_ITS ---
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 Measurements Intervals [place] Rate: 75 P: 33 ND: 144 QRS: -53 QRSD: 123 T: 138 QT: 460 QTc: 515 Interpretive Statements SINUS RHYTHM POSSIBLE LEFT ATRIAL ENLARGEMENT [-0.1mV P-WAVE IN V1/V2] LEFT ANTERIOR FASCICULAR BLOCK [QRS AXIS <= -45, QR IN I, RS IN II] POSSIBLE LATERAL MYOCARDIAL INFARCTION , OF INDETERMINATE AGE [30 ms Q WAVE IN I/aVL/V5/V6] MODERATE T-WAVE ABNORMALITY, CONSIDER ANTERIOR ISCHEMIA [-0.1+ mV T-WAVE IN V3/V4] Compared to ECG 03/30/2025 20:28:42 Ventricular premature complex(es) no longer present Myocardial infarct finding still present T-wave abnormality still present Possible ischemia still present Electronically Signed On 04-01-2025 15:30:24 CDT by Wojciech Yang M.D. [email or web address]
[2025-03-31] VITALS (46 sets, daily range): BP systolic 92–120; BP diastolic 54–84; PULSE 70–95; RESP 15–43; TEMP 36.5–36.8; O2SAT 76–100
[2025-03-31] MEDS: fentaNYL 50 mcg/mL INJ 2mL IVP (01:26)
[2025-03-31] MEDS: multivitamin therapeutic Tablet 1 TAB PO (04:32)
[2025-03-31] MEDS: ondansetron 2 mg/ML SDV 2 mL 4 MG IVP (04:34)
[2025-03-31 04:50] LABS: Hematocrit 50.6 % (36-47); Hemoglobin 15.50 g/dL (11.27-16.99); Mean Corpuscular HGB Conc 30.6 g/dL (30-55); Mean Corpuscular Hemoglobin 28.6 pg (27-33); Mean Corpuscular Volume 93.4 fl (85-98); Nucleated Red Blood Cells % 0 %; Platelet Count 197 10^3/cmm (157-399); Red Blood Count 5.42 10^6/uL (3.85-5.65); White Blood Count 12.52 10^3/uL (3.29-11.43)
--- NOTE | 2025-03-31 04:57 | PC.NURSE ---
Patient complaining of new and increasing back pain following removal of femoral sheath. Puncture site assessed, no hematoma or bleeding noted. Patient's heart rate and blood pressure normal. Log-rolled patient to examine patient's back. No bruise or hematoma present. Placed pillow under patient's hip and she stated it felt better and that she thought the pain was from lying flat for several hours. Notified Dr Berman of back pain after sheath removal. No further orders received.
[2025-03-31 05:32] LABS: Alanine Aminotransferase 48 U/L (0-33); Albumin Level 3.8 g/dL (3.5-5.2); Alkaline Phosphatase 63 U/L (35-105); Anion Gap 20.4 (5-19); Aspartate Amino Transferase 164 U/L (0-32); Blood Urea Nitrogen 16 mg/dL (8-23); Calcium 8.9 mg/dL (8.5-10.5); Carbon Dioxide 19 mmol/L (22-29); Chloride 102 mmol/L (98-107); Creatinine Clr Calc Pharmacy 79.4439; Globulin 2.5 g/dL (1.3-4.6); Glucose 101 mg/dL (65-115); Osmolality Calculated 283 mOsm/kg (285-295); Potassium 5.4 mmol/L (3.5-5.1); Sodium 136 mmol/L (136-145); Total Protein 6.3 g/dL (6.6-8.7)
--- NOTE | 2025-03-31 07:37 | US_ITS ---
WS: [id number] RIGHT UPPER QUADRANT ULTRASOUND HISTORY: RAISED LFTs COMPARISON: None available. Liver: 16.3 cm in length. Incomplete evaluation of the liver. No abnormality identified but limited. Portal Vein: Normal hepatopetal flow with monophasic waveform. Gallbladder: Normally distended gallbladder with no stones or wall thickening. CBD: 0.3 cm Pancreas: Not visualized. Right kidney: 10.6 cm in length. Normal size and echogenicity. No hydronephrosis or mass. Aorta and IVC: Unremarkable abdominal aorta and IVC. No ascites. US/US liver [id number] IMPRESSION: 1. Normal gallbladder. 2. Poorly visualized liver. No abnormality identified. 3. No intrahepatic duct dilatation.
[2025-03-31] MEDS: FUROsemide 10 mg/mL SDV 4mL 40 MG IVP (10:26)
--- NOTE | 2025-03-31 11:49 | P.PN_ITS ---
Subjective 2 Subjective: No overnight event Status post STEMI and drug-eluting stent to proximal LAD Severely depressed left ventricular ejection fraction 20 to 25% Appear to be in mild decompensated systolic heart failure with borderline low blood pressure Overall says she is doing fine not hurting anywhere but have no appetite She is on 2 L of oxygen Vitals/I&O/Wt Last Vital Signs Temp 97.7 F 03/31/25 08:15 Pulse 80 03/31/25 08:15 Resp 21 H 03/31/25 08:15 BP 100/70 03/31/25 08:15 Pulse Ox 96 03/31/25 08:15 O2 Del Method Nasal Cannula 03/31/25 08:15 O2 Flow Rate 2 03/31/25 08:15 03/30/25 03/31/25 03/31/25 22:59 06:59 14:59 Intake Total 1513.333 / 1513.333 240 / 240 Output Total 200 / 200 250 / 450 Balance 1313.333 / 1313.333 -250 / 1063.333 240 / 240 Weight last 48 hrs Weight 226 lb 5 oz Weight 228 lb Physical Exam 2 Const: OTHER: GENERAL: Patient is alert, awake and oriented x3, not in distress HEART: Regular S1 and S2. No murmur, rub or gallop. LUNGS: Inspiratory mild crackles bilaterally. CENTRAL NERVOUS SYSTEM: Grossly nonfocal. EXTREMITIES: Lower extremities with out edema bilaterally. Urinary Catheter Management: Warren: Cath Placed During This Visit: yes Reason for Continuing Indwelling Catheter: Accurate Measurement of Urinary Output in Critically Ill Patients Urinary Catheter Date of Insertion: 03/30/25 Urinary Catheter Time of Insertion: 14:46 Data 03/31/25 04:25 03/31/25 04:25 A&P Assessment and plan 1. ST elevation [place] (STEMI): 2. Hyperlipidemia: 3. Peripheral edema: 4. Congestive heart failure: Acute on chronic decompensated systolic heart failure 5. AICD (automatic cardioverter/defibrillator) present: 6. MS (multiple sclerosis): 7. LV dysfunction: Plan: Blood pressure is borderline low at this point we will avoid putting her on beta-ramon but will continue aspirin and statin clopidogrel. I will diurese her gently. I will give her IV Lasix 40 mg. Potassium is high more than 5.0 therefore will not give her extra potassium. Once blood pressure is more stable we will try to introduce beta-ramon followed by Entresto if tolerated. Patient has highly calcified mid RCA disease needed atherectomy which could be stage PCI in 2 to 3 weeks once she recovers from the acute ST elevation [place] insult. I have tried contacting her niece through the phone and left a message, patient has not heard from her as well. Otherwise patient is very competent and understand fully and capable of making the decisions. Will continue to monitor her in the ICU. I will ask for echocardiogram. PDMP PDMP Reviewed: Not Reviewed Attestations 2 Medical Necessity Statement*: Patient require continuation hospitalization for above defined care Coding Level of Care Code Acute Code for Chg Fwd Diagnoses ST elevation [place] (STEMI) I21.3 Hyperlipidemia E78.5 Peripheral edema R60.0 Congestive heart failure I50.9 Heart failure chronicity: acute on chronic AICD (automatic cardioverter/defibrillator) present Z95.810 MS (multiple sclerosis) G35.D LV dysfunction I51.9
--- NOTE | 2025-03-31 11:52 | P.PN_ITS ---
Subjective 2 Subjective: No overnight event Status post STEMI and drug-eluting stent to proximal LAD and depressed EF: 20- 25% The patient was off oxygen and saturating 94% and above No further complaints voiced by the patient Vitals/I&O/Wt Last Vital Signs Temp 97.7 F 03/31/25 08:15 Pulse 80 03/31/25 08:15 Resp 21 H 03/31/25 08:15 BP 100/70 03/31/25 08:15 Pulse Ox 96 03/31/25 08:15 O2 Del Method Nasal Cannula 03/31/25 08:15 O2 Flow Rate 2 03/31/25 08:15 03/30/25 03/31/25 03/31/25 22:59 06:59 14:59 Intake Total 1513.333 / 1513.333 240 / 240 Output Total 200 / 200 250 / 450 Balance 1313.333 / 1313.333 -250 / 1063.333 240 / 240 Weight last 48 hrs Weight 102.654 kg Weight 103.419 kg Physical Exam 2 Narrative: General: Alert and oriented, lying comfortably without any distress on room air HEENT: Normocephalic, atraumatic, grossly unremarkable exam Cardio: normal rate rhythm, normal S1-S2 without any murmurs, rubs, or gallops and JVD normal Respiratory: normal vascular breathing on auscultation without any wheezes, stridor, rhonchi GI: Abdomen soft, nontender, nondistended, normoactive bowel sounds present all 4 quadrants, Neuro: At baseline, patient has neurological deficit in her lower extremities secondary to multiple sclerosis. However she is alert and oriented Behavior: Appropriate and cooperative Extremities: Adequate palpable pulses, mild pedal trace edema Urinary Catheter Management: Warren: Cath Placed During This Visit: yes Reason for Continuing Indwelling Catheter: Accurate Measurement of Urinary Output in Critically Ill Patients Urinary Catheter Date of Insertion: 03/30/25 Urinary Catheter Time of Insertion: 14:46 Data 03/31/25 04:25 03/31/25 04:25 A&P Assessment and plan 1. ST elevation [place] (STEMI): Patient s/p cath Found to have low EF, hold fluids at the moment since the patient is able to take orally Continue on aspirin Plavix and atorvastatin as per cards recommendation Telemetry monitoring Cardiology on board and follow the plan Cardiac rehab Maintaining normal hemodynamics 2. Hyperlipidemia: Continue on high-dose statin status post cath 3. Hypertension: Patient had episode of hypotension and required cath Hold antihypertensives at the moment and monitor for blood pressure 4. Multiple sclerosis: Not taking any treatment at the moment OT PT evaluation since the patient has baseline neurological deficit involving lower and upper extremities 5. AICD (automatic cardioverter/defibrillator) present: Currently stable following with the cardiology as outpatient PDMP PDMP Reviewed: Not Reviewed Attestations 2 Medical Necessity Statement*: [facility] [place]'s hospital stay will require greater than 2 midnights for status post STEMI and cath with baseline multiple sclerosis to be followed with OT PT Time Spent in Patient Care: 16 - 35 minutes (>than 50% of time sp ent in counselling and/or direct pt care on unit) . Other Attestations: Patient condition has been discussed at length with the patient/family, I have independently reviewed the chart labs imaging/diagnostics/EKG. the goals of care and code status with the patient/family/NOK/legal automotive leasing sales representative, and documented accordingly. The patient/family has been informed about the current condition and further plan of care. Agreed with the plan of care and understood without any language barrier. Every effort was made to ensure accuracy of raw material handler. Any obvious errors or omissions should be clarified with the author of the document. Coding Level of Care Code [address] elevation [place] (STEMI) I21.3 Hyperlipidemia E78.5 Hypertension I10 Multiple sclerosis G35.D AICD (automatic cardioverter/defibrillator) present Z95.810
--- NOTE | 2025-03-31 11:53 | USCV_ITS ---
Jo Ricks Age: 70 Gender: F : 1955 Exam Date: 03/31/2025 14:36 Ordering Phys: Stephanie Nettles MD ([email or web address]) Technologist: CHELSEA Exam Location: [facility] [place] Indication: CHF BP: 120 / 59 HR: 78 Rhythm: Sinus Technical Quality: Adequate MEASUREMENTS (Male / Female) Normal Values 2D ECHO LV Diastolic Diameter PLAX 6.3 cm 4.2 - 5.9 / 3.9 - 5.3 cm IVS Diastolic Thickness 0.9 cm 0.6 - 1.0 / 0.6 - 0.9 cm IVS Systolic Thickness 1.4 cm LVPW Diastolic Thickness 1.1 cm 0.6 - 1.0 / 0.6 - 0.9 cm LVPW Systolic Thickness 1.5 cm LVOT Diameter 2.0 cm LV Ejection Fraction 2D Teich 29.8 % LV Ejection Fraction MOD 4C 31.9 % LV Ejection Fraction MOD 2C 28.1 % LV Ejection Fraction 2C AL 26.8 % LA Diameter 2.8 cm RA Systolic Volume 4C AL 20.9 ml RA Systolic Volume 4C MOD 21.0 ml LA Sys Volume AL 70.9 cm cubed LA Sys Volume Index AL 31.6 cm cubed/m squared Aorta at Sinotubular Diameter 2.4 cm M-MODE LA Ao Ratio MM 1.4 AV Cusp Separation MM 1.6 cm DOPPLER AV Peak Velocity 179.0 cm/s LVOT Peak Velocity 109.0 cm/s AV Area Cont Eq vti 2.3 cm squared AV Area Cont Eq pk 1.9 cm squared MV Peak Velocity 75.0 cm/s MV Area PHT 6.3 cm squared Mitral E to A Ratio 0.5 TR Peak Velocity 243.0 cm/s TR Peak Gradient 23.6 mmHg TV Peak E Velocity 50.0 cm/s PV Peak Velocity 75.0 cm/s FINDINGS Left Ventricle Moderately increased left ventricular cavity size. Severely decreased left ventricular systolic function. Left ventricular ejection fraction is estimated at 20-25%. There is mid to distal anterior and apical severe hypokinesis, there is lateral wall hypokinesis.Grade I/IV diastolic dysfunction (abnormal relaxation filling pattern), normal to mildly elevated filling pressures. Right Ventricle Catheter/pacemaker wire visualized in the right ventricle. Right Atrium Normal right atrial size. Left Atrium Moderately increased left atrial size. IA Septum Normal appearance of the interatrial septum. Mitral Valve Mildly thickened mitral valve. No mitral valve stenosis. Moderate mitral valve regurgitation. Aortic Valve Moderate aortic valve calcification. No aortic valve stenosis. Tricuspid Valve Normal tricuspid valve structure. No tricuspid valve stenosis or regurgitation. Normal pulmonary pressure. Pulmonic Valve Normal pulmonic valve structure. No pulmonic valve stenosis or regurgitation. Pericardium No pericardial effusion. Aorta Normal diameter of the aortic root and ascending thoracic aorta. IVC Normal IVC diameter. CONCLUSIONS Moderately increased left ventricular cavity size. Severely decreased left ventricular systolic function. Left ventricular ejection fraction is estimated at 20-25%. There is mid to distal anterior and apical severe hypokinesis, there is lateral wall hypokinesis.Grade I/IV diastolic dysfunction (abnormal relaxation filling pattern), normal to mildly elevated filling pressures. Moderately increased left atrial size. Mildly thickened mitral valve. No mitral valve stenosis. Moderate mitral valve regurgitation. There is no pericardial effusion. Right atrial pressure is around 5 mm of mercury. Stephanie Nettles MD (Electronically Signed) Final Date: 31 March 2025 19:06 S
--- NOTE | 2025-03-31 22:07 | PC.NURSE ---
patient refused meds physician notified
[2025-04-01] VITALS (100 sets, daily range): BP systolic 88–151; BP diastolic 30–87; PULSE 71–99; RESP 14–31; TEMP 36.9–37; O2SAT 75–100
[2025-04-01] MEDS: multivitamin therapeutic Tablet 1 TAB PO (04:37)
[2025-04-01 05:02] LABS: Hematocrit 48.4 % (36-47); Hemoglobin 15.20 g/dL (11.27-16.99); Mean Corpuscular HGB Conc 31.4 g/dL (30-55); Mean Corpuscular Hemoglobin 28.5 pg (27-33); Mean Corpuscular Volume 90.8 fl (85-98); Nucleated Red Blood Cells % 0 %; Platelet Count 146 10^3/cmm (157-399); Red Blood Count 5.33 10^6/uL (3.85-5.65); White Blood Count 9.37 10^3/uL (3.29-11.43)
[2025-04-01 05:25] LABS: Alanine Aminotransferase 39 U/L (0-33); Albumin Level 3.8 g/dL (3.5-5.2); Alkaline Phosphatase 60 U/L (35-105); Anion Gap 15.0 (5-19); Aspartate Amino Transferase 106 U/L (0-32); Blood Urea Nitrogen 15 mg/dL (8-23); Calcium 8.8 mg/dL (8.5-10.5); Carbon Dioxide 29 mmol/L (22-29); Chloride 101 mmol/L (98-107); Creatinine Clr Calc Pharmacy 79.4439; Globulin 2.6 g/dL (1.3-4.6); Glucose 87 mg/dL (65-115); Osmolality Calculated 292 mOsm/kg (285-295); Potassium 4.0 mmol/L (3.5-5.1); Sodium 141 mmol/L (136-145); Total Protein 6.4 g/dL (6.6-8.7)
--- NOTE | 2025-04-01 10:51 | PC.SOCIAL ---
IMM Update pg 2 of IMM Updated and reviewed w/ patient. Copy provided and copy dated, initialed and placed in chart.
--- NOTE | 2025-04-01 17:15 | P.PN_ITS ---
Subjective 2 Subjective: Patient is feeling better and having good appetite Status post STEMI and drug-eluting stent to proximal LAD and depressed EF: 20- 25% The patient was off oxygen and saturating 94% and above No further complaints voiced by the patient Vitals/I&O/Wt Last Vital Signs Temp 98.5 F 04/01/25 16:00 Pulse 76 04/01/25 16:15 Resp 17 04/01/25 16:15 BP 112/72 04/01/25 16:15 Pulse Ox 98 04/01/25 16:15 O2 Del Method Nasal Cannula 04/01/25 06:00 O2 Flow Rate 2 04/01/25 06:00 04/01/25 04/01/25 04/01/25 06:59 14:59 22:59 Intake Total 550 / 550 Output Total 1500 / 3000 Balance -1500 / -2320 550 / 550 Weight last 48 hrs Weight 103.147 kg Physical Exam 2 Narrative: General: Alert and oriented, lying comfortably without any distress on room air HEENT: Normocephalic, atraumatic, grossly unremarkable exam Cardio: normal rate rhythm, normal S1-S2 without any murmurs, rubs, or gallops and JVD normal Respiratory: normal vascular breathing on auscultation without any wheezes, stridor, rhonchi GI: Abdomen soft, nontender, nondistended, normoactive bowel sounds present all 4 quadrants, Neuro: At baseline, patient has neurological deficit in her lower extremities secondary to multiple sclerosis. However she is alert and oriented Behavior: Appropriate and cooperative Extremities: Adequate palpable pulses, mild pedal trace edema Urinary Catheter Management: Warren: Cath Placed During This Visit: yes Reason for Continuing Indwelling Catheter: Accurate Measurement of Urinary Output in Critically Ill Patients Urinary Catheter Date of Insertion: 03/30/25 Urinary Catheter Time of Insertion: 14:46 Data 04/01/25 04:27 04/01/25 04:27 A&P Assessment and plan 1. ST elevation [place] (STEMI): Patient s/p cath to LAD and cardiology is planning for PCI to RCA as well. Found to have low EF, hold of fluids encourage oral intake and avoid any acute rehab to stress the heart Continue on aspirin Plavix and atorvastatin as per cards recommendation Telemetry monitoring Cardiology on board and follow the plan Cardiac rehab Maintaining normal hemodynamics 2. Heart failure with reduced ejection fraction: Patient having low EF, to start on GDMT for heart failure with reduced ejection fraction Considering patient soft blood pressure, to start carvedilol 3.125 twice daily Farxiga 5 mg daily If patient tolerates further then to add further GDMT including spironolactone/GIO inhibitors or Entresto based on hemodynamics with the patient. Keep MAP above 65 Telemetry monitoring 3. Hyperlipidemia: Continue on high-dose statin status post cath 4. Hypertension: Patient had episode of hypotension and required cath Hold antihypertensives at the moment and monitor for blood pressure 5. Multiple sclerosis: Not taking any treatment at the moment OT PT evaluation since the patient has baseline neurological deficit involving lower and upper extremities and is accepted for acute rehab 6. AICD (automatic cardioverter/defibrillator) present: Currently stable following with the cardiology as outpatient PDMP PDMP Reviewed: Not Reviewed Attestations 2 Medical Necessity Statement*: Patient will stay overnight for further management since the patient needs cardiac intervention for further optimization of her care and later on rehab management Time Spent in Patient Care: 16 - 35 minutes (>than 50% of time sp ent in counselling and/or direct pt care on unit) . Other Attestations: Patient condition has been discussed at length with the patient/family, I have independently reviewed the chart labs imaging/diagnostics/EKG. the goals of care and code status with the patient/family/NOK/legal customer success representative, and documented accordingly. The patient/family has been informed about the current condition and further plan of care. Agreed with the plan of care and understood without any language barrier. Every effort was made to ensure accuracy of cobol mainframe developer. Any obvious errors or omissions should be clarified with the author of the document. Coding Level of Care Code [address] elevation [place] (STEMI) I21.3 Heart failure with reduced ejection fraction I50.20 Hyperlipidemia E78.5 Hypertension I10 Multiple sclerosis G35.D AICD (automatic cardioverter/defibrillator) present Z95.810
--- NOTE | 2025-04-01 18:39 | P.PN_ITS ---
Subjective 2 Subjective: Feeling much better Not short of breath sitting in the chair Vitals/I&O/Wt Last Vital Signs Temp 98.5 F 04/01/25 16:00 Pulse 76 04/01/25 16:15 Resp 17 04/01/25 16:15 BP 112/72 04/01/25 16:15 Pulse Ox 98 04/01/25 16:15 O2 Del Method Nasal Cannula 04/01/25 06:00 O2 Flow Rate 2 04/01/25 06:00 04/01/25 04/01/25 04/01/25 06:59 14:59 22:59 Intake Total 550 / 550 250 / 800 Output Total 1500 / 3000 Balance -1500 / -2320 550 / 550 250 / 800 Weight last 48 hrs Weight 227 lb 6.4 oz Physical Exam 2 Const: OTHER: GENERAL: Patient is alert, awake and oriented x3, not in distress HEART: Regular S1 and S2. No murmur, rub or gallop. LUNGS: Clear to auscultate bilaterally. CENTRAL NERVOUS SYSTEM: Grossly nonfocal. EXTREMITIES: Lower extremities with out edema bilaterally. Urinary Catheter Management: Warren: Cath Placed During This Visit: yes Reason for Continuing Indwelling Catheter: Accurate Measurement of Urinary Output in Critically Ill Patients Urinary Catheter Date of Insertion: 03/30/25 Urinary Catheter Time of Insertion: 14:46 Data 04/01/25 04:27 04/01/25 04:27 A&P Assessment and plan 1. ST elevation [place] (STEMI): 2. Hyperlipidemia: 3. Peripheral edema: 4. Congestive heart failure: Acute on chronic decompensated systolic heart failure 5. AICD (automatic cardioverter/defibrillator) present: 6. MS (multiple sclerosis): 7. LV dysfunction: Plan: Blood pressure is borderline low at this point we will avoid putting her on beta-ramon but will continue aspirin and statin clopidogrel. I will diurese her gently. I will give her IV Lasix 40 mg. Potassium is high more than 5.0 therefore will not give her extra potassium. Once blood pressure is more stable we will try to introduce beta-ramon followed by Entresto if tolerated. Patient has highly calcified mid RCA disease needed atherectomy which could be stage PCI in 2 to 3 weeks once she recovers from the acute ST elevation RI insult. I have tried contacting her niece through the phone and left a message, patient has not heard from her as well. Otherwise patient is very competent and understand fully and capable of making the decisions. Will continue to monitor her in the ICU. I will ask for echocardiogram. On today's visit dated 04/01/2025 patient is feeling much better blood pressure has improved Will do 1 more round of IV diuresis 40 mg Lasix Start patient on Coreg 3.125 mg twice a day From tomorrow will start patient on Entresto 24/26 mg twice daily Continue dual antiplatelet therapy clopidogrel and aspirin Most likely discharge by Friday with plan to bring her back in 3 to 4 weeks for RCA atherectomy and PCI which is incidental finding during this episode of STEMI PDMP PDMP Reviewed: Not Reviewed Attestations 2 Medical Necessity Statement*: Require continuation hospitalization for above defined care. Coding Level of Care Code Acute Code for Chg Fwd Diagnoses ST elevation RI (STEMI) I21.3 Hyperlipidemia E78.5 Peripheral edema R60.0 Congestive heart failure I50.9 Heart failure chronicity: acute on chronic AICD (automatic cardioverter/defibrillator) present Z95.810 MS (multiple sclerosis) G35.D LV dysfunction I51.9
[2025-04-02] VITALS (102 sets, daily range): BP systolic 89–126; BP diastolic 27–88; PULSE 65–102; RESP 10–36; TEMP 36.2–37.2; O2SAT 87–99
[2025-04-02] MEDS: multivitamin therapeutic Tablet 1 TAB PO (04:35)
[2025-04-02] MEDS: DAPAGLIFLOZIN 5 MG TABLET PO (04:37)
--- NOTE | 2025-04-02 04:44 | PC.NURSE ---
carvedilol held at this time due to soft BP Dr. Berman notfied and okayed
[2025-04-02 04:45] LABS: Hematocrit 42.2 % (36-47); Hemoglobin 13.10 g/dL (11.27-16.99); Mean Corpuscular HGB Conc 31.0 g/dL (30-55); Mean Corpuscular Hemoglobin 28.1 pg (27-33); Mean Corpuscular Volume 90.6 fl (85-98); Nucleated Red Blood Cells % 0 %; Platelet Count 141 10^3/cmm (157-399); Red Blood Count 4.66 10^6/uL (3.85-5.65); White Blood Count 7.02 10^3/uL (3.29-11.43)
[2025-04-02 05:07] LABS: Magnesium 1.9 mg/dL (1.7-2.3)
[2025-04-02 05:08] LABS: Alanine Aminotransferase 24 U/L (0-33); Albumin Level 3.4 g/dL (3.5-5.2); Alkaline Phosphatase 51 U/L (35-105); Anion Gap 14.9 (5-19); Aspartate Amino Transferase 46 U/L (0-32); Blood Urea Nitrogen 19 mg/dL (8-23); Calcium 8.4 mg/dL (8.5-10.5); Carbon Dioxide 26 mmol/L (22-29); Chloride 103 mmol/L (98-107); Creatinine Clr Calc Pharmacy 79.6447; Globulin 1.9 g/dL (1.3-4.6); Glucose 87 mg/dL (65-115); Osmolality Calculated 292 mOsm/kg (285-295); Potassium 3.9 mmol/L (3.5-5.1); Sodium 140 mmol/L (136-145); Total Protein 5.3 g/dL (6.6-8.7)
--- NOTE | 2025-04-02 06:35 | PC.NURSE ---
patient refused atorvastatin Dr. Antonella morales
--- NOTE | 2025-04-02 11:11 | PM.PN ---
Subjective Subjective: Feeling much better, no shortness of breath patient off oxygen supplementation and oxygen sats are around 94% and above on room air. Patient feels a little bit of constipated however no other Vitals/I&O/Wt Last Vital Signs Temp 97.1 F L 04/02/25 08:30 Pulse 77 04/02/25 10:30 Resp 15 04/02/25 10:30 BP 95/62 04/02/25 10:15 Pulse Ox 92 04/02/25 10:30 O2 Del Method Nasal Cannula 04/02/25 10:00 O2 Flow Rate 2 04/02/25 10:00 04/01/25 04/02/25 04/02/25 22:59 06:59 14:59 Intake Total 250 / 800 240 / 240 Output Total 1400 / 1400 Balance 250 / 800 -1400 / -600 240 / 240 Weight last 48 hrs Weight 102.648 kg Weight 103.147 kg Physical Exam Narrative: General: Alert and oriented, lying comfortably without any distress on room air HEENT: Normocephalic, atraumatic, grossly unremarkable exam Cardio: normal rate rhythm, normal S1-S2 without any murmurs, rubs, or gallops and JVD normal Respiratory: normal vascular breathing on auscultation without any wheezes, stridor, rhonchi GI: Abdomen soft, nontender, nondistended, normoactive bowel sounds present all 4 quadrants, Neuro: At baseline, patient has neurological deficit in her lower extremities secondary to multiple sclerosis. However she is alert and oriented Behavior: Appropriate and cooperative Extremities: Adequate palpable pulses, mild pedal trace edema Urinary Catheter Management: Warren: Cath Placed During This Visit: yes Reason for Continuing Indwelling Catheter: Accurate Measurement of Urinary Output in Critically Ill Patients Urinary Catheter Date of Insertion: 03/30/25 Urinary Catheter Time of Insertion: 14:46 Data 04/02/25 03:54 04/02/25 03:54 A&P Assessment and plan 1. ST elevation [place] (STEMI): Patient s/p cath to LAD and cardiology is planning for PCI to RCA as well. Found to have low EF, avoid any acute rehab to stress the heart. Continue on aspirin Plavix and atorvastatin as per cards recommendation Telemetry monitoring Cardiology on board and follow the plan Cardiac rehab Maintaining normal hemodynamics 2. Heart failure with reduced ejection fraction: Patient having low EF, to start on GDMT for heart failure with reduced ejection fraction Considering patient soft blood pressure, continue carvedilol 3.125 twice daily Farxiga 5 mg daily Start Entresto 24/26 mg twice daily from evening and to monitor, if the blood pressure is less than 100 systolic or the MAP is less than 65 then consider holding it Discontinue Lasix as the patient is at room air and euvolemic To add rest of the GDMT accordingly Patient would likely to be discharged by Friday if no complication after cardiology review and clinical assessment with further planning to bring her back in 3 to 4 weeks for RCA atherectomy and PCI Keep MAP above 65 Telemetry monitoring 3. Hyperlipidemia: Continue on high-dose statin status post cath 4. Hypertension: Hold antihypertensives at the moment and monitor for blood pressure 5. Multiple sclerosis: Not taking any treatment at the moment OT PT evaluation since the patient has baseline neurological deficit involving lower and upper extremities and is accepted for acute rehab 6. AICD (automatic cardioverter/defibrillator) present: Currently stable following with the cardiology as outpatient PDMP PDMP Reviewed: Not Reviewed Attestations Medical Necessity Statement*: Patient will stay overnight for further management since the patient needs cardiac intervention for further optimization of her care and later on rehab management Time Spent in Patient Care: 16 - 35 minutes (>than 50% of time spent in counselling and/or direct pt care on unit). Other Attestations: Patient condition has been discussed at length with the patient/family, I have independently reviewed the chart labs imaging/diagnostics/EKG. the goals of care and code status with the patient/family/NOK/legal marketing development representative, and documented accordingly. The patient/family has been informed about the current condition and further plan of care. Agreed with the plan of care and understood without any language barrier. Every effort was made to ensure accuracy of application development director. Any obvious errors or omissions should be clarified with the author of the document. Coding Level of Care Code [address] elevation [place] (STEMI) I21.3 Heart failure with reduced ejection fraction I50.20 Hyperlipidemia E78.5 Hypertension I10 Multiple sclerosis G35.D AICD (automatic cardioverter/defibrillator) present Z95.810
--- NOTE | 2025-04-02 14:49 | P.PN_ITS ---
Subjective 2 Subjective: Continues to feel better Vitals/I&O/Wt Last Vital Signs Temp 97.1 F L 04/02/25 08:30 Pulse 86 04/02/25 14:30 Resp 15 04/02/25 14:30 BP 105/60 04/02/25 14:30 Pulse Ox 95 04/02/25 14:30 O2 Del Method Nasal Cannula 04/02/25 14:00 O2 Flow Rate 2 04/02/25 14:00 04/01/25 04/02/25 04/02/25 22:59 06:59 14:59 Intake Total 250 / 800 480 / 480 Output Total 1400 / 1400 Balance 250 / 800 -1400 / -600 480 / 480 Weight last 48 hrs Weight 226 lb 4.8 oz Weight 227 lb 6.4 oz Physical Exam 2 Const: OTHER: GENERAL: Patient is alert, awake and oriented x3, not in distress HEART: Regular S1 and S2. No murmur, rub or gallop. LUNGS: Clear to auscultate bilaterally. CENTRAL NERVOUS SYSTEM: Grossly nonfocal. EXTREMITIES: Lower extremities with out edema bilaterally. Urinary Catheter Management: Warren: Cath Placed During This Visit: yes Reason for Continuing Indwelling Catheter: Accurate Measurement of Urinary Output in Critically Ill Patients Urinary Catheter Date of Insertion: 03/30/25 Urinary Catheter Time of Insertion: 14:46 Data 04/02/25 03:54 04/02/25 03:54 A&P Assessment and plan 1. ST elevation [place] (STEMI): 2. Hyperlipidemia: 3. Peripheral edema: 4. Congestive heart failure: Acute on chronic decompensated systolic heart failure 5. AICD (automatic cardioverter/defibrillator) present: 6. MS (multiple sclerosis): 7. LV dysfunction: Plan: Blood pressure is borderline low at this point we will avoid putting her on beta-ramon but will continue aspirin and statin clopidogrel. I will diurese her gently. I will give her IV Lasix 40 mg. Potassium is high more than 5.0 therefore will not give her extra potassium. Once blood pressure is more stable we will try to introduce beta-ramon followed by Entresto if tolerated. Patient has highly calcified mid RCA disease needed atherectomy which could be stage PCI in 2 to 3 weeks once she recovers from the acute ST elevation SD insult. I have tried contacting her niece through the phone and left a message, patient has not heard from her as well. Otherwise patient is very competent and understand fully and capable of making the decisions. Will continue to monitor her in the ICU. I will ask for echocardiogram. On today's visit dated 04/01/2025 patient is feeling much better blood pressure has improved Will do 1 more round of IV diuresis 40 mg Lasix Start patient on Coreg 3.125 mg twice a day From tomorrow will start patient on Entresto 24/26 mg twice daily Continue dual antiplatelet therapy clopidogrel and aspirin Most likely discharge by Friday morning with plan to bring her back in 3 to 4 weeks for RCA atherectomy and PCI which is incidental finding during this episode of STEMI On today's visit dated 04/02/2025 patient continues to improve Patient was started on beta-ramon last night Entresto has been added will add Aldactone once blood pressure is more stable PDMP PDMP Reviewed: Not Reviewed Attestations 2 Medical Necessity Statement*: Continue current management, most likely discharge day after tomorrow on Friday to [facility] facility Coding Level of Care Code Acute Code for Chg Fwd Diagnoses ST elevation [place] (STEMI) I21.3 Hyperlipidemia E78.5 Peripheral edema R60.0 Congestive heart failure I50.9 Heart failure chronicity: acute on chronic AICD (automatic cardioverter/defibrillator) present Z95.810 MS (multiple sclerosis) G35.D LV dysfunction I51.9
[2025-04-03] VITALS (54 sets, daily range): BP systolic 82–121; BP diastolic 55–80; PULSE 68–88; RESP 16–24; TEMP 36.6–36.8; O2SAT 87–95
[2025-04-03 05:04] LABS: Hematocrit 47.3 % (36-47); Hemoglobin 15.10 g/dL (11.27-16.99); Mean Corpuscular HGB Conc 31.9 g/dL (30-55); Mean Corpuscular Hemoglobin 28.9 pg (27-33); Mean Corpuscular Volume 90.6 fl (85-98); Nucleated Red Blood Cells % 0 %; Platelet Count 199 10^3/cmm (157-399); Red Blood Count 5.22 10^6/uL (3.85-5.65); White Blood Count 9.14 10^3/uL (3.29-11.43)
[2025-04-03] MEDS: multivitamin therapeutic Tablet 1 TAB PO (05:11)
[2025-04-03 05:38] LABS: Alanine Aminotransferase 19 U/L (0-33); Albumin Level 3.5 g/dL (3.5-5.2); Alkaline Phosphatase 58 U/L (35-105); Anion Gap 15.6 (5-19); Aspartate Amino Transferase 26 U/L (0-32); Blood Urea Nitrogen 18 mg/dL (8-23); Calcium 9.1 mg/dL (8.5-10.5); Carbon Dioxide 28 mmol/L (22-29); Chloride 99 mmol/L (98-107); Creatinine Clr Calc Pharmacy 79.4414; Globulin 2.9 g/dL (1.3-4.6); Glucose 103 mg/dL (65-115); Osmolality Calculated 290 mOsm/kg (285-295); Potassium 3.6 mmol/L (3.5-5.1); Sodium 139 mmol/L (136-145); Total Protein 6.4 g/dL (6.6-8.7)
[2025-04-03] MEDS: sennosides-docusate Tablet 1 TAB PO ×2 (08:57→16:22)
--- NOTE | 2025-04-03 15:54 | P.PN_ITS ---
Subjective 2 Subjective: Continues to feel better Vitals/I&O/Wt Last Vital Signs Temp 97.9 F 04/03/25 14:00 Pulse 84 04/03/25 14:00 Resp 18 04/03/25 14:00 BP 105/71 04/03/25 14:00 Pulse Ox 91 04/03/25 14:00 O2 Del Method Room Air 04/03/25 14:00 O2 Flow Rate 1 04/03/25 08:00 04/03/25 04/03/25 04/03/25 06:59 14:59 22:59 Intake Total 720 / 720 Output Total 950 / 3750 Balance -950 / -2590 720 / 720 Weight last 48 hrs Weight 226 lb 4.8 oz Physical Exam 2 Const: OTHER: GENERAL: Patient is alert, awake and oriented x3, not in distress HEART: Regular S1 and S2. No murmur, rub or gallop. LUNGS: Clear to auscultate bilaterally. CENTRAL NERVOUS SYSTEM: Grossly nonfocal. EXTREMITIES: Lower extremities with out edema bilaterally. Urinary Catheter Management: Warren: Cath Placed During This Visit: yes Reason for Continuing Indwelling Catheter: Accurate Measurement of Urinary Output in Critically Ill Patients Urinary Catheter Date of Insertion: 03/30/25 Urinary Catheter Time of Insertion: 14:46 Data 04/03/25 04:11 04/03/25 04:11 A&P Assessment and plan 1. ST elevation [place] (STEMI): 2. Hyperlipidemia: 3. Peripheral edema: 4. Congestive heart failure: Acute on chronic decompensated systolic heart failure 5. AICD (automatic cardioverter/defibrillator) present: 6. MS (multiple sclerosis): 7. LV dysfunction: Plan: Blood pressure is borderline low at this point we will avoid putting her on beta-ramon but will continue aspirin and statin clopidogrel. I will diurese her gently. I will give her IV Lasix 40 mg. Potassium is high more than 5.0 therefore will not give her extra potassium. Once blood pressure is more stable we will try to introduce beta-ramon followed by Entresto if tolerated. Patient has highly calcified mid RCA disease needed atherectomy which could be stage PCI in 2 to 3 weeks once she recovers from the acute ST elevation [place] insult. I have tried contacting her niece through the phone and left a message, patient has not heard from her as well. Otherwise patient is very competent and understand fully and capable of making the decisions. Will continue to monitor her in the ICU. I will ask for echocardiogram. On today's visit dated 04/01/2025 patient is feeling much better blood pressure has improved Will do 1 more round of IV diuresis 40 mg Lasix Start patient on Coreg 3.125 mg twice a day From tomorrow will start patient on Entresto 24/26 mg twice daily Continue dual antiplatelet therapy clopidogrel and aspirin Most likely discharge by Friday morning with plan to bring her back in 3 to 4 weeks for RCA atherectomy and PCI which is incidental finding during this episode of STEMI On today's visit dated 04/02/2025 patient continues to improve Patient was started on beta-ramon last night Entresto has been added will add Aldactone once blood pressure is more stable On today's visit dated 04/03/2025 patient continues to improve she has a lot of question regarding guideline medical therapy for heart failure I have detailed discussion with the patient regarding that SGLT2 inhibitor as she was reluctant to take it but now she agrees to it. PDMP PDMP Reviewed: Not Reviewed Attestations 2 Medical Necessity Statement*: Patient require continuation of hospitalization for above defined care. She will be placed into nursing home facility Coding Level of Care Code Acute Code for g Fwd Diagnoses ST elevation [place] (STEMI) I21.3 Hyperlipidemia E78.5 Peripheral edema R60.0 Congestive heart failure I50.9 Heart failure chronicity: acute on chronic AICD (automatic cardioverter/defibrillator) present Z95.810 MS (multiple sclerosis) G35.D LV dysfunction I51.9
--- NOTE | 2025-04-03 17:26 | P.PN_ITS ---
Subjective 2 Subjective: Patient seen in the morning, no active complaints of chest pain no shortness of breath and no dizziness The patient still having her new right leg since he has progressive MS and any stress triggers her weakness. Following with OT PT Cardiology on board for further management of heart failure Vitals/I&O/Wt Last Vital Signs Temp 97.9 F 04/03/25 14:00 Pulse 73 04/03/25 14:00 Resp 18 04/03/25 14:00 BP 105/71 04/03/25 14:00 Pulse Ox 91 04/03/25 14:00 O2 Del Method Room Air 04/03/25 14:00 O2 Flow Rate 1 04/03/25 08:00 04/03/25 04/03/25 04/03/25 06:59 14:59 22:59 Intake Total 720 / 720 Output Total 950 / 3750 750 / 750 Balance -950 / -2590 720 / 720 -750 / -30 Weight last 48 hrs Weight 102.648 kg Physical Exam 2 Narrative: General: Alert and oriented, lying comfortably without any distress on room air HEENT: Normocephalic, atraumatic, grossly unremarkable exam Cardio: normal rate rhythm, normal S1-S2 without any murmurs, rubs, or gallops and JVD normal Respiratory: normal vascular breathing on auscultation without any wheezes, stridor, rhonchi GI: Abdomen soft, nontender, nondistended, normoactive bowel sounds present all 4 quadrants, Neuro: At baseline, patient has neurological deficit in her lower extremities secondary to multiple sclerosis. However she is alert and oriented Behavior: Appropriate and cooperative Extremities: Adequate palpable pulses, mild pedal trace edema Urinary Catheter Management: Warren: Cath Placed During This Visit: yes Reason for Continuing Indwelling Catheter: Accurate Measurement of Urinary Output in Critically Ill Patients Urinary Catheter Date of Insertion: 03/30/25 Urinary Catheter Time of Insertion: 14:46 Data 04/03/25 04:11 04/03/25 04:11 A&P Assessment and plan 1. ST elevation [place] (STEMI): Patient s/p cath to LAD and cardiology is planning for PCI to RCA as well. Found to have low EF, avoid any acute rehab to stress the heart. Continue on aspirin Plavix and atorvastatin as per cards recommendation Telemetry monitoring Cardiology on board and follow the plan Cardiac rehab Maintaining normal hemodynamics 2. Heart failure with reduced ejection fraction: Patient having low EF, to start on GDMT for heart failure with reduced ejection fraction, guided by blood pressure Considering patient soft blood pressure, continue carvedilol 3.125 twice daily And if the patient tolerates then to start Entresto twice daily Farxiga 5 mg daily Continue Lasix 40 mg daily as per cardiology recommendation Patient would likely to be discharged by Friday if no complication after cardiology review and clinical assessment with further planning to bring her back in 3 to 4 weeks for RCA atherectomy and PCI Keep MAP above 65 Telemetry monitoring 3. Hyperlipidemia: Continue on high-dose statin status post cath 4. Hypertension: Hold antihypertensives at the moment and monitor for blood pressure 5. Multiple sclerosis: Not taking any treatment at the moment OT PT evaluation since the patient has baseline neurological deficit involving lower and upper extremities and is accepted for acute rehab 6. AICD (automatic cardioverter/defibrillator) present: Currently stable following with the cardiology as outpatient PDMP PDMP Reviewed: Not Reviewed Attestations 2 Medical Necessity Statement*: Patient will stay overnight for further management of acute heart failure s/p STEMI and PCI requiring GDMT and monitoring of her hemodynamics Patient also requires OT PT considering her MS involving her right leg which is cute in this admission secondary to stress related to STEMI Time Spent in Patient Care: 16 - 35 minutes (>than 50% of time sp ent in counselling and/or direct pt care on unit) . Critical Care Time: The high probability of a clinically significant, sudden or life threatening deterioration, as referenced in this documentation, required my full and direct attention, intervention and personal management. The critical care time shown is in addition to time spent performing any reported separately billable procedures and includes the following: [x] Data and vital sign review and interpretation [x ] Patient assessment, examination and intervention [x] Medication orders and management [x] Patient/Family updates as able [x] Care Coordination and Documentation. Critical Care Time (min): 35 Other Attestations: Patient condition has been discussed at length with the patient/family, I have independently reviewed the chart labs imaging/diagnostics/EKG. the goals of care and code status with the patient/family/NOK/legal sales representative meats, and documented accordingly. The patient/family has been informed about the current condition and further plan of care. Agreed with the plan of care and understood without any language barrier. Every effort was made to ensure accuracy of director of recreation therapy. Any obvious errors or omissions should be clarified with the author of the document. Coding Level of Care Code Critical Care >/= [address] elevation [place] (STEMI) I21.3 Heart failure with reduced ejection fraction I50.20 Hyperlipidemia E78.5 Hypertension I10 Multiple sclerosis G35.D AICD (automatic cardioverter/defibrillator) present Z95.810
[2025-04-04] VITALS (42 sets, daily range): BP systolic 69–113; BP diastolic 41–69; PULSE 67–83; RESP 12–25; TEMP 36.2–37.3; O2SAT 87–96
[2025-04-04 04:54] LABS: Hematocrit 45.1 % (36-47); Hemoglobin 14.70 g/dL (11.27-16.99); Mean Corpuscular HGB Conc 32.6 g/dL (30-55); Mean Corpuscular Hemoglobin 28.8 pg (27-33); Mean Corpuscular Volume 88.4 fl (85-98); Nucleated Red Blood Cells % 0 %; Platelet Count 212 10^3/cmm (157-399); Red Blood Count 5.10 10^6/uL (3.85-5.65); White Blood Count 8.24 10^3/uL (3.29-11.43)
[2025-04-04 05:12] LABS: Alanine Aminotransferase 15 U/L (0-33); Albumin Level 3.5 g/dL (3.5-5.2); Alkaline Phosphatase 58 U/L (35-105); Anion Gap 15.7 (5-19); Aspartate Amino Transferase 17 U/L (0-32); Blood Urea Nitrogen 19 mg/dL (8-23); Calcium 9.0 mg/dL (8.5-10.5); Carbon Dioxide 29 mmol/L (22-29); Chloride 98 mmol/L (98-107); Creatinine Clr Calc Pharmacy 79.4414; Globulin 2.6 g/dL (1.3-4.6); Glucose 88 mg/dL (65-115); Osmolality Calculated 290 mOsm/kg (285-295); Potassium 3.7 mmol/L (3.5-5.1); Sodium 139 mmol/L (136-145); Total Protein 6.1 g/dL (6.6-8.7)
[2025-04-04] MEDS: multivitamin therapeutic Tablet 1 TAB PO (05:23)
[2025-04-04] MEDS: DAPAGLIFLOZIN 5 MG TABLET PO (05:24)
--- NOTE | 2025-04-04 11:00 | P.PN_ITS ---
<Statement entered by Stephanie Nettles MD - 04/11/25 19:42> Patient was evaluated and cared for in conjunction with an advanced practice practitioner. I personally examined the patient and reviewed the chart and all pertinent data including imaging, telemetry, and laboratory results. I discussed the patient in detail with the advanced practice practitioner. Please see their note for complete H&P testing result and agreed upon plan of care for the patient Subjective 2 Subjective: She is doing well this morning, no chest pain or shortness of breath. Vitals/I&O/Wt Last Vital Signs Temp 98.2 F 04/04/25 08:15 Pulse 73 04/04/25 14:00 Resp 12 04/04/25 12:00 BP 102/67 04/04/25 12:00 Pulse Ox 91 04/04/25 12:00 O2 Del Method Room Air 04/04/25 11:30 O2 Flow Rate 1 04/03/25 08:00 FiO2 30 04/03/25 18:00 04/03/25 04/04/25 04/04/25 22:59 06:59 14:59 Intake Total 240 / 960 340 / 340 Output Total 2050 / 2700 650 / 2700 Balance -1810 / -1740 -650 / -1740 340 / 340 Weight last 48 hrs Weight 226 lb 4.8 oz Physical Exam 2 Const: COMMON NORMALS: no acute distress and patient oriented x3 GENERAL APPEARANCE: cooperative and comfortable ORIENTATION/CONSCIOUSNESS: Yes awake, Yes oriented to person, Yes oriented to place and Yes oriented to time Chest: COMMONS NORMALS: normal inspection of the chest and normal palpation of entire chest wall CHEST: Yes Symmetrical chest wall rise Resp: COMMON NORMALS: normal respiratory effort, No retractions, No use of accessory muscles and clear to auscultation bilaterally EFFORT & INSPECTION: Yes symmetric chest movement AUSCULTATION: clear to auscultation bilaterally Cardio: COMMON NORMALS: regular rate, regular rhythm, S1 normal heart sound present, S2 normal heart sound present, No gallops present (Cardio), No clicks present (Cardio), No murmurs present (Cardio) and No rub (Cardio) RATE: r egular rate RHYTHM: regular rhythm HEART SOUNDS: S1 normal heart sound present and S2 normal heart sound present PERIPHERAL PULSES: radial pulses present Extremity: COMMON NORMALS: no pedal edema Neuro: COMMON NORMALS: patient oriented x3 and moves all extremities S ENSORIUM/ORIENTATION: Yes oriented to person, Yes oriented to place and Yes oriented to time Urinary Catheter Management: Warren: Cath Placed During This Visit: yes Reason for Continuing Indwelling Catheter: Accurate Measurement of Urinary Output in Critically Ill Patients Urinary Catheter Date of Insertion: 03/30/25 Urinary Catheter Time of Insertion: 14:46 Data 04/04/25 03:52 04/04/25 03:52 A&P Assessment and plan 1. ST elevation [place] (STEMI): 2. Hyperlipidemia: 3. Peripheral edema: 4. Congestive heart failure: 5. AICD (automatic cardioverter/defibrillator) present: 6. MS (multiple sclerosis): 7. LV dysfunction: Plan: Planning to discharge to rehabilitation today. Continue Farxiga, since blood pressure has been hypotensive we will need to optimize medication prior to discharge by holding Entresto, switching carvedilol to metoprolol succinate 12.5 mg daily, adding midodrine 5mg TID. Continue aspirin, Plavix, Lasix, atorvastatin. Will have her follow-up in the cardiology clinic in 2 weeks for reevaluation prior to ordering staged PCI of the RCA. Since LVEF is low and the ICD is not functioning she will require LifeVest. PDMP PDMP Reviewed: Not Reviewed Attestations 2 Medical Necessity Statement*: Discharge today Coding Level of Care Code Acute Code for Chg Fwd Diagnoses ST elevation MS (STEMI) I21.3 Hyperlipidemia E78.5 Peripheral edema R60.0 Congestive heart failure I50.9 AICD (automatic cardioverter/defibrillator) present Z95.810 MS (multiple sclerosis) G35.D LV dysfunction I51.9
--- NOTE | 2025-04-04 14:03 | PM.PN ---
Subjective Subjective: Patient seen in the morning, voices no complaints and currently doing better The patient still having her new right leg since she has progressive MS and any stress triggers her weakness. Following with OT PT Patient for rehab arrangement postdischarge Cardiology on board for further management of heart failure Vitals/I&O/Wt Last Vital Signs Temp 98.2 F 04/04/25 08:15 Pulse 72 04/04/25 12:00 Resp 12 04/04/25 12:00 BP 102/67 04/04/25 12:00 Pulse Ox 91 04/04/25 12:00 O2 Del Method Room Air 04/04/25 11:30 O2 Flow Rate 1 04/03/25 08:00 FiO2 30 04/03/25 18:00 04/03/25 04/04/25 04/04/25 22:59 06:59 14:59 Intake Total 240 / 960 340 / 340 Output Total 2049 / 2049 650 / 2700 Balance -1810 / -1090 -650 / -1740 340 / 340 Weight last 48 hrs Weight 102.648 kg Physical Exam Narrative: General: Alert and oriented, lying comfortably without any distress on room air HEENT: Normocephalic, atraumatic, grossly unremarkable exam Cardio: normal rate rhythm, normal S1-S2 without any murmurs, rubs, or gallops and JVD normal Respiratory: normal vascular breathing on auscultation without any wheezes, stridor, rhonchi GI: Abdomen soft, nontender, nondistended, normoactive bowel sounds present all 4 quadrants, Neuro: At baseline, patient has neurological deficit in her lower extremities secondary to multiple sclerosis. However she is alert and oriented Behavior: Appropriate and cooperative Extremities: Adequate palpable pulses, mild pedal trace edema Urinary Catheter Management: Warren: Cath Placed During This Visit: yes Reason for Continuing Indwelling Catheter: Accurate Measurement of Urinary Output in Critically Ill Patients Urinary Catheter Date of Insertion: 03/30/25 Urinary Catheter Time of Insertion: 14:46 Data 04/04/25 03:52 04/04/25 03:52 A&P Assessment and plan 1. ST elevation [place] (STEMI): Patient s/p cath to LAD and cardiology is planning for PCI to RCA as well. Found to have low EF, avoid any acute rehab to stress the heart. Continue on aspirin Plavix statins Entresto beta-blockers SGLT2 inhibitors and Lasix guided by the blood pressure Telemetry monitoring Cardiology on board and follow the plan Cardiac rehab Maintaining normal hemodynamics 2. Heart failure with reduced ejection fraction: Patient having low EF started on GDMT for heart failure with reduced ejection fraction, guided by blood pressure Patient switched from carvedilol to metoprolol 12.5 mg daily Continue Entresto 24/26 twice daily, aspirin Plavix and atorvastatin Farxiga 5 mg daily. Continue Lasix 40 mg daily. Patient would likely to be discharged after arranging acute rehab with further planning to bring her back in 3 to 4 weeks for RCA atherectomy and PCI as per cardiology plan Keep MAP above 65 Telemetry monitoring 3. Hyperlipidemia: Continue on high-dose statin status post cath 4. Hypertension: Currently stable blood pressure and monitor 5. Multiple sclerosis: Not taking any treatment at the moment OT PT evaluation since the patient has baseline neurological deficit involving lower and upper extremities and is accepted for acute rehab 6. AICD (automatic cardioverter/defibrillator) present: Currently stable following with the cardiology as outpatient PDMP PDMP Reviewed: Not Reviewed Attestations Medical Necessity Statement*: Patient will stay overnight for the arrangement of postdischarge rehab Likely discharge tomorrow Time Spent in Patient Care: 16 - 35 minutes (>than 50% of time spent in counselling and/or direct pt care on unit). Other Attestations: Patient condition has been discussed at length with the patient/family, I have independently reviewed the chart labs imaging/diagnostics/EKG. the goals of care and code status with the patient/family/NOK/legal inbound call center representative, and documented accordingly. The patient/family has been informed about the current condition and further plan of care. Agreed with the plan of care and understood without any language barrier. Every effort was made to ensure accuracy of nuclear worker technician. Any obvious errors or omissions should be clarified with the author of the document. Coding Level of Care Code [address] elevation [place] (STEMI) I21.3 Heart failure with reduced ejection fraction I50.20 Hyperlipidemia E78.5 Hypertension I10 Multiple sclerosis G35.D AICD (automatic cardioverter/defibrillator) present Z95.810
--- NOTE | 2025-04-04 14:33 | PC.SOCIAL ---
IMM Update pg 2 of IMM Updated and reviewed w/ patient. Copy provided and copy dated, initialed and placed in chart.
--- NOTE | 2025-04-04 19:44 | PC.NURSE ---
Shift summary: Pt rested in bed throughout the shift. Sit to stand utilized to assist he to BSC once. She did not want to sit up in a chair today. She has a good appetite. She ate majority of her meals. Sinus rhythm noted on monitor. Edema noted left ankle this am, mostly resolved this evening. She reports neuropathy in her feet, socks hurt. Her Bp was soft after Farxiga and Entresto this am, Midodrine started today. Her beta ramon changed also. Urine output of 1250. Large formed Bm this shift.
[2025-04-05] VITALS (8 sets, daily range): BP systolic 93–115; BP diastolic 57–66; PULSE 67–76; RESP 15–21; TEMP 36.4–37.3; O2SAT 90–95
[2025-04-05] MEDS: multivitamin therapeutic Tablet 1 TAB PO (05:48)
[2025-04-05] MEDS: metoprolol succinate ER (24 HR) 25 mg Tablet 12.5 MG PO (05:48)
[2025-04-05] MEDS: DAPAGLIFLOZIN 5 MG TABLET PO (05:49)
--- NOTE | 2025-04-05 09:59 | P.PN_ITS ---
<Statement entered by Stephanie Nettles MD - 04/06/25 18:45> Patient was evaluated and cared for in conjunction with an advanced practice practitioner. I personally examined the patient and reviewed the chart and all pertinent data including imaging, telemetry, and laboratory results. I discussed the patient in detail with the advanced practice practitioner. Please see their note for complete H&P testing result and agreed upon plan of care for the patient. GENERAL: Patient is alert, awake and oriented x3. HEART: Regular S1 and S2. No murmur, rub or gallop. LUNGS: Clear to auscultate bilaterally. CENTRAL NERVOUS SYSTEM: Grossly nonfocal. EXTREMITIES: Lower extremities with out edema bilaterally. Assessment and plan ST elevation [place] Severely depressed left ventricle ejection fraction estimate ejection fraction less than 35% Ischemic cardiomyopathy Hypotension Coronary artery disease status post drug-eluting stent to LAD for ST ovation [place], high-grade calcified mid RCA stenosis, planned staged PCI with arthrectomy in 4 to 6 weeks Doing fine from a cardiovascular perspective, recommend LifeVest for severely depressed ejection fraction since patient ICD in place is not working due to dislodgment of the lead in the past. According to her she has never repaired her lead since ejection fraction at that time was 40% or more. Continue aspirin and statin Plavix Farxiga beta-ramon and diuretics. Will optimize medication once tolerate blood pressure orta will add Entresto Subjective 2 Subjective: No events overnight, she will have Lifevest placed today. Awaiting authorization for rehab. Vitals/I&O/Wt Last Vital Signs Temp 98.2 F 04/05/25 07:26 Pulse 74 04/05/25 07:26 Resp 15 04/05/25 07:26 BP 115/65 04/05/25 07:26 Pulse Ox 92 04/05/25 07:26 O2 Del Method Room Air 04/05/25 07:26 O2 Flow Rate 1 04/03/25 08:00 FiO2 30 04/03/25 18:00 04/04/25 04/05/25 04/05/25 22:59 06:59 14:59 Intake Total 350 / 1235 120 / 1235 Output Total 1250 / 2500 1250 / 2500 Balance -900 / -1265 -1130 / -1265 Weight last 48 hrs Weight 222 lb 10.67 oz Weight 222 lb 10.67 oz Weight 226 lb 4.8 oz Physical Exam 2 Const: COMMON NORMALS: no acute distress and patient oriented x3 GENERAL APPEARANCE: cooperative and comfortable ORIENTATION/CONSCIOUSNESS: Yes awake, Yes oriented to person, Yes oriented to place and Yes oriented to time Chest: COMMONS NORMALS: normal inspection of the chest and normal palpation of entire chest wall CHEST: Yes Symmetrical chest wall rise Resp: COMMON NORMALS: normal respiratory effort, No retractions, No use of accessory muscles and clear to auscultation bilaterally EFFORT & INSPECTION: Yes symmetric chest movement AUSCULTATION: clear to auscultation bilaterally Cardio: COMMON NORMALS: regular rate, regular rhythm, S1 normal heart sound present, S2 normal heart sound present, No gallops present (Cardio), No clicks present (Cardio), No murmurs present (Cardio) and No rub (Cardio) RATE: r egular rate RHYTHM: regular rhythm HEART SOUNDS: S1 normal heart sound present and S2 normal heart sound present PERIPHERAL PULSES: radial pulses present Extremity: COMMON NORMALS: no pedal edema Neuro: COMMON NORMALS: patient oriented x3 and moves all extremities S ENSORIUM/ORIENTATION: Yes oriented to person, Yes oriented to place and Yes oriented to time Urinary Catheter Management: Warren: Cath Placed During This Visit: yes Reason for Continuing Indwelling Catheter: Accurate Measurement of Urinary Output in Critically Ill Patients Urinary Catheter Date of Insertion: 03/30/25 Urinary Catheter Time of Insertion: 14:46 Data 04/04/25 03:52 04/04/25 03:52 A&P Assessment and plan 1. ST elevation [place] (STEMI): 2. Hyperlipidemia: 3. Congestive heart failure: 4. AICD (automatic cardioverter/defibrillator) present: 5. MS (multiple sclerosis): 6. LV dysfunction: Plan: She is doing well, appears euvolemic. Continue metoprolol succinate 12.5mg daily, Farxiga, midodrine 5mg TID, aspirin, Plavix, Lasix 40mg daily, statin. Follow up in 2 weeks in the cardiology clinic for reassessment prior to scheduling of staged RCA intervention. PDMP PDMP Reviewed: Not Reviewed Attestations 2 Medical Necessity Statement*: DC today Coding Level of Care Code Acute Code for Chg Fwd Diagnoses ST elevation [place] (STEMI) I21.3 Hyperlipidemia E78.5 Congestive heart failure I50.9 AICD (automatic cardioverter/defibrillator) present Z95.810 MS (multiple sclerosis) G35.D LV dysfunction I51.9
--- NOTE | 2025-04-05 11:45 | P.PN_ITS ---
Subjective 2 Subjective: Patient was seen in the morning, was doing well, voiced no complaints No events overnight, she will have Lifevest placed today. Awaiting authorization for rehab. Vitals/I&O/Wt Last Vital Signs Temp 97.9 F 04/05/25 11:32 Pulse 71 04/05/25 11:32 Resp 15 04/05/25 11:32 BP 96/57 04/05/25 11:32 Pulse Ox 92 04/05/25 11:32 O2 Del Method Room Air 04/05/25 07:26 O2 Flow Rate 1 04/03/25 08:00 FiO2 30 04/03/25 18:00 04/04/25 04/05/25 04/05/25 22:59 06:59 14:59 Intake Total 350 / 1115 120 / 1235 Output Total 1250 / 1250 1250 / 2500 Balance -900 / -135 -1130 / -1265 Weight last 48 hrs Weight 101 kg Weight 101 kg Weight 102.648 kg Physical Exam 2 Narrative: General: Alert and oriented, lying comfortably without any distress on room air HEENT: Normocephalic, atraumatic, grossly unremarkable exam Cardio: normal rate rhythm, normal S1-S2 without any murmurs, rubs, or gallops and JVD normal Respiratory: normal vascular breathing on auscultation without any wheezes, stridor, rhonchi GI: Abdomen soft, nontender, nondistended, normoactive bowel sounds present all 4 quadrants, Neuro: At baseline, patient has neurological deficit in her lower extremities secondary to multiple sclerosis. However she is alert and oriented Behavior: Appropriate and cooperative Extremities: Adequate palpable pulses, mild pedal trace edema Urinary Catheter Management: Warren: Cath Placed During This Visit: yes Reason for Continuing Indwelling Catheter: Accurate Measurement of Urinary Output in Critically Ill Patients Urinary Catheter Date of Insertion: 03/30/25 Urinary Catheter Time of Insertion: 14:46 Data 04/04/25 03:52 04/04/25 03:52 A&P Assessment and plan 1. ST elevation [place] (STEMI): Patient s/p cath to LAD and cardiology is planning for PCI to RCA as well. Found to have low EF, avoid any acute rehab to stress the heart. Continue on aspirin Plavix statins Entresto beta-blockers SGLT2 inhibitors and Lasix guided by the blood pressure Continue midodrine 5 mg 3 times daily to support the blood pressure along with GDMT, since the patient blood pressure runs a little on the soft side Telemetry monitoring Cardiology on board and follow the plan Cardiac rehab LifeVest placement and to discharge to rehab facility Maintaining normal hemodynamics 2. Heart failure with reduced ejection fraction: Patient having low EF started on GDMT for heart failure with reduced ejection fraction, guided by blood pressure Continue metoprolol 12.5 mg XL daily Continue Entresto 24/26 twice daily, aspirin Plavix and atorvastatin Farxiga 5 mg daily. Lasix 40 oral to continue Patient would likely to be discharged after arranging acute rehab with further planning to bring her back in 3 to 4 weeks for RCA atherectomy and PCI as per cardiology plan Keep MAP above 65 Telemetry monitoring 3. Hyperlipidemia: Continue on high-dose statin status post cath 4. Hypertension: Currently stable blood pressure and monitor 5. Multiple sclerosis: Not taking any treatment at the moment OT PT evaluation since the patient has baseline neurological deficit involving lower and upper extremities and is accepted for acute rehab 6. AICD (automatic cardioverter/defibrillator) present: Currently stable following with the cardiology as outpatient PDMP PDMP Reviewed: Not Reviewed Attestations 2 Medical Necessity Statement*: Patient will stay overnight for further authorization and transfer to acute rehab status post LifeVest placement and management of post STEMI heart failure with reduced ejection fraction continue Time Spent in Patient Care: 16 - 35 minutes (>than 50% of time sp ent in counselling and/or direct pt care on unit) . Other Attestations: Patient condition has been discussed at length with the patient/family, I have independently reviewed the chart labs imaging/diagnostics/EKG. the goals of care and code status with the patient/family/NOK/legal human resources hr representative, and documented accordingly. The patient/family has been informed about the current condition and further plan of care. Agreed with the plan of care and understood without any language barrier. Every effort was made to ensure accuracy of maintenance scheduler. Any obvious errors or omissions should be clarified with the author of the document. Coding Level of Care Code [address] elevation [place] (STEMI) I21.3 Heart failure with reduced ejection fraction I50.20 Hyperlipidemia E78.5 Hypertension I10 Multiple sclerosis G35.D AICD (automatic cardioverter/defibrillator) present Z95.810
--- NOTE | 2025-04-05 18:11 | P.DS_ITS ---
Discharge Providers Date of Admission: 03/30/25 14:19 Date of Discharge: April 05, 2025 Attending Provider at Admission: Stephanie Nettles MD Attending Provider at Discharge: Anna Leal MD Primary Care Provider: ZOYA Cornell Diagnoses at Discharge Discharge Diagnosis 1. ST elevation NH (STEMI): 2. Hyperlipidemia: 3. Congestive heart failure: 4. AICD (automatic cardioverter/defibrillator) present: 5. MS (multiple sclerosis): 6. LV dysfunction: Reason for Visit Reason for Visit: STEMI Brief History: As per the previous notes and the patient Jo Ricks is a 70 year old female with past medical history of primary progressive multiple sclerosis, hyperlipidemia, hypertension, history of NH and chronic artery disease with AICD in place as per the previous notes was referred from her office visit since her blood pressure was quite low and she was having increased diaphoresis and becoming pale. The patient was having desaturation and was started on oxygen supplementation and loaded with aspirin 325 because she also reported sharp chest pain with diaphoresis at the time of visit. STEMI alert was activated and she underwent cath with stenting to proximal LAD and is planned for staged PCI to mid high-grade RCA in week to 2 weeks. She is admitted for management of STEMI s/p stenting On review of system the patient did not report any gradual chest pain or chest pressure in the past or any lower leg swellings orthopnea or PND. No change in her urinary or bowel habits in the last days. No fever or chills Rest of the review of system was unremarkable in the history. She further elaborated that she has multiple sclerosis of primary progressive in nature currently not taking any treatment and has debilitating disease with persistent neurological deficits. Hospital Course Hospital Course The patient was managed as a case of STEMI s/p PCI to LAD and further plan of cardiology as an outpatient for PCI to RCA. She was found to have low EF around 20 to 25% and was started on aspirin Plavix statin and Entresto with SGLT2 inhibitors with Lasix guided by her blood pressure. She was having soft blood pressure therefore midodrine 5 mg 3 times twice daily added to her regimen. She was kept on Lasix 40 mg oral daily, metoprolol, Farxiga, statin, Plavix, aspirin as per cardiology recommendation. Entresto was held considering she was having low blood pressure and to follow-up with the cardiology as outpatient. She also had multiple sclerosis therefore OT PT evaluation was provided and she was accepted for acute rehab since during her admission post STEMI her right foot started to have weakness which was not there before and required occupational and physical therapist to help her with it. [facility] was arranged before discharge as per cardiology recommendation and then she was discharged to her acute rehab facility for further management Adequate medication reconciliation was done and appropriate referrals were provided to optimize patient care. Patient condition has been discussed at length with the patient/family, I have independently reviewed the chart labs imaging/diagnostics/EKG. the goals of care and code status with the patient/family/NOK/legal technical sales representative, and documented accordingly. The management has been done according to the current clinical condition with respect to patient goals of care and based on recommendations/guidelines. The patient/family has been informed about the current condition and further plan of care. Agreed with the plan of care and understood without any language barrier. Every effort was made to ensure accuracy of fibrous wallboard inspector. Any obvious errors or omissions should be clarified with the author of the document. Physical Exam Narrative: General: Alert and oriented, lying comfortably without any distress on room air HEENT: Normocephalic, atraumatic, grossly unremarkable exam Cardio: normal rate rhythm, normal S1-S2 without any murmurs, rubs, or gallops and JVD normal Respiratory: normal vascular breathing on auscultation without any wheezes, stridor, rhonchi GI: Abdomen soft, nontender, nondistended, normoactive bowel sounds present all 4 quadrants, Neuro: At baseline, patient has neurological deficit in her lower extremities secondary to multiple sclerosis. However she is alert and oriented Behavior: Appropriate and cooperative Extremities: Adequate palpable pulses, mild pedal trace edema Urinary Catheter Management: Warren: Cath Placed During This Visit: yes Reason for Continuing Indwelling Catheter: Accurate Measurement of Urinary Output in Critically Ill Patients Urinary Catheter Date of Insertion: 03/30/25 Urinary Catheter Time of Insertion: 14:46 Discharge Data Studies Completed and Pending Completed Studies During Hospitalization Category Date Time Status CV. echo complete* [id number] Routine Ultrasound 03/31/25 11:53 Completed US liver [id number] Routine Ultrasound 03/31/25 07:37 Completed Pending at discharge Category Date Time Status TELEVISION INSPECTOR request for service Routine Exams 03/30/25 12:39 Taken Radiology Impressions Liver Ultrasound 03/31/25 07:37 IMPRESSION: 1. Normal gallbladder. 2. Poorly visualized liver. No abnormality identified. 3. No intrahepatic duct dilatation. Laboratory Results WBC 8.24 10^3/uL (3.29-11.43) 04/04/25 03:52 RBC 5.10 10^6/uL (3.85-5.65) 04/04/25 03:52 Hgb 14.70 g/dL (11.27-16.99) 04/04/25 03:52 Hct 45.1 % (36-47) 04/04/25 03:52 MCV 88.4 fl (85-98) 04/04/25 03:52 MCH 28.8 pg (27-33) 04/04/25 03:52 MCHC 32.6 g/dL (30-55) 04/04/25 03:52 RDW 14.1 % (12.1-15.1) 04/04/25 03:52 Plt Count 212 10^3/cmm (157-399) 04/04/25 03:52 MPV 10.7 fL (7.4-10.4) H 04/04/25 03:52 Neut % (Auto) 72.7 % 04/04/25 03:52 Lymph % (Auto) 16.7 % 04/04/25 03:52 Gallia % (Auto) 6.6 % 04/04/25 03:52 Eos % (Auto) 2.8 % 04/04/25 03:52 Baso % (Auto) 0.6 % 04/04/25 03:52 Neut # (Auto) 5.99 10^3/uL (1.8-7.7) 04/04/25 03:52 Lymph # (Auto) 1.4 10^3/uL (0.8-4.8) 04/04/25 03:52 Gallia # (Auto) 0.5 10^3/uL (0.2-0.9) 04/04/25 03:52 Eos # (Auto) 0.2 10^3/uL (0.0-0.8) 04/04/25 03:52 Baso # (Auto) 0.1 10^3/uL (0.0-0.1) 04/04/25 03:52 Nucleated RBC % (auto) 0 % 04/04/25 03:52 Nucleated RBCs # 0.0 /100WBC 04/04/25 03:52 APTT 28.3 SECONDS (23.9-36.7) D 03/30/25 21:29 Sodium 139 mmol/L (136-145) 04/04/25 03:52 Potassium 3.7 mmol/L (3.5-5.1) 04/04/25 03:52 Chloride 98 mmol/L (98-107) 04/04/25 03:52 Carbon Dioxide 29 mmol/L (22-29) 04/04/25 03:52 Anion Gap 15.7 (5-19) 04/04/25 03:52 BUN 19 mg/dL (8-23) 04/04/25 03:52 Creatinine 0.6 mg/dL (0.5-0.9) 04/04/25 03:52 GFR Calculation Not Reportable 04/04/25 03:52 Glucose 88 mg/dL (65-115) 04/04/25 03:52 Estimat Average Glucose 97 03/30/25 17:29 Hemoglobin A1c 5.0 % (4.0-6.0) 03/30/25 17:29 Calculated Osmolality 290 mOsm/kg (285-295) 04/04/25 03:52 Calcium 9.0 mg/dL (8.5-10.5) 04/04/25 03:52 Phosphorus 3.4 mg/dL (2.5-4.5) 04/01/25 04:27 Magnesium 1.9 mg/dL (1.7-2.3) 04/02/25 03:54 Total Bilirubin 0.8 mg/dL (0.15-1.2) 04/04/25 03:52 AST 17 U/L (0-32) 04/04/25 03:52 ALT 15 U/L (0-33) 04/04/25 03:52 Alkaline Phosphatase 58 U/L (35-105) 04/04/25 03:52 Troponin T Baseline 56 ng/L (0-10) H 03/30/25 12:22 NT-Pro-B Natriuret Pep 1452 pg/mL (0-125) H 03/30/25 17:29 Total Protein 6.1 g/dL (6.6-8.7) L 04/04/25 03:52 Albumin 3.5 g/dL (3.5-5.2) 04/04/25 03:52 Globulin 2.6 g/dL (1.3-4.6) 04/04/25 03:52 Triglycerides 107 mg/dL (0-150) 03/30/25 17: Cholesterol 146 mg/dL (0-200) 03/30/25 17:29 LDL Cholesterol, Calc 79 mg/dL (50-129) 03/30/25 17: HDL Cholesterol 46 mg/dL (60-100) L 03/30/25 17: LDL/HDL Ratio 1.72 RATIO (0.00-3.22) 03/30/25 17: Cholesterol/HDL Ratio 3.17 mg/dL (0.0-4.40) 03/30/25 17: TSH 1.62 uIU/mL (0.27-4.20) 03/30/25 17: Vitals Last Vital Signs Temp 97.5 F L 04/05/25 16:21 Pulse 71 04/05/25 16:21 Resp 20 H 04/05/25 16:21 BP 98/57 04/05/25 16:21 Pulse Ox 95 04/05/25 16:21 O2 Del Method Room Air 04/05/25 07:26 O2 Flow Rate 1 04/03/25 08:00 FiO2 30 04/03/25 18:00 Discharge Plan Discharge Patient Disposition: Xfer SNF Condition: Stable Prescriptions: New atorvastatin 40 mg Tablet 40 mg PO BEDTIME 60 Days Qty: 60 0RF midodrine 5 mg Tablet 5 mg PO TID 60 Days Qty: 180 0RF clopidogrel 75 mg Tablet 75 mg PO DAILY 60 Days Qty: 60 0RF furosemide 20 mg Tablet 40 mg PO DAILY 60 Days Qty: 60 0RF metoprolol succinate 25 mg Tablet Extended Release 24 Hr 12.5 mg PO DAILY 60 Days Qty: 60 0RF dapagliflozin propanediol 5 mg Tablet 5 mg PO DAILY 60 Days Qty: 60 0RF Continued ascorbic acid (vitamin C) 500 mg tablet 500 mg PO BID (DME) left knee brace See Rx Instructions .Route .MEDSUPPLY Qty: 1 0RF Rx Instructions: Left knee and ankle brace fitting nitroglycerin [Nitrostat] 0.4 mg tablet, sublingual 0.4 mg SUBLINGUAL Q5M PRN (Reason: Chest Pain) Qty: 30 1RF Rx Instructions: max 3 doses cholecalciferol (vitamin D3) [Vitamin D3] 50 mcg (2,000 unit) Tablet 50 mcg PO QAM [id number]-[id number] Tablet 1 tab PO DAILY aspirin 81 mg Tablet,Delayed Release (Dr/Ec) 81 mg PO QAM 60 Days Qty: 60 0RF Spark Plug Tester OK for DC: Cardiology Discharge Order = DC NOW: Discharge Order (Routine); Ordered 04/05/25 Ordered By: Anna Leal Referrals: [facility] [Outside] Funmilayo Rodriguez FNP [Primary Care Provider, Family Practice] Hu Venegas MD [Physician, Cardiology] - 04/11/25 3:45 pm Discharge Diet: Advance as tolerated, Usual diet, Cardiac, Low Salt, Low Cholesterol and Low Fat Discharge Activity: Increase activity as tolerated, As per PT/OT instructions and As per cardiac/pulm rehab instructions Patient Instructions: Metoprolol (By mouth) (Lopressor, Toprol XL), Furosemide (By mouth) (Lasix), Midodrine (By mouth), Atorvastatin (By mouth) (Lipitor, Atorvaliq), Clopidogrel (By mouth) (Plavix), Dapagliflozin (By mouth) (Farxiga), Coronary Angioplasty (DC), Chest Pain Stoplight, Opioid Safety, Post Angiogram Home Care Instructions, Patient Portal & Yeyo Instructions Discharge Attestations Time Spent in Discharge Care*: critical care time Critical Care Time (min): 35 Specific Discharge Activities: educating patient, educating and/or supporting family/caregiver, discussing with pcp/other providers, discussing with human services case manager/social workers/dc planners, documenting/other paperwork and evaluating patient/reviewing data Status at Discharge: Cognitive status at discharge: cognitively intact , Behavioral status at discharge: cooperative , Functional status at discharge: other assisted ambulation , Overall status at discharge: patient is progressing back to baseline Quality Metrics Clinical Quality Measures [ Acute Myocardial Infaction { Clinical Trial Participant: No; Contraindication to aspirin: None; Aspirin prescribed; Contraindication to statin: None; Statin prescribed;}] Coding Level of Care Code Critical Care >/= [address] elevation NH (STEMI) I21.3 Hyperlipidemia E78.5 Congestive heart failure I50.9 Heart failure chronicity: acute on chronic AICD (automatic cardioverter/defibrillator) present Z95.810 MS (multiple sclerosis) G35 LV dysfunction I51.9
== END 2025-04-05 16:23 | disposition skilled nursing facility (03) | DRG 321 ==
LOC: ER 12:21 → CCL 12:23 → ICU 14:20 → CSU 04-05 06:15
PROVIDERS: Admitting Provider Internal Medicine Cardiovascular Disease; Emergency Provider Family Medicine; PCP Nurse Practitioner Family; Visit Provider Student in an Organized Health Care Education/Training Program
PROC: 027034Z Dilation of Coronary Artery, One Artery with Drug-eluting Intraluminal Device, Percutaneous Approach (ICD-10-PCS; principal; 2025-03-30 12:55)
PROC: 027034Z Dilation of Coronary Artery, One Artery with Drug-eluting Intraluminal Device, Percutaneous Approach (ICD-10-PCS; 2025-03-30 12:55)
DX: I21.3 ST elevation (STEMI) myocardial infarction of unspecified site (principal); I50.23 Acute on chronic systolic (congestive) heart failure; E78.5 Hyperlipidemia, unspecified; I11.0 Hypertensive heart disease with heart failure; G35.D Multiple sclerosis, unspecified; I25.2 Old myocardial infarction; I25.10 Atherosclerotic heart disease of native coronary artery without angina pectoris; Z68.34 Body mass index [BMI] 34.0-34.9, adult; I73.9 Peripheral vascular disease, unspecified; E66.9 Obesity, unspecified; I25.5 Ischemic cardiomyopathy; Z79.82 Long term (current) use of aspirin; Z79.02 Long term (current) use of antithrombotics/antiplatelets; Z95.810 Presence of automatic (implantable) cardiac defibrillator; Z87.891 Personal history of nicotine dependence
CPT/HCPCS: 36415; 51702; 76705; 80053; 80061; 83036; 83735; 83880; 84100; 84443; 84484; 85025; 85347; 85730; 93005; 93306; 93458; 96374; 97110; 97163; 97167; 97530; 97535; 99152; 99153; 99285; C1725; C1769; C1874; C1887; C1894; C9606; J0461; J1644; J1938; J2250; J2405; J3010; J3490; J7030; J7120; J9999; Q9967

== ENCOUNTER → 2025-04-11 15:53 | Outpatient (BNVA) | payer MEDICARE, SELFPAY | PROVIDERS: PCP Nurse Practitioner Family; Visit Provider Internal Medicine Cardiovascular Disease | DX: I11.0 Hypertensive heart disease with heart failure (principal); I50.20 Unspecified systolic (congestive) heart failure; E78.5 Hyperlipidemia, unspecified; Z95.810 Presence of automatic (implantable) cardiac defibrillator; Z87.891 Personal history of nicotine dependence; I25.2 Old myocardial infarction; I25.10 Atherosclerotic heart disease of native coronary artery without angina pectoris; I50.9 Heart failure, unspecified | CPT/HCPCS: 99214 ==

== ENCOUNTER 2025-04-28 14:37 | Outpatient (CLI) | payer MEDICARE, SELFPAY ==
--- NOTE | 2025-04-28 14:15 | USCV_ITS ---
Jo Ricks Age: 70 Gender: F : 1955 Exam Date: 04/28/2025 14:57 Ordering Phys: Hu Venegas MD ([email or web address]) Technologist: Exam Location: [facility] [place] Indication: ef BP: 127 / 76 HR: 74 Rhythm: Sinus Technical Quality: Adequate MEASUREMENTS (Male / Female) Normal Values 2D ECHO LV Diastolic Diameter PLAX 6.1 cm 4.2 - 5.9 / 3.9 - 5.3 cm IVS Diastolic Thickness 1.4 cm 0.6 - 1.0 / 0.6 - 0.9 cm IVS Systolic Thickness 1.7 cm LVPW Diastolic Thickness 1.4 cm 0.6 - 1.0 / 0.6 - 0.9 cm LVPW Systolic Thickness 1.6 cm LVOT Diameter 2.0 cm LV Ejection Fraction 2D Teich 37.1 % LV Ejection Fraction MOD 4C 43.3 % LV Ejection Fraction MOD 2C 31.4 % LV Ejection Fraction 2C AL 29.9 % LA Diameter 3.2 cm RA Systolic Volume 4C AL 48.1 ml RA Systolic Volume 4C MOD 46.2 ml Aorta at Sinotubular Diameter 3.0 cm M-MODE LA Ao Ratio MM 1.1 AV Cusp Separation MM 2.2 cm DOPPLER AV Peak Velocity 122.0 cm/s LVOT Peak Velocity 76.0 cm/s AV Area Cont Eq vti 2.4 cm squared AV Area Cont Eq pk 2.0 cm squared MV Peak Velocity 103.0 cm/s MV Area PHT 3.9 cm squared Mitral E to A Ratio 0.7 TR Peak Velocity 201.0 cm/s TR Peak Gradient 16.2 mmHg TV Peak E Velocity 109.0 cm/s PV Peak Velocity 88.0 cm/s FINDINGS Left Ventricle Moderately increased left ventricular cavity size. Mild left ventricular hypertrophy. Global left ventricular hypokinesis. Moderately decreased left ventricular systolic function. Moderately decreased left ventricular systolic function. Left ventricular ejection fraction is 37%. Normal diastolic function. Right Ventricle Normal right ventricular size and systolic function. Right Atrium Normal right atrial size. Left Atrium Normal left atrial size. IA Septum Normal appearance of the interatrial septum. Mitral Valve Normal mitral valve structure. Mild mitral valve regurgitation. Aortic Valve Normal aortic valve structure. No aortic valve stenosis or regurgitation. Tricuspid Valve Normal tricuspid valve structure. Trace regurgitation. Normal pulmonary pressure. Pulmonic Valve Normal pulmonic valve structure. No pulmonic valve stenosis or regurgitation. Pericardium No pericardial effusion. Aorta Normal diameter of the aortic root and ascending thoracic aorta. IVC Inferior vena cava not visualized. CONCLUSIONS Moderately increased left ventricular cavity size. Mild left ventricular hypertrophy. Global left ventricular hypokinesis. Moderately decreased left ventricular systolic function. Moderately decreased left ventricular systolic function. Left ventricular ejection fraction is 37%. Normal right ventricular size and systolic function. No significant valvular abnormalities. Hu Venegas MD, FACC (Electronically Signed) Final Date: 03 May 2025 20:49 S
== END 2025-04-28 14:38 | disposition home or self-care (01) ==
LOC: RAD 14:38
PROVIDERS: PCP Nurse Practitioner Family; Visit Provider Internal Medicine Cardiovascular Disease
DX: I50.9 Heart failure, unspecified (principal); I51.7 Cardiomegaly; I34.0 Nonrheumatic mitral (valve) insufficiency
CPT/HCPCS: 93306

== ENCOUNTER 2025-05-11 09:06 | Outpatient (CLI) | payer MEDICARE, SELFPAY ==
[2025-05-11] VITALS (15 sets, daily range): BP systolic 102–132; BP diastolic 58–94; PULSE 61–90; RESP 14–33; TEMP 36.6–36.7; O2SAT 92–97; BMI 35.2
--- NOTE | 2025-05-11 09:00 | XACV_ITS ---
Exam Room: 2 Ht: 170 cm Wt: 107 kg BSA: 2.29 m2 Gender: Female : 1955 Any Known Allergies: Other Exam Priority: Routine Procedure(s): Procedure Description: Diagnostic procedure Procedure Description: PCI procedure Procedure Description: PTCA Procedure Description: Miscellaneous Procedure Description: Temporary Pacemaker Insertion Procedure Description: Coronary Angiography Diagnostic Cath Status: Elective PCI Status: Elective Conclusions 1. Indication for left heart cath: Stage PCI to highly calcified mid and distal RCA severely depressed left ventricular ejection fraction, status post ST elevation MT few days ago when patient LAD was treated with drug-eluting stent postdilated with noncompliant balloon. Today patient was brought in for high risk PCI. Because of bradycardia and symptomatic bradycardia during prior left heart cath/PCI we proceeded with temporary pacemaker placement through right common femoral approach.Temporary pacemaker placement: Using Seldinger technique right common femoral vein was cannulated, 6 [place] sheath was passed. Temporary pacemaker was floated under sterilized condition, pacemaker tip was placed in right ventricle. Sensitivity and output was At 5, backup heart rate was 70 bpm, good capture was confirmed. We then proceeded with left heart catheterization to right common femoral artery approach, using Seldinger technique right common femoral artery was cannulated with 6 [place] sheath. JL catheter was used to cannulate left mainLeft main: Normal no significant disease LAD has patent previously placed proximal stent with good patency no in-stent thrombosis or restenosis noted LAD has luminal irregularity in mid to distal segment, diagonal branch is free of stenosis Left circumflex has luminal irregularity without significant stenosisRCA is a moderate caliber highly calcified vessel with proximal 80% mid high-grade 99% napkin ring and distal 80-90% diffuse disease. LV gram was performed, there is global severe hypokinesis with severely depressed left ventricle ejection fraction 30%Patient has defibrillator in place No significant aortic valve gradient noted Percutaneous angioplasty of the right coronary artery using balloon angioplasty, since mid RCA high-grade calcified stenosis did not yield much despite of multiple balloon angioplasty using compliant and noncompliant balloon, we attempted to cross with IV L catheter which remained unsuccessful, we attempted to cross it with score flex Cutting Balloon which remain unsuccessful, we performed low balloon angioplasty of the distal RCA where 90% lesion was reduced to 70% however since mid high-grade stenosis was not yielding we decided not to attempt stent placement and treated medical. Recommendations * 1-Return to inpatient for close monitoring and routine cath care 2-Risk factor modification for secondary prevention 3-Statin and aspirin 81 mg life-long, if tolerated 4-Continue Plavix 75mg p.o. daily for at least one year. We will assess at the end of one year again to continue if further or not 5-Continue optimal medical management and mximize 6-Follow up with Dr. Nettles in four weeks and your primary care in 10 days. Interventional RX Recommendation: medical therapy and/or counseling Diagnostic RX Recommendation: medical therapy and/or counseling Ventriculography Ejection Fraction: 30.0 % Pressures Phase:Rest AO : 122 / 69 ( 89 ) @ 11:00:00 AM 102 / 49 ( 69 ) @ 11:07:00 AM 109 / 47 ( 73 ) @ 11:07:00 AM 122 / 64 ( 84 ) @ 11:10:00 AM 114 / 71 ( 88 ) @ 11:20:00 AM 141 / 87 ( 111 ) @ 11:48:00 AM LV : 121 / 0 / 6 @ 11:06:00 AM 119 / 1 / 6 @ 11:07:00 AM Valves Phase:DefaultPhase AV : 15.0 @ 12:03:32 PM AV Mean Gradient: 16.0 @ 12:03:32 PM Clinical Evaluation EBL: 5mL-10mL Procedural Details Procedure Consent Obtained. Admit Source: Out Patient. Pre-Procedure Time Out. Identified patient by full name and date of as verbalized by the patient/guarantor. Does the consent match the physician's order: Yes. Accurate & Complete Informed Consent: Yes. Inpatient/Outpatient History & Physical on Chart: Yes. If H&P is completed, is and addenduem needed: No; If yes, is the addendum complete: N/A. Visualize and Verify Site with Patient/Guarantor: N/A. Relevant Radiology Images available: Yes. The risks, benefits, and alternatives of sedation and/or procedure were discussed by physician. The patient agrees to continue. Procedure started. Vital chart was stopped. [facility] Clinical Fraility Score: 4: Vulnerable. 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 Chest Pain Symptom Assessment: Typical Angina Symptoms. Correct patient, site and procedure confirmed by cath team. Current diagnosis: Unstable angina. PERRLA. Strong, equal hand straight line edger bilaterally. Lungs clear x 5 lobes. IV Site on Arrival: 20 gauge in the right wrist. IV Fluids: 0.9% NaCl at KVO. 0 mL infused prior to manager lab. Pre Procedural Pulses: bilateral radial was 2+. Pre Procedural Pulses: bilateral dorsalis pedis was Doppled. Pre Procedural Pulses: bilateral posterior tibial was Doppled. Oxygen started at 2liters/min via nasal canula. bilateral groins was prepped with chloroprep then draped in the usual sterile fashion. Physician notified. Baseline sample Acquired. HR: 55 BPM. Physician arrived. Physician scrubbed in. Immediate Pre-Procedure Time Out. Correct Patient: Yes; Correct Procedure: Yes; Correct Site: Yes; Correct Patient Position: Yes; Correct Supplies: Yes; Dried Flammable Prep: Yes; Blood Products Available: Yes;. Lidocaine 1% infiltrated to the right groin. Venous access obtained with a micropuncture set. Lidocaine 1% infiltrated to the right groin. An attempt to gain access to the right femoral artery was unsuccessful. Manual pressure was held as needed to stop the bleeding. Arterial access obtained with micropuncture set. A Right femoral angiogram was performed to determine safe placement of closure device. Temporary pacer inserted. Rate: 60. MA: 5. Sensitivity: 5. A 5 sammarinese JL4 catheter in over wire. Multiple views taken of left coronary artery. Catheter removed over the standard wire. A 5 sammarinese Angled Pig catheter in over wire. Wire out. EDP Sample taken: LV 121/-1,6; HR: 77 BPM; SpO2: 99%. Hand injection of contrast through pigtail catheter. Pullback taken: LV 119/1,6; AO 102/49(69); Mean: 16mmHg, Peak to Peak: 15mmHg, SEP: 22sec/min; HR: 70 BPM; SpO2: 99%. Catheter removed over the standard wire. 6 sammarinese AL I guide catheter was inserted over the wire. 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 Runthrough guidewire was advanced through the guide catheter to lesion, mid, and distal RCA. Balloon inserted to lesion in the mid RCA. Inflation number : 1 A AB TREK 2.50X15 RX BALLOON was prepped and advanced across the Mid RCA , then inflated to 14 HUMAIRA for 0:12 seconds. Inflation number: 2 The AB TREK 2.50X15 RX BALLOON was reinflated across the Mid RCA, to 18 HUMAIRA for 0:11 seconds. Balloon out. Runthrough wire out. Guide catheter out. 6 sammarinese AL 0.75 SH guide catheter was inserted over the wire. AP pads applied. ACT drawn. Results out of range high results. Therapeutic limits - pre-heparin administration 90-150 seconds and monitoring heparin during a vascular procedure >250 seconds. Runthrough guidewire was advanced through the guide catheter to lesion in the prox, mid, and distal RCA. Guidewire advanced across lesions. Balloon inserted to lesion in the mid LAD. Inflation number : 3 A AB TREK 2.50X8 RX BALLOON was prepped and advanced across the Mid RCA , then inflated to 14 HUMAIRA for 0:08 seconds. Inflation number: 4 The AB TREK 2.50X8 RX BALLOON was reinflated across the Mid RCA, to 16 HUMAIRA for 0:12 seconds. Balloon out. Balloon inserted to lesion in the distal RCA. Inflation number : 1 A AB TREK 2.50X15 RX BALLOON was prepped and advanced across the Dist RCA , then inflated to 14 HUMAIRA for 0:11 seconds. Inflation number: 2 The AB TREK 2.50X15 RX BALLOON was reinflated across the Dist RCA, to 14 HUMAIRA for 0:08 seconds. Inflation number: 5 The AB TREK 2.50X15 RX BALLOON was reinflated across the Mid RCA, to 16 HUMAIRA for 0:11 seconds. Inflation number: 6 The AB TREK 2.50X15 RX BALLOON was reinflated across the Mid RCA, to 18 HUMAIRA for 0:12 seconds. Inflation number: 7 The AB TREK 2.50X15 RX BALLOON was reinflated across the Mid RCA, to 20 HUMAIRA for 0:10 seconds. Inflation number: 8 The AB TREK 2.50X15 RX BALLOON was reinflated across the Mid RCA, to 22 HUMAIRA for 0:14 seconds. Balloon out. Results checked. ACT drawn. Results out of range high results. Therapeutic limits - pre-heparin administration 90-150 seconds and monitoring heparin during a vascular procedure >250 seconds. Balloon inserted to lesion in the mid RCA. 2.5 X 12mm IVL shockwave balloon unable to cross. Undeployed removed otw. Balloon inserted to lesion in the mid RCA. 2.5 X 10mm Scoreflex balloon unable to cross. Undeployed balloon out otw. ACT drawn. Results 292 seconds. Therapeutic limits - pre-heparin administration 90-150 seconds and monitoring heparin during a vascular procedure >250 seconds. Balloon inserted to lesion in the mid RCA. Inflation number : 9 A AB TREK 3.00X12 RX BALLOON was prepped and advanced across the Mid RCA , then inflated to 12 HUMAIRA for 0:22 seconds. Inflation number: 10 The AB TREK 3.00X12 RX BALLOON was reinflated across the Mid RCA, to 18 HUMAIRA for 0:19 seconds. Inflation number: 11 The AB TREK 3.00X12 RX BALLOON was reinflated across the Mid RCA, to 18 HUMAIRA for 0:10 seconds. Balloon out. Balloon inserted to lesion in the mid RCA. Unable to cross with 2.5 X 10 mm Scoreflex balloon. Balloon out otw. 6fr guideliner in over the runthrough. Balloon inserted to lesion in the mid RCA. Unable to cross with 2.5 X 10 scoreflex balloon. Balloon out otw. Guideliner out otw. Results checked. Wire out. Results checked. Guide catheter out. Temporary pacemaker lead out. A Suture was successful obtaining hemostatsis at the Right Femoral artery insertion site. A Suture was successful obtaining hemostatsis at the Right Femoral vein insertion site. Sheath(s) sutured into position with 2-0 silk and sterile 4x4's and Op-site applied over the site. No oozing or signs and symptoms of hematoma noted. Arterial sheath flushed and connected to tranducer and pressure bag with heparinized saline. Post Procedure: Pulses reassessed and unchanged. PERRLA. Strong, equal hand straight line edger bilaterally. No VTE prophylaxis required. Medication's Wasted: Lidocaine 1% = 12 mL. Medication's Wasted: Nitro = 49.8 mg. Medication's Wasted: Heparin = 1000 unit. Medication's Wasted: Other = Fentanyl 25mcg, Versed 1 mg. Total IV fluids: 88 mL. Post-op diagnosis: Highly calcified subtotal occlusion to RCA, Unsuccessful deliverability of IVL and scoreflex . Status post balloon angioplasty, stage for coronary atherectomy. Complications: None. Estimated blood loss: 5mL-10mL. Responsiveness - Normal response to verbal stimuli; alert and oriented, PERRLA. Airway - Unaffected, no intervention required; spontaneous ventilation. Circulation: W/N/L, pulses unchanged. Nausea/Vomiting: No. Procedure completed. Patient transferred by stretcher to CPRU. Vital chart was stopped. Access Site Site: Right Femoral vein Sheath Size: 6 Fr Hemostasis Method: Suture Hemostasis Success: Successful Site: Right Femoral artery Sheath Size: 6 Fr Hemostasis Method: Suture Hemostasis Success: Successful Procedure Medications Start: 10:12 AM Stop: 10:12 AM Medication: Versed Amount: 1 mg Route: I.V. Start: 10:44 AM Stop: 10:44 AM Medication: Versed Amount: 1 mg Route: I.V. Start: 10:47 AM Stop: 10:47 AM Medication: Fentanyl Amount: 25 mcg Route: I.V. Start: 11: AM Stop: : AM Medication: Heparin Amount: 8000 units Route: I.V. Start: 11:15 AM Stop: : AM Medication: Fentanyl Amount: 25 mcg Route: I.V. Start: : AM Stop: : AM Medication: Versed Amount: 1 mg Route: I.V. Start: :49 AM Stop: :49 AM Medication: Nitrogylcerin Amount: 200 mcg Route: I.C. Start: :49 AM Stop: :49 AM Medication: Fentanyl Amount: 25 mcg Route: I.V. I, the attending physician, have reviewed and verified all procedure medications. Yes, all medications given per verbal order History/Risk Factors Hypertension: Yes Dyslipidemia: Yes Peripheral Arterial Disease (PAD): No Myocardial Infarction (MT): Yes Obesity: No Renal Disease: No Prior Interventions PCI: Yes CABG: No Valve Surgery: No Report Signatures Finalized by Stephanie Nettles MD on 05/21/2025 04:41 PM
[2025-05-11 09:41] LABS: Hematocrit 50.3 % (36-47); Hemoglobin 16.20 g/dL (11.27-16.99); Mean Corpuscular HGB Conc 32.2 g/dL (30-55); Mean Corpuscular Hemoglobin 28.7 pg (27-33); Mean Corpuscular Volume 89.0 fl (85-98); Nucleated Red Blood Cells % 0 %; Platelet Count 203 10^3/cmm (157-399); Red Blood Count 5.65 10^6/uL (3.85-5.65); White Blood Count 7.72 10^3/uL (3.29-11.43)
--- NOTE | 2025-05-11 10:08 | W.PM.OPSFHP ---
Same Day Surgery H&P Indication for Procedure/HPI DATE OF PROCEDURE: May 11, 2025 CHIEF COMPLAINT/INDICATIONFOR SURGICAL PROCEDURE: Coronary disease Status post ST elevation [place] Severe LV dysfunction History of AICD placement Worsening of shortness of breath along with chest pain suggestive of unstable angina History of diffusely disease proximal mid and distal high-grade RCA stenosis thought to be manage with staged PCI. PREOP DIAGNOSIS: Unstable angina/coronary artery disease PLANNED PROCEDURE: Operation Date: 05/11/25 10:00 Proposed Procedures p Percutaneous Coronary Intervention - Staged PCI(Not Applicable) - Stephanie Nettles MD Patient past medical history significant for severely depressed left ventricle ejection fraction cardiomyopathy status post STEMI of LAD treated with drug-eluting stent, since then she improved and got better however she continues to have chest pain and shortness of breath, during the same angiogram it was done patient has diffuse proximal mid and distal high-grade RCA stenosis and a dominant vessel. Despite optimization of medicine including beta-ramon statin and Imdur along with Entresto patient symptoms has not improved she would like to do something for it. It is the reason she is here. Patient is high risk for intervention given nature of the disease comorbidities low ejection fraction. She clearly understands high risk for mortality and and morbidity. She would like to proceed with it. Medications/Allergies* Home Medications ?Medication ?Instructions ?Recorded ?Confirmed ?Type cholecalciferol (vitamin D3) 50 50 mcg PO QAM 05/04/21 05/10/25 History mcg (2,000 unit) tablet (Vitamin D3) ascorbic acid (vitamin C) 500 mg 500 mg PO BID 06/05/21 05/10/25 History tablet [id number]-[id number]-minerals 1 tab PO DAILY 03/30/25 05/10/25 History Allergies/Adverse Reactions Allergy/AdvReac Type Severity Reaction Status Date / Time gluten Allergy Unknown ADV-Weaknes Verified 05/11/25 09:44 s farah Allergy ADV-Weaknes Verified 05/11/25 09:44 s oats Allergy ADV-Weaknes Verified 05/11/25 09:44 s telmisartan Allergy Swelling Verified 05/11/25 09:44 wheat Allergy ADV-Weaknes Verified 05/11/25 09:44 s Current Medications: Generic Name Dose Route Start Last Admin Trade Name Freq PRN Reason Stop Dose Admin Sodium Chloride 1,000 mls @ 50 mls/hr 05/11/25 09:00 05/11/25 09:20 Sodium Chloride 0.9% IV 05/12/25 04:59 Not Given .Q20H ONE Pertinent History/Comorbid Conditions* Medical History (Updated 04/06/25 @ 17:25 by Karel Cardoso DO) Hyperlipidemia Hypertension History of KS (myocardial infarction) CAD (coronary artery disease) MS (multiple sclerosis) Surgical History (Updated 04/06/25 @ 17:25 by Karel Cardoso DO) AICD (automatic cardioverter/defibrillator) present Not functioning, lead was pulled when generator changed Stented coronary artery Family History (Updated 04/30/22 @ 11:01 by Katie Dillon RN) CAD (coronary artery disease) Father [place] @ 55 Lung disease Mother Denies family history of Diabetes Clotting disorder Dementia Chronic kidney disease (CKD) Suicide Anesthesia complication Bleeding disorder Cancer Stroke Social History Smoking and tobacco/nicotine status: former use of tobacco/nicotine (2008) Quit status (tobacco/nicotine): has quit using Year quit tobacco: 2008 Alcohol intake: never Substance/Drug Use: never Caregiver/support person: Yes Lives independently: Yes Household members: none Marital status: Current occupational status: retired Current gender identity: Female Special nita needs: No Pertinent Exam Findings alert, oriented x 3, clear to auscultation bilaterally, regular rate & rhythm, operative site marked and procedure specific exam findings Pertinent Data All risk-benefit and alternative for the procedure has been explained to the patient. Patient clearly understood 5 to 7% risk of mortality and morbidity such as stroke major bleed. Patient restand 10% risk of bleeding infection hematoma contrast-induced nephropathy urgent emergent vascular bypass surgery. Due to peripheral arterial disease she understand risk for thromboembolism limb ischemia leading to amputation. Risk is 5 to 7%. She would like to proceed with it. Recommendations Surgery/Procedure today Coding Level of Care Code Acute Code for Chg Fwd
[2025-05-11 10:18] LABS: Blood Urea Nitrogen 19 mg/dL (8-23); Calcium 9.7 mg/dL (8.5-10.5); Carbon Dioxide 29 mmol/L (22-29); Chloride 99 mmol/L (98-107); Creatinine Clr Calc Pharmacy 79.2011; Glucose 89 mg/dL (65-115); Osmolality Calculated 292 mOsm/kg (285-295); Sodium 140 mmol/L (136-145)
[2025-05-11 10:26] LABS: Anion Gap 15.7 (5-19); Potassium 3.7 mmol/L (3.5-5.1)
--- NOTE | 2025-05-11 12:00 | PC.NURSE ---
Received the patient back from the lab associate via bed s/p PCI of the RCA. Patient drowsy but awakens easily to voice. A & 0 x 3. radiation monitor placed and vital signs obtained. 6 fr sheath intact to pressure bag to the right Femoral access site. No bleeding or hematoma noted. Dressing dry and intact. Doppled PT and DP pulses. No other assessment changes noted from pre cath assessment. No concerns voiced at this time.
--- NOTE | 2025-05-11 12:03 | P.PCN_ITS ---
Procedure Note: Date of procedure: 05/11/25 Pre-procedure diagnosis: Angina Post-procedure diagnosis: same Procedure: Left heart cath was performed: Left main no significant disease LAD has patent previously placed proximal stent mid to distal has luminal irregularity without significant stenosis Left circumflex luminal irregularity RCA is a culprit vessel which has proximal moderate mid high-grade highly calcified subtotally occluded 99% napkin ring stenosis, distal RCA has moderate to high-grade stenosis. It is a culprit vessel Temporary pacemaker was placed given the calcified nature of the RCA and intervention. AL 0.75 with sidehole guide was used. We were able to cross the lesion with 2.5 and 3.0 balloons mid distal and proximal lesions were dilated however mid high- grade napkin ring 99% stenosis despite of high HUMAIRA inflation was not able to yield and a lot of waste was noted. We then tried using intravascular lithotripsy and score flex balloon despite of utmost effort using GuideLiner we were not able to cross the mid napkin ring high-grade subtotally occluded lesion with IVUS catheter or score flex. It is then decided that we will bring patient back for CSI arthrectomy in 4 weeks. No dissection or complication noted. Pacemaker was taken out of the body after the end of the case.\ Plan: Continue dual antiplatelet therapy in the form of Plavix and aspirin Resume home meds Bedrest for 5-hour after taking sheath once PTT is less than 45. Possible discharge tomorrow morning Coding Level of Care Code Acute Code for Dee Deeg Fwd
--- NOTE | 2025-05-11 14:20 | PC.NURSE ---
Patient transferred from cath laboratory technician to CSU at 1415 with a right femoral and venous sheath.
[2025-05-11 15:29] LABS: Partial Thromboplastin Time 82.8 SECONDS (23.9-36.7)
[2025-05-11 18:41] LABS: Partial Thromboplastin Time 21.9 SECONDS (23.9-36.7)
--- NOTE | 2025-05-11 19:34 | PC.NURSE ---
Patient's right femoral sheath is pulled at 1840. Dr Nettles is called and told that there is no blood return. He said to pull the sheath and let him know if there is any problems. Sheath is pulled, hemostasis is obtained right away. Manual pressure is held x 20 minutes. No hematoma is noted. Patient's right femoral venous sheath is pulled at 1905. Hemostasis is obtained right away. Manual pressure is held x 10 minutes. No hematoma is noted. A dressing of 4x4 and tegaderm is applied. Vitals remained stable throughout. Patient tolerated well.
[2025-05-12] VITALS (8 sets, daily range): BP systolic 96–155; BP diastolic 66–90; PULSE 77–84; RESP 15–21; TEMP 36.8; O2SAT 94–96
[2025-05-12] MEDS: DAPAGLIFLOZIN 5 MG TABLET PO (04:41)
[2025-05-12] MEDS: metoprolol succinate ER (24 HR) 25 mg Tablet 12.5 MG PO (04:42)
[2025-05-12 08:03] LABS: Hematocrit 45.3 % (36-47); Hemoglobin 14.20 g/dL (11.27-16.99); Mean Corpuscular HGB Conc 31.3 g/dL (30-55); Mean Corpuscular Hemoglobin 28.3 pg (27-33); Mean Corpuscular Volume 90.4 fl (85-98); Nucleated Red Blood Cells % 0 %; Platelet Count 193 10^3/cmm (157-399); Red Blood Count 5.01 10^6/uL (3.85-5.65); White Blood Count 7.60 10^3/uL (3.29-11.43)
[2025-05-12 08:31] LABS: Anion Gap 14.7 (5-19); Blood Urea Nitrogen 17 mg/dL (8-23); Calcium 9.3 mg/dL (8.5-10.5); Carbon Dioxide 28 mmol/L (22-29); Chloride 101 mmol/L (98-107); Creatinine Clr Calc Pharmacy 79.2011; Glucose 100 mg/dL (65-115); Osmolality Calculated 292 mOsm/kg (285-295); Potassium 3.7 mmol/L (3.5-5.1); Sodium 140 mmol/L (136-145)
--- NOTE | 2025-05-12 13:56 | P.DS_ITS ---
Discharge Providers Date of Admission: 05/12/2025 Date of Discharge: May 12, 2025 Attending Provider at Admission: Dr. Nettles Attending Provider at Discharge: Stephanie Nettles MD Primary Care Provider: ZOYA Cornell Reason for Visit Reason for Visit: I25.10 Brief History: This is a very pleasant 70-year-old female who has a history of significant with a depressed left ventricular ejection fraction cardiomyopathy status post STEMI of the LAD treated with drug-eluting stent at that time. During the angiogram patient had high-grade RCA stenosis and continued to have chest pain despite optimization of medical therapy including beta-ramon statin and Imdur along with Entresto. She came in for a staged procedure of the RCA. Hospital Course Hospital Course Patient underwent left heart cath with temporary pacemaker placement. There was a high grade proximal subtotally occluded 99% napkin ring stenosis, distal RCA had moderate to high-grade stenosis, lithotripsy was attempted but they were unable to cross the high-grade subtotally occluded lesion with IVUS catheter. It was then decided that we would bring the patient back for CSI atherectomy in 4 weeks. No complications were noted. Pacemaker was taken out at the end of the procedure. Patient tolerated well with no complaints and will be sent home in stable to improved condition. Physical Exam Narrative: General: No apparent distress, healthy appearing, well nourished HENMT: normoceophalic Neck: No carotid bruit bilaterally Muskuloskeletal: Full ROM Respiratory: Normal respiratory effort, clear to auscultation bilaterally throughout all lung yeboah, no use of accessory muscles Cardio: No JVD, regular rate, regular rhythm, S1 S2 normal, no murmurs, peripheral pulses 2+ radial palpated bilaterally GI: Normal to inspection, nondistended Extremities: Full ROM, normal, normal capillary refill, no cyanosis or edema Neuro: Alert and oriented x4, no focal motor deficits Psych: Affect normal, denies suicidal ideation, mental status grossly normal Skin: Right groin site clean, dry, intact w/o s/s of hematoma Discharge Data Studies Completed and Pending Pending at discharge Category Date Time 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 request for service Routine Exams 05/11/25 09:00 Ordered Laboratory Results WBC 7.60 10^3/uL (3.29-11.43) 05/12/25 07:11 RBC 5.01 10^6/uL (3.85-5.65) 05/12/25 07:11 Hgb 14.20 g/dL (11.27-16.99) 05/12/25 07:11 Hct 45.3 % (36-47) 05/12/25 07:11 MCV 90.4 fl (85-98) 05/12/25 07:11 MCH 28.3 pg (27-33) 05/12/25 07:11 MCHC 31.3 g/dL (30-55) 05/12/25 07:11 RDW 13.5 % (12.1-15.1) 05/12/25 07:11 Plt Count 193 10^3/cmm (157-399) 05/12/25 07:11 MPV 10.6 fL (7.4-10.4) H 05/12/25 07:11 Neut % (Auto) 78.2 % 05/12/25 07:11 Lymph % (Auto) 13.6 % 05/12/25 07:11 [place] % (Auto) 6.2 % 05/12/25 07:11 Eos % (Auto) 0.9 % 05/12/25 07:11 Baso % (Auto) 0.7 % 05/12/25 07:11 Neut # (Auto) 5.95 10^3/uL (1.8-7.7) 05/12/25 07:11 Lymph # (Auto) 1.0 10^3/uL (0.8-4.8) 05/12/25 07:11 [place] # (Auto) 0.5 10^3/uL (0.2-0.9) 05/12/25 07:11 Eos # (Auto) 0.1 10^3/uL (0.0-0.8) 05/12/25 07:11 Baso # (Auto) 0.1 10^3/uL (0.0-0.1) 05/12/25 07:11 Nucleated RBC % (auto) 0 % 05/12/25 07:11 Nucleated RBCs # 0.0 /100WBC 05/12/25 07:11 APTT 21.9 SECONDS (23.9-36.7) L D 05/11/25 17:49 Sodium 140 mmol/L (136-145) 05/12/25 07:11 Potassium 3.7 mmol/L (3.5-5.1) 05/12/25 07:11 Chloride 101 mmol/L (98-107) 05/12/25 07:11 Carbon Dioxide 28 mmol/L (22-29) 05/12/25 07:11 Anion Gap 14.7 (5-19) 05/12/25 07:11 BUN 17 mg/dL (8-23) 05/12/25 07:11 Creatinine 0.7 mg/dL (0.5-0.9) 05/12/25 07:11 GFR Calculation Not Reportable 05/12/25 07:11 Glucose 100 mg/dL (65-115) 05/12/25 07:11 Calculated Osmolality 292 mOsm/kg (285-295) 05/12/25 07:11 Calcium 9.3 mg/dL (8.5-10.5) 05/12/25 07:11 Creatine Kinase 87 U/L (26-192) 05/12/25 07:11 Procedures Performed Date of procedure: 05/11/25 Pre-procedure diagnosis: Angina Post-procedure diagnosis: same Procedure: Left heart cath was performed: Left main no significant disease LAD has patent previously placed proximal stent mid to distal has luminal irregularity without significant stenosis Left circumflex luminal irregularity RCA is a culprit vessel which has proximal moderate mid high-grade highly calcified subtotally occluded 99% napkin ring stenosis, distal RCA has moderate to high-grade stenosis. It is a culprit vessel Temporary pacemaker was placed given the calcified nature of the RCA and intervention. AL 0.75 with sidehole guide was used. We were able to cross the lesion with 2.5 and 3.0 balloons mid distal and proximal lesions were dilated however mid high- grade napkin ring 99% stenosis despite of high HUMAIRA inflation was not able to yield and a lot of waste was noted. We then tried using intravascular lithotripsy and score flex balloon despite of utmost effort using GuideLiner we were not able to cross the mid napkin ring high-grade subtotally occluded lesion with IVUS catheter or score flex. It is then decided that we will bring patient back for CSI arthrectomy in 4 weeks. No dissection or complication noted. Pacemaker was taken out of the body after the end of the case. Vitals Last Vital Signs Temp 98.3 F 05/12/25 04:39 Pulse 80 05/12/25 11:00 Resp 18 05/12/25 04:39 BP 108/66 05/12/25 11:00 Pulse Ox 96 05/12/25 04:39 O2 Del Method Room Air 05/12/25 04:39 Discharge Plan Discharge Patient Disposition: Home Prescriptions: New clopidogrel 75 mg Tablet 75 mg PO DAILY Qty: 90 3RF Continued ascorbic acid (vitamin C) 500 mg tablet 500 mg PO BID (DME) left knee brace See Rx Instructions .Route .MEDSUPPLY Qty: 1 0RF Rx Instructions: Left knee and ankle brace fitting cholecalciferol (vitamin D3) [Vitamin D3] 50 mcg (2,000 unit) Tablet 50 mcg PO QAM [id number]-minerals Tablet 1 tab PO DAILY rosuvastatin 10 mg 10 mg PO Q7W Rx Instructions: takes every Friday nitroglycerin [Nitrostat] 0.4 mg tablet, sublingual 0.4 mg SUBLINGUAL Q5M PRN (Reason: Chest Pain) Qty: 30 1RF Rx Instructions: max 3 doses furosemide 20 mg Tablet 40 mg PO DAILY 60 Days Qty: 60 0RF metoprolol succinate 25 mg Tablet Extended Release 24 Hr 12.5 mg PO DAILY 60 Days Qty: 60 0RF dapagliflozin propanediol 5 mg Tablet 5 mg PO DAILY 60 Days Qty: 60 0RF aspirin 81 mg Tablet,Delayed Release (Dr/Ec) 81 mg PO QAM Qty: 60 0RF Discontinued atorvastatin 40 mg Tablet 40 mg PO BEDTIME 60 Days Qty: 60 0RF midodrine 5 mg Tablet 5 mg PO TID 60 Days Qty: 180 0RF clopidogrel 75 mg Tablet 75 mg PO DAILY 60 Days Qty: 60 0RF Discharge Order = DC NOW: Discharge Order (Routine); Ordered 05/12/25 Ordered By: Asuncion Gould Referrals: Funmilayo Rodriguez FNP [Primary Care Provider, Family Practice] - 05/19/25 10:00 am Anya Sosa FNP [Nurse Practitioner, Cardiology] - 06/06/25 2:30 pm Diet: Regular and Cardiac Activity: Limit activity as instructed Patient Instructions: Clopidogrel (By mouth) (Plavix), Clopidogrel (By mouth), Coronary Angioplasty (DC), Heart Catheterization (DC), Post Angiogram Home Care Instructions Activity Restrictions/Additional Instructions: Discussed with patient no heavy lifting more than a gallon of milk as well as going up or down steps for 3 days. No driving for 3 days. Monitor for and report signs or symptoms of bleeding. Monitor for and report s/s of infection such as fever 101 or greater, swelling, redness or pain to the groin. Print Language: Japanese Discharge Attestations Time Spent in Discharge Care*: less than 30 min Status at Discharge: Cognitive status at discharge: cognitively intact , Behavioral status at discharge: cooperative , Quality Metrics Clinical Quality Measures [ No reported AMI, CVA or VTE this stay] Coding Level of Care Code Acute Code for Chg Denise
--- NOTE | 2025-05-12 14:44 | PC.NURSE ---
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 Due to patients health we were unable to put her in the patient waiting area. Original Note: Patient is discharging to home. Her yqkc-gp-lapo have been delivered to the patient. She has received her discharge papers. She is now waiting for her family to come and get her.
== END 2025-05-12 16:57 | disposition home or self-care (01) ==
LOC: CCL 09:10 → CSU 05-12 08:58
PROVIDERS: Nurse Practitioner Family; PCP Nurse Practitioner Family; Visit Provider Internal Medicine Cardiovascular Disease
DX: I50.20 Unspecified systolic (congestive) heart failure (principal); Z79.01 Long term (current) use of anticoagulants; R00.1 Bradycardia, unspecified; I42.9 Cardiomyopathy, unspecified; Z95.5 Presence of coronary angioplasty implant and graft; I25.2 Old myocardial infarction; I25.10 Atherosclerotic heart disease of native coronary artery without angina pectoris; I25.84 Coronary atherosclerosis due to calcified coronary lesion; I05.0 Rheumatic mitral stenosis; Z82.49 Family history of ischemic heart disease and other diseases of the circulatory system; Z87.891 Personal history of nicotine dependence
CPT/HCPCS: 33210; 36415; 80048; 82550; 85025; 85347; 85730; 92920; 93458; 99152; 99153; C1725; C1761; C1769; C1779; C1887; C1894; J0461; J1644; J2250; J3010; J3490; J7030; J9999; Q0163; Q9967

== ENCOUNTER → 2025-05-19 12:10 | Outpatient (BNVA) | payer MEDICARE, SELFPAY | PROVIDERS: PCP Nurse Practitioner Family; Visit Provider Nurse Practitioner Family | DX: I50.9 Heart failure, unspecified (principal) | CPT/HCPCS: 80053; 82607; 83735; 85025 ==

== ENCOUNTER → 2025-06-06 13:58 | Outpatient (BNVA) | payer MEDICARE, SELFPAY | PROVIDERS: Absent Provider Internal Medicine Cardiovascular Disease; PCP Nurse Practitioner Family; Visit Provider Nurse Practitioner Family | DX: I25.10 Atherosclerotic heart disease of native coronary artery without angina pectoris (principal); I11.0 Hypertensive heart disease with heart failure; I50.20 Unspecified systolic (congestive) heart failure; E78.5 Hyperlipidemia, unspecified; Z95.5 Presence of coronary angioplasty implant and graft; Z95.810 Presence of automatic (implantable) cardiac defibrillator; Z87.891 Personal history of nicotine dependence; I25.2 Old myocardial infarction | CPT/HCPCS: 36415; 80048; 99214 ==